=== PATIENT | female | born 1990 | race Caucasian/White ===

== ENCOUNTER → 2018-07-24 13:17 | Outpatient (CLI) | payer MEDICAID, SELFPAY ==
--- NOTE | 2018-07-24 12:30 | US_ITS ---
STUDY: SECOND AND THIRD TRIMESTER OBSTETRICAL ULTRASOUND REASON FOR EXAM: Female, 27 years old. 2nd trimester complete OB ultrasound with anatomy survey and biometrics. LMP: 02/27/2018 TECHNIQUE: Transabdominal PRIOR ULTRASOUND: None. FINDINGS: There is a single live intrauterine gestation in cephalic presentation with cardiac rate 138 bpm. The cervix is 4.1 cm in length, closed. Normal amniotic fluid quantity, deepest vertical pockets 4.5 and 3.1 cm. The placenta is anterior to posterior, not low-lying, bilobed appearance most consistent with a succenturiate placenta. The smaller appearing accessory lobe of the placenta lies fundal posterior and the more prominent portion of the placenta lies anterior. The maternal adnexa are examined with no acute abnormality seen. BIOMETRY: Measurements and centimeter. BPD: 5.4: 22 weeks, 4 days HC: 19.76: 22 weeks, 0 days AC: 17.54: 22 weeks, 4 days FL: 3.66: 21 weeks, 5 days CI: 80% FL/BPD: 68% FL/AC: 21% HC/AC: 1.13 age by current US: 22 weeks, 2 days. NOA by current US: 11/25/2018. Estimated weight: 475 grams, +/- 69 grams, 93 %. Age by LMP: 21 weeks, 0 days. NOA by LMP: 12/04/2018. ANATOMY: Gender: Male Cranium: Normal lateral ventricles. Normal choroid plexus. Normal cerebellum. Normal cisterna magna. Coronal views of the nose, lips, and orbits are satisfactory and appear normal. The sagittal midline view of the face could not be obtained due to positioning. Chest: Normal 4-chamber heart. Abdomen/Pelvis: Normal diaphragm. Normal stomach. Normal abdominal wall. Normal cord insertion. Normal 3 vessel cord. Normal kidneys. Normal bladder. Spine: Normal cervical spine. Normal thoracic spine. Normal lumbar spine. Normal sacrum. Extremities: Normal bilateral upper extremities. Normal bilateral lower extremities. US/OB Anatomy Scan IMPRESSION: Single live intrauterine gestation. No acute or maternal abnormality is evident. Bilobed morphology of the placenta in a pattern consistent with succenturiate placenta. Anatomy survey is satisfactory and normal with the exception of the sagittal midline view of the face. This view could not be obtained due to positioning. A limited follow-up ultrasound is recommended after a brief period of growth for completion of the survey. Electronically Signed: Gerardo Mcmahon, at 17:55 EDT Tel , Service support ,
== END ==
PROVIDERS: Visit Provider Obstetrics & Gynecology
DX: O43.192 Other malformation of placenta, second trimester (principal); Z3A.22 22 weeks gestation of pregnancy
CPT/HCPCS: 76805

== ENCOUNTER → 2018-09-05 15:54 | Outpatient (CLI) | payer MEDICAID, SELFPAY ==
[2018-09-05 15:02] VITALS: BMI 23.0
--- NOTE | 2018-09-05 15:57 | US_ITS ---
STUDY: SECOND AND THIRD TRIMESTER OBSTETRICAL ULTRASOUND - LIMITED REASON FOR EXAM: Female, 27 years old. Follow-up anatomy. LMP: 02/27/2018 PRIOR ULTRASOUND: 07/24/2018 TECHNIQUE: Transabdominal TECHNICAL QUALITY: Adequate. FINDINGS: There is a single intrauterine fetus. The fetus is in a breech presentation. There is demonstrated cardiac activity with a heart rate of 135 bpm. There is a normal amniotic fluid volume. The largest amniotic fluid pocket measures 3.5 cm. The amniotic fluid index (SHANNEN) is 11.2 cm. The placenta is bilobed anterior and posterior, not low-lying There are Grade 1 placental changes. The cervix measures 4.5cm in length. BIOMETRY: BPD: 7.1 cm: 28 weeks, 5 days HC: 25.8 cm: 28 weeks, 1 days AC: 23.3 cm: 27 weeks, 5 days FL: 5.1 cm: 24 weeks, 4 days Age by LMP: 27 weeks, 1 days. NOA by LMP: 12/04/18. age by prior US: 28 weeks, 3 days. NOA by prior US: 11/25/18. age by current US: 28 weeks, 1 days. NOA by current US: 11/25/18. Estimated weight: 1108 grams, +/- 162 grams, 59 percentile. Gender: Indeterminant Previous study did not clearly demonstrate the profile, face nose and lips. Though structures are visualized on today's examination and are sonographically normal. US/OB Limited With Biometrics IMPRESSION: Single live intrauterine at 28 weeks, 1 day by current ultrasound with NOA of 11/25/2018. Previously described anatomy showed be normal on today's study. There are no suspicious sonographic findings. Presentation on current study is breech. Electronically Signed: Sulaiman Potts MD at 8:41 EST , Service support ,
[2018-09-05 17:19] LABS: Absolute Lymphocyte Count 1.39 X10^3/ul (0.83-4.51); Absolute Neutrophil Count 8.3 X10^3/uL (2.0-7.7); Basophil# 0.01 X10^3/uL; Basophil% 0.1 % (0-1); Eosinophil# 0.07 X10^3/uL; Eosinophils% 0.7 % (0-5); Hematocrit 35.2 % (37-47); Hemoglobin 11.8 g/dl (12.0-15.0); Lymphocyte # 1.39 X10^3/ul (4.0); Lymphocyte % 13.5 % (19-41); Mean Corp Hgb Conc 33.5 g/gl (32-36); Mean Corpuscular Volume 92.4 fL (81-99); Mean Platelet Vol. 11.5 fl (6.2-12.0); Monocyte# 0.49 X10^3/uL; Monocyte% 4.8 % (0-10); Neutrophil # 8.28 X10^3/uL (2.7-7.7); Neutrophil % 80.3 % (47-70); Platelet Count 137 K/mm3 (150-450); RBC Distribution Width CV 13.6 % (11.6-14.6); RBC Distribution Width SD 45.2 fl (35.1-43.9); Red Blood Count 3.81 M/mm3 (4.2-5.4); White Blood Count 10.3 K/mm3 (4.4-11.0)
[2018-09-05 17:23] LABS: POSITIVE COUNT NO; POSITIVE DIFFERENTIAL NO; POSITIVE MORPHOLOGY NO
[2018-09-05 17:34] LABS: Glucose Challenge Gest 1H 50g 93 mg/dL (70-140)
--- OUTSIDE RECORDS SUMMARY | 2018-10-31 15:37 | XMS RPT_ITS ---
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 [facility], Cord Blood Registry, [phone]) [facility], An Internet search may provide you with additional listings. Kathleen Carreon RN 04/03/2018 11:22 AM Signed #: 1, Date: [birth year], Sex: Male, Weight: 5 lb 11 oz (2.58 kg), GA: 37w6d, Delivery: Vaginal, Spontaneous Delivery, Apgar1: 8, Apgar5: 9, Living: Living, Comments: [place], pitocin induction, IUGR, EBL 200cc, depression #: 2, Date: 07/2013, Sex: None, Weight: None, GA: 6w0d, Delivery: SPONTANEOUS , Apgar1: None, Apgar5: None, Living: None, Comments: Sarah MORGAN #: 3, Date: 10/27/14, Sex: Female, Weight: 5 lb 3.7 oz (2.373 kg), GA: 34w3d, Delivery: Vaginal, Spontaneous Delivery, Apgar1: 8, Apgar5: 9, Living: Living, Comments: Spontaneous labor, PTL, EBL 200cc #: 4, Date: None, Sex: None, Weight: None, GA: None, Delivery: None, Apgar1: None, Apgar5: None, Living: None, Comments: None Referring Provider: SELF [200] Allergies As of Date: 04/03/2018 Noted Allergy Reaction ADHESIVE TAPE (ROSINS) 04/03/2018 2 - Rash Comments: Clear Bandage used for IV PENICILLINS 08/22/2005 2 - Rash Date Reviewed: 04/03/2018 Reviewed by: Kathleen Carreon RN - Fully Assessed Reason for Visit: Care [86] Cmt: Pre-New OB Primary Visit Diagnosis:High risk , antepartum [O09.90] Other Visit Diagnoses:PERSONAL HISTORY OF PRE-TERM LABOR [V13.21] [Z87.51] IUGR (intrauterine growth restriction) in prior , [O09.299] History of delivery, currently [O09.219] History of depression [Z86.59] Family history of congenital heart defect [Z82.79] Nausea and vomiting in [O21.9] Order(s):MIGUEL ÁNGEL PT ED MICROBIOLOGY PROFESSOR [] Order #: [id number]: 1 FUTURE MIGUEL ÁNGEL PT ED MICROBIOLOGY PROFESSOR [] Order #: [id number]: 1 FUTURE MIGUEL ÁNGEL PT ED MICROBIOLOGY PROFESSOR [] Order #: [id number]: 1 FUTURE MIGUEL ÁNGEL PT ED MICROBIOLOGY PROFESSOR [] Order #: [id number]. #:[id number]: 1 MIGUEL ÁNGEL PT ED MICROBIOLOGY PROFESSOR [] Order #: [id number]. #:[id number]: 1 MIGUEL ÁNGEL PT ED MICROBIOLOGY PROFESSOR [] Order #: [id number]. #:[id number]: 1 Prescriptions as of 04/03/2018 Sig: VITAMIN,CALCIUM,MINE* Take 1 tablet by mouth. Problem List As Of Date 04/03/2018 Noted Resolved Spotting in first trimester [O26.851] INVALID FOR*04/14/2013 More... H/O defect [Z87.798] INVALID FOR*06/17/2013 More... Immunization due [Z23] INVALID FOR*06/17/2013 More... Late care [O09.30] INVALID FOR*06/17/2013 More... Supervision of normal first [Z34.00] INVALID FOR*06/17/2013 More... TMJ (temporomandibular joint disorder) [M26.609]INVALID FOR*06/17/2013 SGA (small for gestational age) [P05.10] INVALID FOR*06/17/2013 More... Situational mixed anxiety and depressive disord*INVALID FOR* More... Contraceptive management [Z30.9] INVALID FOR*08/03/2014 Short interval between pregnancies complicating*INVALID FOR*12/13/2014 More... History of prior with IUGR [Z*INVALID FOR*12/13/2014 More... First trimester bleeding [O20.9] INVALID FOR*12/13/2014 More... History of congenital heart defect [Z87.74] INVALID FOR*12/13/2014 More... Anemia in [O99.019] INVALID FOR*12/13/2014 Threatened labor, antepartum [O47.00] INVALID FOR*12/13/2014 More... IUGR (intrauterine growth restriction) in prior*INVALID FOR* More... History of delivery, currently *INVALID FOR* More... History of depression [Z86.59] INVALID FOR* More... Family history of congenital heart defect [Z82.*INVALID FOR* More... Nausea and vomiting in [O21.9] INVALID FOR* More... Other instructions from your clinician: SEQUENTIAL SCREENINGS [facility] offers sequential screenings for women who are interested in screenings for chromosomal abnormalities and certain defects during a . The sequential screen combines ultrasound and blood tests to determine the risk of chromosomal abnormalities, including Down's Syndrome (Trisomy 21) and Trisomy 18, as well as open neural tube defects including spina bifida. Ultrasound examination is performed between 11 weeks and 13 weeks gestational age. Blood tests are drawn after the ultrasound and again later in the between 15 and 21 weeks gestational age. Please let your physician know if you are interested in this testing. It will require an appointment with our refractory technician. This is not an ultrasound performed by a physician in our office during a routine visit. SIGNS AND SYMPTOMS OF LABOR 1. Contractions every 10 minutes or more often 2. Clear, pink, or brownish fluid (water) leaking from vagina 3. Feeling that baby is pushing down, pressure 4. Low, dull backache 5. Cramps that feel like a period 6. Cramps with or without diarrhea If you notice any of the above symptoms, contact our office at [phone] and ask to speak with a nurse. After hours, you can call doctors registry at [phone] OR call [facility] at [phone] and ask to have the doctor telephone clerk paged. If you consider this an emergency, dial 9-1-1 or go to your nearest emergency department. Cord-Blood Banking Up until recently, the umbilical cord--along with the blood that remained in it after a baby was born and the cord cut--was simply discarded by the hospital. Then, in the late , researchers discovered that cord blood possessed unusual properties that made it useful in the treatment of patients with some cancers and other illnesses. While the actual process of collecting cord blood is straightforward, many parents are not even aware that this option now exists, much less familiar with all the issues involved. The case for saving your baby's cord blood The blood running back and forth between your baby and the placenta is full of immature cells called stem cells. Unlike embryonic stem cells, which have the ability to develop into any type of body cell, cord-blood stem cells already are locked into a certain, vital function: making all the different components of the blood, such as platelets, white blood cells, and red blood cells-serving, in effect, like bone marrow. When transfused into a patient whose own blood cells have faulty genetic coding or have been destroyed by chemotherapy or other cancer treatments, the cord-blood cells can implant themselves in the bone marrow and generate legions of new, healthy cells. These days, cord-blood transplants most commonly are used in cancer patients when a donor can't be found for a bone-marrow transplant. The treatment is particularly effective in young patients- the [facility] Cord Blood [facility] reports a 70 percent success rate in children, but only 20 to 40 percent in adults. Researchers envision improving those odds and see many future applications as well, such as curing sickle cell disease and other blood-related genetic illnesses. So there is a possibility that your child, or someone else, may need these super-healthy and versatile cells one day. The drawbacks Aside from not knowing about this medical option, the main reason most people do not save their baby's stem cells is cost. In a private blood bank, the initial costs run from $275 to $1,500. Most also charge a yearly storage fee of $50 to $95. The advantage of using a private bank is that your sample is saved for only you to use. An alternative to private banking Public cord-blood gentile are an alternative. These cost no money to use, but your sample is not specifically saved for you. Another person with a more immediate need may use it. If the time should come that you need stem cells, yours may still be available, or you may use donations from other people without charge. You also can direct your sample to go to a relative with an immediate need if the blood type matches. Anyone else needing to use stem cells from a public bank who has not been a donor must pay for it, sometimes tens of thousands of dollars. Will my family benefit from saving stem cells? Right now, situations in which stem cells would be helpful are quite rare. As mentioned earlier, stem-cell transplants are most commonly used for rare genetic conditions and for some types of cancer, including leukemia and lymphoma. And even with these present uses, many questions remain. In cancer treatment, for example, some researchers are concerned about the wisdom of transplanting back into the child the same cells that already showed a propensity to become malignant. Doctors also aren't sure if the number of cells taken at the time of would be enough to treat a full-grown 16-year-old. It is also not completely clear how active the cells would be after years of being stored. The treatment is so new and rare, we just don't have the data yet to resolve these important issues. What do the experts say? The [place] [employer] encourages philanthropic blood banking in public gentile, but only for families with a current or potential need. Blood-bank proponents encourage any kind of banking, pointing out that research is getting closer and closer to many diverse, live-saving applications. How do I decide? Each family must weigh the pros and cons for themselves. Some families say that any cost is worth their peace of mind. Others say that in the face of uncertainty about the effectiveness of the treatment, they will use their resources elsewhere. Some choose the middle ground of donating publicly, knowing that their sample might benefit another family, if not themselves. For more information, ask your doctor or nurse, and be sure to check out our article on the technical aspects of cord-blood banking. Technical Aspects of Cord-Blood Banking If you are interested in storing your baby's umbilical- cord blood because of its possible use in emerging medical treatments, you must make arrangements with a blood bank before your child is born. The collection procedure is quite simple: After delivery of the baby, the umbilical cord is clamped and cut in the usual way. The blood that remains in the umbilical-cord vessels is then collected in sterile containers. The blood may be removed from the cord with a large needle or allowed to flow freely, depending on the company's collection system. The containers may look like large test tubes or like the plastic bags used in a blood bank. It does not cause the mother or the baby any pain to collect the blood, and no blood is taken that the baby needs at the moment. The nurse, fire fighter crash fire and rescue, or physician will then label the samples, check them over with you, and package them for a special pickup arranged with a commercial carrier. When the blood arrives at the blood- bank facility, it is processed and the parents are notified. It is then kept in an advanced storage system for years. How do I know that my sample is safe? Power outages and bankruptcies potentially could threaten any organization, but so far none have been reported. It is to be hoped that the scientists in these gentile would arrange for safe transfer to another facility if the need arose. YOU MUST MAKE ARRANGEMENTS AHEAD OF TIME! Public cord-blood gentile--DONATION: [employer] [phone] [facility]'s Placental Blood Program, [facility]ilical Cord Blood [facility], Private cord-blood gentile--SAVING FOR YOUR OWN USE: [employer], (I think this is the least expensive) [employer] [phone] [facility], ([phone]) [employer] [place] [facility], [phone] Cells, [phone] [place] [facility], Cord Blood Registry, ([phone]) CORDBLOOD [employer], An Internet search may provide you with additional listings. Disposition: Return in about 7 days (around 04/10/2018) for New OB appointment. Follow-up and Disposition History Recorded Encounter Status:Closed by KATHLEEN CARREON RN on 04/03/18 PROGRESS Observed: 03/28/2018 Status: COMPLETED Source: LIN 10:43 AM [facility] [place] REPOSITORY HNO ID: [id number] Author: Jaimee Tucker) [place] Service: (none) Author Type: Nurse Practitioner Type: Progress Notes Filed: 03/28/2018 11:10 AM Note Text: Halie Garcia is a 27 year old female who presents for problem visit Irregular menses. HPI: pt states that since the Nexplanon was removed that menses have been irregular. She will bleed for 2 weeks and stop for 2 weeks. She believes that her LMP was the end of January but unsure- did take a home test on Saturday and was unsure of the reading. PAST MEDICAL HISTORY Diagnosis Date - Abnormal Pap smear of cervix 2008 [facility] - Anemia in 09/13/2014 - FRACTURE ANKLE, GYM ACCIDENT - Situational mixed anxiety and depressive disorder 07/10/2013 PAST SURGICAL HISTORY Procedure Laterality Date - PAST SURGICAL HISTORY OF ORAL SUREGERY FAMILY HISTORY Problem Relation Age of Onset - Arthritis Maternal Grandmother - Asthma Maternal Grandmother - Cancer Paternal Grandmother - Diabetes Maternal Grandmother - Hypertension Maternal Grandmother - Seizures Mother - Thyroid Maternal Grandmother Social History Marital status: Spouse name: EDGAR Years of education: 13 Number of children: 1 Occupational History 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 Take only active pills. Kbeujvdj-Rk-Wix-Fe-FA ( VITAMIN) tab Take 1 tablet by mouth. No current facility-administered medications for this visit. Allergies As of Date: 03/28/2018 Allergen Noted Reaction PENICILLINS 08/22/2005 Rash Fully Assessed 12/06/2017 REVIEW OF SYSTEMS Abdomen: some nausea and decrease in appetite recently Bladder: No dysuria, gross hematuria, urinary frequency, urinary urgency, or incontinence. Expanded ROS: N/A Allergies and current medication updated:Yes EXAM: There were no vitals taken for this visit. GENERAL: pleasant, female in no apparent distress HEENT: Normocephalic, atraumatic and no lesions CHEST: Normal inspiratory effort NEURO: alert and oriented x3,exam grossly non-focal EXTREMITIES: normal ASSESSMENT AND PLAN: Encounter Diagnosis ICD-10-CM 1. Irregular menses N92.6 HCG QUAL UR B/O + urine in the office- pt happy with + test. Early ultrasound ordered. PNOB visit to be schedule. Jaimee Gentile APRN.CNP CNOV Observed: 03/28/2018 Status: COMPLETED Source: [place] 10:30 AM [facility] REPOSITORY Office Visit (WOOB) HALIE GARCIA ([id number]) 1990 F Date Time Provider Department 03/28/18 10:30 AM JAIMEE GENTILE (MELISA) WOJONATHAN During your visit today, we recorded the following information about you: Blood pressure Weight Height Last Period 100/70 48.4 kg 1.562 m 01/26/18 Jaimee Gentile APRN.CNP 03/28/2018 11:10 AM Signed Halie Garcia is a 27 year old female who presents for problem visit Irregular menses. HPI: pt states that since the Nexplanon was removed that menses have been irregular. She will bleed for 2 weeks and stop for 2 weeks. She believes that her LMP was the end of January but unsure- did take a home test on Saturday and was unsure of the reading. PAST MEDICAL HISTORY Diagnosis Date - Abnormal Pap smear of cervix 2008 [facility] - Anemia in 09/13/2014 - FRACTURE ANKLE, GYM ACCIDENT - Situational mixed anxiety and depressive disorder 07/10/2013 PAST SURGICAL HISTORY Procedure Laterality Date - PAST SURGICAL HISTORY OF ORAL SUREGERY FAMILY HISTORY Problem Relation Age of Onset - Arthritis Maternal Grandmother - Asthma Maternal Grandmother - Cancer Paternal Grandmother - Diabetes Maternal Grandmother - Hypertension Maternal Grandmother - Seizures Mother - Thyroid Maternal Grandmother Social History Marital status: Spouse name: EDGAR Years of education: 13 Number of children: 1 Occupational History 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 Take only active pills. Mfrfekxm-Db-Fmx-Fe-FA ( VITAMIN) tab Take 1 tablet by mouth. No current facility-administered medications for this visit. Allergies As of Date: 03/28/2018 Allergen Noted Reaction PENICILLINS 08/22/2005 Rash Fully Assessed 12/06/2017 REVIEW OF SYSTEMS Abdomen: some nausea and decrease in appetite recently Bladder: No dysuria, gross hematuria, urinary frequency, urinary urgency, or incontinence. Expanded ROS: N/A Allergies and current medication updated:Yes EXAM: There were no vitals taken for this visit. GENERAL: pleasant, female in no apparent distress HEENT: Normocephalic, atraumatic and no lesions CHEST: Normal inspiratory effort NEURO: alert and oriented x3,exam grossly non-focal EXTREMITIES: normal ASSESSMENT AND PLAN: Encounter Diagnosis ICD-10-CM 1. Irregular menses N92.6 HCG QUAL UR B/O + urine in the office- pt happy with + test. Early ultrasound ordered. PNOB visit to be schedule. Jaimee Gentile, ANANDA.LABORER ADJUSTABLE STEEL JOIST Referring Provider: SELF [200] Allergies As of Date: 03/28/2018 Noted Allergy Reaction PENICILLINS 08/22/2005 2 - Rash Date Reviewed: 03/28/2018 Reviewed by: Jaimee (Melisa) Seferino - Fully Assessed Reason for Visit: Menstrual Problem [67] Primary Visit Diagnosis:Irregular menses [N92.6] Other Visit Diagnosis:Encounter for test, result positive [Z32.01] Order(s):HCG QUAL UR B/O [[id number]] Order #: [id number] OBSTETRIC ULTRASOUND WHI [[id number]] Order #: [id number]: 1 Prescriptions as of 03/28/2018 Sig: VITAMIN,CALCIUM,MINE* Take 1 tablet by mouth. Problem List As Of Date 03/28/2018 Noted Resolved Spotting in first trimester [O26.851] INVALID FOR*04/14/2013 More... H/O defect [Z87.798] INVALID FOR*06/17/2013 More... Immunization due [Z23] INVALID FOR*06/17/2013 More... Late care [O09.30] INVALID FOR*06/17/2013 More... Supervision of normal first [Z34.00] INVALID FOR*06/17/2013 More... TMJ (temporomandibular joint disorder) [M26.609]INVALID FOR*06/17/2013 SGA (small for gestational age) [P05.10] INVALID FOR*06/17/2013 More... Situational mixed anxiety and depressive disord*INVALID FOR* More... Contraceptive management [Z30.9] INVALID FOR*08/03/2014 Short interval between pregnancies complicating*INVALID FOR*12/13/2014 More... History of prior with IUGR [Z*INVALID FOR*12/13/2014 More... First trimester bleeding [O20.9] INVALID FOR*12/13/2014 More... History of congenital heart defect [Z87.74] INVALID FOR*12/13/2014 More... Anemia in [O99.019] INVALID FOR*12/13/2014 Threatened labor, antepartum [O47.00] INVALID FOR*12/13/2014 More... Medications Discontinued During This Encounter norgestimate 0.25 mg-ethinyl estradi* 3 Pa* 5 12/11/2017 03/28/2018 Route: ORAL Sig: Take 1 tablet by mouth once daily. Take only active pills. Patient not taking: Reported on 03/28/2018 Disc: Reason for discontinue is not on file. Encounter Status:Closed by JAIMEE GENTILE on 03/28/18 PROGRESS Observed: 12/06/2017 Status: COMPLETED Source: [place] 11:34 AM [facility] REPOSITORY HNO ID: [id number] Author: Jaimee Gentile Service: (none) Author Type: Nurse Practitioner Type: Progress Notes Filed: 12/06/2017 12:12 PM Note Text: Halie Garcia is a 27 year old female who presents for Nexplanon removal for abnormal bleeding. UNIVERSAL PROTOCOL / SAFETY CHECKLIST Procedure to be performed: nexplanon removal Sign in Communication: Completed Time Out: Team Confirms the Correct Patient, Correct Procedure, Correct Site and Site Marking, Correct Position (if applicable), Prep and Dry Time (if applicable). Time: 1150 Affirmation of Time Out: YES Sign Out Discussion: Completed TECHNIQUE: Patient placed in supine position with right arm bent at the elbow and placed over the head. Skin cleansed with betadine. 2mL of 1% lidocaine with epi injected subQ along insertion site. Scalpel used to made a 5mm stab incision superficially at distal end of Nexplanon. Device removed under sterile technique with a small hemostat. Sterile pressure dressing applied. AANDP: 27 year old female here for implanon removal Nexplanon removed intact without difficulty. The patient was instructed to remove the dressing after 24 hours. Contraceptive plans OCP JAIMEE GENTILE CNP CNOV Observed: 12/06/2017 Status: COMPLETED Source: [place] 11:30 AM [facility] REPOSITORY Office Visit (WOOB) HALIE GARCIA ([id number]) 1990 F Date Time Provider Department 12/06/17 11:30 AM JAIMEE GENTILE) WOOB During your visit today, we recorded the following information about you: Blood pressure Weight 104/60 49.9 kg JAIMEE GENTILE CNP 12/06/2017 12:12 PM Signed Halie Garcia is a 27 year old female who presents for Nexplanon removal for abnormal bleeding. UNIVERSAL PROTOCOL / SAFETY CHECKLIST Procedure to be performed: nexplanon removal Sign in Communication: Completed Time Out: Team Confirms the Correct Patient, Correct Procedure, Correct Site and Site Marking, Correct Position (if applicable), Prep and Dry Time (if applicable). Time: 1150 Affirmation of Time Out: YES Sign Out Discussion: Completed TECHNIQUE: Patient placed in supine position with right arm bent at the elbow and placed over the head. Skin cleansed with betadine. 2mL of 1% lidocaine with epi injected subQ along insertion site. Scalpel used to made a 5mm stab incision superficially at distal end of Nexplanon. Device removed under sterile technique with a small hemostat. Sterile pressure dressing applied. AANDamp;P: 27 year old female here for implanon removal Nexplanon removed intact without difficulty. The patient was instructed to remove the dressing after 24 hours. Contraceptive plans OCP JAIMEE GENTILE CNP Referring Provider: SELF [200] Allergies As of Date: 12/06/2017 Noted Allergy Reaction PENICILLINS 08/22/2005 2 - Rash Date Reviewed: 12/06/2017 Reviewed by: Jaimee Tucker) Seferino - Fully Assessed Reason for Visit: nexplanon removal [Other] Primary Visit Diagnosis:Encounter for IUD removal [Z30.432] Other Visit Diagnosis:Oral contraception initial prescription [Z30.011] Order(s):L-NorgestANDE Estradiol-E Estrad (LOSEASONIQUE) 0.10 mg-20 mcg (84)/10 mcg (7) 3MPkTake 1 tablet by mouth once daily.Disp: 1 PackageRfl: 3 Prescriptions as of 12/06/2017 Sig: L NORGEST/E ESTRADIOL-E ESTRA* Take 1 tablet by mouth once d* VITAMIN,CALCIUM,MINE* Take 1 tablet by mouth. Problem List As Of Date 12/06/2017 Noted Resolved Spotting in first trimester [O26.851] INVALID FOR*04/14/2013 More... H/O defect [Z87.798] INVALID FOR*06/17/2013 More... Immunization due [Z23] INVALID FOR*06/17/2013 More... Late care [O09.30] INVALID FOR*06/17/2013 More... Supervision of normal first [Z34.00] INVALID FOR*06/17/2013 More... TMJ (temporomandibular joint disorder) [M26.609]INVALID FOR*06/17/2013 SGA (small for gestational age) [P05.10] INVALID FOR*06/17/2013 More... Situational mixed anxiety and depressive disord*INVALID FOR* More... Contraceptive management [Z30.9] INVALID FOR*08/03/2014 Short interval between pregnancies complicating*INVALID FOR*12/13/2014 More... History of prior with IUGR [Z*INVALID FOR*12/13/2014 More... First trimester bleeding [O20.9] INVALID FOR*12/13/2014 More... History of congenital heart defect [Z87.74] INVALID FOR*12/13/2014 More... Anemia in [O99.019] INVALID FOR*12/13/2014 Threatened labor, antepartum [O47.00] INVALID FOR*12/13/2014 More... Prescriptions ordered this encounter Disp Refills Start End L NORGEST/E ESTRADIOL-E ESTRAD 0.10 * 1 Pa* 3 12/06/2017 Route: ORAL Sig: Take 1 tablet by mouth once daily. Medications Discontinued During This Encounter levonorgestrel (MIRENA) 20 mcg/24 hr* 1 Ea* 0 12/29/2014 12/06/2017 Class: In Office Cmt: LOT # [id number] EXP: 09/05/2017 Route: INTRAUTERINE Si Each by INTRAUTERINE route continuous. Disc: Reason for discontinue is not on file. escitalopram oxalate (LEXAPRO) 10 mg* 30 t* 2 11/24/2015 12/06/2017 Route: ORAL Sig: Take 1 tablet by mouth once daily. Disc: Reason for discontinue is not on file. Encounter Status:Closed by JAIMEE GENTILE on 12/06/17 ALLERGIES ALLERGIES DATE TYPE / CODE NAME / CODE REACTION SEVERITY SOURCE 09/23/2018 Drug Penicillins/F001 Hives Unknown [place] Allergy/344272757( 268383(RXNORM) [facility] SNOMED CT) Hospital Repository 09/23/2018 Miscellaneous IV patch/latex Rash/welt [place] Allergy/044749224( [facility] SNOMED CT) Hospital Repository 04/03/2018 Chemical/240365763 ADHESIVE TAPE RASH [place] (SNOMED CT) (ROSINS) [facility] [place] Repository 08/22/2005 Drug PENICILLINS RASH Lin Class/[id number]([facility] Main [facility] [place] Rep[place] Drug PCN Moderate Sammy Pome[place] Allergy/344316915( (penicillin)/000 ([facility]) 78042(RXNORM) Modifier) Hospital (Qualifier Repository Value) ENCOUNTERS ENCOUNTERS ADMIT/DISCHARGE ACCOUNT ADMITTING ENCOUNTER LOCATION SOURCE NUMBER CLASS 09/23/2018/09/23/20 [id number] Ambulatory BMSBuilding:B [place] 18 [facility] Repository 09/17/2018/09/17/20 [id number] GENE BRYSON Ambulatory [facility] [address] Repository 09/05/2018 [id number] Ambulatory [facility] ing:US Repository 09/05/2018/09/05/20 [id number] Ambulatory BMSBuilding:B [place] 18 [facility] Repository 08/08/2018/08/08/20 [id number] Ambulatory BMSBuilding:B [place] 18 [facility] Repository 07/24/2018 [id number] Ambulatory [facility] ing:OPUS Repository 06/27/2018/06/30/20 [id number] Ambulatory [address] Repository 06/27/2018/06/27/20 [id number] Ambulatory BMSBuilding:B [place] 18 [facility] Repository 05/28/2018/05/28/20 [id number] Ambulatory BMSBuilding:Corbin Hinkle 18 [facility] Repository 05/09/2018 [id number] Ambulatory BMSBuilding:Corbin Hinkle MS[facility] Repository 05/09/2018/05/12/20 [id number] Ambulatory [address] Repository 05/09/2018/05/09/20 [id number] Ambulatory [address] Main [place] Repository 04/17/2018/04/23/20 [id number] Ambulatory [address] Main [place] Repository 04/16/2018/04/25/20 [id number] Ambulatory [address] [place] Repository 04/16/2018/04/25/20 [id number] Ambulatory [address] Repository 04/16/2018 [id number] Ambulatory BMSBuilding:Corbin Hinkle MS[facility] Repository 04/03/2018/04/04/20 [id number] Ambulatory [address] [place] Repository 04/03/2018/04/04/20 [id number] Ambulatory [address] [place] Repository 03/28/2018/03/31/20 [id number] Ambulatory [address] Main [place] Repository 12/06/2017/12/11/19 [id number] Ambulatory [address] Repository PAYERS PAYERS ENCOUNTER GUARANTOR PAYER SUBSCRIBER SOURCE 09/23/2018 HALIE Llanos Primary HALIE Hinkle [id number] [facility] [place]: [id number] [id number] Repository 13282Ymv: [phone]) Date:2018-08-08 [phone] (AQ) 8994ATTN: [place] [address]PJ: 09/23/2018 Secondary NOT GIVENSANA Hinkle Insurance:SELF PAY [facility] Number: Effective Repository Date:2018-09-23 09/17/2018 HALIE Viet Primary Halie Llanos Sammy Unique BOWDOB: Insurance:[facility]: [facility] [id number] [place] [address] Number: [place] Rep[place] [id number] [place] [id number]: Date:Plan Name:[phone] (HP) 09/05/2018 HALIE Llanos Primary HALIE [id number] Insurance:CARESOURCEPo BOWERDOB: [facility] RDAPT licy Number: [id number] [id number] Repository [address]Xzn: [phone] Date:2018-08-25[phone] (HP) 8730ATTN: [place] [address]KV: 09/05/2018 Secondary NOT GIVENUNK [place] Insurance:SELF PAY [facility] Number: Effective Repository Date:2018-08-25 09/05/2018 HALIE Llanos Primary HALIE Hinkle [id number] Insurance:CARESOURCEPo [facility]OWERDOB[facility] Number: [id number], [place] [id number] Repository [phone]: [phone] Date:2018-08-08P [phone] (HP) [phone]: [place] [address]LD: 09/05/2018 Secondary NOT GIVENUNK [place] Insurance:SELF PAY [facility] Number: Effective Repository Date:2018-09-05 08/08/2018 Edgar Careyer9751 Primary HALIE [facility] Insurance:CARESOURCEPo BOWERDOB: [address] licy Number: [id number] Hospital [address]Edu: [phone] [id number] Repository [phone] (HP) Date:2018-07-14[address]ATTN: [place] [address]KG: 08/08/2018 Secondary NOT GIVENUNK [place] Insurance:SELF PAY [facility] Number: Effective Repository Date:2018-07-14 07/24/2018 Edgar [id number] Primary HALIE DUFFY [facility] Insurance:CARESOURCEPo BOWERDOB: Community [address] [place] [address] licy Number: [id number] Hospital [address]Sqb: [phone] [id number] Repository [phone] (HP) Date:2018-06-13P [address]ATTN: [place] [address]GF: 07/24/2018 Secondary NOT GIVENUNK [place] Insurance:SELF PAY [facility] Number: Effective Repository Date:2018-06-13 06/27/2018 Edgar Careyer9751 Primary [facility] Insurance:CARESOURCEPo NAVEEDDOB: [address] licy Number: [id number] Hospital [address]Ubp: [phone] [id number] Repository [phone] (HP) Date:2018-05-28P [address]ATTN: [place] [address]XZ: 06/27/2018 Secondary NOT GIVENUNK [place] Insurance:SELF PAY [facility] Hospital Number: Effective Repository Date:2018-06-27 05/28/2018 Edgar Careyer9751 Primary [facility] Insurance:CARESOURCEPo NAVEEDDOB: [address] licy Number: [id number] Hospital [address]Jue: [phone] [id number] Repository [phone] (HP) Date:2018-05-15 [address]ATTN: [place] [address]DJ: 05/28/2018 Secondary NOT GIVENUNK [place] Insurance:SELF PAY [facility] Hospital Number: Effective Repository Date:2018-05-28 05/09/2018 Edgar Careyer9751 Primary [facility] Insurance:MEDICAIDPoli BOWVALENTINDOB: Community [address] [place] [address] [place] Number: [id number] Hospital [address]Sll: [phone] [id number] Repository [phone] (HP) Date:2018-05-09 05/09/2018 Secondary NOT GIVENUNK [place] Insurance:SELF PAY [facility] Number: Effective Repository Date:2018-05-09 04/16/2018 Edgar [id number] Primary [facility] Insurance:MEDICAIDSamuel PRESLEYB: [address] Number: [id number] Hospital [address]Smi: [phone]) [id number] Repository [phone] () Date:2018-04-16 04/16/2018 [facility]SELF [facility] Number: Effective Repository Date:2018-04-16
== END ==
PROVIDERS: Referring Provider Obstetrics & Gynecology; Visit Provider Obstetrics & Gynecology
DX: N89.8 Other specified noninflammatory disorders of vagina (principal)
CPT/HCPCS: 36415; 76816; 82950; 85025; 87070; 87205

== ENCOUNTER 2018-10-31 14:35 | Outpatient (CLI) | payer MEDICAID, SELFPAY ==
[2018-10-24 12:19] VITALS: BMI 23.0
[2018-10-31 15:01] VITALS: BMI 27.0
[2018-10-31 16:01] LABS: ROM Internal Control Test YES-OK TO RESULT pt. (Internal QC); ROM Patient Test Negative (Negative)
--- NOTE | 2018-11-05 00:30 | OB.TRI.NOTE ---
- Problem List (1) Threatened labor Status: Acute History of Present Illness Date of Service: 10/31/18 Was patient seen by the physician?: No Reason For Visit: R/O SROM History of Present Illness: threatened labor Allergies Penicillins Allergy (Verified 10/31/18 14:59) Hives IV patch/latex Adverse Reaction (Mild, Uncoded 10/31/18 14:59) Rash/welt Laboratory Studies: Laboratory Tests 10/31/18 Range/Units 15:10 Vag Amniotic Fld Detect Negative (Negative) NST - FHR Rate Baby A Baseline: 130 Variability:: Moderate Accelerations:: 15 x 15 Decelerations:: None NST Reactive:: Yes FHR Category:: Category I Uterine Activity:: irregular Impression/Plan threatened labor no cervical change dc home
== END 2018-10-31 16:25 | disposition home or self-care (01) ==
LOC: WPOUT 14:36 → WP 14:37
PROVIDERS: Referring Provider Obstetrics & Gynecology; Visit Provider Obstetrics & Gynecology
DX: O60.00 Preterm labor without delivery, unspecified trimester (principal); Z3A.00 Weeks of gestation of pregnancy not specified
CPT/HCPCS: 59025; 59050; 84112; 99218; G0378

== ENCOUNTER → 2018-11-06 10:05 | Outpatient (CLI) | payer MEDICAID, SELFPAY ==
[2018-11-06 10:00] VITALS: BMI 27.0
[2018-11-06 10:25] LABS: Absolute Lymphocyte Count 1.07 X10^3/ul (0.83-4.51); Absolute Neutrophil Count 8.1 X10^3/uL (2.0-7.7); Basophil# 0.02 X10^3/uL; Basophil% 0.2 % (0-1); Eosinophil# 0.05 X10^3/uL; Eosinophils% 0.5 % (0-5); Hematocrit 36.5 % (37-47); Hemoglobin 12.1 g/dl (12.0-15.0); Lymphocyte # 1.07 X10^3/ul (4.0); Lymphocyte % 10.8 % (19-41); Mean Corp Hgb Conc 33.2 g/gl (32-36); Mean Corpuscular Hgb 30.5 pg (27.0-32.0); Mean Corpuscular Volume 91.9 fL (81-99); Mean Platelet Vol. 11.8 fl (6.2-12.0); Monocyte# 0.55 X10^3/uL; Monocyte% 5.6 % (0-10); Neutrophil # 8.14 X10^3/uL (2.7-7.7); Neutrophil % 82.3 % (47-70); Platelet Count 133 K/mm3 (150-450); RBC Distribution Width CV 13.9 % (11.6-14.6); RBC Distribution Width SD 46.5 fl (35.1-43.9); Red Blood Count 3.97 M/mm3 (4.2-5.4); White Blood Count 9.9 K/mm3 (4.4-11.0)
[2018-11-06 10:27] LABS: POSITIVE COUNT NO; POSITIVE DIFFERENTIAL NO; POSITIVE MORPHOLOGY NO
== END ==
PROVIDERS: Referring Provider Nurse Practitioner Women's Health; Visit Provider Nurse Practitioner Women's Health
DX: O09.219 Supervision of pregnancy with history of pre-term labor, unspecified trimester (principal); Z3A.00 Weeks of gestation of pregnancy not specified
CPT/HCPCS: 36415; 85025; 87081

== ENCOUNTER 2018-11-18 12:15 | Outpatient (CLI) | payer MEDICAID, SELFPAY ==
[2018-11-14 14:39] VITALS: BMI 27.0
[2018-11-18 14:20] VITALS: BMI 27.8
--- NOTE | 2018-11-26 21:13 | OB.TRI.NOTE ---
- Problem List (1) False labor Status: Acute History of Present Illness Date of Service: 11/18/18 Was patient seen by the physician?: No Reason For Visit: false labor History of Present Illness: patient presents for contractions Allergies Penicillins Allergy (Verified 11/24/18 23:30) Hives IV patch/latex Adverse Reaction (Mild, Uncoded 11/24/18 23:30) Rash/welt NST - FHR Rate Baby A Baseline: 130-140 Variability:: Moderate Accelerations:: 15 x 15 Decelerations:: None NST Reactive:: Yes FHR Category:: Category I Uterine Activity:: irregular Impression/Plan false labor no cervicla change dc home
== END 2018-11-18 14:30 | disposition home or self-care (01) ==
LOC: WPOUT 12:44 → WP 12:45
PROVIDERS: Referring Provider Obstetrics & Gynecology; Visit Provider Obstetrics & Gynecology
DX: O47.9 False labor, unspecified (principal); Z3A.00 Weeks of gestation of pregnancy not specified
CPT/HCPCS: 59025; 59050; 99218; G0378

== ENCOUNTER 2018-11-25 01:00 | Inpatient (IN) | payer MEDICAID, SELFPAY ==
[2018-11-21 09:53] VITALS: BMI 27.8
[2018-11-24 23:28] VITALS: BMI 28.0
[2018-11-25] VITALS (19 sets, daily range): BP systolic 93–117; BP diastolic 47–72; PULSE 72–92; RESP 14–18; TEMP 36.4–36.8; O2SAT 94–98
[2018-11-25 00:48] LABS: Color, Urine Yellow (Yellow); Glucose, Dipstick Normal (Normal); Ketone-Dipstick Negative (Negative); Leukocyte Esterase-Dipstick 500 /ul (Negative); Nitrite-Dipstick Negative (Negative); Occult Blood-Urine 150 /ul (Negative); Protein-Dipstick 30 mg/dl (Negative); Specific Gravity, Urine 1.025 (1.002-1.030); Urine Bilirubin Dipstick Negative (Negative); Urine Clarity Sl. Cloudy (Clear); Urine Urobilinogen Normal (Normal)
[2018-11-25 01:10] LABS: Bacteria 2+ /hpf (None Seen); Mucous, Urine 1+ /hpf (<or=2+); Red Blood Cells-Urine 10-25 SEEN /hpf (0-5); Squamous Epithelial Cells - UA 5-10 SEEN /hpf (5-10); White Blood Cells 25-50 SEEN /hpf (0-5)
[2018-11-25] MEDS: Lactated Ringers 1,000 ML 50 ML IV ×3 (01:15→07:31)
[2018-11-25 01:27] LABS: Hematocrit 35.5 % (37-47); Hemoglobin 11.8 g/dl (12.0-15.0); Mean Corp Hgb Conc 33.2 g/gl (32-36); Mean Corpuscular Hgb 30.4 pg (27.0-32.0); Mean Corpuscular Volume 91.5 fL (81-99); Mean Platelet Vol. 12.8 fl (6.2-12.0); Platelet Count 146 K/mm3 (150-450); RBC Distribution Width CV 14.3 % (11.6-14.6); RBC Distribution Width SD 46.7 fl (35.1-43.9); Red Blood Count 3.88 M/mm3 (4.2-5.4); Scan Indicated on CBC? Y/N NO; White Blood Count 9.6 K/mm3 (4.4-11.0)
[2018-11-25] MEDS: Acetaminophen 325 MG Tablet PO (02:22)
[2018-11-25 07:06] LABS: Amphetamine Urine VISTA NEGATIVE (<1000 ng/mL); Barbiturate Urine VISTA NEGATIVE (< 200 ng/mL); Benzodiazepine Urine VISTA NEGATIVE (< 200 ng/mL); Cocaine Urine VISTA NEGATIVE (< 300 ng/mL); Ecstacy Urine VISTA NEGATIVE (< 500 ng/mL); Methadone Urine VISTA NEGATIVE (< 300 ng/mL); PCP Urine VISTA NEGATIVE (< 25 ng/mL); THC Urine VISTA NEGATIVE (< 50 ng/mL); Vista UDS pH Range 7
[2018-11-25] MEDS: fentaNYL-bupivacaine (epidural) 100 ML BAG EPIDURAL (07:37)
--- NOTE | 2018-11-25 08:21 | NURSING ---
catheter placed by collin melton.
[2018-11-25] MEDS: Lactated Ringers 1,000 ML 100 ML IV ×2 (11:00→21:46)
--- NOTE | 2018-11-25 13:12 | HP.PCM_ITS ---
- Problem List (1) Breech delivery Status: Acute (2) Gestational thrombocytopenia Status: Acute Qualifiers: Comment: CBC at 36 weeks-stable (3) Placenta succenturiata in first trimester Status: Acute Comment: No further management needed. noted for delivery (4) Status: Acute Qualifiers: Comment: genetic and NTD and carried screening declined. (5) High risk due to history of labor Status: Acute Qualifiers: Comment: PRR NOA 12/04/18 Boy PC May Reji Herrera. History Date of Admission: 11/25/18 Final NOA: 12/04/18 Gestational age: 38 Weeks and 6 Days History of this : This is a 28 year-old, at 38 weeks gestational age presents IAL. After patient had been laboring for several hours it was discorved she was breech. Allergies Penicillins Allergy (Verified 11/24/18 23:30) Hives IV patch/latex Adverse Reaction (Mild, Uncoded 11/24/18 23:30) Rash/welt Home Medications: Home Medications Vits [Prenatabs FA ] 1 tab PO DAILY 10/18/14 Pnv No.103/Folic/Om3s/Fish Oil [ Gummies] 1 ea PO BID 10/31/18 Smoking Status: Never smoker Alcohol: None Substance Use Type: Marijuana Number of Fetus(es): 1 Heart Tracin moderate variability reactive no decelerations category I tracing [place]: regular History Past Pregnancies: Past Pregnancies Pregancy History 4 Elective abortions Hx Para 2 Spontaneous abortions 1 Hx # Term Pregnancies Ectopic pregnancies Hx # Pregnancies Multiple births # of living children Past Pregnancies Del. Date Name GA/Weeks Outcome Route Bth Weight Gen Labor Lgth Anesthesia Del Locatn Provider FOB 04/15/13 Reji 37 live - full term 5 lbs 11 oz Male 25 hours epidural [facility] 10/27/14 May 32 live - 5 lbs 3.7 oz. Female 6 hours epidural [facility] Labs: Mom's Problem List Problem Status Onset Code Breech delivery Acute O32.1XX0 Mom's Labs & Results 11/25/18 11/25/18 11/25/18 00:30 01:15 01:15 WBC 9.6 RBC 3.88 L Hgb 11.8 L Hct 35.5 L MCV 91.5 MCH 30.4 MCHC 33.2 RDW 14.3 RDW Differential 46.7 H Plt Count 146 L MPV 12.8 H Urine Color Yellow Urine Clarity Sl. Cloudy Urine pH 6.0 Ur Specific [place] 1.025 Urine Protein 30 H Urine Glucose (UA) Normal Urine Ketones Negative Urine Occult Blood 150 H Urine Nitrite Negative Urine Bilirubin Negative Urine Urobilinogen Normal Ur Leukocyte Esterase 500 H Urine RBC 10-25 SEEN Urine WBC 25-50 SEEN Ur Squamous Epith Cells 5-10 SEEN Urine Bacteria 2+ Urine Mucus 1+ Urine Opiates Screen Urine Methadone Screen Ur Barbiturates Screen Ur Phencyclidine Scrn Ur Amphetamines Screen U Methamphetamin-MDMA U Benzodiazepines Scrn Urine Cocaine Screen U Cannabinoids Screen Ur Drug Screen Comment Blood Type O POSITIVE Antibody Screen POSITIVE H Antibody Identification ANTI-C Antigen Identification C ANTIGEN - NEGATIVE Crossmatch See Detail 11/25/18 11/26/18 06:45 04:50 WBC 8.4 RBC 3.35 L Hgb 10.1 L Hct 31.4 L MCV 93.7 MCH 30.1 MCHC 32.2 RDW 14.2 RDW Differential 46.8 H Plt Count 89 L MPV 12.3 H Urine Color Urine Clarity Urine pH Ur Specific [place] Urine Protein Urine Glucose (UA) Urine Ketones Urine Occult Blood Urine Nitrite Urine Bilirubin Urine Urobilinogen Ur Leukocyte Esterase Urine RBC Urine WBC Ur Squamous Epith Cells Urine Bacteria Urine Mucus Urine Opiates Screen NEGATIVE Urine Methadone Screen NEGATIVE Ur Barbiturates Screen NEGATIVE Ur Phencyclidine Scrn NEGATIVE Ur Amphetamines Screen NEGATIVE U Methamphetamin-MDMA NEGATIVE U Benzodiazepines Scrn NEGATIVE Urine Cocaine Screen NEGATIVE U Cannabinoids Screen NEGATIVE Ur Drug Screen Comment Blood Type Antibody Screen Antibody Identification Antigen Identification Crossmatch Course Did the patient receive Yes care? Labs Blood Type: O RH: POSITIVE RPR/VDRL/Syphilis Nonreactive Rubella status Immune HbSAg Negative Date Done: 05/09/18 Chlamydia Negative Gonorrhea Negative HIV/AIDS Non-Reactive Group B Strep: Negative Current Obstetrical History Gestational Diabetes No Incompetent Cervix No Infertility No IUGR No Macrosomia No Hypertension/Pre-eclampsia No Placenta Previa/Abruption No PTL/PROM No Uterine anomaly No Oligohydramnios No Polyhydramnios No Multiple gestation No Past Medical History Asthma Yes: pt states had a child but outgrew Diabetes No Hypertension No Heart disease No Mitral valve prolapse No Neurologic/Seizure disorder/ No Migraines Kidney disease No Liver disease No Varicosities No Clotting disorders/Hx of DVT No Thyroid Dysfunction No Other medical diseases No Psychiatric disorders Yes: history of anxiety and depression Major trauma No Abnormal PAP smear No Sleep apnea No Mammogram in the last 2 years No Social History Marital Status: Alleged father Edgar Hx Smoking No Smoking Status Never smoker Substance Use Type Marijuana How long have you used PT STATES A COUPLE YEARS AND USES FOR ANXIETY substances (years)? What date/time did you last PT STATES NOT BEING ABLE TO REMEMEBER; FIRST use any of the above? TEST AT THE BEGINNING OF MARCH AND STATES HASNT USED SINCE Have you had any previous NO inpatient or outpatient treatment Expected Delivery Method: Primary Section Review of Systems Constitutional: Denies: Fever, Malaise Eyes: Denies: Blurred vision, Vision Change HEENT: Denies: Head Aches, Visual Changes Cardiovascular: Denies: Chest Pain, Palpitations Respiratory: Denies: Cough, Shortness of Breath, Wheezing Gastrointestinal: Denies: Abdominal Pain, Diarrhea, Nausea, Vomiting Genitourinary: Denies: Dysuria, Hematuria Musculoskeletal: Denies: Joint Pain, Muscle pain Skin: Denies: Lesions, Rash Neurological: Denies: Blurred vision, Focal weakness, Headaches Psychiatric: Denies: Anxiety, Depression Endocrine: Denies: Heat/ Cold Intolerance Hematologic/ Lymphatic: Denies: Easy Bruising, Easy Bleeding Physical Exam Vitals: Vital Signs Temp Pulse Resp BP Pulse Ox 98.3 F 74 16 96/60 95 11/25/18 12:15 11/25/18 12:15 11/25/18 12:15 11/25/18 12:15 11/25/18 12:15 General: Alert, Cooperative, No apparent distress HEENT: Atraumatic, Normocephalic. Negative for: Thyromegaly, Lymphadenopathy Cardiovascular: Regular rate Lungs: Normal air movement Abdomen: Soft, Non Tender, Gravid Neurological: Deep Tendon Reflexes 2+/4 and Symmetrical, Neuro grossly intact. Negative for: Clonus PROJECT DESIGN ENGINEER: Normal external genitalia. Negative for: Vulvar lesions Estimated gestational size: Appropriate for gestational size Presentation: Breech Cervix Dilation (cm): 4.5 Assessment/Plan All Active Problems (Last Reviewed 11/21/18 @ 09:28 by Marycruz Conteh) Breech delivery (Acute) Gestational thrombocytopenia (Acute) Placenta succenturiata in first trimester (Acute) (Acute) High risk due to history of labor (Acute) Contraception management (Resolved) Threatened labor (Resolved) This is a 28 year-old, , at 38 weeks gestational age presents IAL IAL- patient examined and found to be breech- will proceed with primary cesa rean.
--- NOTE | 2018-11-25 13:45 | OP.PCM_ITS ---
Problem List (1) Breech delivery Status: Acute (2) Gestational thrombocytopenia Status: Acute Qualifiers: Comment: CBC at 36 weeks-stable (3) Placenta succenturiata in first trimester Status: Acute Comment: No further management needed. noted for delivery (4) Status: Acute Qualifiers: Comment: genetic and NTD and carried screening declined. (5) High risk due to history of labor Status: Acute Qualifiers: Comment: PRR NOA 12/04/18 Boy Reji Ayala Herrera. 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 Patient was prepped and draped in the normal sterile fashion. Pfannenstiel skin incision was made with the scalpel and carried through to the underlying layer of fascia with the scalpel. Fascia was nicked in the midline and the incision extended laterally. The rectus bellies were dissected off superiorly and inferiorly with out complication both sharply and bluntly. The peritoneum was entered digitally. The incision was stretched and a low transverse uterine incision was made with the scalpel. The 's buttox was delivered atraumatically followed by the body and anterior and posterior shoulders without complication the rest of the infant delivered. The cord was clamped and cut and the was handed off to awaiting nurse. The placenta was delivered spontaneously immediately following and was noted to be intact and have a three-vessel cord. The uterus was exteriorized cleared of all clots and debris, and the incision was closed in a double layer closure using #1 Monocryl. an additional layer using the 3-0 monocryl and brannon was used to obtain hemostasis. The uterus was returned to the maternal abdomen and gutters were cleared of all clots and debris. The ovaries and fallopian tubes were noted to be within normal limits. The peritoneum was closed with 3-0 Monocryl in a running fashion. Fascia was closed with 0 PDS in a running fashion. Subcutaneous tissue was copiously irrigated and the skin was closed with 3-0 Monocryl in a subcuticular fashion. Mepilex dressing were applied without complication. Patient was taken to recovery in stable condition. Grafts/Implants Used: none - Complications none - Admit VTE Documentation VTE Present on Admission: No VTE Mechan Device Prophylaxis: SCD's Delivery Classification: TAVIA Final NOA: 12/04/18 Gestational age: 38 Weeks and 6 Days Indications for : Breech Vaginal Delivery Final NOA: 12/04/18 Gestational age: 38 Weeks and 6 Days
[2018-11-25] MEDS: Ketorolac 30 MG/ML Syringe IV ×2 (15:56→21:46)
[2018-11-26] VITALS (9 sets, daily range): BP systolic 94–119; BP diastolic 55–75; PULSE 69–92; RESP 16–18; TEMP 35.6–36.6; O2SAT 97–98
[2018-11-26] MEDS: Ketorolac 30 MG/ML Syringe IV ×2 (04:41→10:53)
[2018-11-26 05:21] LABS: Hematocrit 31.4 % (37-47); Hemoglobin 10.1 g/dl (12.0-15.0); Mean Corp Hgb Conc 32.2 g/gl (32-36); Mean Corpuscular Hgb 30.1 pg (27.0-32.0); Mean Corpuscular Volume 93.7 fL (81-99); Mean Platelet Vol. 12.3 fl (6.2-12.0); Platelet Count 89 K/mm3 (150-450); RBC Distribution Width CV 14.2 % (11.6-14.6); RBC Distribution Width SD 46.8 fl (35.1-43.9); Red Blood Count 3.35 M/mm3 (4.2-5.4); White Blood Count 8.4 K/mm3 (4.4-11.0)
[2018-11-26 05:23] LABS: Scan Indicated on CBC? Y/N NO
[2018-11-26] MEDS: Acetaminophen 500 MG Tablet 1000 MG PO ×2 (08:44→18:45)
[2018-11-26] MEDS: oxyCODONE 5 MG Tablet PO ×4 (08:46→22:51)
[2018-11-26] MEDS: 0.9% Saline Lock 10 ML Syringe IV ×2 (10:58→10:59)
--- NOTE | 2018-11-26 14:04 | NURSING ---
late entry 11/25/18 1400 Epidural cath removed with blue tip intact. Pt tolerated well.
[2018-11-26] MEDS: Ibuprofen 600 MG Tablet PO (16:50)
--- NOTE | 2018-11-26 17:29 | PCM.PN.OB ---
Patient Problems: Active and Suspected Problems (Last Reviewed 11/21/18 @ 09:28 by Marycruz Conteh) Breech delivery (Acute) Subjective: doing well no complaints pain controlled no CP SOB N V ambulating well tolerating po lochia moderate, going well - Physical Exam Vital Signs Temp Pulse Resp BP Pulse Ox 97.7 F L 86 18 119/75 98 11/26/18 16:39 11/26/18 16:39 11/26/18 16:39 11/26/18 16:39 11/26/18 16:39 Oxygen Delivery Method Room Air Weight: 148 lb 2.41 oz Body Mass Index (BMI) 28.0 Intake and Output for Last 24 Hours 11/24/18 11/25/18 11/26/18 23:59 23:59 23:59 Intake Total 3358 / 3358 700 / 700 Output Total 2900 / 2900 2049 / 2049 Balance 458 / 458 -1350 / -1350 Laboratory Tests Past 24 Hrs 11/26/18 04:50 WBC 8.4 RBC 3.35 L Hgb 10.1 L Hct 31.4 L MCV 93.7 MCH 30.1 MCHC 32.2 RDW 14.2 RDW Differential 46.8 H Plt Count 89 L MPV 12.3 H Medical Necessity - Tobacco Use Smoking Status: Never smoker Assessment/Plan All Active Problems (Last Reviewed 11/21/18 @ 09:28 by Marycruz Conteh) Breech delivery (Acute) Gestational thrombocytopenia (Acute) Placenta succenturiata in first trimester (Acute) (Acute) High risk due to history of labor (Acute) Contraception management (Resolved) Threatened labor (Resolved) s/p LTCS PPD # 1 1. routine post care 2. breast feeding- support given 3. rh positive 4. rubella immune
[2018-11-27] MEDS: Naproxen 250 MG Tablet PO (00:53)
[2018-11-27 02:15] VITALS: BP 100/63; PULSE 100; RESP 18; TEMP 36.3
[2018-11-27] MEDS: oxyCODONE 5 MG Tablet PO ×3 (02:53→11:58)
[2018-11-27 07:50] VITALS: BP 99/60; PULSE 89; RESP 16; TEMP 36.6
[2018-11-27] MEDS: Ibuprofen 600 MG Tablet PO (11:24)
[2018-11-27] MEDS: Senna/Docusate Sodium 1 Tablet PO (11:24)
--- NOTE | 2018-11-27 13:08 | DCINST_ITS ---
Discharge Diet: No Restrictions Discharge Activity: May Not Drive - for 2 weeks, May not drive while taking narcotic pain medications., May Shower, May Take a Tub Bath - in 7 days May resume sexual activity in: 4-6 weeks Lifting Restrictions: 20 pounds Additional Activity Instructions:: Nothing in the vagina for 4-6 weeks. You may return to work/school in 6 weeks. Call your doctor if your incision/area has: Continuous Slow Oozing, Sudden Increased Bleeding, Increased Pain/ Swelling, Increased Redness, Foul Smelling Discharge Call your doctor if you observe: Fever of 101 or Higher, Using more than one pad per hour - for 2 hours Suture Line Care: Avoid Pulling/Pushing, Avoid Pinching/Bending Cleanse incision/area with: Keep Dressing Clean & Dry Additional Instructions: If you experience any of the following, contact your healthcare provider. * Bleeding that soaks a pad every hour for 2 hours * Fever 100.4 or higher * Unrelieved incision or abdominal pain * Swelling, redness, discharge or bleeding from your incision or episiotomy site * Your incision begins to separate * Problems urinating (including inability to urinate or burning while urinating). * Visual changes * Severe headache * Flu-like symptoms * Pain or redness in one of both of your breasts * Pain, warmth, tenderness or swelling in your legs, especially the calf area * Frequent nausea and vomiting * Symptoms of depression or anxiety If you experience any of the following, call 911 or go to the nearest Emergency Room. * Chest pain * Problems breathing * Seizure activity * Partial or complete paralysis of a body part, slurred speech, weakness or drooping of the face, or a sudden inability to walk or hold your balance Allergies/Adverse Reactions: Allergies Penicillins Allergy (Verified 11/24/18 23:30) Hives IV patch/latex Adverse Reaction (Mild, Uncoded 11/24/18 23:30) Rash/welt Medications to take at Discharge Vits [Prenatabs FA ] 1 tab PO DAILY 10/18/14 Pnv No.103/Folic/Om3s/Fish Oil [ Gummies] 1 ea PO BID 10/31/18 Ibuprofen [Motrin] 600 mg PO Q6H PRN PRN #30 tablet 11/27/18 Oxycodone HCl/Acetaminophen [Percocet 5-325] 1 - 2 tablet PO Q4H PRN PRN 7 Days #28 tablet 11/27/18 The following prescriptions were given: Oxycodone HCl/Acetaminophen [Percocet 5-325] 1 - 2 tablet PO Q4H PRN PRN 7 Days #28 tablet PRN Reason: Moderate-Severe pain Ibuprofen [Motrin] 600 mg PO Q6H PRN PRN #30 tablet PRN Reason: Pain Follow-Up: Call to make an appointment with your doctor for an incision check in 1-2 weeks. You will also need a 6 week post- follow up appointment. Test results from this visit will be discussed in further detail at your follow- up appointment, if applicable. Please Follow Up With: Tash Da Silva MD - Call to make an appointment for an incision check in 1-2 [phone] When: You will need a post- check in 6 weeks. Primary Care Physician: Care Physician,No Primary [Primary Care Provider] -
--- NOTE | 2018-11-27 13:08 | PCM.PN.OB ---
Patient Problems: Active and Suspected Problems (Last Reviewed 11/21/18 @ 09:28 by Marycruz Conteh) Breech delivery (Acute) Subjective: doing well no complaints pain controlled no CP SOB N V ambulating well tolerating po lochia moderate, going well - Physical Exam General: Alert, Oriented x3 Vital Signs Temp Pulse Resp BP Pulse Ox 97.8 F 89 16 99/60 97 11/27/18 07:50 11/27/18 07:50 11/27/18 07:50 11/27/18 07:50 11/26/18 20:35 Oxygen Delivery Method Room Air Weight: 148 lb 2.41 oz Body Mass Index (BMI) 28.0 Intake and Output for Last 24 Hours 11/25/18 11/26/18 11/27/18 23:59 23:59 23:59 Intake Total 3358 / 3358 700 / 700 Output Total 2900 / 2900 2700 / 2700 Balance 458 / 458 -1999 / Medical Necessity - Tobacco Use Smoking Status: Never smoker Assessment/Plan All Active Problems (Last Reviewed 11/21/18 @ 09:28 by Marycruz Conteh) Breech delivery (Acute) False labor (Acute) Gestational thrombocytopenia (Acute) Placenta succenturiata in first trimester (Acute) (Acute) High risk due to history of labor (Acute) Contraception management (Resolved) Threatened labor (Resolved) s/p LTCS PPD # 2 1. routine post care 2. breast feeding- support given 3. rh positive 4. rubella immune
[2018-11-27] MEDS: MedroxyPROGESTERone 150 MG/ML Syringe IM (13:17)
--- NOTE | 2018-11-27 14:34 | CASEMGMT ---
Addendum entered and electronically signed by Dahlia Marte 12/01/18 12:04: Reviewed and approve LABORER [employer]OOK [employer] student documentation below. -ZELDA Milton, MORALE OFFICER Original Note: Social Work Labor and Delivery Referral date:11/26/2018 Referral time: 830am Referred by: Verbal message from nursing staff Date of Intervention: 11/27/2018 Time of Intervention: 10:20am Reason for Referral: history of depression and positive marijuana tox screen at PNC visit. History obtained from: medical record, mother of baby (MOB) Halie Garcia Household composition: MOB is living with TERE Garcia and two other children, Reji and May. Edgar has 9 year old son Ziggy from previous relationship. Ziggy is in this household every other weekend and a few days a week. MOB reported no domestic violence or safety concerns with Edgar. Patient's parent/guardian status: FOB and MOB have been for over 7 years. Edgar has shared custody of 9 year old son Ziggy. Medical History: MOB is G4:P3 to 3 after of baby. MOB has previous diagnosis of anxiety and depression/PPD. Baby Damien was born 11/25/18 at 6lbs and 15oz with scores of 9 and 9. Educational Status: MOB confirmed to have graduated high school and completed 3 years of college. MOB is able to read, write, and comprehend. 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 FOB will not be taking any time off work and MOB will have 6-8 weeks off. Supplies: MOB reports to have car seat, crib, pack and play, clothing, formula, diapers, wipes. Childcare/Caregiver(s): MOB plans to be primary caregiver. FOB will also be caregiver. GRAHAM's grandmother and MIL will also be supplemental care givers. Transportation: MOB expressed no issues with transportation. Programs/Agencies Involved: MOB and FOB are [facility]. Children Services/Legal Issues: There is no history of children's services with the previous relationship of Edgar. There is also no history between Halie and Edgar. Behavioral Health Issues: Mental Health History: GRAHAM is diagnosed with anxiety, depression/PPD. MOB has not attended counseling but has used medications such as xanax to treat her symptoms. Substance Abuse History: MOB used marijuana to treat her anxiety and sleep issues. MOB was prescribed xanax and sleep aid and lessened usage of marijuana. MOB did not use xanax or marijuana during .MOB also did not use any other substance prior or during . MOB uses alcohol socially but did not during . Family History: GRAHAM's mother is opioid user with ETOH history. Drug Screens: Positive drug screen for marijuana on 04/17/18. Negative at delivery on 11/25/18. Depression/Shaken Baby/Safe Sleeping: MOB and social work general internist reviewed safe sleeping, shaken baby, and PPD. PPD packet information reviewed and provided with both MOB and FOB. ASSESSMENT: MOB was in room with daughter May and son Damien. MOB was attentive for entire conversation with May sitting in bed and Damien in crib at bedside. MOB expressed struggling to move in and out of bed with incision and is looking forward to going home. MOB spoke about previous PPD and related the cause to having a miscarriage shortly after of Reji. MOB said also taking more time off was difficult as she enjoys being busy and it helps to cope. MOB addressed the fact that GRAHAM's mother is no longer in her life due substance abuse and dangerous boyfriend. MOB explained brother and grandmother and are all supportive of decision to remove mother from own life and life of kids. MOB disclosed that marijuana is only drug ever used and was for the purpose of falling asleep at night and treating anxiety. MOB was previously taking xanax for anxiety and stopped taking prescription when learned of . MOB also disclosed that marijuana was quit at time of learning of and does not have plans to resume using and did not use during . Student social director informed MOB of [place] law and necessity to report positive tox screen to CPS. MOB was receptive and understanding. When asked about switch of care locations MOB explained that [facility] was requiring a male, high risk doctor when MOB is not comfortable with a male doctor. MOB also reported to have experienced other issues with [facility] but was glad to have switched to Dr. Da Silva. MOB plans to resume medication and does not have plans to attend counseling as there has never been an establishment before and MOB feel medication is enough. MOB also expressed coping mechanisms to be focusing on work, kids, and their activities. MOB was gentle with Brittyn and glanced at Braxx at bedside multiple times. FOB entered room with food for Brittyn at end of conversation. This is when FOB and MOB reviewed PPD packet with Student general internist. PLAN: MOB to go home with baby. [facility] information packet provided. [facility] referral declined. Social work Student will be calling CPS for [facility] to provide information for report. -Trang Olmos, LABOR[employer] Student Game Programer.
--- NOTE | 2018-11-27 15:25 | CASEMGMT ---
Addendum entered and electronically signed by Dahlia Marte 12/01/18 12:04: Reviewed and approve CORPORATE OFFICER student documentation below. Referral to [facility] Services made regarding to substance exposed inutero/positive drug screen during care though negative at time of delivery. No drug testing performed for baby after delivery. -ZELDA Milton, TOW TRUCK DRIVER Original Note: Social Work Labor and Delivery [facility] CPS securely called at [phone] and intake information provided to Lola. No other services requested or indicated at this time. -Trang Olmos, CORPORATE OFFICER Student Wringer And Setter.
== END 2018-11-27 13:45 | disposition home or self-care (01) | DRG 540 ==
LOC: WPOUT 01:04 → WP 01:04
PROVIDERS: Admitting Provider Obstetrics & Gynecology; Referring Provider Obstetrics & Gynecology; Visit Provider Obstetrics & Gynecology
DX: O32.1XX0 Maternal care for breech presentation, not applicable or unspecified (principal); O99.324 Drug use complicating childbirth; F12.90 Cannabis use, unspecified, uncomplicated; O99.12 Other diseases of the blood and blood-forming organs and certain disorders involving the immune mechanism complicating childbirth; D69.6 Thrombocytopenia, unspecified; Z3A.38 38 weeks gestation of pregnancy; Z37.0 Single live birth
CPT/HCPCS: 59025; 59050; 76815; 80307; 81001; 85027; 86850; 86870; 86900; 86902; 86905; 86920; 86921; 86922; 99218; J7120; A4216; G0378

== ENCOUNTER 2022-06-22 17:16 | Emergency (ER) | payer MEDICAID, SELFPAY ==
[2022-06-22 17:17] VITALS: BP 116/68; PULSE 72; RESP 16; TEMP 36.8; O2SAT 99; BMI 21.9
--- NOTE | 2022-06-22 17:33 | ED.VIS.FEGU ---
HPI HPI - Female History of Present Illness Chief Complaint: Female C/O Narrative Narrative: 31-year-old female presents with possible miscarriage. She states that she was taking control, and had irregular menses. Her last menstrual period was approximately 6 weeks ago. When she had missed the timing when her menses was supposed to happen, she took a home test which was negative. However, she repeated it and it was positive. She began having vaginal bleeding 4 to 5 days ago which was like a regular menses, but then it stopped today. She states her abdomen feels bloated and she feels pressure in her pelvis. She denies any chest pain or shortness of breath, no fever. Once again, she took another home test after the bleeding stopped, and it was negative. Hence, she is unsure if she was ever or she had a false positive test. Currently, she is a G4, P3 not including this time where she thinks she may have been . She presents to the emergency department unsure if she had a miscarriage and wondering if she is currently . 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 HEENT: No sore throat. No neck pain. No loss of vision. No rhinorrhea. Cardiovascular: No chest pain. No palpitations. No pedal edema. Respiratory: No cough, no shortness of breath. Abdominal: No abdominal pain. No nausea. No vomiting. Feeling of abdominal bloating. Genitourinary: No dysuria. No hematuria. Positive pelvic pressure. Vaginal bleeding x4 to 5 days-resolved. Musculoskeletal: No myalgias. No arthralgias. Neurologic: No headaches. No dizziness. No lightheadedness. Skin: No rash. No change in color. Psychiatric: No depression. No anxiety. EXAM Physical Exam Narrative Exam Narrative: Afebrile. Vital signs noted. HEENT: Normocephalic. Atraumatic. PERRL, EOMI. Neck soft and supple. No point tenderness or step off. Cardiovascular: Regular rate and rhythm. No murmurs, rubs, or gallops appreciated. Respiratory: No tachypnea. Lungs clear to auscultation bilaterally. Gastrointestinal: Abdomen soft, nontender, with normoactive bowel sounds. No rebound or guarding. Neurological: Awake. Alert. Nonfocal, nonlateralizing. Skin: No rash. Normal color. No pallor. Musculoskeletal: No pedal edema. Full range of motion extremities. Genitourinary: Pelvic examination deferred as the patient no longer has vaginal bleeding. Const Vital Signs: 06/22/22 17:17 06/22/22 17:17 Temperature 98.2 F 98.2 F Temperature Source Temporal Temporal Pulse Rate 72 72 Respiratory Rate 16 16 Blood Pressure 116/68 116/68 Blood Pressure Mean 84 84 Pulse Ox 99 99 Oxygen Delivery Method Room Air Room Air MDM MDM MDM Narrative Medical decision making narrative: I had a lengthy discussion with the patient. She was told that I am unable to tell whether or not she had a miscarriage if she had a positive home test, and now it is negative. I will check a CBC on her to look for profound anemia given that she stated that she felt lightheaded at times. I will also obtain a qualitative serum hCG as it may be more sensitive than a urine test. She is unsure of her blood type and thinks it is in a positive so I will check an ABO Rh. Additionally, I will check her hormone level. I did review her EMR and she is O+ and her blood type. CBC is normal with a normal hemoglobin of 13.1. Serum is negative. Additionally, her quantitative measurement is normal at 1. Given that her vaginal bleeding just ceased today, I am unsure as to if she ever had a significant rise in her hormone levels to say that she had a versus miscarriage. We did discuss the possibility of false positive home test. Regardless, I do not feel that emergent ultrasound is indicated. She was referred to the AUTO RADIO MECHANIC on-call. Additionally, she states she will follow-up with her family doctor. I feel she can be discharged safely home with follow-up. Return instructions were reviewed. Disposition is discharged home in stable condition. Lab Data Labs: Laboratory Results - last 24 hr 06/22/22 06/22/22 17:40 17:40 WBC 6.1 RBC 4.22 Hgb 13.1 Hct 39.1 MCV 92.7 MCH 31.0 MCHC 33.5 RDW Std Deviation 44.1 H RDW Coeff of Prince 12.9 Plt Count 174 MPV 10.8 Immature Gran % (Auto) 0.500 Neut % (Auto) 69.5 Lymph % (Auto) 23.9 [place] % (Auto) 4.6 Eos % (Auto) 1.3 Baso % (Auto) 0.2 Absolute Neuts (auto) 4.3 Absolute Lymphs (auto) 1.47 Nucleated RBC % 0 HCG, Quant 1 Serum , Qual NEGATIVE Discharge Plan Triage Chief Complaint: Female C/O ED Provider: Rik Falcon Dx/Rx/DC Orders Clinical Impression: test negative, Vaginal bleeding Instructions: ED Dysfunctional Uterine Bleeding Primary Care Provider: Analy Faye MANAGER OF ENTERPRISE Referrals: Anjelica Jenkins MD [Med Staff - Director Medical Science] - Joe Carrasco MD [Med Staff - Active Staff] - As soon as possible Disposition Disposition: Home, Self Care
[2022-06-22 17:58] LABS: Absolute Lymphocyte Count 1.47 X10^3/uL (0.83-4.51); Absolute Neutrophil Count 4.3 X10^3/uL (2.0-7.7); Basophil# 0.01 X10^3/uL; Basophil% 0.2 % (0-1); Eosinophil# 0.08 X10^3/uL; Eosinophils% 1.3 % (0-5); Hematocrit 39.1 % (37-47); Hemoglobin 13.1 g/dL (12.0-15.0); Lymphocyte # 1.47 X10^3/ul (0.83-4.51); Lymphocyte % 23.9 % (19-41); Mean Corp Hgb Conc 33.5 g/dL (32-36); Mean Corpuscular Volume 92.7 fL (81-99); Mean Platelet Vol. 10.8 fl (6.2-12.0); Monocyte# 0.28 X10^3/uL; Monocyte% 4.6 % (0-10); NRBC Flagged by Analyzer 0 % (0-5); Neutrophil # 4.27 X10^3/uL (2.7-7.7); Neutrophil % 69.5 % (47-70); Platelet Count 174 K/mm3 (150-450); RBC Distribution Width CV 12.9 % (11.6-14.6); RBC Distribution Width SD 44.1 fl (35.1-43.9); Red Blood Count 4.22 M/mm3 (4.2-5.4); White Blood Count 6.1 K/mm3 (4.4-11.0)
[2022-06-22 18:00] LABS: Internal QC Validated? YES +Cl - CLEAR BKGD
[2022-06-22 18:19] LABS: Pregnancy, Serum, hCG Quali. NEGATIVE Negative (0-9 Nonpreg); hCG Titer Quant., Serum 1 mIU/mL (1-3)
== END 2022-06-22 19:06 | disposition home or self-care (01) ==
PROVIDERS: Emergency Provider Emergency Medicine; PCP Nurse Practitioner Family; Visit Provider Emergency Medicine
DX: N93.9 Abnormal uterine and vaginal bleeding, unspecified (principal); F12.90 Cannabis use, unspecified, uncomplicated
CPT/HCPCS: 84702; 84703; 85025; 86900; 86901; 99283; A4216

== ENCOUNTER → 2022-12-03 | Outpatient (CLI) | payer MEDICAID, SELFPAY ==
[2022-12-03 17:04] LABS: hCG Titer Quant., Serum 125 mIU/mL (1-3)
== END | disposition home or self-care (01) ==
LOC: WOBLAB 15:45
PROVIDERS: PCP Nurse Practitioner Family; Visit Provider Student in an Organized Health Care Education/Training Program
DX: N93.9 Abnormal uterine and vaginal bleeding, unspecified (principal)
CPT/HCPCS: 36415; 84702

== ENCOUNTER → 2022-12-19 | Outpatient (CLI) | payer MEDICAID, SELFPAY ==
[2022-12-19 17:10] LABS: Absolute Lymphocyte Count 1.18 X10^3/uL (0.83-4.51); Absolute Neutrophil Count 3.9 X10^3/uL (2.0-7.7); Basophil# 0.02 X10^3/uL; Basophil% 0.4 % (0-1); Eosinophil# 0.04 X10^3/uL; Eosinophils% 0.7 % (0-5); Hematocrit 41.4 % (37-47); Hemoglobin 13.6 g/dL (12.0-15.0); Lymphocyte # 1.18 X10^3/ul (0.83-4.51); Lymphocyte % 21.7 % (19-41); Mean Corp Hgb Conc 32.9 g/dL (32-36); Mean Corpuscular Hgb 29.9 pg (27.0-32.0); Mean Platelet Vol. 10.5 fl (6.2-12.0); Monocyte# 0.26 X10^3/uL; Monocyte% 4.8 % (0-10); NRBC Flagged by Analyzer 0 % (0-5); Neutrophil # 3.94 X10^3/uL (2.7-7.7); Neutrophil % 72.2 % (47-70); Platelet Count 211 K/mm3 (150-450); RBC Distribution Width CV 12.6 % (11.6-14.6); RBC Distribution Width SD 41.4 fl (35.1-43.9); Red Blood Count 4.55 M/mm3 (4.2-5.4); White Blood Count 5.5 K/mm3 (4.4-11.0)
[2022-12-19 18:59] LABS: ALB/GLOB Ratio 1.3 RATIO (0.9-2.4); AST(SGOT) 11 U/L (15-37); Alanine Aminotransfer ALT/SGPT 18 U/L (13-56); Albumin, Serum 4.1 g/dL (3.2-5.0); Alkaline Phosphatase 48 U/L (45-117); Anion Gap 7 (5-15); BUN 11 mg/dL (7-18); BUN/Creat Ratio 15.7 RATIO (10-20); Calcium,Total 9.1 mg/dL (8.5-10.1); Chloride 109 mmol/L (98-107); EST Glomerular Filtration Rate 104 mL/min (>60); Est Glom Filt Rate - Afr Amer 126 mL/min (>60); Globulin 3.1 g/dL (2.2-4.2); Glucose 101 mg/dL (74-106); Potassium 3.2 mmol/L (3.5-5.1); Protein, Total 7.2 g/dL (6.4-8.2); Sodium Level 143 mmol/L (136-145); T4 Free Direct 0.88 ng/dL (0.76-1.46); Thyroid Stim Hormone (TSH) 1.01 uIU/mL (0.358-3.74); hCG Titer Quant., Serum 71 mIU/mL (1-3)
== END | disposition home or self-care (01) ==
LOC: WOBLAB 16:09
PROVIDERS: PCP Nurse Practitioner Family; Visit Provider Obstetrics & Gynecology
DX: O02.1 Missed abortion (principal)
CPT/HCPCS: 36415; 80053; 84439; 84443; 84702; 85025; 86850; 86870; 86900; 86901

== ENCOUNTER 2023-01-07 09:30 | Day surgery (SDC) | payer MEDICAID, SELFPAY ==
[2023-01-07] VITALS (16 sets, daily range): BP systolic 78–119; BP diastolic 44–78; PULSE 41–68; RESP 14–18; TEMP 36.1–36.9; O2SAT 97–100; BMI 20.8
--- NOTE | 2023-01-07 | POC_PTH ---
PATIENT: RAGINI LUCIO LOC: [facility] [place] U#:[id number] AGE/SX: 32/F ROOM: RE01/07/[address]: Dr. Katharine Carrasco, : 1990 BED: DIS: 01/07/2023 SPEC #: [id number] RECD: 01/07/23 13:11 STATUS: VANDANA MIROSLAVA #: [id number] BRANDON: 01/07/23 00:[address]: Katharine Carrasco DEPT: SURGICAL PATHOLOGY RECD BY: Ludwin Senior ENTERED: 01/07/23 13:11 SP TYPE: PROD CONC OTHR DR: Analy Faye, MERCHANT SEAMAN-C Tissues: Product of conception, NOS Procedures: Surgery Specimen Level IV HEADER OPERATION: Suction dilation and curettage PRE-OP DIAGNOSIS: Missed TISSUE SUBMITTED: Products of conception MICROSCOPIC DIAGNOSIS Endometrium, curettage: Chorionic villi, decidualized stroma and trophoblastic cells consistent with products of conception. AM:ilya 01/08/2023 MICROSCOPIC DESCRIPTION Slides are reviewed. GROSS DESCRIPTION Received in fixative is one container labeled with the patient's name and designated products of conception. The specimen consists of multiple irregular fragments of pink soft tissue that in aggregate measure 5.0 x 4.5 x 0.5 cm. tissue is not identified. Sanding Machine Tender tissue is submitted in two cassettes. / SJ:ilya 01/07/2023 TC:5 CPT: 00776
[2023-01-07] MEDS: Lactated Ringers 1,000 ML 15 ML IV ×3 (10:44→14:34)
--- NOTE | 2023-01-07 10:48 | HP.PCM.OB_ITS ---
History and Physical Date of Admission: 01/07/23 HPI: 32-year-old female with missed for suction dilation curettage. Denies headache or vision changes, chest pain or shortness of breath, nausea or vomiting, fevers or chills, diarrhea constipation. OPERATIONAL RISK MANAGER history: G5, P2 Medical history: Depression Surgical history: 1. section Medications: 1. Trazodone Family history: Noncontributory Allergies: 1. Penicillin Social history: Reports smoking, denies alcohol or drug use Review of system: Negative otherwise above Physical exam: Vitals pending General: No acute distress HEENT: Normal cephalic/atraumatic, PERRLA Cardiorespiratory: No increased effort Abdomen: Soft, nontender Extremities: No edema Neurologic: Cranial nerves II through XII grossly intact, no focal deficits Musculoskeletal: Strength out of 5 throughout extremities Assessment/plan: 32-year-old female with missed for suction dilation curettage. Patient had 3 repeat ultrasounds on December 03, December 19, January 01 noting large fluid collection versus gestational sac and possible crown-rump length. No heart rate had been seen on any ultrasound. Patient also had a prior ultrasound at [facility] prior to her first here. She had planned elective termination, but was turned away due to ultrasound findings. Attempted Cytotec x2, no success. US 12/03: GS 3.5 cm, CRL 2.1 cm US 12/19: GS/fluid collection 5x2.5x4.3 cm, CRL 4.2 cm US 01/01: GS/fluid collection 4.8 x 3.1 x 4.5 cm CRL 3.4 cm All risk, benefits, alternatives discussed with the patient. Risk include but not limited to: Risk of bleeding the point of transfusion, infection, injury to surrounding tissue including bowel/bladder/uterine perforation, VTE, ICU admission. Patient aware and consented. Declines genetic testing.
[2023-01-07 10:50] LABS: Hematocrit 40.1 % (37-47); Hemoglobin 13.7 g/dL (12.0-15.0); Mean Corp Hgb Conc 34.2 g/dL (32-36); Mean Corpuscular Hgb 31.1 pg (27.0-32.0); Mean Corpuscular Volume 91.1 fL (81-99); Mean Platelet Vol. 10.6 fl (6.2-12.0); Platelet Count 162 K/mm3 (150-450); RBC Distribution Width CV 12.9 % (11.6-14.6); RBC Distribution Width SD 42.9 fl (35.1-43.9); White Blood Count 2.6 K/mm3 (4.4-11.0)
--- NOTE | 2023-01-07 11:17 | PCM.OPRPT ---
Report of Operation Date of Procedure: 01/07/23 Pre-Operative Diagnosis: Missed Post-Operative Diagnosis: Missed Surgery/Procedure Performed:: Suction dilation and curettage Description of Surgical Findings:: Normal-appearing external genitalia. No uterine descensus. Cervix not dilated. Type of Anesthesia: MAC Specimen's removed: products of conception Estimated Blood Loss (mL): 10 cc Fluids Replaced: 700cc Description of Procedure: Indications/Risks/Benefits: 32-year-old female with missed plan for suction dilation and curettage. All risk, benefits, alternatives discussed with the patient.? Risk include but not limited to: Risk of bleeding the point of transfusion, infection, injury to surrounding tissue including bowel/bladder/uterine perforation, VTE, ICU admission.? Patient aware and consented.? Declines genetic testing. Procedure: Patient taken the operating room and placed under MAC anesthesia. Patient placed in the dorsal lithotomy position prepped and draped in the usual sterile fashion. Weighted speculum placed in posterior vagina and Lawson retractor used to visualize the cervix. Anterior lip of the cervix grasped with Allis clamp. Cervix gradually dilated. 9 mm suction curette placed through the cervical canal and removal of all products of conception was completed in a 360 degree manner. Portion of products of conception removed at cervical os using pickups. Uterus and cervix hemostatic. Allis clamp removed, weighted speculum removed. At the end of procedure all needle, lap, sponge counts were correct. Urine output: None measured Complications None
--- NOTE | 2023-01-07 11:21 | DCINST_ITS ---
Discharge Instructions Diet Discharge Diet: No restrictions Activity Discharge Activity: Return to Normal Activity and May Shower May resume sexual activity in: 2 weeks Weight Bearing Status: Weight bearing as tolerated Lifting Restrictions: None Dressing / Incision Call your doctor if you observe: Fever of 101 or Higher, Change in Color, Inability to urinate, Using more than 1 pad per hour, Shortness of breath, Dizziness, Swelling in the ankles, Chest pain and Calf discomfort Follow Up Care Please Follow Up With: Katharine Carrasco DO When: 1-2 week postoperative visit Test Results: Test results from this visit will be discussed in further detail at your follow- up appointment, if applicable. Discharge Plan Admission Primary Reason for Your Visit: Miscarriage, Dilation and curettage. Attending Provider: Katharine Carrasco Primary Care Provider: Analy Faye NP Discharge Orders/Prescriptions Prescriptions: Discontinued misoprostol 200 mcg Tablet 200 mcg VAGINAL Q12H oxycodone 5 mg Capsule 5 mg PO Q6H PRN (Reason: Pain) Referrals / Follow Up: Analy Faye NP, DIRECTOR OF PATIENT CARE-C [Primary Care Provider] - Disposition Disposition (needs filled in before D/C Order can be placed): Home, Self Care
--- NOTE | 2023-01-07 12:36 | SUR.PHASEI ---
PATIENT UNABLE TO AROUSE, HR IN 40'S TO 50'S SINUS SHANNAN, BP 80'S-90'S/50'S, O2 SAT 98% ON ROOM AIR. DR. ARNOLD CATALAN UPDATED. CAME TO ASSESS PATIENT AND PATIENT BEGAN TO AWAKEN WHEN NAME CALLED. LUNGS CLEAR, NO DRAINAGE NOTED ON MARY PAD.
--- NOTE | 2023-01-07 12:43 | SUR.PHASEI ---
PATIENT HR IN 40'S SINUS SHANNAN. DR. ARNOLD CATALAN IN TO SEE PATIENT; NO NEW ORDERS RECEIVED. BP 80'S/60'S, 100% ON ROOM AIR. PATIENT SLEEPING BUT DOES AWAKEN WHEN NAME CALLED AND C/O OF CRAMPING. TURNS ONTO SIDE AND BACK TO SLEEP.
--- NOTE | 2023-01-07 13:55 | SUR.PHASEII ---
PATIENT UP TO THE RR AND FILLED A MARY PAD IN LESS THAN 3 MINUTES. A STEADY STREAM OF BLOOD NOTICED COMING FROM VAGINA. DR. NEWBERRY TO BE CALLED.
[2023-01-07] MEDS: Ondansetron 4 MG/2 ML Vial IV (14:01)
[2023-01-07] MEDS: HYDROcodone Bitartrate/Apap 5/325 Tablet PO (14:02)
--- NOTE | 2023-01-07 14:15 | SUR.PHASEII ---
PATIENT SATURATED ANOTHER PAD WITH BLOOD. DR. NEWBERRY ORDERED METHERGINE IM.
[2023-01-07] MEDS: Methylergonovine 0.2 MG/ML Ampul IM (14:27)
--- NOTE | 2023-01-07 14:30 | SUR.PHASEII ---
ANOTHER PAD SATURATED. IM METHERGINE JUST GIVEN IN HER LEFT BUTTUCK.
[2023-01-07] MEDS: HYDROmorphone Inj 0.2 MG/ML SYRINGE IV (15:09)
[2023-01-07] MEDS: DiphenhydrAMINE 50 MG/ML Syringe 25 MG IV (15:26)
[2023-01-07] MEDS: Metoclopramide 10 MG/2 ML Vial IV (15:26)
--- NOTE | 2023-01-07 15:30 | SUR.PHASEII ---
THIS NURSE WENT IN AND CHECKED HER CURRENT MARY PAD. IT HAS A LOT LESS BLEEDING, AND DIDN'T NEED CHANGED YET.
== END 2023-01-07 16:49 | disposition home or self-care (01) ==
LOC: SDC 09:31 → AC 10:01
PROVIDERS: PCP Nurse Practitioner Family; Referring Provider Student in an Organized Health Care Education/Training Program; Visit Provider Student in an Organized Health Care Education/Training Program
PROC: (CPT 59820; principal; 2023-01-07 10:40)
DX: O02.1 Missed abortion (principal); F17.200 Nicotine dependence, unspecified, uncomplicated
CPT/HCPCS: 59820; 01965; 85027; 86850; 86870; 86900; 86901; 88305; J7120; J2405

== ENCOUNTER 2023-01-14 23:10 | Day surgery (SDC) | payer MEDICAID, SELFPAY ==
[2023-01-14 23:11] VITALS: BP 83/62; PULSE 98; RESP 16; TEMP 36.7; O2SAT 95; BMI 20.7
[2023-01-15] VITALS (13 sets, daily range): BP systolic 80–109; BP diastolic 46–78; PULSE 52–64; RESP 14–18; TEMP 36.1–36.7; O2SAT 95–100
--- NOTE | 2023-01-15 00:40 | CT_ITS ---
INDICATION: Vaginal bleeding, lower abdominal pain post DTC EXAMINATION: CT Abdomen And Pelvis W/ Contrast Injection TECHNIQUE: Helically acquired images were obtained of the abdomen and pelvis following IV contrast. 2-D reconstructions reviewed. A radiation dose optimization technique was used for this scan. IV Contrast dosage and agent: 100 cc [id number] Oral contrast: None. COMPARISON: None. FINDINGS: LOWER CHEST: No acute findings within the imaged lung bases. Heart size within normal limits. LIVER: Slightly heterogeneous enhancement pattern likely physiologic. Liver is slightly enlarged, 19 cm craniocaudal length. No discrete mass. GALLBLADDER AND BILIARY TREE: No calcified gallstones identified. No gallbladder wall edema demonstrated. No significant biliary ductal dilation. PANCREAS: No discrete mass or peripancreatic edema. SPLEEN: Normal size without focal cystic or solid mass. ADRENAL GLANDS: Unremarkable. KIDNEYS AND URETERS: Normal renal size and position. No perinephric edema or hydronephrosis. No concerning lesion. PERITONEUM: No peritoneal free air detected. Trace free pelvic fluid. RETROPERITONEUM: No retroperitoneal mass or pathologic fluid collection. BOWEL: Normal appendix posterior to cecum adjacent to right external iliac vessels. No bowel obstruction or significant bowel thickening. No focal inflammatory change. LYMPH NODES: No enlarged mesenteric or retroperitoneal lymph nodes. VESSELS: No acute findings. No abdominal aortic aneurysm. URINARY BLADDER: Unremarkable as visualized. REPRODUCTIVE ORGANS: Retroverted and slightly enlarged uterus with thickened and/or dilated endometrium measuring almost 5 cm diameter. ABDOMINAL WALL: No acute findings or significant hernia defect. BONES: Intact with no suspicious osseous lesion. CT/Abdomen/Pelvis W IV Cont ONLY IMPRESSION: Thickened and/or dilated endometrium suggesting intrauterine blood products versus retained products of conception. Electronically Signed: Nawaf Dobbs MD at 2:24 EDT ,
--- NOTE | 2023-01-15 00:42 | ED.VIS.FEGU ---
HPI HPI - Female History of Present Illness Chief Complaint: Vag Bleeding Detail of Chief Complaint: Vaginal bleeding abdominal pain post D&C Informant: patient Pain Pain: Positive for Pelvic Pain Onset: Days Context: Gradual Onset Narrative Narrative: Patient presents secondary to abdominal pain and vaginal bleeding after having a D&C. She had a D&C for missed on January 07. Patient states she did pass a couple large clots right after the surgery. She has been having increased pain at home and states that she is still bleeding heavily. She is estimating that she is changing her pad every 2-3 hours. There have been times that she has bled through onto her close. She has not yet called her doctor. She has not had fever or chills. [facility] Medical History Alcohol use Anxiety Asthma delivery delivered Depression Easy bruising Gastric reflux Hepatitis History of edema History of pain when walking Injury of head and neck Leg cramps Loose, teeth Marijuana use Non-smoker Substance abuse Syncope Allergy/AdvReac Type Severity Reaction Status Date / Time Penicillins Allergy Hives Verified 01/14/23 23:15 IV patch/latex AdvReac Mild Rash/welt Uncoded 01/14/23 23:15 Family History Grandmother Asthma COPD (chronic obstructive pulmonary disease) Diabetes Social History number of children: 2 current occupational status: employed 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 Smoking Status: Never smoker alcohol intake: former year quit: 2017 substance use type: marijuana and other details: Quit when found out about caffeine: Yes Type: carbonated beverages Number of servings: 1 seatbelt use: always do you feel safe at home: Yes additional social history: Edgar Trinh 11 years old ROS ROS ED Constitutional Constitutional ED: Denies chills or fever(s) ENT ENT ED: Denies rhinorrhea or sore throat Cardiovascular Cardiovascular: Reports chest pain; Denies palpitations Respiratory/Chest Respiratory/Chest: Denies cough or dyspnea Gastrointestinal Gastrointestinal: Reports abdominal pain and nausea; Denies diarrhea or vomiting Genitourinary Genitourinary ED: Reports other Details: Heavy vaginal bleeding ; Denies dysuria Musculoskeletal Musculoskeletal: Denies back pain or extremity pain Integumentary Denies Abrasions or rash Neurologic Neurologic: Denies headache(s) or weakness Psychiatric Psychiatric: Denies anxiety or depression Allergic/Immunologic Allergic/Immunologic ED: Denies lip swelling or urticaria EXAM Physical Exam Const Vital Signs: 01/14/23 23:11 01/15/23 02:27 01/15/23 06:09 Temperature 98.1 F Temperature Source Temporal Pulse Rate 98 Respiratory Rate 16 Blood Pressure 83/62 L 103/66 Blood Pressure Mean 69 78 Pulse Ox 95 97 97 Oxygen Delivery Method Room Air Room Air Room Air Positive well nourished and well developed General Appearance ED: well developed HEENT Reports normocephalic and head/scalp atraumatic Eyes PERRL and EOMs intact bilaterally Neck supple Chest Wall inspection of chest normal and palpation of chest normal Resp normal respiratory effort and clear to auscultation bilaterally Cardio regular rate and regular rhythm GI GI Narrative: Lower abdominal tenderness palpation. No guarding or rebound. Palpation: soft Narrative: Mild blood noted in the vaginal vault. Cervix is closed. Extremity normal to inspection Neuro oriented x3 and no sensory deficits noted Sensorium / Orientation: alert Motor Exam: strength 5/5 throughout Psych mental status grossly normal Skin no rashes or lesions noted MDM MDM MDM Narrative Medical decision making narrative: Patient given IV fluids on arrival. Labwork obtained to evaluate for leukocytosis, anemia, and electrolyte derangement. Given the patient's recent procedure with pain throughout the abdomen up to the diaphragm a CT scan was obtained. I do not have ultrasound available at this hour in house. Lab Data Attestation: I reviewed the patient's lab results. Labs: Laboratory Results - last 24 hr 01/15/23 01/15/23 01/15/23 01:01 01:01 01:01 WBC 5.3 RBC 3.87 L Hgb 11.6 L Hct 36.6 L MCV 94.6 MCH 30.0 MCHC 31.7 L RDW Std Deviation 44.9 H RDW Coeff of Prince 13.0 Plt Count 204 MPV 11.4 Immature Gran % (Auto) 0.200 Neut % (Auto) 58.6 Lymph % (Auto) 32.9 [place] % (Auto) 5.6 Eos % (Auto) 2.1 Baso % (Auto) 0.6 Absolute Neuts (auto) 3.1 Absolute Lymphs (auto) 1.75 Nucleated RBC % 0 Sodium 137 Potassium 3.8 Chloride 108 H Carbon Dioxide 26.0 Anion Gap 3 L BUN 16 Creatinine 0.69 Estim Creat Clear Calc 89.96 Est GFR (MDRD) Af Amer 128 Est GFR (MDRD) Non-Af 106 BUN/Creatinine Ratio 23.2 H Glucose 101 Calcium 8.8 HCG, Quant < 1 Urine Color Urine Clarity Urine pH Ur Specific [place] Urine Protein Urine Glucose (UA) Urine Ketones Urine Occult Blood Urine Nitrite Urine Bilirubin Urine Urobilinogen Ur Leukocyte Esterase Urine RBC Urine WBC Ur Squamous Epith Cells Amorphous Sediment Urine Bacteria Urine Mucus 01/15/23 01:01 WBC RBC Hgb Hct MCV MCH MCHC RDW Std Deviation RDW Coeff of [place] Plt Count MPV Immature Gran % (Auto) Neut % (Auto) Lymph % (Auto) [place] % (Auto) Eos % (Auto) Baso % (Auto) Absolute Neuts (auto) Absolute Lymphs (auto) Nucleated RBC % Sodium Potassium Chloride Carbon Dioxide Anion Gap BUN Creatinine Estim Creat Clear Calc Est GFR (MDRD) Af Amer Est GFR (MDRD) Non-Af BUN/Creatinine Ratio Glucose Calcium HCG, Quant Urine Color Straw Urine Clarity Clear Urine pH 7.0 Ur Specific [place] 1.015 Urine Protein 15 H Urine Glucose (UA) Normal Urine Ketones Negative Urine Occult Blood 250 H Urine Nitrite Negative Urine Bilirubin Negative Urine Urobilinogen Normal Ur Leukocyte Esterase 25 H Urine RBC 0-5 SEEN Urine WBC 0-5 SEEN Ur Squamous Epith Cells 0-5 SEEN Amorphous Sediment 1+ Urine Bacteria 1+ Urine Mucus 0 SEEN Radiography Diagnostic Testing: Clinical Impression(s) from Imaging Studies Abdomen/Pelvis CT 01/15/23 00:40 IMPRESSION: Thickened and/or dilated endometrium suggesting intrauterine blood products versus retained products of conception. Electronically Signed: Nawaf Dobbs MD at 2:24 EDT , Treatment and Re-Evaluation Narrative: CBC was a white count of 5.3 with a hemoglobin of 11.6. This is down 2 g from her prior labs on the third. Chemistry studies are unremarkable. Quant is less than 1. Urinalysis reveals no sign of infection. CT scan with IV contrast was obtained. The endometrium is thickened and dilated suggesting possible retained products. The endometrium measures almost 5 cm in diameter. I spoke with Dr. Carrasco, patient's SUPERVISOR SHEET MANUFACTURING. She would like a formal ultrasound and that is performed when ultrasound comes in in the morning. Patient be observed in the emergency room until that time. Patient will be signed over to oncoming physician to check final ultrasound and contact Dr. Carrasco with an update. Discharge Plan Triage Chief Complaint: Vag Bleeding ED Provider: Claudia Anthony Dx/Rx/DC Orders Clinical Impression: Vaginal bleeding Primary Care Provider: Analy Faye NP Referrals: Analy Faye NP, TOOL CRIB LEAD-C [Primary Care Provider] -
[2023-01-15] MEDS: 0.9% Normal Saline 1,000 ML 1000 ML IV (01:04)
[2023-01-15 01:10] LABS: Mucous, Urine 0 SEEN /hpf (<or=2+)
[2023-01-15 01:15] LABS: Absolute Lymphocyte Count 1.75 X10^3/uL (0.83-4.51); Absolute Neutrophil Count 3.1 X10^3/uL (2.0-7.7); Basophil# 0.03 X10^3/uL; Basophil% 0.6 % (0-1); Eosinophil# 0.11 X10^3/uL; Eosinophils% 2.1 % (0-5); Hematocrit 36.6 % (37-47); Hemoglobin 11.6 g/dL (12.0-15.0); Lymphocyte # 1.75 X10^3/ul (0.83-4.51); Lymphocyte % 32.9 % (19-41); Mean Corp Hgb Conc 31.7 g/dL (32-36); Mean Corpuscular Volume 94.6 fL (81-99); Mean Platelet Vol. 11.4 fl (6.2-12.0); Monocyte% 5.6 % (0-10); NRBC Flagged by Analyzer 0 % (0-5); Neutrophil # 3.12 X10^3/uL (2.7-7.7); Neutrophil % 58.6 % (47-70); Platelet Count 204 K/mm3 (150-450); RBC Distribution Width SD 44.9 fl (35.1-43.9); Red Blood Count 3.87 M/mm3 (4.2-5.4); White Blood Count 5.3 K/mm3 (4.4-11.0)
[2023-01-15 01:19] LABS: Color, Urine Straw (Yellow); Glucose, Dipstick Normal (Normal); Ketone-Dipstick Negative (Negative); Leukocyte Esterase-Dipstick 25 /ul (Negative); Nitrite-Dipstick Negative (Negative); Occult Blood-Urine 250 /ul (Negative); Protein-Dipstick 15 mg/dl (Negative); Specific Gravity, Urine 1.015 (1.002-1.030); Urine Bilirubin Dipstick Negative (Negative); Urine Clarity Clear (Clear); Urine Urobilinogen Normal (Normal)
[2023-01-15 01:30] LABS: Anion Gap 3 (5-15); BUN 16 mg/dL (7-18); BUN/Creat Ratio 23.2 RATIO (10-20); Calcium,Total 8.8 mg/dL (8.5-10.1); Chloride 108 mmol/L (98-107); Creatinine, Serum 0.69 mg/dL (0.55-1.02); EST Glomerular Filtration Rate 106 mL/min (>60); Est Glom Filt Rate - Afr Amer 128 mL/min (>60); Estimated Creatinine Clearance 89.96 ml/min; Glucose 101 mg/dL (74-106); Potassium 3.8 mmol/L (3.5-5.1); Sodium Level 137 mmol/L (136-145)
[2023-01-15 01:38] LABS: hCG Titer Quant., Serum < 1 mIU/mL (1-3)
[2023-01-15 01:43] LABS: White Blood Cells 0-5 SEEN /hpf (0-5)
[2023-01-15 01:44] LABS: Amorphous Sediment 1+; Bacteria 1+ /hpf (None Seen); Red Blood Cells-Urine 0-5 SEEN /hpf (0-5); Squamous Epithelial Cells - UA 0-5 SEEN /hpf (5-10)
[2023-01-15] MEDS: 0.9% Normal Saline 1,000 ML 150 ML IV ×2 (03:08→07:46)
--- NOTE | 2023-01-15 03:13 | US_ITS ---
STUDY: ULTRASOUND TRANSVAGINAL CLINICAL: Female, 32 years old. Abnormal bleeding, recent DTC TECHNIQUE: Transvaginal COMPARISON: None. FINDINGS: Normal uterine size measuring 9.3 cm in maximal craniocaudal dimension. There are no myometrial masses. Uterus is retroverted Endometrial thickness is 35 mm and heterogeneous consistent with recent DTC. However, retained POC is suspected and short-term follow-up ultrasound is recommended to assure passage of the echogenic debris within the endometrium. Normal uterine cervix. Normal right ovary, measuring 3.1 x 2.4 x 3.7 cm. There are multiple follicles without a dominant cyst. Normal left ovary, measuring 4.3 x 2.7 x 2.5 cm. There are multiple follicles without a dominant cyst. There is no free fluid in the pelvis. Polycystic ovary disease: No. US/Transvaginal Non- IMPRESSION: Abnormally thickened heterogeneous endometrium at 35 mm. Findings suggest incomplete evacuation of the endometrium after recent DTC. Retained POC suspected. Short-term follow-up ultrasounds recommended to assure passage and resolution of the heterogeneously thickened endometrium No suspicious adnexal mass or free fluid Electronically Signed: Sulaiman Potts MD at 7:54 EDT ,
--- NOTE | 2023-01-15 08:24 | PCM.HP.BLA ---
History and Physical Date of Admission: 01/15/23 HPI: 32-year-old female with vaginal bleeding. Patient had a suction D&C for missed on 01/07. She had minimal bleeding at the time of surgery, had some bleeding postop and recovery, however this resolved. Patient states she had minimal bleeding for a few days after surgery, however about 4 to 5 days after surgery, bleeding became heavier. She reports cramping and bleeding. Denies headache or vision changes, chest pain or shortness of breath, nausea or vomiting, fevers or chills, diarrhea constipation. 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 section 2. Suction dilation and curettage Medications: 1.? Trazodone Family history: Noncontributory Allergies: 1.? Penicillin Social history: Reports smoking, denies alcohol or drug use Review of system: Negative otherwise above Physical exam: Vitals BP 109/78, pulse 64, respiratory rate 16, oxygen saturation 98% on room air General: No acute distress HEENT: Normal cephalic/atraumatic, PERRLA Cardiorespiratory: No increased effort Abdomen: Soft, nontender Extremities: No edema Neurologic: Cranial nerves II through XII grossly intact, no focal deficits Musculoskeletal: Strength out of 5 throughout extremities Assessment/plan: 32-year-old female with vaginal bleeding status post miscarriage. ?Admit for suction dilation curettage. Doxycycline IV preoperatively. ?Ultrasound read with possible retained products of conception, however her hCG level is less than 1. Upon review of ultrasound, appears to be large amount of blood clot inside the uterus. We will proceed with dilation and curettage due to patient's symptoms and presence of blood clot in uterus. ?No evidence of infection. Patient is afebrile (and has reported no fever at home), she has no leukocytosis, uterus nontender to palpation. Will likely discharge home on prophylactic antibiotics. ?Discussed the findings of the ultrasound and hCG level with the patient. Additionally discussed that there is no evidence of infection at this time. She expresses understanding of situation. Desires to proceed with surgical management. All risk, benefits, alternatives discussed with the patient.? Risk include but not limited to: Risk of bleeding the point of transfusion, infection, injury to surrounding tissue including bowel/bladder/uterine perforation, VTE, ICU admission.? Patient aware and consented.?
[2023-01-15] MEDS: Lactated Ringers 1,000 ML 15 ML IV (10:00)
--- NOTE | 2023-01-15 10:30 | POC_PTH ---
PATIENT: RAGINI LUCIO LOC: [facility] [place] U#:[id number] AGE/SX: 32/F ROOM: RE01/15/[address]: Dr. Katharine Carrasco, : 1990 BED: DIS: 01/15/2023 SPEC #: [id number] RECD: 01/15/23 13:36 STATUS: VANDANA MIROSLAVA #: [id number] BRANDON: 01/15/23 10:[address]: Katharine Carrasco DEPT: SURGICAL PATHOLOGY RECD BY: Mahesh Burton ENTERED: 01/16/23 10:58 SP TYPE: PROD CONC OTHR DR: Analy Faye, SUPPLY CHAIN SYSTEMS MANAGER-C Tissues: Product of conception, NOS Procedures: Surgery Specimen Level IV HEADER OPERATION: Suction dilation and curettage PRE-OP DIAGNOSIS: Missed TISSUE SUBMITTED: Contents of conception MICROSCOPIC DIAGNOSIS Endometrium, curettage: Blood clots. Scant fragments of endometrial and superficial myometrial tissue. See comment. AM:ilya 01/18/2023 COMMENT Specimen predominantly consists of blood clots. Chorionic villi are not identified. Clinical correlation is suggested. Please make reference to previous specimen ([id number]), endometrium, curettage with diagnosis of chorionic villi, decidualized stroma and trophoblastic villi consistent with products of conception.? Case has been reviewed in consultation with Dr. Sidhu who concurs with the above diagnosis. IDC:SJ MICROSCOPIC DESCRIPTION Slides are reviewed. GROSS DESCRIPTION Received in fixative is one container labeled with the patient's name and designated contents of conception. The specimen consists of multiple irregular fragments of red-german soft tissue that in aggregate measure 8.0 x 7.0 x 2.0 cm. parts are not grossly recognized. Press Operator Carbon Blocks portions are submitted in three cassettes. / AM:rg 01/16/2023 The rest of the specimen is submitted in cassettes 4 to 12. / AM 01/17/2023 TC:5 CPT: 94075
--- NOTE | 2023-01-15 10:38 | PCM.OPRPT ---
Report of Operation Date of Procedure: 01/15/23 Pre-Operative Diagnosis: Vaginal bleeding Post-Operative Diagnosis: Vaginal bleeding Surgery/Procedure Performed:: Suction dilation and curettage Description of Surgical Findings:: Normal-appearing external genitalia, small amount of blood at cervical os. Blood clot removed from uterus, no tissue noted. Type of Anesthesia: MAC Specimen's removed: Blood clot, possible products of conception Estimated Blood Loss (mL): 50cc Fluids Replaced: 600cc Description of Procedure: Indications/Risks/Benefits: Procedure: Patient taken the operating room and MAC anesthesia induced. Patient placed in the dorsal lithotomy position and prepped and draped in usual sterile fashion. Weighted speculum placed in posterior vagina and Lawson retractor used to visualize the cervix. Anterior lip of the cervix grasped with single-tooth tenaculum. Cervix sequentially dilated. Suction curettage completed removing blood clot. Gentle sharp curettage completed in a 360 degree manner. Bedside ultrasound completed noting thin endometrial stripe and no color flow. Cervix hemostatic. Single-tooth tenaculum and weighted speculum removed. 1000 mcg Cytotec placed per rectum prophylactically. UOP: none measured We will discharge home on doxycycline and Methergine. Complications None
--- NOTE | 2023-01-15 10:39 | PCM.DC ---
Discharge Instructions Diet Discharge Diet: No restrictions Activity Discharge Activity: Return to Normal Activity and May Shower May resume sexual activity in: 2 weeks Weight Bearing Status: Weight bearing as tolerated Lifting Restrictions: None Dressing / Incision Call your doctor if you observe: Fever of 101 or Higher, Change in Color, Inability to urinate, Using more than 1 pad per hour, Shortness of breath, Dizziness, Swelling in the ankles, Chest pain and Calf discomfort Follow Up Care Please Follow Up With: Katharine Carrasco DO When: 1-2 week postoperative visit Test Results: Test results from this visit will be discussed in further detail at your follow-up appointment, if applicable. Discharge Plan Admission Primary Reason for Your Visit: Dilation and curettage Attending Provider: Katharine Carrasco Primary Care Provider: Analy Faye NP Discharge Orders/Prescriptions Prescriptions: New methylergonovine [Methergine] 0.2 mg tablet 0.2 mg PO TID 3 Days Qty: 9 0RF doxycycline monohydrate 100 mg tablet 100 mg PO BID Qty: 14 0RF promethazine 12.5 mg tablet 12.5 mg PO Q6H PRN (Reason: nausea and vomiting) Qty: 30 0RF Referrals / Follow Up: Analy Faye NP, UPHOLSTERER APPRENTICE-C [Primary Care Provider] - Disposition Disposition (needs filled in before D/C Order can be placed): Home, Self Care
[2023-01-15] MEDS: miSOPROStol 200 MCG Tablet 1000 MCG VAGINAL (11:15)
[2023-01-15] MEDS: Acetaminophen 500 MG Tablet 1000 MG PO (12:46)
[2023-01-15] MEDS: oxyCODONE 5 MG Tablet PO (12:46)
== END 2023-01-15 13:29 | disposition home or self-care (01) ==
LOC: ED 01-15 00:42 → SDC 01-15 08:51 → ACINP 01-15 08:52
PROVIDERS: Emergency Provider Emergency Medicine; PCP Nurse Practitioner Family; Visit Provider Student in an Organized Health Care Education/Training Program
PROC: (CPT 59812; principal; 2023-01-15 10:15)
DX: N93.9 Abnormal uterine and vaginal bleeding, unspecified (principal); F17.200 Nicotine dependence, unspecified, uncomplicated; F12.90 Cannabis use, unspecified, uncomplicated
CPT/HCPCS: 59812; 01965; 74177; 76830; 80048; 81001; 84702; 85025; 88305; 99285; J7030; J7120; Q9967; A4216; J2405

== ENCOUNTER 2023-01-19 11:41 | Emergency (ER) | payer MEDICAID, SELFPAY ==
[2023-01-19 11:43] VITALS: BP 123/77; PULSE 75; RESP 16; TEMP 36.6; O2SAT 99; BMI 20.8
[2023-01-19 12:16] VITALS: BP 109/89; BP 117/84; BP 119/83; PULSE 65; PULSE 66; PULSE 78
[2023-01-19 12:22] LABS: Absolute Lymphocyte Count 0.91 X10^3/uL (0.83-4.51); Basophil# 0.01 X10^3/uL; Basophil% 0.2 % (0-1); Eosinophil# 0.04 X10^3/uL; Eosinophils% 0.8 % (0-5); Hematocrit 39.7 % (37-47); Hemoglobin 13.5 g/dL (12.0-15.0); Lymphocyte # 0.91 X10^3/ul (0.83-4.51); Lymphocyte % 17.4 % (19-41); Mean Corpuscular Hgb 30.8 pg (27.0-32.0); Mean Corpuscular Volume 90.6 fL (81-99); Mean Platelet Vol. 10.6 fl (6.2-12.0); Monocyte# 0.29 X10^3/uL; Monocyte% 5.5 % (0-10); NRBC Flagged by Analyzer 0 % (0-5); Neutrophil # 3.97 X10^3/uL (2.7-7.7); Neutrophil % 75.9 % (47-70); Platelet Count 199 K/mm3 (150-450); RBC Distribution Width CV 13.2 % (11.6-14.6); RBC Distribution Width SD 44.2 fl (35.1-43.9); Red Blood Count 4.38 M/mm3 (4.2-5.4); White Blood Count 5.2 K/mm3 (4.4-11.0)
[2023-01-19 12:31] LABS: Anion Gap 5 (5-15); BUN 10 mg/dL (7-18); BUN/Creat Ratio 15.8 RATIO (10-20); Calcium,Total 9.4 mg/dL (8.5-10.1); Chloride 107 mmol/L (98-107); Creatinine, Serum 0.63 mg/dL (0.55-1.02); EST Glomerular Filtration Rate 117 mL/min (>60); Est Glom Filt Rate - Afr Amer 142 mL/min (>60); Estimated Creatinine Clearance 98.53 ml/min; Glucose 92 mg/dL (74-106); Sodium Level 138 mmol/L (136-145)
[2023-01-19 12:34] LABS: Internal QC Validated? YES +Cl - CLEAR BKGD; Pregnancy, Serum, hCG Quali. NEGATIVE Negative
[2023-01-19 12:50] LABS: International Normalized Ratio 1.1; Prothrombin Time (Protime)PT. 13.4 SECONDS (11.7-14.9)
[2023-01-19 12:50] LABS: Bacteria 0 SEEN /hpf (None Seen); Mucous, Urine 0 SEEN /hpf (<or=2+); Squamous Epithelial Cells - UA 0 SEEN /hpf (5-10); White Blood Cells 0 SEEN /hpf (0-5)
[2023-01-19 12:51] LABS: Partial Thromboplast Time 33.1 Seconds (24.1-36.2)
[2023-01-19 12:51] LABS: Color, Urine Yellow (Yellow); Glucose, Dipstick Normal (Normal); Ketone-Dipstick Negative (Negative); Leukocyte Esterase-Dipstick 25 /ul (Negative); Nitrite-Dipstick Negative (Negative); Occult Blood-Urine 250 /ul (Negative); Protein-Dipstick 15 mg/dl (Negative); Specific Gravity, Urine 1.015 (1.002-1.030); Urine Bilirubin Dipstick Negative (Negative); Urine Clarity Clear (Clear); Urine Urobilinogen Normal (Normal)
[2023-01-19 12:57] LABS: Red Blood Cells-Urine 10-25 SEEN /hpf (0-5)
--- NOTE | 2023-01-19 13:54 | EDS_ITS ---
HPI History of Present Illness Chief Complaint: Dizziness Informant: patient Onset/Context/Timing Onset: Today Context: Sudden Onset Timing: Continuous Quality: Lightheaded Location: Generalized Worsened by: Nothing Relieved by: Nothing Narrative Narrative: Patient presents with dizziness, facial pressure, sore throat, and shortness of breath that became worse today. Patient states she recently had a D&C by Dr. Katharine Carrasco. Patient states she was started on doxycycline and Methergine after the surgery. Patient states that when she took the Methergine she noted some soreness in her throat and pressure in her face. Patient states it feels swollen. Patient does not have any difficulty swallowing or difficulty breathing. Patient denies any hives or urticaria. Patient does admit to some nausea but denies any vomiting. Patient admits to feeling lightheaded. Patient states she felt like she might pass out but did not ever actually pass out. Patient states she has been taking the doxycycline as prescribed without any difficulties. [facility] Medical History (Updated 01/19/23 @ 14:[address] Marcos Ray DO) Alcohol use Anxiety Asthma delivery delivered Depression Easy bruising Gastric reflux Hepatitis History of edema History of pain when walking Injury of head and neck Leg cramps Loose, teeth Marijuana use Non-smoker Substance abuse Syncope Home Medications doxycycline monohydrate 100 mg tablet 100 mg PO BID #14 tabs 01/15/23 [Rx Last Taken Unknown] methylergonovine 0.2 mg tablet (Methergine) 0.2 mg PO TID 3 days #9 tabs 01/15/23 [Rx Last Taken Unknown] promethazine 12.5 mg tablet 12.5 mg PO Q6H PRN nausea and vomiting #30 tabs 01/15/23 [Rx Last Taken Unknown] Allergy/AdvReac Type Severity Reaction Status Date / Time Penicillins Allergy Hives Verified 01/19/23 11:42 IV patch/latex AdvReac Mild Rash/welt Uncoded 01/19/23 11:42 Family History Grandmother Asthma COPD (chronic obstructive pulmonary disease) Diabetes Surgical History (Updated 01/19/23 @ 13:[address] 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 Smoking Status: Never smoker alcohol intake: former year quit: 2018 substance use type: marijuana and other details: Quit when found out about caffeine: Yes Type: carbonated beverages Number of servings: 1 seatbelt use: always do you feel safe at home: Yes additional social history: Edgar Trinh 11 years old ROS ROS ED Constitutional Constitutional ED: Denies chills or fever(s) Eyes Eyes: Denies blurry vision or change in vision ENT ENT ED: Reports sore throat; Denies rhinorrhea Cardiovascular Cardiovascular: Reports chest pain; Denies palpitations Respiratory/Chest Respiratory/Chest: Reports dyspnea; Denies cough Gastrointestinal Gastrointestinal: Reports nausea; Denies vomiting Genitourinary Genitourinary ED: Denies dysuria or hematuria Musculoskeletal Musculoskeletal: Reports back pain; Denies neck pain Integumentary Denies abscess or rash Neurologic Neurologic: Reports headache(s); Denies weakness Allergic/Immunologic Allergic/Immunologic ED: Denies mouth swelling or urticaria EXAM Physical Exam Const Vital Signs: 01/19/23 11:43 01/19/23 12:16 01/19/23 12:16 Temperature 97.8 F Temperature Source Temporal Pulse Rate 75 Pulse Rate [Lying] 65 Pulse Rate [Sitting (for 1 minute prior to obtaining)] 66 Pulse Rate [Standing (for 1 minute prior to obtaining)] 78 Respiratory Rate 16 Respiratory Effort Short of Breath Blood Pressure 123/77 H Blood Pressure [Lying] 109/89 H Blood Pressure [Sitting (for 1 minute prior to obtaining)] 119/83 H Blood Pressure [Standing (for 1 minute prior to obtaining)] 117/84 H Blood Pressure Mean 92 Blood Pressure Mean [Lying] 95 Blood Pressure Mean [Sitting (for 1 minute prior to obtaining)] 95 Blood Pressure Mean [Standing (for 1 minute prior to obtaining)] 95 Pulse Ox 99 Oxygen Delivery Method Room Air Positive well nourished and well developed General Appearance ED: well developed and NAD HEENT Reports moist mucous membranes HEENT Narrative: Oral mucosa is pink and moist. Oropharynx is clear. Airway is patent. There is no laryngeal edema noted. Neck supple and no JVD Resp normal respiratory effort and clear to auscultation bilaterally Cardio regular rate, regular rhythm and no murmurs GI normal to inspection, nondistended, normoactive bowel sounds Palpation: soft and tender LLQ, RLQ and suprapubic; Negative for guarding or rebound tenderness present Extremity normal to inspection General Extremety ED: Negative for edema or tenderness General Extremity: Negative for edema Neuro oriented x3, CN's II-XII intact bilaterally and no sensory deficits noted Sensorium / Orientation: alert Motor Exam: strength 5/5 throughout Psych mental status grossly normal Skin no rashes or lesions noted MDM MDM MDM Narrative Medical decision making narrative: Differential diagnosis includes postoperative bleeding, anemia, electrolyte abnormality, coagulopathy, and medication side effect. CBC will be obtained to assess for anemia and leukocytosis. Basic metabolic profile will be obtained to assess for electrolyte abnormality and renal function. Urinalysis will be obtained to assess for urinary tract infection and hematuria. Serum hCG will be obtained to assess for status. PT with INR and PTT will be obtained to assess for coagulopathy. Lab Data Attestation: I reviewed the patient's lab results. Lab results narrative: CBC was reviewed and was within normal limits. Basic metabolic profile was reviewed and was within normal limits. PT with INR and PTT were reviewed and were within normal limits. Serum hCG was reviewed and was negative. Urinalysis was reviewed. There is no evidence of urinary tract infection. Labs: Laboratory Results - last 24 hr 01/19/23 01/19/23 01/19/23 12:11 12:11 12:11 WBC 5.2 RBC 4.38 Hgb 13.5 Hct 39.7 MCV 90.6 MCH 30.8 MCHC 34.0 D RDW Std Deviation 44.2 H RDW Coeff of [place] 13.2 Plt Count 199 MPV 10.6 Immature Gran % (Auto) 0.200 Neut % (Auto) 75.9 H Lymph % (Auto) 17.4 L [place] % (Auto) 5.5 Eos % (Auto) 0.8 Baso % (Auto) 0.2 Absolute Neuts (auto) 4.0 Absolute Lymphs (auto) 0.91 Nucleated RBC % 0 PT Cancelled INR Cancelled APTT Cancelled Sodium 138 Potassium 4.0 Chloride 107 Carbon Dioxide 26.0 Anion Gap 5 BUN 10 Creatinine 0.63 Estim Creat Clear Calc 98.53 Est GFR (MDRD) Af Amer 142 Est GFR (MDRD) Non-Af 117 BUN/Creatinine Ratio 15.8 Glucose 92 Calcium 9.4 Serum , Qual Urine Color Urine Clarity Urine pH Ur Specific [place] Urine Protein Urine Glucose (UA) Urine Ketones Urine Occult Blood Urine Nitrite Urine Bilirubin Urine Urobilinogen Ur Leukocyte Esterase Urine RBC Urine WBC Ur Squamous Epith Cells Urine Bacteria Urine Mucus 01/19/23 01/19/23 01/19/23 12:11 12:30 12:45 WBC RBC Hgb Hct MCV MCH MCHC RDW Std Deviation RDW Coeff of [place] Plt Count MPV Immature Gran % (Auto) Neut % (Auto) Lymph % (Auto) [place] % (Auto) Eos % (Auto) Baso % (Auto) Absolute Neuts (auto) Absolute Lymphs (auto) Nucleated RBC % PT 13.4 INR 1.1 APTT 33.1 Sodium Potassium Chloride Carbon Dioxide Anion Gap BUN Creatinine Estim Creat Clear Calc Est GFR (MDRD) Af Amer Est GFR (MDRD) Non-Af BUN/Creatinine Ratio Glucose Calcium Serum , Qual NEGATIVE Urine Color Yellow Urine Clarity Clear Urine pH 8.0 Ur Specific [place] 1.015 Urine Protein 15 H Urine Glucose (UA) Normal Urine Ketones Negative Urine Occult Blood 250 H Urine Nitrite Negative Urine Bilirubin Negative Urine Urobilinogen Normal Ur Leukocyte Esterase 25 H Urine RBC 10-25 SEEN Urine WBC 0 SEEN Ur Squamous Epith Cells 0 SEEN Urine Bacteria 0 SEEN Urine Mucus 0 SEEN Treatment and Re-Evaluation :: Patient was advised of her findings. Patient feels better on reevaluation. Patient wants to go home. Orthostatic vital signs were obtained and were negative. Patient was instructed to follow-up with her BIOMEDICAL SPECIALIST in 3 to 5 days. Patient was requesting a new BIOMEDICAL SPECIALIST to follow-up with. Patient was given a referral for a different BIOMEDICAL SPECIALIST group. Patient understands and is agreeable with the plan. All questions were answered. Discharge Plan Triage Chief Complaint: Dizziness ED Provider: Marcos Ray Dx/Rx/DC Orders Clinical Impression: Vaginal bleeding Instructions: ED Dysfunctional Uterine Bleeding Prescriptions: No Action methylergonovine [Methergine] 0.2 mg tablet 0.2 mg PO TID 3 Days Qty: 9 0RF doxycycline monohydrate 100 mg tablet 100 mg PO BID Qty: 14 0RF promethazine 12.5 mg tablet 12.5 mg PO Q6H PRN (Reason: nausea and vomiting) Qty: 30 0RF Primary Care Provider: Analy Faye NP Referrals: Claudia Casey DO [Med Staff - Active Staff] - Analy Faye NP, NIGHT NURSE-C [Primary Care Provider] - Disposition Disposition: Home, Self Care
--- NOTE | 2023-01-19 14:33 | ED.RN ---
THIS RN WENT INTO ROOM TO DISCHARGE PT, BUT PT NOT IN THE ROOM. IV FOUND IN TRASH BUT NOT LYING ON TOP, SO UNSURE IF IT IS PT's. FOLLOWED UP WITH CHUCK NEWBERRY WHO LOOKED AT [employer]. VERIFIED THAT PT REMOVED ON IV CATHETER.
== END 2023-01-19 14:34 | disposition home or self-care (01) ==
PROVIDERS: Emergency Provider Emergency Medicine; PCP Nurse Practitioner Family; Visit Provider Emergency Medicine
DX: N93.9 Abnormal uterine and vaginal bleeding, unspecified (principal); R11.0 Nausea; R42 Dizziness and giddiness; F12.90 Cannabis use, unspecified, uncomplicated; J02.9 Acute pharyngitis, unspecified; R06.02 Shortness of breath
CPT/HCPCS: 80048; 81001; 84703; 85025; 85610; 85730; 99284; A4216

== ENCOUNTER → 2023-02-15 | Outpatient (CLI) | payer MEDICAID, SELFPAY ==
--- NOTE | 2023-02-15 13:05 | US_ITS ---
STUDY: ULTRASOUND OF THE FEMALE PELVIS - COMPLETE REASON FOR EXAM: Female, 32 years old. F/U FOR D and amp; C LMP: No recent LMP. TECHNIQUE: Transvaginal TECHNICAL QUALITY: Adequate. COMPARISON: Comparison is made with prior study January 15, 2023. FINDINGS: The uterus is anteverted and is in a midline position. The uterus measures 10.2 cm x 6.2 cm x 4.6 cm. Normal uterine cervix. The endometrium measures 3.4 mm in thickness, and is hyperechoic. There is no demonstrated endometrial mass. Trace amount of fluid is seen in the endocervical canal. There is no demonstrated myometrial mass. I.U.D. - The patient does not have an I.U.D. The right ovary is visualized. The right ovary measures 4 cm x 2.7 cm x 2.6 cm. There is no right ovarian cyst or ovarian mass. There is a 2.2 cm x 2 cm x 2.2 cm cyst. There is normal arterial and normal venous vascularity. The left ovary is visualized. The left ovary measures 2.4 cm x 2.1 cm x 1.2 cm. There is no left ovarian cyst or ovarian mass. There is no visualized left adnexal mass or complex lesion. There is normal arterial and normal venous vascularity. There is no fluid in the cul-de-sac. US/Transvaginal Non- IMPRESSION: Trace amount of fluid in the endocervical canal. 2.2 cm x 2 cm x 2.2 cm right ovarian cyst. Electronically Signed: Brandt Stovall MD at 14:40 EDT ,
== END | disposition home or self-care (01) ==
LOC: US 13:00
PROVIDERS: PCP Nurse Practitioner Family
DX: R10.2 Pelvic and perineal pain (principal)
CPT/HCPCS: 76830

== ENCOUNTER 2023-11-01 19:18 | Emergency (ER) | payer MEDICAID, SELFPAY ==
[2023-11-01 19:25] VITALS: BP 120/90; PULSE 84; RESP 15; TEMP 36.4; O2SAT 100; BMI 19.9
--- NOTE | 2023-11-01 20:20 | EDS_ITS ---
HPI History of Present Illness Chief Complaint: Abd Pain [facility] Medical History (Updated 11/01/23 @ 23:[address] Freddy Chan, DO) Alcohol use Anxiety Asthma delivery delivered Depression Easy bruising Gastric reflux Hepatitis History of edema History of pain when walking Injury of head and neck Leg cramps Loose, teeth Marijuana use Non-smoker Substance abuse Syncope Home Medications ondansetron 4 mg disintegrating tablet 4 mg PO Q8H PRN PRN Nausea #10 tabs 11/01/23 [Rx Last Taken Unknown] Allergy/AdvReac Type Severity Reaction Status Date / Time adhesive tape [tape] Allergy Mild Rash Verified 11/01/23 19:30 latex Allergy Mild Rash Verified 11/01/23 19:30 Penicillins Allergy Hives Verified 11/01/23 19:30 Family History Grandmother Asthma COPD (chronic obstructive pulmonary disease) Diabetes Surgical History Hx of section Hx of dilation and curettage Social History number of children: 2 current occupational status: employed 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 Smoking Status: Never smoker alcohol intake: former year quit: 2017 substance use type: marijuana and other details: Quit when found out about caffeine: Yes Type: carbonated beverages Number of servings: 1 seatbelt use: always do you feel safe at home: Yes additional social history: Edgar Trinh 11 years old EXAM Physical Exam Const Vital Signs: 11/01/23 19:25 11/01/23 22:52 Temperature 97.5 F L Temperature Source Temporal Pulse Rate 84 67 Respiratory Rate 15 16 Blood Pressure 120/90 H 106/75 Blood Pressure Mean 100 85 Pulse Ox 100 98 Oxygen Delivery Method Room Air Room Air MDM MDM MDM Narrative Medical decision making narrative: HISTORY OF PRESENT ILLNESS: 33-year-old female presents with abdominal pain nausea vomiting started yesterday. States he is approximate 7 weeks is concerned that she may be having a miscarriage. She also vaginal bleeding intermittently for the last week. She further states she is having intermittent spotting and lower abdominal pain for the last several days. Notes nausea and vomiting. Denies any chest pain or shortness of breath. Notes he is a G4, P3. Notes history of miscarriage late last year. She denies any ovarian manipulation or in vitro fertilization. REVIEW OF SYSTEMS: Pertinent positives: Abdominal pain, nausea vomiting, vaginal bleeding Pertinent negatives: Fever, chest pain, shortness of breath, urinary complaints, constipation or diarrhea PHYSICAL EXAM: Nursing triage notes reviewed, Vital signs reviewed Constitutional: please see mdm HENT: MMM Eyes: Pupils equal round and reactive to light, Extraocular muscles intact Neck: No stridor, no JVD, full neck ROM Lungs: Clear to auscultation, No wheezing or rales. No increased work of breathing, no conversational dyspnea, no accessory muscle use, no nasal flaring. No respiratory distress noted Heart: Regular rate and rhythm, No murmurs, No rubs and No gallops, 2+ distal pulses (radial, femoral, posterior tibial) in all extremities Abdomen: Soft, there is no tenderness, rigidity, rebound or guarding, no obvious peritoneal signs, no palpable pulsatile abdominal masses, no auscultated abdominal bruit : No CVAT Extremities: No edema Neuro: No focal neurological deficits, cranial nerves II through XII intact, 5/5 strength in all extremities. Intact sensation to light touch in all extremities, 2+ reflexes bilateral patella tendons. Normal gait. No ataxia. Skin: No rash or lesions noted MEDICAL DECISION MAKING: Chief Complaint: Abdominal pain, nausea vomiting, vaginal bleeding External records reviewed: Transvaginal ultrasound from 2022 shows right ovarian cyst Factors affecting care: Ovarian cyst, history of miscarriage MDM Narrative: Patient was initially hemodynamically stable, afebrile, nontoxic-appearing. Exam with lower abdominal TTP. I considered the following differential diagnosis: Ectopic , miscarriage, UTI ALL IMAGES (IF OBTAINED) HAVE BEEN PERSONALLY REVIEWED AND INTERPRETED BY MYSELF. Beta-hCG consistent with early CBC leukocytosis likely reactive secondary to nausea vomiting with , no anemia or thrombocytopenia BMP without evidence of significant electrolyte abnormalities, no anion gap, no acute kidney injury. LFTs show no evidence of hepatobiliary pathology. Lipase is wnl indicating no pancreatic inflammation. Transvaginal ultrasound by my read shows evidence of intrauterine , heart rate 121, proximately 6 to 7 weeks gestation. Synthesis of the patient's history, physical exam, labs images suggest no acute life-limiting etiology. Specifically no evidence of ectopic or completed miscarriage. Patient does show signs of acute neuro suggest some dehydration however she had no ABEL, anion gap, signs of metabolic acidosis. Patient is given Zofran and fluids with slight improvement she is also given Tylenol and Pepcid. She is given Zofran for home-going. There is no indication for admission at this time patient's poor for outpatient evaluation and further treatment. The patient and/or family, caregivers express understanding. The patient and/or family, caregivers agrees with the plan. Shared decision making: I will have a discussion with the patient and or visitors regarding risk/benefits of further testing or admission. They will be made aware of of the risk/benefits inherent in this decision they will be given the opportunity to voice understanding. Total critical care time today provided was at least 0 minutes. This excludes separately billable procedures. Critical care time (if documented) is secondary to the patient having high probability of clinically significant/life threatening deterioration in the patient's condition which required my urgent intervention. Impression: 1. Threatened miscarriage 2. Nausea vomiting 3. Ketonuria Dispo: Discharge home with close OB follow This note was generated with [employer] dictation software. It may contain incorrect words, spelling, and punctuation that were not noted in review of the chart prior to signing. Lab Data Labs: Laboratory Results - last 24 hr 11/01/23 11/01/23 11/01/23 20:00 22:00 22:10 WBC 12.0 H RBC 4.60 Hgb 13.9 Hct 42.0 MCV 91.3 MCH 30.2 MCHC 33.1 RDW Std Deviation 44.2 H RDW Coeff of [place] 13.2 Plt Count 170 MPV 11.0 Immature Gran % (Auto) 0.500 Neut % (Auto) 94.3 H Lymph % (Auto) 3.0 L [place] % (Auto) 2.0 Eos % (Auto) 0.0 Baso % (Auto) 0.2 Absolute Neuts (auto) 11.3 H Absolute Lymphs (auto) 0.36 L Nucleated RBC % 0 Differential Comment SCANNED Sodium 138 Potassium 3.5 Chloride 105 Carbon Dioxide 28.0 Anion Gap 5 BUN 16 Creatinine 0.51 L Estim Creat Clear Calc 120.61 Est GFR (MDRD) Af Amer 182 Est GFR (MDRD) Non-Af 150 BUN/Creatinine Ratio 31.5 H Glucose 158 H Calcium 9.0 Total Bilirubin 0.90 Direct Bilirubin 0.23 AST 12 L ALT 21 Alkaline Phosphatase 42 L Total Protein 7.2 Albumin 4.0 Globulin 3.2 Lipase 26 HCG, Quant 36029 H Urine Color Yellow Urine Clarity Clear Urine pH 6.5 Ur Specific [place] 1.015 Urine Protein 30 H Urine Glucose (UA) 50 H Urine Ketones 150 A* Urine Occult Blood Negative Urine Nitrite Negative Urine Bilirubin Negative Urine Urobilinogen Normal Ur Leukocyte Esterase Negative Urine RBC 0 SEEN Urine WBC 0-5 SEEN Ur Squamous Epith Cells 0-5 SEEN Urine Bacteria 0 SEEN Urine Mucus 0 SEEN Blood Type O POSITIVE Radiography Diagnostic Testing: Clinical Impression(s) from Imaging Studies Obstetrics Ultrasound 11/01/23 20:32 IMPRESSION: Single live intrauterine at 7 weeks 2 days by current ultrasound with NOA of 06/17/2024. Heart rate at 123 bpm. The gestational sac however is in the lower uterine segment and close follow-up is recommended to assure normal growth Simple right ovarian cyst, likely corpus luteal cyst. No demonstrated free fluid Sonographically normal left ovary Electronically Signed: Sulaiman Potts MD at 23:37 EST , Discharge Plan Triage Chief Complaint: Abd Pain ED Provider: Freddy Chan Dx/Rx/DC Orders Clinical Impression: Threatened miscarriage Instructions: ED Abdominal Pain, Early , Miscarriage Threatened Prescriptions: New ondansetron 4 mg tablet,disintegrating 4 mg PO Q8H PRN PRN (Reason: Nausea) Qty: 10 0RF Primary Care Provider: Analy Faye NP Referrals: Claudia Casey DO [Med Staff - Active Staff] - Activity Restrictions/Additional Instructions: Thank you for trusting us with your care today! Please take Tylenol (2 pills, 650 mg) every 6 hours as needed for pain and fever control. Please return to the emergency department if your symptoms change or worsen. Specific if develop worsening vomiting, abdominal pain or uncontrolled, if you lose consciousness. Vaginal bleeding Please follow with your primary care physician for further outpatient evaluation and management. Disposition Disposition: Home, Self Care
--- NOTE | 2023-11-01 20:32 | US_ITS ---
STUDY: FIRST TRIMESTER OBSTETRICAL ULTRASOUND REASON FOR EXAM: Female, 33 years old Lower abdominal pain, vaginal bleeding early preg LMP: 09/11/2023 TECHNIQUE: Transvaginal TECHNICAL QUALITY: Adequate. PRIOR ULTRASOUND: 02/15/2023 FINDINGS: There is a gestational sac in the lower uterine segment. The mean sac diameter (MSD) measures 2.48 cm, indicating an estimated gestational age (EGA) of 7 weeks, 4 days. The gestational sac shape is within normal limits. There is no demonstrated yolk sac. The placenta is non-visualized. There is visualization of a live embryo. The crown-rump length (CRL) measures 0.91 cm, indicating an estimated gestational age (EGA) of 7 weeks, 0 days. There is demonstrated cardiac activity with a heart rate of 123 bpm. The estimated gestation age (EGA) by LMP is 7 weeks, 2 days. The estimated date of delivery (NOA) by LMP is 06/17/2024. The estimated gestation age (EGA) by US is 7 weeks, 2 days. The estimated date of delivery (NOA) by US is 06/17/2024. The uterus measures 9.1 x 5.8 x 4.8 cm. There is no demonstrated uterine fibroid. The cervix is closed. The right ovary measures 4.0 x 3.0 x 3.3 cm. There is a simple 2.5 cm likely corpus luteal cyst. The left ovary measures 2.5 x 1.6 x 1.9 cm. There is no left ovarian cyst. There is no visualized left adnexal mass or complex lesion. There is no fluid in the cul de sac. US/Transvaginal w/Preg US IMPRESSION: Single live intrauterine at 7 weeks 2 days by current ultrasound with NOA of 06/17/2024. Heart rate at 123 bpm. The gestational sac however is in the lower uterine segment and close follow-up is recommended to assure normal growth Simple right ovarian cyst, likely corpus luteal cyst. No demonstrated free fluid Sonographically normal left ovary Electronically Signed: Sulaiman Potts MD at 23:37 EST ,
[2023-11-01] MEDS: 0.9% Normal Saline (1000mL) 1,000 ML 1000 ML IV (20:39)
[2023-11-01] MEDS: Acetaminophen 325 MG Tablet 650 MG PO (20:39)
[2023-11-01] MEDS: Ondansetron 4 MG/2 ML Vial IV ×2 (20:39→23:56)
--- OUTSIDE RECORDS SUMMARY | 2023-11-01 20:51 | XMS RPT_ITS | CCD ---
Author Name Unknown Address [address] [place] [address] Organization [facility] Care Team Providers Care Sampler Ovens Name Role Phone Unavailable Primary Care Provider Unavailabl e ROSEANN SHINE CNP Admitting Unavailable ROSEANN SHINE CNP Attending Unavailable ROSEANN SHINE CNP Primary Care Unavailable ROSEANN SHINE CNP Consulting Unavailable PROVIDER, UNKNOWN Consulting Unavailable PROVIDER, UNKNOWN Consulting Unavailable ROSEANN SHINE COAL TRIMMER MACHINE OPERATOR Admitting Unavailable ROSEANN SHINE CNP Attending Unavailable ROSEANN SHINE CNP Primary Care Unavailable ROSEANN SHINE CNP Consulting Unavailable PROVIDER, UNKNOWN Consulting Unavailable PROVIDER, UNKNOWN Consulting Unavailable ROSEANN SHINE COAL TRIMMER MACHINE OPERATOR Admitting Unavailable ROSEANN SHINE COAL TRIMMER MACHINE OPERATOR Attending Unavailable ROSEANN SHINE COAL TRIMMER MACHINE OPERATOR Primary Care Unavailable ROSEANN SHINE CNP Consulting Unavailable PROVIDER, UNKNOWN Consulting Unavailable PROVIDER, UNKNOWN Consulting Unavailable [place] KAUFMAN [employer]ANG[employer] CONSERVATION LABORER Admitting Unavailable [place] KAUFMAN [employer] CONSERVATION LABORER Attending Unavailable [place] KAUFMAN [employer] CON[employer]ATION LABORER Primary Care Unavailable ROSEANN SHINE CNP Consulting Unavailable PROVIDER, UNKNOWN Consulting Unavailable PROVIDER, UNKNOWN Consulting Unavailable [facility], [facility] Primary Care Provider [facility] Primary Care Provider Unav ailable ANA MARIA NIÑO Attending Unavailable [facility], [facility] Primary Care Unavailable ANA MARIA NIÑO Attending Unavailable [facility], [facility] Primary Care Unavailable Allergies Allergy Classification Reported Allergen(s) Allergy Type Date of Onset Reaction(s) Facility (2 sources) Adhesive Tape; Translations: [ADHESIVE TAPE (ROSINS)] Allergy to substance [facility] Work Phone: (2 sources) Penicillins; Translations: [PENICILLINS] Propensity to adverse reactions [facility] Work Phone: (1 source) Penicillin Drug Allergy [facility] (5 sources) Latex Allergy to substance 1 [facility] (5 sources) Penicillins Drug Intolerance 5 Rash, Unknown [facility] (5 sources) Wound Dressing Adhesive Drug Allergy 8 Rash [facility] Medications Current Medications Medication Drug Class(es) Dates Sig (Normalized) Sig (Original) fluconazole 150 mg oral tablet (1 source) Azole Antifungal Start: 07-17-2023 End: 07-21-2023 fluconazole (Diflucan) 150 MG tablet Take 1 tablet (150 mg) by mouth Every 3 days for 2 doses. 2 tablet 0 07/17/2023 07/21/2023 Active Completed/Discontinued Medications Medication Drug Class(es) Dates Sig (Normalized) Sig (Original) ascorbic acid 1000 mg oral tablet (1 source) Vitamin C Start: 07-31-2019 take 1 tablet by mouth once daily Ascorbic Acid (VITAMIN C) 1,000 mg tablet Take 1 tablet by mouth once daily. 0 07/31/2019 Active Problems Active Problems Problem Classification Problem Date Documented Da te Episodic/Chronic Abdominal pain (4 sources) Pain in pelvis; Translations: [Pelvic and perineal pain] Onset: 07-12-2023 Episodic Adjustment disorders (1 source) Mixed anxiety and depressive disorder; Translations: [Adjustment disorder with mixed anxiety and depressed mood] Onset: 07-10-2013 10-02-2021 Chronic Menstrual disorders (3 sources) Irregular periods; Translations: [Irregular menstruation, unspecified] Onset: 07-12-2023 07-12-2023 Chronic Other female genital disorders (3 sources) Other specified abnormal uterine and vaginal bleeding; Translations: [Other specified abnormal uterine and vaginal bleeding] Onset: 11-12-2022 Chronic Other female genital disorders (1 source) Abnormal uterine bleeding; Translations: [Abnormal uterine and vaginal bleeding, unspecified] Chronic Other female genital disorders (2 sources) Abnormal uterine and vaginal bleeding, unspecified; Translations: [Abnormal uterine and vaginal bleeding, unspecified] Onset: 02-01-2023 Chronic Other female genital disorders (1 source) Vaginal discharge; Translations: [Other specified noninflammatory disorders of vagina] 07-12-2023 Episodic Other female genital disorders (2 sources) Other specified noninflammatory disorders of vagina; Translations: [Other specified noninflammatory disorders of vagina] Onset: 07-12-2023 Episodic Other gastrointestinal disorders (1 source) Abdominal bloating; Translations: [Abdominal distension (gaseous)] 07-12-2023 Episodic Other gastrointestinal disorders (2 sources) Abdominal distension (gaseous); Translations: [Abdominal distension (gaseous)] Onset: 07-12-2023 Episodic Residual codes; unclassified (1 source) Procedure not done; Translations: [Procedure and treatment not carried out, unspecified reason] Episodic Past or Other Problems Problem Classification Problem Date Documented Date Episodic/Chronic Other complications of (1 source) Supervision of with other poor reproductive or obstetric history, unspecified trimester; Translations: [ with other poor obstetric history] Onset: 04-03-2018 04-03-2018 Episodic Other complications of (1 source) H/O: premature delivery; Translations: [Supervision of other high risk pregnancies, unspecified trimester] Onset: 04-03-2018 04-03-2018 Episodic Other complications of (1 source) Nausea and vomiting; Translations: [Vomiting of , unspecified] Onset: 04-03-2018 04-03-2018 Episodic Other screening for suspected conditions (not mental disorders or infectious disease) (4 sources) Abnormal findings on diagnostic imaging of other abdominal regions, including retroperitoneum; Translations: [Cancer cervix screening status] Onset: 11-26-2022 Episodic Residual codes; unclassified (1 source) FH: Congenital heart disease; Translations: [Family history of other congenital malformations, deformations and chromosomal abnormalities] Onset: 04-03-2018 04-03-2018 Episodic Residual codes; unclassified (1 source) H/O: miscarriage; Translations: [Personal history of other complications of , childbirth and the puerperium] Onset: 04-16-2018 04-16-2018 Episodic Screening and history of mental health and substance abuse codes (2 sources) H/O: depression; Translations: [Personal history of other mental and behavioral disorders] Onset: 04-03-2018 04-03-2018 Episodic Substance-related disorders (1 source) Maternal drug use; Translations: [Drug use complicating , first trimester] Onset: 04-21-2018 04-21-2018 Episodic Results Test Name Value Interpretation Reference Range Facil ity Vital Signs Date Time Vital Sign Value Performing Clinician Faci litmartinez 07-12-2023 11:49-0400 Body mass index (BMI) [Ratio] 20.97 kg/m2 Ana Maria Niño MD Work Phone: [facility] 07-12-2023 11:49-0400 Body weight 50.35 kg Ana Maria Niño MD Work Phone: [facility] 07-12-2023 11:49-0400 Diastolic blood pressure 71 mm[Hg] Ana Maria Niño MD Work Phone: [facility] 07-12-2023 11:49-0400 Heart rate 97 /min Ana Maria Niño MD Work Phone: [facility] 07-12-2023 11:49-0400 Systolic blood pressure 108 mm[Hg] Ana Maria Niño MD Work Phone: [facility] 02-01-2023 14:42-0400 Body height 154.9 cm Ana Maria Niño MD Work Phone: [facility] 02-01-2023 14:42-0400 Body mass index (BMI) [Ratio] 20.97 kg/m2 Ana Maria Niño MD Work Phone: [facility] 02-01-2023 14:42-0400 Body weight 50.35 kg Ana Maria Niño MD Work Phone: [facility] 02-01-2023 14:42-0400 Diastolic blood pressure 65 mm[Hg] Ana Maria Niño MD Work Phone: [facility] 02-01-2023 14:42-0400 Heart rate 76 /min Ana Maria Niño MD Work Phone: [facility] 02-01-2023 14:42-0400 Systolic blood pressure 108 mm[Hg] Ana Maria Niño MD Work Phone: [facility] Encounters Encounter Date Encounter Type Care Provider Facility Start: 07-17-2023 Orders Only Ana Maria Niño MD Work Phone: [facility] Start: 07-12-2023 End: 07-12-2023 ambulatory ANA MARIA NIÑO [facility] Start: 07-12-2023 End: 07-12-2023 Office outpatient visit 25 minutes Ana Maria Niño MD Work Phone: [facility] Procedures Date Procedure Procedure Detail Performing Clinician Start: 02-01-2023 Microscopic observat ion [Identifier] in Cervix by Cyto stain Ana Maria Niño MD Work Phone: Plan of Treatment Date Care Activity Detail Author Start: 2042 Zoster Vaccines (1 of 2) Zoste r Vaccines (1 of 2) [facility] Start: 09-05-2028 DTaP/Tdap/Td Vaccine s (10 - Td or Tdap) DTaP/Tdap/Td Vaccines (10 - Td or Tdap) [facility] Start: 02-02-2028 Screening for malign ant neoplasm of cervix [facility] Start: 02-01-2026 Screening for malign ant neoplasm of cervix Pap Smear [facility] Start: 09-08-2024 Urine microalbumin profile DTAP,TDAP,TD (3 - Td or Tdap) [facility] Start: 08-23-2023 End: 08-23-2023 Patient encounter procedure 08/23/2023 1:45 PM EST Office Visit [facility] [address] [place] [address] Ana Maria Niño MD [address] [place] [address] [facility] Start: 08-23-2023 End: 08-23-2023 Professional / ancillary services management 08/23/2023 1:15 PM EST Ancillary Procedure [facility] [address] [place] [address] [facility] Start: 08-23-2023 End: 08-23-2023 Patient encounter procedure 08/23/2023 10:15 AM EST Office Visit [facility] [address] [place] [address] Ana Maria Niño MD [address] [place] [address] [facility] Start: 07-12-2023 End: 07-12-2024 Estradiol Estradiol Lab Routine Irregular menses Expected: 07/12/2023 (Approximate), Expires: 07/12/2024 [facility] Immunizations Immunization Date Immunization Notes Care Provider Jorge montes 09-08-2014 tetanus toxoid, reduced diphtheria toxoid, and acellular pertussis vaccine, adsorbed Laci Philippe AIRCRAFT TOOL MAKER.COAL TRIMMER MACHINE OPERATOR Work Phone: [facility] Work Phone: 01-20-2013 tetanus toxoid, reduced diphtheria toxoid, and acellular pertussis vaccine, adsorbed Laci Pendnahunbury AIRCRAFT TOOL MAKER.COAL TRIMMER MACHINE OPERATOR Work Phone: [facility] Payers Date Payer Category Payer Unknown [id number] 2020 Medicaid [id number] 2020 Medicaid [id number] 1992 Unknown [id number] 1992 Unknown [id number] 1992 Unknown [id number] 1992 Unknown [id number] Social History Date Type Detail Facility Start: 01-13-2013 End: 02-01-2023 Tobacco smoking status NEIS Never smoked tobacco [facility] Work Phone: Start: 01-13-2013 Tobacco use and exposure Smokeless tobacco non-user [facility] Work Phone: Start: 06-22-2022 Alcohol intake Current non-dr rehabilitation services counselor of alcohol (finding) [facility] Start: 1990 Sex Assigned At Not on file [facility] Start: 02-01-2023 Tobacco use and exposure User of smokeless tobacco [facility] Start: 02-01-2023 End: 07-12-2023 Alcohol intake Current drinker of alcohol (finding) [facility] Start: 02-01-2023 End: 07-12-2023 History of Social function [facility] Start: 02-01-2023 End: 07-12-2023 Tobacco use panel [facility] Clinical Notes 10-22-2014 to 07-12-2023 Ana Maria Niño MD - 07/12/2023 11:45 AM EDTTelephone Encounter - Mackenzie Rosado, AIRLINE HOSTESS - 04/11/2023 8:00 AM EDTTelephone Encounter - Mackenzie Rosado, AIRLINE HOSTESS - 04/11/2023 8:00 AM EDT Note Date & Type Note Facility 07-12-2023 History of Presen t illness Narrative Chief Complaint Patient presents with Pelvic Pain Menstrual Problem HPI: Patient is presenting today with complaint of pelvic pain and bloating Patient reports that she continues to feel off ever since her two D&C in January for missed AB (done in [place]). She saw me in January after this, had an US to follow up, done in [place] in February that showed normal uterus with thin endometrial lining and a 2 cm right ovarian cyst. Patient reports she is having right sided pain, bad at times, not related to her cycle and constant bloating regardless of diet. She has a normal BM daily and no urinary complaints. She reports that sex can be painful as well, feels like the billy of her vaginal are scrapped. Periods are every 3 weeks or a little shorter and sees brown sometimes, sometimes chunks of tissue. She has not been on any control since D&C, does not desire at this time but does not like how she feels on hormonal control. She was on pills prior to the miscarriage. History: OB History Para Term AB Living 5 3 2 1 2 3 SAB IAB Ectopic Multiple Live Births 2 3 # Outcome Date GA Lbr Lencho/2nd Weight Sex Delivery Anes PTL Lv 5 SAB 01/07/23 U Incomplete S Complications: hemorrhage 4 Term 11/25/18 38w0d M CS-LTranv CHER 3 10/27/14 34w3d 5 lb 3.7 oz (2.373 kg) F Vag-Spont EPI Y CHER Comments: Spontaneous labor, PTL, EBL 200cc 2 SAB 07/2013 6w0d Complete 1 Term 04/15/13 37w6d 12:00 5 lb 11 oz (2.58 kg) M Vag-Spont EPI N CHER Comments: Little, pitocin induction, IUGR, EBL 200cc, depression No past medical history on file. Past Surgical History: Procedure Laterality Date SECTION, LOW TRANSVERSE 11/25/2018 for breech DILATION AND CURETTAGE OF UTERUS 01/2023 x2 for incomplete first trimester miscarriage No family history on file. Social History Socioeconomic History Marital status: Single Tobacco Use Smoking status: Never Smokeless tobacco: Current Substance and Sexual Activity Alcohol use: Yes Drug use: Yes Types: Marijuana Sexual activity: Yes Partners: Male Allergies Allergen Reactions Penicillins Rash and Unknown Other reaction(s): Hives Latex Other reaction(s): Reaction:Reaction 1:Rash Wound Dressing Adhesive Rash Clear Bandage used for IV No current outpatient medications on file. EXAM: Vitals: 07/12/23 1149 BP: 108/71 Pulse: 97 Weight: 111 lb (50.3 kg) Body mass index is 20.97 kg/m . CONSTITUTIONAL: Well developed, well nourished. No acute distress RESPIRATORY: Normal effort SKIN: Intact, dry PSYCHIATRIC: Normal mood and affect, A&O x3. exam: EXTERNAL GENITALIA: normal female structures VAGINA: normal ruggae, no lesions, thick white clumpy discharge c/w yeast CERVIX: no lesions, moderate cervical motion tenderness UTERUS: normal mobility, tender, normal size, shape and consistency. ADNEXA: normal, non tender no masses. URETHRA: normal. nontender BLADDER: nontender. PELVIC SUPPORT DEFECTS: Normal support of vagina, uterus, and bladder ANUS/PERINEUM: no hemorrhoids, masses or warts noted. Assessment and Plan: Halie was seen today for pelvic pain and menstrual problem. Diagnoses and all orders for this visit: Pelvic pain (Primary) - Sureswab(R) Advanced Vaginitis Plus, TMA ([facility]) - US pelvis transvaginal; Future - hCG, quantitative Bloating - US pelvis transvaginal; Future - hCG, quantitative Irregular menses - TSH - Estradiol; Future - hCG, quantitative - Estradiol Vaginal discharge - Sureswab(R) Advanced Vaginitis Plus, TMA ([facility]) Discussed CMT if often due to infection or scarring in posterior cul-de-sac caused by endometriosis. Will send swab for infection, will treat for yeast now given exam findings (discussed yeast could be causing vaginal wall irritation). If endo, treatment is hormonal or laparoscopy to remove (but then still recommend hormonal methods to prevent recurrence) Will check pelvic US for other causes of symptoms Patient wanting hormones checked due to periods and acne- will check TSH and estradiol along with hCG today Follow up for pelvic US, follow up with me. Ana Maria Niño M.D. 07/12/2023 at 12:35 PM (Electronically Signed) documented in this encounter [facility] 04-11-2023 Telephone encount er Note Spoke with [facility] regarding US report. Will fax to the office. [facility] 04-11-2023 Miscellaneous Notes Formattin g of this note might be different from the original. Spoke with [facility] regarding US report. Will fax to the office. Spoke with medical records with [facility]. Will fax a copy of US for review. Spoke with pt. Advised not sure we received the results as I do not see them in her chart. This was completed at [facility]. Will follow up with them. Name of caller: Halie Lucio Contact phone number: [phone] Relationship to Patient: Pt Provider: Dr. Niño Practice: [facility] Chief Complaint/Reason for Call: Pt calling to get results from 02.01 visit. Pt stated she had ultrasound done at [facility] and had those faxed over to office. Please Advise. Best time of day caller can be reached: Any Patient advised that office/PCP has 24-48 business hours to return their call: Yes documented in this encounter [facility] 04-10-2023 Telephone encount er Note Spoke with medical records with [facility]. Will fax a copy of US for review. [facility] 04-10-2023 Miscellaneous Notes Formattin g of this note might be different from the original. Spoke with medical records with [facility]. Will fax a copy of US for review. Spoke with pt. Advised not sure we received the results as I do not see them in her chart. This was completed at [facility]. Will follow up with them. Name of caller: Halie Lucio Contact phone number: [phone] Relationship to Patient: Pt Provider: Dr. Niño Practice: [facility] Chief Complaint/Reason for Call: Pt calling to get results from 02.01 visit. Pt stated she had ultrasound done at [facility] and had those faxed over to office. Please Advise. Best time of day caller can be reached: Any Patient advised that office/PCP has 24-48 business hours to return their call: Yes documented in this encounter [facility] 04-03-2023 Telephone encount er Note Spoke with pt. Advised not sure we received the results as I do not see them in her chart. This was completed at [facility]. Will follow up with them. [facility] 04-02-2023 Telephone encount er Note Name of caller: Halie Lucio Contact phone number: [phone] Relationship to Patient: Pt Provider: Dr. Niño Practice: [facility] Chief Complaint/Reason for Call: Pt calling to get results from 02.01 visit. Pt stated she had ultrasound done at [facility] and had those faxed over to office. Please Advise. Best time of day caller can be reached: Any Patient advised that office/PCP has 24-48 business hours to return their call: Yes [facility] 02-01-2023 History of Presen t illness Narrative Halie Lucio 02/01/2021 32 y.o. Primary Care Physician: Lucrecia Juarez Chief Complaint Patient presents with New Patient Annual exam HPI : Halie Lucio is a 32 y.o. female here for annual exam and follow up from [facility] last month. Gynecologic History: No LMP recorded. Menses are not regular lately Had been having irregular bleeding since Oct, passing clots. Went to [facility] and was told was . She did not want so went to clinic, was told it was a 9 weeks sac and nothing else so she had a MAB. She was given cytotec twice to try to pass the tissue without anything happening. She then had a D&C on 01/05/23 and had lots of bleeding afterwards A week later was still feeling bad so went to the [place] ED and had US that showed uterus still full of clot/possible RPOC. She had another D&C on 01/15/23 form the ED. Since then she has felt somewhat better, but is still having irregular bleeding and feels like something is inside her. She does not want to follow up with the clinic in [place]. No records available today at the time of visit. Preventative Health Testing: Date of Last Pap Smear: a few years ago, maybe [id number] per pt Abnormal Pap Smear History: remote abnl pap, then will have normal repeat, no procedures of dysplasia OB History Para Term AB Living 5 3 2 1 2 3 SAB IAB Ectopic Multiple Live Births 2 0 0 0 3 # Outcome Date GA Lbr Lencho/2nd Weight Sex Delivery Anes PTL Lv 5 SAB 01/07/23 U Incomplete S Complications: hemorrhage 4 Term 11/25/18 38w0d M CS-LTranv CHER 3 10/27/14 34w3d 5 lb 3.7 oz (2.373 kg) F Vag-Spont EPI Y CHER Comments: Spontaneous labor, PTL, EBL 200cc Name: May Apgar1: 8 Apgar5: 9 2 SAB 07/2013 6w0d Complete 1 Term 04/15/13 37w6d 12:00 5 lb 11 oz (2.58 kg) M Vag-Spont EPI N CHER Comments: Little, pitocin induction, IUGR, EBL 200cc, depression Name: Reji Apgar1: 8 Apgar5: 9 History reviewed. No pertinent past medical history. Past Surgical History: Procedure Laterality Date SECTION, LOW TRANSVERSE 11/25/2018 for breech DILATION AND CURETTAGE OF UTERUS 01/2023 x2 for incomplete first trimester miscarriage No family history on file. Social History Socioeconomic History Marital status: Single Spouse name: Not on file Number of children: Not on file Years of education: Not on file Highest education level: Not on file Occupational History Not on file Tobacco Use Smoking status: Never Smokeless tobacco: Current Substance and Sexual Activity Alcohol use: Yes Drug use: Yes Types: Marijuana Sexual activity: Yes Partners: Male Other Topics Concern Not on file Social History Narrative Not on file Social Determinants of Health Financial Resource Strain: Not on file Food Insecurity: Not on file Transportation Needs: Not on file Physical Activity: Not on file Stress: Not on file Social Connections: Not on file Intimate Partner Violence: Not on file Housing Stability: Not on file MEDICATIONS: No current outpatient medications on file. No current facility-administered medications for this visit. ALLERGIES: Allergies as of 02/01/2023 - Reviewed 02/01/2023 Allergen Reaction Noted Penicillins Rash and Unknown 08/22/2005 Latex 12/02/2020 Wound dressing adhesive Rash 04/03/2018 REVIEW OF SYSTEMS: CONSTIUTIONAL: No weight change or fatigue. No fever or chills. No changes in appetite. CV: No chest pain, palpitations, or syncope. RESPIRATORY: No SOB, cough, or wheezing. BREAST: No breast abnormalities or lumps. GI: No nausea, vomiting, diarrhea, constipation, bloating or bowel changes. No blood or mucous with bowel movements or melena. : No dysuria, frequency, hesitancy, urgency. No urinary incontinence. No vaginal discharge, odor, or itch. No dyspareunia. NEURO: No weakness or sensory changes MUSCULOSKELETAL: No back pain or arthralgias. HEME and LYMPH : No lymphoma or abnormal bleeding history PHYSICAL EXAM: Vitals: 02/01/23 1442 BP: 108/65 Pulse: 76 Weight: 111 lb (50.3 kg) Height: 5' 1 (1.549 m) Body mass index is 20.97 kg/m . GENERAL EXAM CONSTITUTIONAL: well developed, well nourished, well groomed, no acute distress NECK: no thyromegaly, supple CARDIOVASCULAR: normal rate, no edema LUNGS: normal effort ABDOMEN: soft, non-tender, non-distended NEUROLOGICAL: no gross motor or sensory deficits noted MUSCULOSKETAL: normal gait, no cyanosis PSYCHIATRIC: normal mood and affect, A&O x3 ABDOMEN: soft, non distended, no rebound or guarding, but mild diffuse tenderness. SLITTER AND REWINDER EXAM: BREASTS: normal, no masses, tenderness or skin changes EXTERNAL GENITALIA: normal female structures VAGINA: normal ruggae, no lesions, scant blood, no active bleeding or clots CERVIX: no lesions, no cervical motion tenderness, normal appearance UTERUS: normal mobility, mild tenderness, normal size, shape and consistency ADNEXA: normal, mild tenderness, no masses URETHRA: normal. nontender BLADDER: non tender PELVIC SUPPORT DEFECTS: normal support of vagina, uterus, and bladder ANUS/PERINEUM: no hemorrhoids, masses or warts noted ASSESSMENT/PLAN: Halie was seen today for new patient. Diagnoses and all orders for this visit: Encntr for travel registered nurse pacu exam (general) (routine) w abnormal findings (Primary) Screening for cervical cancer - Pap Smear Abnormal uterine bleeding (AUB) - hCG, quantitative - ABO/Rh - Antibody screen Pelvic pain - US pelvis transvaginal - Chlamydia/N.Gonorrhoeae and T. Vaginalis RNA, QL TMA ([facility]) Follow up for pelvic US and follow up with a provider afterwards. Will get hCG and pelvic US to evaluate. STD swab collected due to pain on exam. I Discussed pap guidelines and routine gynecologic preventative care/screening. Self breast exam discussed. Weight management through healthy diet and regular exercise reviewed. Advised use of MVI and vit D supplementation, calcium through diet if able. Routine health maintenance per patient's PCP as well. Ana Maria Niño M.D. 02/01/2023 at 3:26 PM (Electronically Signed) documented in this encounter [facility] 06-22-2022 Note HNO ID: [id number] Author: Laci Paez APRN.CNP Service: ? Author Type: Nurse Practitioner Type: Progress Notes Filed: 06/22/2022 5:39 PM Note Text: Nontoxic-appearing female presents urgent care chief complaint abdominal pain vaginal bleeding. Patient states abdominal pain and vaginal bleeding started today. She did take a home test that was positive. Presents today for evaluation. States abdominal pain is stayed consistent. Has not worsened. Denies any nausea or vomiting. Has had spontaneous in the past. Concerned about spontaneous today. With patient's presenting symptoms I recommended patient be seen the ED for further evaluation care. Patient verbalized understand agrees with plan of care will be seen at [facility]. Laci Paez APRN.CNP [facility] 06-22-2022 History of Presen t illness Narrative Nontoxic-appearing female presents urgent care chief complaint abdominal pain vaginal bleeding. Patient states abdominal pain and vaginal bleeding started today. She did take a home test that was positive. Presents today for evaluation. States abdominal pain is stayed consistent. Has not worsened. Denies any nausea or vomiting. Has had spontaneous in the past. Concerned about spontaneous today. With patient's presenting symptoms I recommended patient be seen the ED for further evaluation care. Patient verbalized understand agrees with plan of care will be seen at [facility]. Laci Paez APRN.CNP documented in this encounter [facility] documented as of this encounter (statuses as of 06/22/2022) [facility] Procedure not carried out- Primary Procedure not carried out for other reasons [facility] Encntr for travel registered nurse pacu exam (general) (routine) w abnormal findings- Primary Screening for cervical cancer Screening for malignant neoplasm of the cervix Abnormal uterine bleeding (AUB) Pelvic pain [facility] Pelvic pain- Primary Bloating Flatulence, eructation, and gas pain Irregular menses Irregular menstrual cycle Vaginal discharge Leukorrhea, not specified as infective documented in this encounter [facility] Summary Purpose Family History No Family History Records FoundNo Family History Records FoundNo Family History Records Found Advance Directives No Advanced Directives Records FoundNo Advanced Directives Records FoundNo Advanced Directives Records Found Additional Source Comments Source Comments (unrecognize d section and content) In the event this informatio n is protected by the Federal Confidentiality of Alcohol and Drug Abuse Patient Records regulations: The Federal rules restrict any use of the information to criminally investigate or prosecute any alcohol or drug abuse patient.[facility] INFORMATION SOURCE (unrecogn ized section and content) DATE CREATED AUTHOR AUTHOR'S ORGANIZ ATION 01/07/2023 [facility] DATE CREATED AUTHOR AUTHOR'S ORGANIZ ATION 07/20/2023 [facility] Reason for Visit (unrecogniz ed section and content) Reason Onset Date Comments Results 04/02/2023 Reason Comments Pelvic Pain Menstrual Problem Care Teams (unrecognized sec tion and content) [employer] Relationship Specialty Start Date End Date [facility] [address] [place] [address] PCP - General 02/01/23 [employer] Relationship Specialty Start Date End Date [facility] [address] [place] [address] PCP - General 02/01/23 [employer] Relationship Specialty Start Date End Date [facility] [address] [place] [address] PCP - General 02/01/23 [employer] Relationship Specialty Start Date End Date [facility] [address] [place] [id number] PCP - General 02/01/23 FOR RECORDS PERTAINING TO PATIENTS WHO ARE OR HAVE BEEN ENROLLED IN A CHEMICAL DEPENDENCY/SUBSTANCEABUSE PROGRAM, SOME INFORMATION MAY BE OMITTED. This clinical summary was aggregated from multiple sources. Caution should be exercised in using it in the provision of clinical care. This summary normalizes information from multiple sources, and as a consequence, information in this document may materially change the coding, format and clinical context of patient data. In addition, data may be omitted in some cases. CLINICAL DECISIONS SHOULD BE BASED ON THE PRIMARY CLINICAL RECORDS. [facility] [employer] [facility] provides no warranty or guarantee of the accuracy or completeness of information in this document.
[2023-11-01 21:04] LABS: Absolute Lymphocyte Count 0.36 X10^3/uL (0.83-4.51); Absolute Neutrophil Count 11.3 X10^3/uL (2.0-7.7); Basophil# 0.03 X10^3/uL; Basophil% 0.2 % (0-1); Hemoglobin 13.9 g/dL (12.0-15.0); Lymphocyte # 0.36 X10^3/ul (0.83-4.51); Mean Corp Hgb Conc 33.1 g/dL (32-36); Mean Corpuscular Hgb 30.2 pg (27.0-32.0); Mean Corpuscular Volume 91.3 fL (81-99); Monocyte# 0.24 X10^3/uL; NRBC Flagged by Analyzer 0 % (0-5); Neutrophil # 11.33 X10^3/uL (2.7-7.7); Neutrophil % 94.3 % (47-70); POSITIVE DIFFERENTIAL YES; Platelet Count 170 K/mm3 (150-450); RBC Distribution Width CV 13.2 % (11.6-14.6); RBC Distribution Width SD 44.2 fl (35.1-43.9)
[2023-11-01 21:07] LABS: Differential Indicated SCAN CRITERIA MET
[2023-11-01 21:24] LABS: AST(SGOT) 12 U/L (15-37); Alanine Aminotransfer ALT/SGPT 21 U/L (13-56); Alkaline Phosphatase 42 U/L (45-117); Anion Gap 5 (5-15); BUN 16 mg/dL (7-18); BUN/Creat Ratio 31.5 RATIO (10-20); Bilirubin, Direct 0.23 mg/dL (0.00-0.30); Chloride 105 mmol/L (98-107); Creatinine, Serum 0.51 mg/dL (0.55-1.02); Differential Comment SCANNED; EST Glomerular Filtration Rate 150 mL/min (>60); Est Glom Filt Rate - Afr Amer 182 mL/min (>60); Estimated Creatinine Clearance 120.61 ml/min; Globulin 3.2 g/dL (2.2-4.2); Glucose 158 mg/dL (74-106); Lipase 26 U/L (13-75); Potassium 3.5 mmol/L (3.5-5.1); Protein, Total 7.2 g/dL (6.4-8.2); Sodium Level 138 mmol/L (136-145)
[2023-11-01 21:59] LABS: hCG Titer Quant., Serum 41476 mIU/mL (1-3)
[2023-11-01 22:15] LABS: Bacteria 0 SEEN /hpf (None Seen); Mucous, Urine 0 SEEN /hpf (<or=2+); Red Blood Cells-Urine 0 SEEN /hpf (0-5)
[2023-11-01 22:20] LABS: Color, Urine Yellow (Yellow); Glucose, Dipstick 50 mg/dl (Normal); Leukocyte Esterase-Dipstick Negative /ul (Negative); Nitrite-Dipstick Negative (Negative); Occult Blood-Urine Negative /ul (Negative); Protein-Dipstick 30 mg/dl (Negative); Specific Gravity, Urine 1.015 (1.002-1.030); Urine Bilirubin Dipstick Negative (Negative); Urine Clarity Clear (Clear); Urine Urobilinogen Normal (Normal); Urine pH 6.5 (5.0 - 8.0)
[2023-11-01 22:31] LABS: Ketone-Dipstick 150 mg/dl (Negative)
[2023-11-01 22:34] LABS: Squamous Epithelial Cells - UA 0-5 SEEN /hpf (5-10); White Blood Cells 0-5 SEEN /hpf (0-5)
[2023-11-01 22:52] VITALS: BP 106/75; PULSE 67; RESP 16; O2SAT 98
[2023-11-01] MEDS: Famotidine 200 MG/20 ML MDV 20 MG in 0.9% Normal Saline (Pres. free 8 ML 300 MG IV (23:37)
[2023-11-01 23:56] VITALS: BP 122/79; PULSE 60; RESP 15; O2SAT 98
== END 2023-11-02 | disposition home or self-care (01) ==
PROVIDERS: Emergency Provider Emergency Medicine; PCP Nurse Practitioner Family; Visit Provider Emergency Medicine
DX: O20.0 Threatened abortion (principal); Z3A.01 Less than 8 weeks gestation of pregnancy; Z87.891 Personal history of nicotine dependence; O21.9 Vomiting of pregnancy, unspecified; O99.891 Other specified diseases and conditions complicating pregnancy; R82.4 Acetonuria
CPT/HCPCS: 76817; 80048; 80076; 81001; 83690; 84702; 85025; 86900; 86901; 96361; 96374; 96375; 99284; A4216; J2405; J3490

== ENCOUNTER 2025-08-29 18:40 | Emergency (ER) | payer MEDICAID, SELFPAY ==
[2025-08-29 18:43] VITALS: BP 108/81; PULSE 63; RESP 18; TEMP 36.8; O2SAT 99; BMI 20.8
[2025-08-29 18:47] VITALS: BP 108/81; PULSE 63; RESP 18; TEMP 36.8; O2SAT 99
--- NOTE | 2025-08-29 19:32 | EDS_ITS ---
HPI HPI - URI History of Present Illness Chief Complaint: Cold Sx Detail of Chief Complaint: Upper respiratory tract infection symptoms started 6 days ago August 23 Informant: patient Onset/Context/Timing Onset: Days Context: Sudden Onset Timing: Continuous and Waxes and wanes Quality: Mild upper respiratory symptoms and now myalgias arthralgias Location: Upper respiratory Current Severity: Mild Maximum Severity: Moderate Worsened by: Not Worsened By Swallowing, Eating Solids or Drinking Liquids Relieved by: Not Relieved By Tylenol or NSAIDs Associated Symptoms Associated Symptoms: Positive for Nasal Congestion, Chest Pain and Nonproductive cough; Negative for Headache, Sinus Pressure, Myalgias, Nausea, Vomiting, Diarrhea, Shortness of Breath, Hemoptysis or Productive Cough Narrative Narrative: Patient is a healthy 34-year-old female who presents with nonproductive cough, congestion and initially rhinorrhea, ear popping, myalgias, arthralgias nausea and headache. The mild sore throat started after she ran a 5K. She is a non- smoker. She denies double vision, blurred vision loss of vision. She denies ringing in her ears. She denies history of PE or DVT. She has no risk factors for PE or DVT. She is not on any hormonal therapy. She has no complaint of leg swelling or discoloration. Prior similar symptoms: Yes Recent Illness/Hospitalization: No ROS ROS ED Constitutional Constitutional ED: Denies chills, fever(s), subjective or sweats Eyes Eyes: Denies blurry vision, change in vision or diplopia ENT ENT ED: Reports rhinorrhea; Denies ear pain or sore throat Cardiovascular Cardiovascular: Reports chest pain and other Details: Chest pain is bilateral and has a pleuritic component. ; Denies orthopnea, palpitations, paroxysmal nocturnal dyspnea or racing heartbeat Respiratory/Chest Respiratory/Chest: Reports cough; Denies dyspnea, dyspnea on exertion, orthopnea, paroxysmal nocturnal dyspnea or sputum Gastrointestinal Gastrointestinal: Denies abdominal pain, nausea or vomiting Genitourinary Genitourinary ED: Denies dysuria, hematuria or urinary frequency Musculoskeletal Musculoskeletal: Reports arthralgias and myalgias Integumentary Denies rash Neurologic Neurologic: Reports headache(s); Denies paresthesias Hematologic/Lymphatic Hematologic/Lymphatic: Denies easy bleeding or easy bruising [facility] Medical History Loose, teeth Alcohol use Depression Anxiety Marijuana use Substance abuse Hepatitis Easy bruising Injury of head and neck Syncope Gastric reflux Asthma Non-smoker Leg cramps History of pain when walking History of edema delivery delivered Home Medications Medication Instructions Recorded Last Taken Type ondansetron 4 mg disintegrating 4 mg PO Q8H PRN PRN Na usea #10 tabs 11/01/23 Unknown Rx tablet ondansetron 4 mg disintegrating 4 mg PO Q6H PRN nausea and 11/02/23 Unknown Rx tablet vomiting #10 tabs Allergy/AdvReac Type Severity Reaction Status Date / Time adhesive tape (tape) Allergy Mild Rash Verified 08/29/25 18:43 latex Allergy Mild Rash Verified 08/29/25 18:43 Penicillins Allergy Hives Verified 08/29/25 18:43 Family History Grandmother Asthma COPD (chronic obstructive pulmonary disease) Diabetes Surgical History Hx of dilation and curettage Hx of section Social History number of children: 2 current occupational status: employed 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 Smoking Status: Never smoker alcohol intake: former year quit: 2017 substance use type: marijuana and other details: Quit when found out about caffeine: Yes Type: carbonated beverages Number of servings: 1 seatbelt use: always do you feel safe at home: Yes additional social history: Edgar Trinh 11 years old EXAM Physical Exam Const Vital Signs: 08/29/25 18:43 08/29/25 18:47 Temperature 98.3 F 98.3 F Temperature Source Oral Oral Pulse Rate 63 63 Respiratory Rate 18 18 Blood Pressure 108/81 H 108/81 H Blood Pressure Mean 90 90 Pulse Ox 99 99 Oxygen Delivery Method Room Air Room Air Positive well nourished and well developed General Appearance ED: well developed and NAD; Negative for pallor HEENT Reports moist mucous membranes HEENT Narrative: TMs are normal. normocephalic and atraumatic Face and Sinus: Negative for sinus tenderness Throat: posterior oropharynx normal Eyes PERRL and EOMs intact bilaterally Neck no lymphadenopathy, supple, no meningeal signs and no JVD Resp normal respiratory effort and clear to auscultation bilaterally Cardio S1 normal heart sound, S2 normal heart sound and no murmurs Rate: regular rate Rhythm: regular rhythm Extremity normal to inspection Neuro oriented x3 and CN's II-XII intact bilaterally Sensorium / Orientation: alert Psych mental status grossly normal Skin General Skin Exam: Negative for jaundice or pallor Lesions: no lesions Rashes: no rashes MDM MDM MDM Narrative Medical decision making narrative: Patient presents with viral symptoms. With no fever, tachycardia, tachypnea and clear lungs to auscultation there is no indication for imaging and there is no indication for blood work. Patient was informed she would be ill for another 7 to 10 days. Prior records were reviewed. He does have a history of hepatitis C antibodies and is status post tubal ligation/sterilization. She is a non- smoker. History & Record Review Additional record(s) reviewed:: Other Discharge Plan Triage Chief Complaint: Cold Sx ED Provider: Douglas Vargas Dx/Rx/DC Orders Clinical Impression: Upper respiratory infection with cough and congestion Instructions: ED URI, Viral, No Abx (Adult) Prescriptions: No Action ondansetron 4 mg tablet,disintegrating 4 mg PO Q8H PRN PRN (Reason: Nausea) Qty: 10 0RF ondansetron 4 mg tablet,disintegrating 4 mg PO Q6H PRN (Reason: nausea and vomiting) Qty: 10 0RF Primary Care Provider: Analy Faye NP Referrals: Analy Faye NP, SPA SUPERVISOR-C [Primary Care Provider, [facility]] - 10-14 Days if not better Print Language: Brazilian Disposition Disposition: Home, Self Care
--- OUTSIDE RECORDS SUMMARY | 2025-08-29 19:44 | XMS RPT_ITS | CCD ---
Author Organization [facility] Care Team Providers Care Laster Hand Name Role Phone Unavailable Primary Care Provider Unavailabl [facility], [facility] Primary Care Provider Unav ailable [facility], [facility] Primary Care Provider Unav ailable ANA MARIA NIÑO Attending Unavailable [facility], [facility] Primary Care Unavailable ANA MARIA NIÑO Attending Unavailable [facility], [facility] Primary Care Unavailable Freddy Chan Attending Unavailable Neyda DROP WIRE ALIGNER, Roseann Primary Care Unavailable Neyda DROP WIRE ALIGNER, Roseann Primary Care Unavailable Katharine Carrasco Attending Unavailable Katharine Carrasco Attending Unavailable Katharine Carrasco Referring Unavailable Neyda DROP WIRE ALIGNER, Roseann Primary Care Unavailable Katharine Carrasco Attending Unavailable Neyda DROP WIRE ALIGNER, Roseann Primary Care Unavailable Joe Carrasco Attending Unavailable Neyda DROP WIRE ALIGNER, Roseann Primary Care Unavailable VACCPHOEBE RODRÍGUEZ Attending Unavailable VACCJEAN CARLOSLLI, PHOEBE Referring Unavailable Neyda DROP WIRE ALIGNER, Roseann Primary Care Unavailable Marcos Ray Attending Unavailable Neyda DROP WIRE ALIGNER, Roseann Primary Care Unavailable TITA, PINEDA E Attending Unavailable ROSEANN FAYE CNP Consulting Unavailable ROSEANN FAYE CNP Referring Unavailable TITA, PINEDA E Admitting Unavailable TITA, PINEDA E Primary Care Unavailable PROVIDER, UNKNOWN Consulting Unavailable PROVIDER, UNKNOWN Consulting Unavailable ROSEANN FAYE CNP Consulting Unavailable ROSEANN FAYE CNP Referring Unavailable ZAMBRANO, DARYL C Admitting Unavailable ZAMBRANO, DARYL C Primary Care Unavailable ZAMBRANO, DARYL C Attending Unavailable PROVIDER, UNKNOWN Consulting Unavailable PROVIDER, UNKNOWN Consulting Unavailable ROSEANN FAYE CNP Consulting Unavailable ROSEANN FAYE CNP Referring Unavailable KIM HICKEY DO Admitting Unavailable OMKIM COLON DO Primary Care Unavailable KIM HICKEY DO Attending Unavailable PROVIDER, UNKNOWN Consulting Unavailable PROVIDER, UNKNOWN Consulting Unavailable Allergies Allergy Classification Reported Allergen(s) Allergy Type Date of Onset Reaction(s) Facility (2 sources) Adhesive Tape; Translations: [ADHESIVE TAPE (MERRY)] Allergy to substance [address] [facility] Work Phone: (2 sources) Penicillins; Translations: [PENICILLINS] Propensity to adverse reactions [address] [facility] Work Phone: (6 sources) Penicillins Allergy to substance [address] [facility] (6 sources) IV patch/latex; Translations: [IV patch/latex] Propensity to adverse reactions 0 Rash/welt [facility] (5 sources) Latex Allergy to substance 1 [facility] (5 sources) Penicillins Drug Intolerance 5 Rash, Unknown [facility] (5 sources) Wound Dressing Adhesive Drug Allergy 8 [facility] (2 sources) Adhesive Tape; Translations: [adhesive tape] Allergy to substance [address] [facility] (1 source) Latex Allergy to substance [address] [facility] (1 source) Latex Drug allergy (disorder) 4 [facility] (1 source) Penicillins Drug allergy (disorder) 4 [facility] (1 source) Penicillin Drug Allergy [facility] Repository Medications Current Medications Medication Drug Class(es) Dates Sig (Normalized) Sig (Original) fluconazole 150 mg oral tablet (1 source) Azole Antifungal Start: 07-17-2023 End: 07-21-2023 fluconazole (Diflucan) 150 MG tablet Take 1 tablet (150 mg) by mouth Every 3 days for 2 doses. 2 tablet 0 07/17/2023 07/21/2023 Active ondansetron 4 mg disintegrating oral tablet (1 source) Serotonin-3 Receptor Antagonist Start: 11-01-2023 take 4 mg by mouth every eight hours as needed Ondansetron Active 4 MG PO EVERY 8 HOURS NEEDED November 01, 2023 12:00am Completed/Discontinued Medications Medication Drug Class(es) Dates Sig (Normalized) Sig (Original) acetaminophen 325 mg / oxyCODONE hydrochloride 5 mg oral tablet (6 sources) Opioid Agonist Start: 11-27-19 End: 12-04-19 take 1 tablet by mouth every four hours as needed Oxycodone-Acetaminophe n Discontinued 1 - 2 TABLET PO EVERY 4 HOURS NEEDED 03 05November 27, 2018 12:00am December 04, 2018 12:08am ascorbic acid 1000 mg oral tablet (1 source) Vitamin C Start: 07-31-20 take 1 tablet by mouth once daily Ascorbic Acid (VITAMIN C) 1,000 mg tablet Take 1 tablet by mouth once daily. 0 07/31/2019 Active Comment on above: Take 1 tablet by kelvin once daily. citalopram 10 mg oral tablet (1 source) Serotonin Reuptake Inhibitor Start: 07-31-20 take 1 tablet by mouth once daily citalopram hydrobromide (CELEXA) 10 mg tablet Indications: DANIEL (generalized anxiety disorder) Take 1 tablet by mouth once daily. 30 tablet 5 07/31/2019 Active Comment on above: Take 1 tablet by kelvin once daily. doxycycline monohydrate 100 mg oral tablet (3 sources) Tetracycline-cla ss Drug Start: 01-16-20 End: 11-01-19 24 take 100 mg by mouth twice daily Doxycycline Monohydrate Discontinued 100 MG PO TWICE A DAY January 14, 2023 11:00pm November 01, 2023 11:40pm Ethinyl Estradiol / norgestimate (1 source) Progestin, Estrogen Start: 01-27-20 take 1 tablet by mouth once daily norgestimate 0.25 mg-ethinyl estradiol 35 mcg (SPRINTEC) 0.25-35 mg-mcg per tablet Indications: Encounter for BCP ( control pills) initial prescription Take 1 tablet by mouth once daily. 1 Package 11 01/26/2021 Active Comment on above: Take 1 tablet by kelvin once daily. ibuprofen 600 mg oral tablet (6 sources) Nonsteroidal Anti-inflammator y Drug Start: 11-27-19 End: 02-25-20 take 600 mg by mouth every six hours as needed Ibuprofen Discontinued 600 MG PO EVERY 6 HOURS NEEDED November 27, 2018 12:00am February 25, 2020 2:12pm 1 ml medroxyPROGESTERone acetate 150 mg/ml prefilled syringe (12 sources) Progestin Start: 01-13-20 End: 02-25-20 inject 150 mg by intramuscular injection every three months Medroxyprogesterone (Depo-Provera) 150 mg/mL syringe Discontinued 150 MG IM every 3 months February 17, 2020 12:19pm February 25, 2020 2:25pm methylergonovine maleate 0.2 mg oral tablet (3 sources) Ergot Derivative Start: 01-16-20 End: 11-01-19 take 1 tablet by mouth three times daily Methylergonovine (Methergine) 0.2 mg tablet Discontinued 0.2 MG PO THREE TIMES A DAY 9 3 January 14, 2023 11:00pm November 01, 2023 11:40pm miSOPROStol 0.2 mg oral tablet (4 sources) Prostaglandin E1 Analog Start: 01-05-20 End: 01-08-20 Misoprostol Discontinued 200 MCG VAGINAL Q12H January 03, 2023 11:00pm January 07, 2023 10:56am oxyCODONE hydrochloride 5 mg oral capsule (4 sources) Opioid Agonist Start: 01-05-20 End: 01-08-20 take 5 mg by mouth every six hours Oxycodone Discontinued 5 MG PO EVERY 6 HOURS January 03, 2023 11:00pm January 07, 2023 10:56am Pnv 798-Chvfh-Ektqe-3-Fish Oil (6 sources) Start: 10-31-19 End: 01-13-20 Pnv 636-Wfcsp-Vlufi-3-Fish Oil Discontinued 1 EACH PO TWICE A DAY October 31, 2018 1:00am January 12, 2019 11:47am Start: 10-31-2018 End: 01-12-2019 Pnv 988-Vdwqw-Pgpyp-3-Fish O il Discontinued 1 EACH PO TWICE A DAY October 31, 2018 12:00am January 12, 2019 10:47am Ftltygjb-Cg-Asd-Fe-FA ( VITAMIN) tab (1 source) take 1 tablet by mouth once Mywmfbpm-Nc-Hdn-Fe-FA ( VITAMIN) tab Take 1 tablet by mouth. 0 Active Comment on above: Take 1 tablet by kelvin th. promethazine hydrochloride 12.5 mg oral tablet (3 sources) Phenothiazine Start : 01-15 End: 11-01 take 12.5 mg by mouth every six hours Promethazine Discontinued 12.5 MG PO EVERY 6 HOURS January 14, 2023 11:00pm November 01, 2023 11:40pm terconazole 4 mg/ml vaginal cream (6 sources) Azole Antifungal Start : 06-10 End: 06-17 Terconazole Discontinued 1 APPFUL VAGINAL AT BEDTIME 45 7 June 09, 2018 11:00pm June 16, 2018 11:08pm traZODone hydrochloride 50 mg oral tablet (1 source) Serotonin Reuptake Inhibitor Start : 05-20 take 1 tablet by mouth once daily at bedtime traZODone (DESYREL) 50 mg tablet Indications: Sleep disturbance Take 1 tablet by mouth daily at bedtime. 30 tablet 1 05/20/2019 Active Comment on above: Take 1 tablet by kelvin th daily at bedtime. Problems Active Problems Problem Classification Problem Date Documented Da te Episodic/Chronic Adjustment disorders (1 source) Mixed anxiety and depressive disorder; Translations: [Adjustment disorder with mixed anxiety and depressed mood] Onset: 07-10-2013 10-02-2021 Chronic Contraceptive and procreative management (12 sources) Patient encounter status; Translations: [Encounter for contraceptive management, unspecified] 11-26-2018 Episodic Early or threatened labor (12 sources) False labor; Translations: [False labor, unspecified] 01-12-2019 Episodic Hemorrhage during ; abruptio placenta; placenta previa (2 sources) Threatened miscarriage; Translations: [Threatened ] Onset: 11-07-2023 11-01-2023 Episodic Malposition; malpresentation (6 sources) Deliveries by spontaneous breech delivery; Translations: [Maternal care for breech presentation, not applicable or unspecified] 01-12-2019 Episodic Menstrual disorders (3 sources) Irregular periods; Translations: [Irregular menstruation, unspecified] Onset: 07-12-2023 07-12-2023 Chronic Other complications of (6 sources) Benign gestational thrombocytopenia; Translations: [Other diseases of the blood and blood-forming organs and certain disorders involving the immune mechanism complicating , unspecified trimester] 01-12-2019 Episodic Other complications of (6 sources) High risk due to history of labor; Translations: [Supervision of with history of pre-term labor, unspecified trimester] 01-12-2019 Episodic Other complications of (6 sources) Placenta succenturiata; Translations: [Other malformation of placenta, first trimester] 01-12-2019 Episodic Other female genital disorders (10 sources) Vaginal bleeding; Translations: [Abnormal uterine and vaginal bleeding, unspecified] 06-30-2022 Chronic Other female genital disorders (6 sources) Abnormal uterine and vaginal bleeding, unspecified; Translations: [Other specified noninflammatory disorders of vagina] Onset: 01-28-2023 01-15-2023 Chronic Other female genital disorders (1 source) Abnormal uterine bleeding; Translations: [Abnormal uterine and vaginal bleeding, unspecified] Chronic Other female genital disorders (1 source) [...] Translations: [Abdominal distension (gaseous)] Onset: 07-12-2023 Episodic Other and delivery including normal (6 sources) ; Translations: [Encounter for supervision of normal , unspecified, unspecified trimester] 01-12-2019 Episodic Other screening for suspected conditions (not mental disorders or infectious disease) (9 sources) test negative; Translations: [Encounter for test, result negative] Onset: 02-01-2023 06-30-2022 Episodic Residual codes; unclassified (1 source) Procedure not done; Translations: [Procedure and treatment not carried out, unspecified reason] Episodic Past or Other Problems Problem Classification Problem Date Documented Date Episodic/Chronic Abdominal pain (5 sources) Pain in pelvis; Translations: [Pelvic and perineal pain] Onset: 02-21-2023 Episodic Other complications of (1 source) Supervision of [...] , unspecified] Onset: 04-03-2018 04-03-2018 Episodic Other complications of (1 source) Missed ; Translations: [Missed ] Onset: 01-16-2023 Episodic Residual codes; unclassified (1 source) FH: [...] Results Test Name Value Interpretation Reference Range Facility ED MED ADMINISTRATION DETAIL on 04-01-2025 ED MED ADMINISTRATION DETAIL Director Patient Medication Administration Record [address] [address] [id number] 03/31/2025 Patient: HALIE GARCIA Sex: Female : 1990 Age: 34y MEASUREMENTS: Wt: 49.9 kg, Ht/Lencho: 61.0 in, BMI: 20.78 ALLERGIES: Penicillins Medication Ordered Medication Administration Date/Time IV NS 0.9 % 1000 09:03/31 IV NS 0.9 % 1000 mL started in bag#1 1000 mL at Started mL at 999 mL/hr 999 mL/hr via Site# 1. Allergies verified and confirmed 5 rights. IV 09:31 03/31/2025 (NOW x1) patency established. IV site checked: no pain, redness, or swelling. Hernandez Carrasco R.N. IV flushed thoroughly pre-medication administration. Information Stopped reviewed with patient including reason for taking this medication. - 09:54 03/31/2025 09:32 Jameson Haque R.N. Scanned 09:54 03/31 Medication Discontinued: bag #1 infused. Total amount infused: 1000 mL. IV patency established. IV site checked: no pain, redness, or swelling. IV flushed thoroughly post-medication administration. - 10:04 Saira Gonzalez R.N. Pantoprazole 09:31 03/31 Pantoprazole (Protonix) IVP 40 mg given via Site# 1. Given (Protonix) IVP 40 Allergies verified and confirmed 5 rights. IV patency established. IV 09:31 03/31/2025 mg (NOW x1) site checked: no pain, redness, or swelling. IV flushed thoroughly Hernandez Carrasco R.N. pre-medication administration. Information reviewed with patient Scanned including reason for taking this medication. - 09:32 Hernandez Carrasco R.N. 1 of 3 Director Patient Medication Ordered Medication Administration Date/Time Zofran IVP 4 mg 09:41 03/31 Zofran IVP 4 mg given via Site# 1. Allergies verified Given (NOW x1) and confirmed 5 rights. IV patency established. IV site checked: no 09:41 03/31/2025 pain, redness, or swelling. IV flushed thoroughly pre-medication Hernandez Carrasco R.N. administration. Information reviewed with patient including reason Scanned for taking this medication. - 09:43 Hernandez Carrasco R.N. IV NS 0.9 % 1000 10:10 03/31 IV NS 0.9 % 1000 mL started in bag#2 1000 mL at Started mL at 999 mL/hr 999 mL/hr via Site# 1. IV patency established. IV site checked: no 10:10 03/31/2025 (NOW x1) pain, redness, or swelling. IV flushed thoroughly pre-medication Saira Gonzalez R.N. administration. Information reviewed. Verbalizes understanding. - Stopped 10:10 Saira Gonzalez R.N. 10:59 03/31/2025 Saira Gonzalez R.N. 10:59 03/31 Medication Discontinued: bag #1 infused. Total Scanned amount infused: 1000 mL. IV patency established. IV site checked: no pain, redness, or swelling. IV flushed thoroughly post-medication administration. - 10:59 Saira Gonzalez R.N. KetorOLAC 11:03/31 KetorOLAC (Toradol) IVP 15 mg given via Site# 1. Given (Toradol) IVP 15 mg Allergies verified and confirmed 5 rights. IV patency established. IV 11:03/31/2025 (NOW x1) site checked: no pain, redness, or swelling. IV flushed thoroughly Saira Gonzalez R.N. pre-medication administration. Medication Wastage: 15 mg Scanned wasted. - 11: Saira Gonzalez R.N. IV NS 0.9 % 1000 11:03/31 IV NS 0.9 % 1000 mL started in bag#3 1000 mL at Started mL at 500 mL/hr 500 mL/hr via Site# 1. Information reviewed. Verbalizes 11:03/31/2025 (NOW x1) understanding. - 11: Jameson Jansen R.N. Stopped 13:03/31 Medication Discontinued: bag #3 infused. Total 13:03/31/2025 amount infused: 1000 mL. IV patency established. IV site checked: Tanna Ruiz R.N. no pain, redness, or swelling. IV flushed thoroughly post-medication Scanned administration. - 13: Tanna Ruiz R.N. Zofran IVP 4 mg 13:03/31 Zofran IVP 4 mg given via Site# 1. Allergies verified Given (NOW x1) and confirmed 5 rights. IV patency established. IV site checked: no 13:03/31/2025 pain, redness, or swelling. IV flushed thoroughly pre-medication Tanna Ruiz R.N. administration. Information reviewed with patient including reason Scanned for taking this medication, signs of allergic reaction and precautions. Verbalizes understanding. - 13: Tanna Ruiz R.N. 2 of 3 Director Patient 3 of 3 Normal [facility] ED NURSES CLINICAL NOTEon ED NURSES CLINICAL NOTE Nurse Narrative Nurse Clinical Narrative [address] [place] [address] [id number] 03/31/2025 09:15:00 Patient: HALIE GARCIA Sex: Female : 1990 Age: 34y Disposition: Discharge to Home Disposition Decision Time: 13:40 03/31/2025 Departure Time: 13:50 03/31/2025 TRIAGE Arrived by private vehicle. Historian: (patient). Primary physician (Neyda). Triage time: 09:03/31/2025. Acuity: LEVEL 3. Chief Complaint: VOMITING (pt states she is dehydrated"). This started last night. SEPSIS SCREEN: NEGATIVE. SIRS criteria negative. No possible sources of infection. -- 09:34 03/31/25 JOSELINE Gonzalez R.N. 09:03/31/25. BP: 108/72 MAP: 84. HR: 62. RR: 16. O2 saturation: 99% Temperature: 98.2 F. -- 09:34 03/31/25 JOSELINE Gonzalez R.N. 09:03/31/25. Pain level now 5/10. -- 09:36 03/31/25 JOSELINE Gonzalez R.N. Measurements: 09:03/31/25 Wt: 49.9 kg, Ht/Lencho: 61.0 in, BMI: 20.78 -- 09:03/31/25 JOSELINE Gonzalez R.N. Medications: no known home medications -- 09:03/31/25 JOSELINE Gonzalez R.N. 1 of 4 Nurse Narrative 09:03/31/25. Preferred Pharmacy: ([facility] -- 09:03/31/25 JOSELINE Gonzalez R.N. Allergies: Penicillins -- 09:03/31/25 JOSELINE Gonzalez R.N. Problems: Gastroesophageal Reflux Disease -- 09:03/31/25 JOSELINE Gonzalez R.N. Surgeries: -- 09:03/31/25 JOSELINE Gonzalez R.N. History 09:03/31/25. PAST MEDICAL HX: Immunizations: up-to-date. SOCIAL HX: Never smoker. Occasional alcohol use. No drug use. The patient has not traveled outside the [place] Infectious disease exposure: No infectious disease exposure. ABUSE ASSESSMENT: The patient answered "yes" to the question(s) "Do you feel safe in your home?" and "no" to the question(s) "Are you afraid to go home?". Abuse denied. No suspicion of abuse. SELF HARM ASSESSMENT: Self harm assessment was performed. The patient answered "no" to the question(s) "Have you recently felt down, depressed, or hopeless?" and "Do you have thoughts of harming or killing yourself?". FALL RISK ASSESSMENT: Fall risk assessment completed. No risk factors identified. -- 09:34 03/31/25 EDT Saira Gonzalez R.N. Interventions 09:03/31/25. Advanced care plan discussed with patient (Full code). -- 09:34 03/31/25 EDT Saira Gonzalez R.N. 2 of 4 Nurse Narrative PHYSICAL ASSESSMENT 09:16 03/31/25. GENERAL / NEURO / PSYCH: Alert. Oriented X 4. Appears in distress. ( PT arrives ambulatory to ER# hallway c/o "feels like I am dehydrated", vomiting, chills. Pt reports she was outside all day yesterday and went to a baseball game and then tried to workout and started vomiting.). HEENT: No facial asymmetry noted. Mucous membranes are pink. RESPIRATORY: Respirations not labored. CVS: Capillary refill less than 2 seconds. Pulses within normal limits. GI / : ( pt reports pain d/t vomiting). Abdomen soft and nontender and normal bowel sounds. SKIN: Skin intact. Skin is warm and dry. Normal skin turgor. -- 10:07 03/31/25 YASMINT Saira Gonzalez R.N. NURSING PROGRESS NOTES 09:03/31/25. Pantoprazole (Protonix) IVP 40 mg given via Site# 1. Allergies verified and confirmed 5 rights. IV patency established. IV site checked: no pain, redness, or swelling. IV flushed thoroughly pre-medication administration. Information reviewed with patient including reason for taking this medication. -- 09:03/31/25 YASMINT Hernandez Carrasco R.N. 09:03/31/25. IV NS 0.9 % 1000 mL started in bag#1 1000 mL at 999 mL/hr via Site# 1. Allergies verified and confirmed 5 rights. IV patency established. IV site checked: no pain, redness, or swelling. IV flushed thoroughly pre-medication administration. Information reviewed with patient including reason for taking this medication. -- 09:32 03/31/25 JOSELINE Carrasco R.N. 09:41 03/31/25. Zofran IVP 4 mg given via Site# 1. Allergies verified and confirmed 5 rights. IV patency established. IV site checked: no pain, redness, or swelling. IV flushed thoroughly pre-medication administration. Information reviewed with patient including reason for taking this medication. -- 09:43 03/31/25 YASMINT Hernandez Carrasco R.N. 09:54 03/31/25. IV NS 0.9 %: Medication Discontinued. bag #1 infused. Total amount infused: 1000 mL. IV patency established. IV site checked: no pain, redness, or swelling. IV flushed thoroughly post-medication administration. -- 10:04 03/31/25 EDT Saira Gonzalez R.N. 10:10 03/31/25. IV NS 0.9 % 1000 mL started in bag#2 1000 mL at 999 mL/hr via Site# 1. IV patency established. IV site checked: no pain, redness, or swelling. IV flushed thoroughly pre-medication administration. Information reviewed. Verbalizes understanding. -- 10:10 03/31/25 EDT Saira Gonzalez R.N. 10:13 03/31/25. The patient is resting quietly. -- 10:13 03/08 (more content not included)... Normal [facility] ED ORDER SHEET (CPOE ONLY)on 04-01-2025 ED ORDER SHEET (CPOE ONLY) Order Sheet Order Sheet [address] [place] [address] [id number] 03/31/2025 Patient: HALIE GARCIA Sex: Female : 1990 Age: 34y MEASUREMENTS: Wt: 49.9 kg, Ht/Lencho: 61.0 in, BMI: 20.78 ALLERGIES: Penicillins MEDICATION/IV/DRIP/ FLUID ORDERS Order Description Priority Entered Acknowledged Completed IV NS 0.9 %1000 mL at 999 09:26 03/31/2025 09:29 09:32 mL/hr (NOW x1) Pineda Hayes, 03/31/2025 03/31/2025 Hernandez Dave R.N. RShivaniN. Pantoprazole (Protonix) IVP40 09:03/31/2025 09:29 09:32 mg (NOW x1) Pineda Hayes, 03/31/2025 03/31/2025 Hernandez Dave R.N. R.NShivani Zofran IVP4 mg (NOW x1) 09:34 03/31/2025 09:41 09:43 Pineda Hayes, 03/31/2025 03/31/2025 Hernandez James R.NShivani R.N. IV NS 0.9 %1000 mL at 999 10:00 03/31/2025 10:05 10:10 mL/hr (NOW x1) Pineda Hayes, 03/31/2025 03/31/2025 Saira Dave R.N. R.Jasmine 1 of 3 Order Sheet Reason for ordering with alerts: Benefits outweigh risks --10:00 03/31/2025 Pineda Hayes D.O. KetorOLAC (Toradol) IVP15 mg 11:10 03/31/2025 11:23 11:29 (NOW x1) Pineda Hayes, 03/31/2025 03/31/2025 Saira Dave R.NShivani R.N. IV NS 0.9 %1000 mL at 500 11:10 03/31/2025 11:23 11:28 mL/hr (NOW x1) Pineda Hayes, 03/31/2025 03/31/2025 Saira Dave R.N. R.NShivani Reason for ordering with alerts: Benefits outweigh risks --11:10 03/31/2025 Pineda Hayes D.O. Zofran IVP4 mg (NOW x1) 12:51 03/31/2025 12:58 13:09 Pineda Hayes, 03/31/2025 03/31/2025 Tanna Gomes, Janie.N. R.NShivani Reason for ordering with alerts: Benefits outweigh risks --12:51 03/31/2025 Pineda Hayes D.O. LAB ORDERS Order Description Priority Entered Acknowledged Collected Completed CBC w Diff Stat Stat 09:26 03/31/2025 09:29 03/31/2025 09:29 03/31/2025 Saira Esqueda Shauna Ewing, D.O. R.N. RThomas CMP Stat Stat 09:26 03/31/2025 09:29 03/31/2025 09:29 03/31/2025 Saira Esqueda Shauna Ewing, D.O. R.N. RThomas Lipase Stat Stat 09:26 03/31/2025 09:29 03/31/2025 09:29 03/31/2025 Saira Esqueda Shauna Ewing, D.O. R.N. RThomas 2 of 3 Order Sheet Urinalysis Stat Stat 09:26 03/31/2025 09:29 03/31/2025 09:29 03/31/2025 Saira Esqueda Shauna Ewing, D.O. R.N. RThomas Urine - HCG Stat 09:26 03/31/2025 09:29 03/31/2025 09:29 03/31/2025 Stat Saira Esqueda Shauna Ewing, D.O. R.N. RThomas DIAGNOSTIC STUDY ORDERS Order Description Priority Entered Acknowledged Completed STAFF ORDERS Order Description Priority Entered Acknowledged Collected Completed IV Saline Lock 09:26 03/31/2025 09:29 03/31/2025 09:29 03/31/2025 Saira Esqueda Shauna Ewing, D.O. R.NShivani RThomas [Electronically signed by Pineda Hayes D.O. (04/01/2025 21:52 EDT)] 3 of 3 Normal [facility] ED PHYSICIAN CLINICAL REPORT on 04-01-2025 ED PHYSICIAN CLINICAL REPORT Narrative Physician Clinical [address] [address] [id number] 03/31/2025 09:15:00 Patient: HALIE GARCIA Sex: Female : 1990 Age: 34y Disposition: Discharge to Home Disposition Decision Time: 13:40 03/31/2025 Departure Time: 13:50 03/31/2025 Measurements Wt: 49.9 kg, Ht/Lencho: 61.0 in, BMI: 20.78 Initial Vital Sign Measured Time BP MAP HR RR O2Sat ETCO2 Temp Pain GCS RTS 09:34 03/31/2025 108/72 84 62 16 99% 98.2 F Time Seen: 09:14 03/31/2025. Arrived- By private vehicle. Historian- patient. HISTORY OF PRESENT ILLNESS Chief Complaint: VOMITING and DIARRHEA. The patient has had nausea, vomiting and diarrhea. This started last night patient has not felt well for 2 days she has been out working in the very hot weather that we have been having recently she has been gardening for 2 days and then last evening she started developing nausea vomiting diarrhea she has history of acid reflux. She had has been flaring up. Said 03/16 and she just does not feel well and presents to the emergency department she describes pain as sharp stabbing in her abdomen. and she could not take her medicine for her acid reflux. and is still present. REVIEW OF SYSTEMS SKIN: No skin rash. NEUROLOGICAL: No headache. : No dark urine or excessive urination. CONSTITUTIONAL: No fever. RESPIRATORY: No cough. 1 of 11 Narrative PAST HISTORY See nurses notes. Gastroesophageal Reflux Disease Surgeries: Medications: no known home medications Allergies: Penicillins SOCIAL HISTORY Never smoker. Occasional alcohol use. ADDITIONAL NOTES The nursing notes have been reviewed. PHYSICAL EXAM Appearance: Alert. Oriented X3. No acute distress. Eyes: Pupils equal, round and reactive to light. Eyes normal inspection. ENT: Ears normal. Nose normal. Dry mucous membranes present. Neck: Normal inspection. CVS: Normal heart rate and rhythm. Heart sounds normal. Respiratory: No respiratory distress. Painless inspiration. Abdomen: Soft and nontender. Back: Normal inspection. Skin: Skin warm. Normal skin color. Normal skin turgor. Extremities: Extremities exhibit normal ROM. No lower extremity edema. Neuro: Oriented X 3. No motor deficit. 2 of 11 Narrative LABS, X-RAYS, AND EKG Laboratory Tests: CBC + DIFF Final BRANDON: 03/31/2025 09:12:00 EDT MsgRcvd: 03/31/2025 09:41 EDT Lab Test Result Reference Status Received Comments 03/31/2025 09:41 CBC-COMPLETE CBC + DIFF Final EDT BLOOD COUNT 12.4 x 10/UL 03/31/2025 09:41 WBC 4.5 - 10.8 Final Above high normal EDT 03/31/2025 09:41 RBC 4.47 x 10/UL 4.10 - 5.30 Final EDT 03/31/2025 09:41 HEMOGLOBIN 14.9 g/dl 12.0 - 16.0 Final EDT 03/31/2025 09:41 HEMATOCRIT 40.6 % 34.0 - 46.0 Final EDT 03/31/2025 09:41 MCV 91 fl 80 - 99 Final EDT 03/31/2025 09:41 MCH 33 pg 27 - 33 Final EDT 37 X10 3 03/31/2025 09:41 MCHC 32 - 36 Final Above high normal EDT 03/31/2025 09:41 RDW/CV 13.3 % 12.0 - 15.6 Final EDT 03/31/2025 09:41 PLATELET 204 x10/UL 150 - 450 Final EDT 3 of 11 Narrative Lab Test Result Reference Status Received Comments 03/31/2025 09:41 AUTOMATED MPV 9.1 fl 6.6 - 10.5 Final EDT DIFFERENTIAL 93.4 % 03/31/2025 09:41 NEUT % 46.0 - 76.0 Final Above high normal EDT 3.7 % 03/31/2025 09:41 LYMPH % 20.0 - 45.0 Final Below low normal EDT 03/31/2025 09:41 MONOS % 2.6 % 0.0 - 10.0 Final EDT 03/31/2025 09:41 EO % 0.2 % 0.0 - 7.0 Final EDT 03/31/2025 09:41 BASO % 0.1 % 0.0 - 2.0 Final EDT 0.46 x10/UL 03/31/2025 09:41 Lymph # 0.80 - 2.80 Final Below low normal EDT 11.58 x10/UL 03/31/2025 09:41 Neut # 1.50 - 7.10 Final Above high normal EDT 03/31/2025 09:41 [place]ana # 0.33 x10/UL 0.20 - 1.00 Final EDT 03/31/2025 09:41 EO # 0.02 x10/UL 0.00 - 0.50 Final EDT 03/31/2025 09:41 Baso # 0.01 x10/UL 0.00 - 0.10 Final EDT 03/31/2025 09:41 MANUAL DIFF N/A New Order EDT 03/31/2025 09:41 MORPHOLOGY N/A New Order EDT 4 of 11 Narrative CMP with eGFR Final BRANDON: 03/31/2025 09:12:00 EDT MsgRcvd: 03/31/2025 09:57 EDT Lab Test Result Reference Status Received Comments COMPREHENSIVE 03/31/2025 CMP with eGFR Final METABOLIC 09:57 EDT PANEL 03/31/2025 SODIUM 136 mmol/l 136 - 145 Final 09:57 EDT 03/31/2025 POTASSIUM 3.5 mmol/L 3.5 - 5.1 Final 09:57 EDT 03/31/2025 CHLORIDE 99 mmol/L 98 - 107 Final 09:57 EDT 03/31/2025 CO2 28.5 mmol/L 21.0 - 32.0 Final 09:57 EDT 148 mg/dl 03/31/2025 GLUCOSE Above high 74 - 106 Final 09:57 EDT normal 03/31/2025 BUN 12 mg/dl 7 - 18 Final 09:57 EDT 03/31/2025 CREATININE 0.81 mg/dl 0.55 - 1.02 Final 09:57 EDT 03/31/2025 AST/SGOT 20 U/L 13 - 39 Fi (more content not included)... Normal [facility] ED SUPER BILLon 04-01-[address] [place] [address] [id number] 03/31/2025 Patient: HALIE GARCIA Sex: Female : 1990 Age: 34y Item Facility Professional Category Description Code Code Quantity Fee Total Drugs Normal Saline 649701 1 $0.00 $0.00 1000cc (867828) Nurse/E/M EMERGENCY 126371 1 $0.00 $0.00 DEPARTMENT VISIT HIGH/URGENT SEVERITY (47277-71) Nurse/IV/IM/Infusio ns Hydration 925158 3 $0.00 $0.00 additional hour (52348) Nurse/IV/IM/Infusio ns IVP additional 583274 2 $0.00 $0.00 push (98127) Nurse/IV/IM/Infusio ns IVP initial 403509 1 $0.00 $0.00 (14013) Nurse/IV/IM/Infusio ns IVP same med 402345 1 $0.00 $0.00 (31 min apart) (44748) Grand Total $0.00 1 of 2 Superbill Providers Pineda Hayes D.O. Chief Complaint VOMITING and DIARRHEA. Principal Diagnosis Vomiting. Diarrhea. Abdominal pain of undetermined cause. Moderate dehydration ICD-10 Codes R11.10: Vomiting, unspecified R19.7: Diarrhea, unspecified R10.9: Unspecified abdominal pain E86.0: Dehydration 2 of 2 [facility] ED VISIT SUMMARYon ED VISIT SUMMARY Visit Overview Visit Overview [address] [address] [id number] 03/31/2025 Patient: HALIE GARCIA Sex: Female : 1990 Age: 34y 04/01/2025 09:52 PM EDT ED Arrival:09:15 03/31/2025 EDT Status: Recent Travel:no Language:eng Adv Directive: Isolation Status: Ethnicity:N Fall Risk:no risk Infectious Disease Exposure:no Measurements:5'1" / 154.9 Self-Harm Status:risk Sepsis Screen:negative cm 110.0 lb / 49.9 kg Chief Complaint:VOMITING, (Neyda), and (pt states "she is dehydrated" ) ALLERGIES Penicillins HOME MEDICATIONS None PAST MEDICAL HISTORY / PROBLEMS Gastroesophageal Reflux Disease Immunizations: up-to-date 1 of 3 Visit Overview See nurses notes PAST SURGICAL HISTORY SOCIAL HISTORY Smoking status: No Alcohol use: Yes Drug use: No ED COURSE MEDICATIONS GIVEN IN EMERGENCY DEPARTMENT 09:31 03/31/25 Pantoprazole (Protonix) IVP 40 mg 09:31 03/31/25 IV NS 0.9 % 1000 mL 999 mL/hr 09:41 03/31/25 Zofran IVP 4 mg 10:10 03/31/25 IV NS 0.9 % 1000 mL 999 mL/hr 11:28 03/31/25 IV NS 0.9 % 1000 mL 500 mL/hr 11:29 03/31/25 KetorOLAC (Toradol) IVP 15 mg 13:09 03/31/25 Zofran IVP 4 mg IV SITE INFORMATION INTAKE OUTPUT REASSESMENT (most recent) 10:13 03/31/25. The patient is resting quietly. VITAL SIGNS First Vitals Last Vitals Temp 09:34 03/31/25 98.2 F Temp 13:48 03/31/25 BP 09:34 03/31/25 108/72 BP 13:48 03/31/25 159/90 HR 09:34 03/31/25 62 HR 13:48 03/31/25 57 RR 09:34 03/31/25 16 RR 13:48 03/31/25 16 2 of 3 Visit Overview First Vitals Last Vitals O2 Sat 09:34 03/31/25 99% O2 Sat 13:48 03/31/25 99% RA Pain 09:34 03/31/25 Pain 13:48 03/31/25 1 ETCO2 09:34 03/31/25 ETCO2 13:48 03/31/25 GCS 09:34 03/31/25 GCS 13:48 03/31/25 RTS 09:34 03/31/25 RTS 13:48 03/31/25 PROCEDURES NURSING INTERVENTIONS LABS / STUDIES LABS / STUDIES ORDERED CBC w Diff CMP Lipase Urinalysis Urine - HCG CLINICAL IMPRESSION ABDOMINAL PAIN OF UNDETERMINED CAUSE DIARRHEA MODERATE DEHYDRATION VOMITING 3 of 3 Normal [facility] ED VITALS FLOW SHEETon 04-01 ED VITALS FLOW SHEET Vitals Vital Sign Flow Sheet [address] [address] [id number] 03/31/2025 Patient: HALIE GARCIA Sex: Female : 1990 Age: 34y Measurements Wt: 49.9 kg, Ht/Lencho: 61.0 in, BMI: 20.78 Measured Time BP MAP HR RR O2Sat ETCO2 Temp Pain GCS RTS 13:48 03/31/2025 159/90 113 57 16 99% RA 1 13:14 03/31/2025 114/76 89 50 (Orthostatic lying) 13:16 03/31/2025 159/98 118 68 (Orthostatic sitting) 13:18 03/31/2025 146/92 110 69 (Orthostatic standing) 11:06 03/31/2025 106/58 71 61 10:51 03/31/2025 112/62 71 62 10:36 03/31/2025 107/61 80 73 10:21 03/31/2025 113/57 70 67 09:34 03/31/2025 5 09:34 03/31/2025 108/72 84 62 16 99% 98.2 F 1 of 1 Normal [facility] CBC + DIFFon 03-31-2025 Baso # 0.01 x10EE3/UL Normal 0.00 - 0.10 [facility] Comment on above: Performed By: #### 2 61252 #### [facility],[address] [place] [address] 92319 Basophils/100 WBC (Bld) 0.1 % Normal 0.0 - 2.0 [facility] Comment on above: Performed By: #### 2 94044 #### [facility],[address] [place] [address] 96622 CBC + DIFF Normal [facility] Comment on above: Result Comment: CBC- COMPLETE BLOOD COUNT Performed By: #### 2 92249 #### [facility],[address] [place] [address] 21289 EO # 0.02 x10EE3/UL Normal 0.00 - 0.50 [facility] Comment on above: Performed By: #### 2 53334 #### [facility],[address] [place] [address] 34609 Eosinophils/100 WBC (Bld) 0.2 % Normal 0.0 - 7.0 [facility] Comment on above: Performed By: #### 2 16806 #### [facility],[address] [place] [address] 85310 Erythrocyte distribution width (RBC) [Ratio] 13.3 % Normal 12.0 - 15.6 [facility] Comment on above: Performed By: #### 2 87056 #### [facility],[address] [place] [address] Hematocrit (Bld) [Volume fraction] 40.6 % Normal 34.0 - 46.0 [facility] Comment on above: Performed By: #### 2 78029 #### [facility],[address] [place] [address] Hemoglobin (Bld) [Mass/Vol] 14.9 g/dL Normal 12.0 - 16.0 [facility] Comment on above: Performed By: #### 2 08968 #### [facility],[address] [place] [address] Lymph # 0.46 x10EE3/UL Low 0.80 - 2.80 [facility] Comment on above: Performed By: #### 2 62421 #### [facility],[address] [place] [address] Lymphocytes/100 WBC (Bld) 3.7 % Low 20.0 - 45. 0 [facility] Comment on above: Performed By: #### 2 47273 #### [facility],[address] [place] [address] MANUAL DIFF N/A Normal [facility] Comment on above: Performed By: #### 2 06383 #### [facility],[address] [place], [place] [id number] MCH (RBC) [Entitic mass] 33 pg Normal 27 - 33 [facility] Comment on above: Performed By: #### 2 02084 #### [place] [id number] MCHC 37 X10 3 High 32 - 36 [facility] Comment on above: Performed By: #### 2 12038 #### [place] [id number] MCV (RBC) [Entitic vol] 91 fL Normal 80 - 99 [facility] Comment on above: Performed By: #### 2 09001 #### [facility],[address] [place] [address] [place] # 0.33 x10EE3/UL Normal 0.20 - 1.00 [facility] Comment on above: Performed By: #### 2 92462 #### [facility],[address] [place] [address] 54881 MONOS % 2.6 % Normal 0.0 - 10.0 [facility] Comment on above: Performed By: #### 2 82033 #### [facility],[address] [place] [address] 43823 Morphology Angel (Bld) [Interp] N/A Normal [facility] Comment on above: Performed By: #### 2 48255 #### [facility],[address] [place] [address] Neut # 11.58 x10EE3/UL High 1.50 - 7.10 [facility] Comment on above: Performed By: #### 2 62861 #### [place] [phone] Neutrophils/100 WBC (Bld) 93.4 % High 46.0 - 76. 0 [facility] Comment on above: Performed By: #### 2 30313 #### [facility],[address] [place] [address] 59550 PLATELET 204 x10EE3/UL Normal 150 - 450 [facility] Comment on above: Performed By: #### 2 61669 #### [address] [address] Platelet mean volume (Bld) [Entitic vol] 9.1 fL Normal 6.6 - 10.5 [facility] Comment on above: Result Comment: AUTO MATED DIFFERENTIAL Performed By: #### 2 11827 #### [facility],[address] [place] [address] 88059 RBC 4.47 x 10EE6/UL Normal 4.10 - 5.30 [facility] Comment on above: Performed By: #### 2 32366 #### [facility],[address] [place] [address] 84838 WBC 12.4 x 10EE3/UL High 4.5 - 10.8 [facility] Comment on above: Performed By: #### 2 00282 #### [facility],[address] [place] [address] 68135 CMP with eGFRon 03-31-2025 AGE 34 years Normal [facility] Comment on above: Performed By: #### 2 32939 #### [facility],[address] [place] [address] 32791 Albumin [Mass/Vol] 4.5 g/dL Normal 3.4 - 5.0 [facility] Comment on above: Performed By: #### 2 76643 #### [facility],[address] [place] [address] 57507 Albumin/Globulin [Mass ratio] 1.3 {ratio} Normal 0.9 - 1.6 [facility] Comment on above: Performed By: #### 2 09115 #### [facility],[address] [place] [address] 04208 ALK PHOS 53 U/L Normal 46 - 116 [facility] Comment on above: Performed By: #### 2 74141 #### [facility],[address] [place] [address] 16559 ALT [Catalytic activity/Vol] 29 U/L Normal 16 - 63 [facility] Comment on above: Performed By: #### 2 47344 #### [facility],[address] [place] [address] 94173 Anion gap [Moles/Vol] 12 mmol/L Normal 10 - 20 [facility] Comment on above: Performed By: #### 2 02008 #### [facility],[address] [place] [address] 99164 AST [Catalytic activity/Vol] 20 U/L Normal 13 - 39 [facility] Comment on above: Performed By: #### 2 03664 #### [facility],[address] [place] [address] 84665 B/C RATIO 15 ratio Normal 0 - 30 [facility] Comment on above: Performed By: #### 2 55357 #### [facility],[address] [place] [address] 66847 Bilirubin [Mass/Vol] 1.0 mg/dL Normal 0.2 - 1.0 [facility] Comment on above: Performed By: #### 2 22995 #### [facility],[address] [place] [address] 63265 Calcium [Mass/Vol] 8.9 mg/dL Normal 8.5 - 10.1 [facility] Comment on above: Performed By: #### 2 38324 #### [facility],[address] [place] [address] 37052 Chloride [Moles/Vol] 99 mmol/L Normal 98 - 107 [facility] Comment on above: Performed By: #### 2 51166 #### [facility],[address] [place] [address] 71106 CMP with eGFR Normal [facility] Comment on above: Result Comment: COMP REHENSIVE METABOLIC PANEL Performed By: #### 2 86182 #### [facility],[address] [place] [address] 86695 CO2 [Moles/Vol] 28.5 mmol/L Normal 21.0 - 32.0 [facility] Comment on above: Performed By: #### 2 64297 #### [facility],[address] [place] [address] 76463 Creatinine [Mass/Vol] 0.81 mg/dL Normal 0.55 - 1.02 [facility] Comment on above: Performed By: #### 2 78335 #### [facility],[address] [place] [address] 94274 GFR/1.73 sq M.predicted among non-blacks MDRD (S/P/Bld) [Vol rate/Area] mL/min/{1.73_m2} Normal 60 - 999 [facility] Comment on above: Performed By: #### 2 71755 #### [facility],[address] [place] [address] 38765 Result Comment: ACCO RDING TO THE NATIONAL KIDNEY DISEASE EDUCATION PROGRAM(NKDE), A NORMAL eGFR IS A VALUE GREATER THAN OR EQUAL TO 60 ML/MIN/1.73 SQ METERS. CHRONIC KIDNEY DISEASE: <60mL/MIN/1.73 SQ METERS KIDNEY FAILURE: <15mL/MIN/1.73 SQ METERS THIS TEST SHOULD ONLY BE USED FOR PATIENTS 18 YEARS OF AGE AND OLDER. Globulin (S) [Mass/Vol] 3.5 g/dL Normal 1.5 - 3.8 [facility] Comment on above: Performed By: #### 2 80484 #### [facility],[address] [place] [address] 43975 Glucose [Mass/Vol] 148 mg/dL High 74 - 106 [facility] Comment on above: Performed By: #### 2 74157 #### [address] [address] Potassium [Moles/Vol] 3.5 mmol/L Normal 3.5 - 5.1 [facility] Comment on above: Performed By: #### 2 64051 #### [facility],[address] [place] [address] 19724 Protein [Mass/Vol] 8.0 g/dL Normal 6.4 - 8.2 [facility] Comment on above: Performed By: #### 2 24677 #### [facility],[address] [place] [address] 33761 Sodium [Moles/Vol] 136 mmol/L Normal 136 - 145 [facility] Comment on above: Performed By: #### 2 46937 #### [place] [address] Urea nitrogen [Mass/Vol] 12 mg/dL Normal 7 - 18 [facility] Comment on above: Performed By: #### 2 61047 #### [facility],[address] [place] [address] LIPASEon 03-31-2025 Lipase [Catalytic activity/Vol] 13.0 U/L Low 15.0 - 78.0 [facility] Comment on above: Result Comment: *PLE ASE NOTE THAT RANGES FOR LIPASE HAVE CHANGED OF 10/04/23 DUE TO AN ASSAY UPDATE BY THE FAMILY MEDICINE RESIDENT.THE NEW ASSAY RANGE IS 6-250 U/L, WITH A REFERENCE RANGE OF 16-77 U/L. Performed By: #### 2 47117 #### [place] [address] URINEon 03-31-2025 Beta HCG ( test) Ql (U) Negative Normal NEGATIVE [facility] Comment on above: Performed By: #### 2 67223 #### [place] [address] EXTERNAL QC DONE? YES Normal [facility] Comment on above: Result Comment: Very dilute urine specimens, as indicated by a low specific gravity, may not contain credit and collections representative levels of hCG. If is still suspected, a first morning urine specimen should be collected 48 hours later and tested. Performed By: #### 2 84039 #### [place] [address] INTERNAL QC PASS Normal [facility] Comment on above: Performed By: #### 2 36673 #### [place] [address] URINALYSISon 03-31-2025 Bilirubin Ql (U) Negative Normal NORMAL: NEGATIVE [facility] Comment on above: Performed By: #### 2 65317 #### [place] [address] Clarity (U) clear Normal NORMAL: CLEAR [facility] Comment on above: Performed By: #### 2 48594 #### [facility],[address] [place] [address] 35901 Color (U) p.yel Normal NORMAL: YELLOW [facility] Comment on above: Performed By: #### 2 57532 #### [facility],[address] [place] [address] 27281 Glucose Ql (U) NORM Normal NORMAL: NORMAL [facility] Comment on above: Performed By: #### 2 72195 #### [facility],[address] [place] [address] 58128 Hemoglobin Ql (U) Negative Normal NORMAL: NEGATIVE [facility] Comment on above: Performed By: #### 2 57386 #### [facility],[address] [place] [address] 67625 Ketone 50 Abnormal NORMAL: NEGATIVE [facility] Comment on above: Performed By: #### 2 63479 #### [facility],[address] [place] [address] 53418 Leukocytes Negative Normal NORMAL: NEGATIVE [facility] Comment on above: Performed By: #### 2 06586 #### [facility],[address] [place] [address] 82298 Nitrite Ql (U) Negative Normal NORMAL: NEGATIVE [facility] Comment on above: Performed By: #### 2 55551 #### [facility],[address] [place] [address] 26457 pH (U) 8 [pH] Normal NORMAL: 5.0-8.0 [facility] Comment on above: Performed By: #### 2 97203 #### [facility],[address] [place] [address] 42038 Protein Ql (U) Negative Normal NORMAL: NEGATIVE [facility] Comment on above: Performed By: #### 2 55115 #### [facility],[address] [place] [address] 01886 Sp [place] 1.010 Normal NORMAL: 1.010-1.030 [facility] Comment on above: Performed By: #### 2 82212 #### [facility],[address] [place] [address] Specimen Type R Normal [facility] Comment on above: Performed By: #### 2 51110 #### [facility],[address] [place] [address] Urinalysis dipstick W Reflex Microscopic panel (U) NOT INDICATED Normal [facility] Comment on above: Performed By: #### 2 50977 #### [facility],[address] [place] [address] Urobilinog NORM Normal NORMAL: NORMAL [facility] Comment on above: Performed By: #### 2 08092 #### [place] [address] ED MED ADMINISTRATION DETAIL on 01-22-2025 ED MED ADMINISTRATION DETAIL Director Patient Medication Administration Record [address] [place] [address] [id number] 01/21/2025 Patient: HALIE GARCIA Sex: Female : 1990 Age: 34y MEASUREMENTS: Wt: 49.9 kg, Ht/Lencho: 61.0 in, BMI: 20.78 ALLERGIES: Penicillins Medication Ordered Medication Administration Date/Time IV NS 0.9 % 1000 19:21 01/21 IV NS 0.9 % 1000 mL started in bag#1 1000 mL at Started mL at 500 mL/hr 500 mL/hr via Site# 1. Allergies verified and confirmed 5 rights. Via 19:21 01/21/2025 (NOW x1) dial-a-flow. IV patency established. IV site checked: no pain, Gilberto Gutierrez R.N. redness, or swelling. IV flushed thoroughly pre-medication Stopped administration. Information reviewed with patient including reason 20:39 01/21/2025 for taking this medication. Verbalizes understanding. - 19:39 Jameson Bullock R.N. Scanned 20:39 01/21 Medication Discontinued: bag #1 infused. Total amount infused: 1000 mL. IV patency established. IV site checked: no pain, redness, or swelling. IV flushed thoroughly post-medication administration. - 20:44 Gilberto Gutierrez R.N. GI Cocktail PO 19:43 01/21 GI Cocktail PO given. Allergies verified and confirmed Given (Maalox Oral 30 mL, 5 rights. Information reviewed with patient including reason for 19:43 01/21/2025 lidocaine Lidocaine taking this medication. Verbalizes understanding. - 19:43 Gilberto Gutierrez R.N. Viscous 2 % Jameson Gutierrez Not Scanned mucosal solution 5 mL, hyoscyamine ODT (0.125 mg disintegrating tablet) 0.125 mg) (NOW x1) 1 of 2 Director Patient Medication Ordered Medication Administration Date/Time Zofran IVP 4 mg 19:37 01/21 Zofran IVP 4 mg given via Site# 1. Allergies verified Given (NOW x1) and confirmed 5 rights. IV patency established. IV site checked: no 19:37 01/21/2025 pain, redness, or swelling. IV flushed thoroughly pre-medication Gilberto Gutierrez R.N. administration. IVP given by nurse. Information reviewed with Scanned patient including reason for taking this medication. Verbalizes understanding. - 19:38 Gilberto Gutierrez R.N. Pantoprazole 19:39 01/21 Pantoprazole (Protonix) IVP 40 mg given via Site# 1. Given (Protonix) IVP 40 Allergies verified and confirmed 5 rights. IV patency established. IV 19:39 01/21/2025 mg (NOW x1) site checked: no pain, redness, or swelling. IV flushed thoroughly Gilberto Gutierrez R.N. pre-medication administration. IVP given by nurse. Information Scanned reviewed with patient including reason for taking this medication. Verbalizes understanding. - 19:41 Gilberto Gutierrez R.N. LORazepam 19:35 01/21 LORazepam (Ativan) IVP 0.5 mg given via Site# 1. Given (Ativan) IVP 0.5 mg Allergies verified and confirmed 5 rights. IV patency established. IV 19:35 01/21/2025 (NOW x1) site checked: no pain, redness, or swelling. IV flushed thoroughly Gilberto Gutierrez R.N. pre-medication administration. IVP given by nurse. Information Scanned reviewed with patient including reason for taking this medication. Verbalizes understanding. Medication Wastage: 1.5 mg wasted. - 19:36 Gilberto Gutierrez R.N. HYDROmorphone 20:41 01/21 HYDROmorphone (Dilaudid) IVP 0.25 mg given via Given (Dilaudid) IVP 0.25 Site# 1. Allergies verified and confirmed 5 rights. IV patency 20:41 01/21/2025 mg (NOW x1, HIGH established. IV site checked: no pain, redness, or swelling. IV Gilberto Gutierrez R.N. ALERT flushed thoroughly pre-medication administration. IVP given by Scanned MEDICATION) nurse. Information reviewed with patient including reason for taking this medication. Verbalizes understanding. (02/13). Medication Wastage: 0.25 mg wasted. - 20:43 Gilberto Gutierrez R.N. 21:46 01/21 Medication Response: No adverse reaction. Pain is improving. - 22:46 Michael Kim R.N. 2 of 2 Normal [facility] ED NURSES CLINICAL NOTEon ED NURSES CLINICAL NOTE Nurse Narrative Nurse Clinical Narrative [address] [address] [id number] 01/21/2025 19:00:00 Patient: HALIE GARCIA Sex: Female : 1990 Age: 34y Disposition: Discharge to Home Disposition Decision Time: 21:30 01/21/2025 Departure Time: 22:40 01/21/2025 TRIAGE Arrived by private vehicle. Historian: (patient). Triage time: 19:02 01/21/2025. Acuity: LEVEL 3. Chief Complaint: NAUSEA and VOMITING and (epigastric pain). Alert. No acute distress. This started today. ( x1 week). The patient has had nausea and vomiting. -- 19:08 01/21/25 EDT Rebeca Lopez R.N. 19:08 01/21/25. BP: 147/101 MAP: 116. HR: 65. RR: 16. O2 saturation: 98% Temperature: 98 F. Pain level now 7/10. -- 19:01/21/25 JOSELINE Lopez R.N. 19:01/21/25. SEPSIS SCREEN: NEGATIVE. SIRS criteria negative. No possible sources of infection. -- 19:01/21/25 JOSELINE Lopez R.N. Measurements: 19:01/21/25 Wt: 49.9 kg, Ht/Lencho: 61.0 in, BMI: 20.78 -- 19:01/21/25 JOSELINE Lopez R.N. Medications: no known home medications -- 19:01/21/25 JOSELINE Lopez R.N. 1 of 4 Nurse Narrative Allergies: Penicillins -- :01/21/25 JOSELINE Lopez R.N. Problems: Gastroesophageal Reflux Disease -- 19:01/21/25 JOSELINE Lopez R.N. ADDITIONAL SURGERIES: -- 01/21/25 JOSELINE Lopez R.N. History 19:01/21/25. SOCIAL HX: Never smoker. Occasional alcohol use. Drug use: marijuana. Recently used drugs today. ABUSE ASSESSMENT: The patient answered "yes" to the question(s) "Do you feel safe in your home?" and "no" to the question(s) "Are you afraid to go home?". SELF HARM ASSESSMENT: Self harm assessment was performed. The patient answered "no" to the question(s) "Have you recently felt down, depressed, or hopeless?" and "Do you have thoughts of harming or killing yourself?". -- 19:01/21/25 JOSELINE Lopez R.N. 19:01/21/25. PAST MEDICAL HX: LNMP: Last normal menstrual period now. Denies current . SOCIAL HX: The patient has not traveled outside the [place] Infectious disease exposure: No infectious disease exposure. -- 19:01/21/25 JOSELINE Lopez R.N. 19:01/21/25. FALL RISK ASSESSMENT: Fall risk assessment completed. No risk factors identified. -- 19:01/21/25 JOSELINE Lopez R.N. Interventions 19:02 01/21/25. Advanced care plan discussed with patient. Patient does not have advanced directive. -- 19:01/21/25 JOSELINE Lopez R.N. 2 of 4 Nurse Narrative PHYSICAL ASSESSMENT 19:21 01/21/25. Ambulatory to room. Patient gowned. GENERAL / NEURO / PSYCH: Alert. Oriented X 4. Appears anxious and in distress. ( abd pain w/ nvd x 1 week, upper abd across middle hx of GERD, this worse also states feels like when she had stomach flu, endorses uses THC regularly at night as needed for sleep, denies this is the cause citing prior hx GERD.). RESPIRATORY: Respirations not labored. Breath sounds within normal limits. GI / : The patient has had nausea. Emesis noted. Has vomited several times (states she has vomited 5-6 times today.). Abdomen soft and nontender. SKIN: Skin is warm and dry. -- 19:01/21/25 YASMINT Gilberto Gutierrez R.N. NURSING PROGRESS NOTES 19:01/21/25. BP: 147/101 MAP: 116. HR: 65. RR: 16. O2 saturation: 98% Temperature: 98 F. Pain level now 7/10. -- 19:48 01/21/25 JOSELINE Gutierrez R.N. 19:19 01/21/25. Site #1 started via IV in the right antecubital space with an 18g angiocath with aseptic technique and good blood return; 1 attempt. Blood drawn: rainbow set and le tube(s). Saline lock flushed with 3 mL saline. -- 19:34 01/21/25 JOSELINE Gutierrez R.N. 19:21 01/21/25. NIBP monitor and pulse oximeter placed on patient. Patient gowned. Head of bed elevated 45 degrees. Patient identifiers checked. Call light placed in reach. Side rails up x 1. Bed placed in lowest position. Brakes of bed on. -- 19:26 01/21/25 JOSELINE Gutierrez R.N. 19:21 01/21/25. IV NS 0.9 % 1000 mL started in bag#1 1000 mL at 500 mL/hr via Site# 1. Allergies verified and confirmed 5 rights. Via dial-a-flow. IV patency established. IV site checked: no pain, redness, or swelling. IV flushed thoroughly pre-medication administration. Information reviewed with patient including reason for taking this medication. Verbalizes understanding. -- 19:39 01/21/25 EDT Gilberto Gutierrez R.N. 19:24 01/21/25. HR: 62 bpm. O2 saturation: 94%. -- 19:48 01/21/25 EDT Gilberto Gutierrez R.N. 19:35 01/21/25. LORazepam (Ativan) IVP 0.5 mg given via Site# 1. Allergies verified and confirmed 5 rights. IV patency established. IV site checked: no pain, redness, or swelling. IV flushed thoroughly pre-medication administration. IVP given by nurse. Informat (more content not included)... Normal [facility] ED ORDER SHEET (CPOE ONLY)on 01-22-2025 ED ORDER SHEET (CPOE ONLY) Order Sheet Order Sheet [address] [place] [address] [id number] 01/21/2025 Patient: HALIE GARCIA Sex: Female : 1990 Age: 34y MEASUREMENTS: Wt: 49.9 kg, Ht/Lencho: 61.0 in, BMI: 20.78 ALLERGIES: Penicillins MEDICATION/IV/DRIP/ FLUID ORDERS Order Description Priority Entered Acknowledged Completed IV NS 0.9 %1000 mL at 500 19:24 01/21/2025 19:39 mL/hr (NOW x1) Kim Hickey D.O. 01/21/2025 Gilberto Gutierrez R.N. GI Cocktail PO(Maalox Oral 30 19:24 01/21/2025 19:43 19:43 mL, lidocaine Lidocaine Viscous 2 Kim Hickey D.O. 01/21/2025 01/21/2025 % mucosal solution 5 mL, Gilberto Bullock, hyoscyamine ODT (0.125 mg R.N. R.N. disintegrating tablet) 0.125 mg) (NOW x1) Zofran IVP4 mg (NOW x1) 19:24 01/21/2025 19:38 Kim Hickey D.O. 01/21/2025 Gilberto Gutierrez R.N. Pantoprazole (Protonix) IVP40 19:24 01/21/2025 19:41 mg (NOW x1) Kim Hickey D.O. 01/21/2025 Gilberto Gutierrez R.N. 1 of 3 Order Sheet LORazepam (Ativan) IVP0.5 mg 19:24 01/21/2025 19:36 (NOW x1) Kim Hickey D.O. 01/21/2025 Gilberto Gutierrez R.N. HYDROmorphone (Dilaudid) 19:56 01/21/2025 20:40 20:43 IVP0.25 mg (NOW x1, HIGH Kim Hickey D.O. 01/21/2025 01/21/2025 ALERT MEDICATION) Gilberto Bullock R.N. R.N. Reason for ordering with alerts: Benefits outweigh risks --19:56 01/21/2025 Kim Hickey D.O. LAB ORDERS Order Description Priority Entered Acknowledged Collected Completed CBC w Diff Stat Stat 19:24 01/21/2025 19:27 01/21/2025 20:45 01/21/2025 Gilberto Szymanski Charles Wilbur, D.O. R.N. R.N. CMP Stat Stat 19:24 01/21/2025 19:27 01/21/2025 20:45 01/21/2025 Gilberto Szymanski Charles Wilbur, D.O. R.N. R.N. Lipase Stat Stat 19:24 01/21/2025 19:27 01/21/2025 20:45 01/21/2025 Gilberto Szymanski Charles Wilbur, D.O. R.N. R.N. Urinalysis Stat Stat 19:24 01/21/2025 19:27 01/21/2025 20:44 01/21/2025 Gilberto Szymanski Charles Wilbur, D.O. R.N. R.N. Urine - HCG Stat 19:24 01/21/2025 19:27 01/21/2025 20:44 01/21/2025 Stat Kim Hickey, Gilberto Gutierrez, Gilberto Gutierrez D.O. R.NShivani RShivaniN. 2 of 3 Order Sheet DIAGNOSTIC STUDY ORDERS Order Description Priority Entered Acknowledged Completed STAFF ORDERS Order Description Priority Entered Acknowledged Collected Completed [Electronically signed by Kim Hickey D.O. (01/22/2025 00:31 EDT)] 3 of 3 Normal [facility] ED PHYSICIAN CLINICAL REPORT on 01-22-2025 ED PHYSICIAN CLINICAL REPORT Narrative Physician Clinical Narrative [facility] [address] [facility] [place] [address] [id number] 01/21/2025 19:00:00 Patient: HALIE GARCIA Sex: Female : 1990 Age: 34y Disposition: Discharge to Home Disposition Decision Time: 21:30 01/21/2025 Departure Time: 22:40 01/21/2025 Measurements Wt: 49.9 kg, Ht/Lencho: 61.0 in, BMI: 20.78 Initial Vital Sign Measured Time BP MAP HR RR O2Sat ETCO2 Temp Pain GCS RTS 19:08 01/21/2025 147/101 116 65 16 98% 98.0 F 7 Time Seen: 19:25 01/21/2025. Arrived- By private vehicle. Historian- patient. HISTORY OF PRESENT ILLNESS (This patient presents by private vehicle and is seen in room 6, for abdominal discomfort that radiates up in the middle of her chest, she states that she has reflux disease, states it has been bothering her for about a week and a half, she went to a fire station got an IV of a L fluids, but did not go to her doctor to follow up about this, she smokes marijuana daily, she does not have a history of ulcers, no history of abdominal surgeries, she has vomiting with this, she says she has a lot discomfort, she had not been taking any medication for it, she does not recall what her family doctor had her on previously for this problem, but that she is not call her family doctor for this problem. 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 1 of 9 Narrative She denies headaches, fevers, sore throat, exposure to COVID or influenza, nobody around her has been sick, no cough congestion shortness of breath, no history of Crohn's disease and chronic abdominal conditions, no urinary symptoms, she states she vomits several times a day, and she had a little bit of diarrhea. She is seen in room 6., and she as opposed to the idea that cannabis could be causing this problem. Her HEENT exam was normal, mouth is moist, neck is supple, there is no anterior posterior supraclavicular nodes, lungs are clear, there is no expiratory wheeze rales or paradoxical chest motion, heart rate and rhythm was regular BMI left chest, she has got good radial and dorsalis pedis pulses she has no peripheral edema, she has no rash, her abdomen is soft, generally nontender, bowel sounds are normal, she is not overweight, she has somewhat of a Depressed affect. She will be medicated, I told her she will be instructed to follow up with [facility], where she has been seen before, it will provide her some medicines here in the emergency room with a follow up but we necessary. Then she needs to stop the marijuana.). PAST HISTORY Gastroesophageal Reflux Disease Surgeries: Medications: no known home medications Allergies: Penicillins ADDITIONAL NOTES The nursing notes have been reviewed. PHYSICAL EXAM Vital Signs: Have been reviewed. LABS, X-RAYS, AND EKG 2 of 9 Narrative Laboratory Tests: CBC + DIFF Final BRANDON: 01/21/2025 19:15:00 EDT MsgRcvd: 01/21/2025 19:49 EDT Lab Test Result Reference Status Received Comments 01/21/2025 19:49 CBC-COMPLETE CBC + DIFF Final EDT BLOOD COUNT 01/21/2025 19:49 WBC 8.5 x 10/UL 4.5 - 10.8 Final EDT 01/21/2025 19:49 RBC 4.90 x 10/UL 4.10 - 5.30 Final EDT 01/21/2025 19:49 HEMOGLOBIN 15.4 g/dl 12.0 - 16.0 Final EDT 01/21/2025 19:49 HEMATOCRIT 42.8 % 34.0 - 46.0 Final EDT 01/21/2025 19:49 MCV 87 fl 80 - 99 Final EDT 01/21/2025 19:49 MCH 32 pg 27 - 33 Final EDT 01/21/2025 19:49 MCHC 36 X10 3 32 - 36 Final EDT 01/21/2025 19:49 RDW/CV 12.8 % 12.0 - 15.6 Final EDT 01/21/2025 19:49 PLATELET 209 x10/UL 150 - 450 Final EDT 01/21/2025 19:49 AUTOMATED MPV 8.3 fl 6.6 - 10.5 Final EDT DIFFERENTIAL 3 of 9 Narrative Lab Test Result Reference Status Received Comments 86.1 % 01/21/2025 19:49 NEUT % 46.0 - 76.0 Final Above high normal EDT 9.6 % 01/21/2025 19:49 LYMPH % 20.0 - 45.0 Final Below low normal EDT 01/21/2025 19:49 MONOS % 3.2 % 0.0 - 10.0 Final EDT 01/21/2025 19:49 EO % 0.7 % 0.0 - 7.0 Final EDT 01/21/2025 19:49 BASO % 0.4 % 0.0 - 2.0 Final EDT 01/21/2025 19:49 Lymph # 0.82 x10/UL 0.80 - 2.80 Final EDT 7.35 x10/UL 01/21/2025 19:49 Neut # 1.50 - 7.10 Final Above high normal EDT 01/21/2025 19:49 Oceana # 0.27 x10/UL 0.20 - 1.00 Final EDT 01/21/2025 19:49 EO # 0.06 x10/UL 0.00 - 0.50 Final EDT 01/21/2025 19:49 Baso # 0.03 x10/UL 0.00 - 0.10 Final EDT 01/21/2025 19:49 MANUAL DIFF N/A New Order EDT 01/21/2025 19:49 MORPHOLOGY N/A New Order EDT CMP with eGFR Final BRANDON: 04/ (more content not included)... Normal [facility] ED SUPER BILLon 01-22-2025 ED SUPER BILL [id number] [place] [address] [id number] 01/21/2025 Patient: HALIE GARCIA Sex: Female : 1990 Age: 34y Item Facility Professional Category Description Code Code Quantity Fee Total Drugs Normal Saline 794663 1 $0.00 $0.00 1000cc (792990) Nurse/E/M EMERGENCY 484791 1 $0.00 $0.00 DEPARTMENT VISIT HIGH/URGENT SEVERITY (21176-78) Nurse/IV/IM/Infusio ns Hydration 444073 1 $0.00 $0.00 additional hour (58673) Nurse/IV/IM/Infusio ns IVP additional 717248 3 $0.00 $0.00 push (96014) Nurse/IV/IM/Infusio ns IVP initial 307405 1 $0.00 $0.00 (67729) Grand Total $0.00 Providers Kim Hickey D.O. 1 of 2 [facility] Principal Diagnosis Acute pain in the epigastric area of the abdomen. Abdominal pain. Vomiting. Gastroesophageal reflux disease with esophagitis. ICD-10 Codes R10.13: Epigastric pain K21.00: Gastro-esophageal reflux disease with esophagitis, without bleeding R10.9: Unspecified abdominal pain R11.10: Vomiting, unspecified 2 of 2 Normal [facility] ED VISIT SUMMARYon ED VISIT SUMMARY Visit Overview Visit Overview [address] [address] [id number] 01/21/2025 Patient: HALIE GARCIA Sex: Female : 1990 Age: 34y 01/22/2025 12:31 AM EDT ED Arrival:19:00 01/21/2025 EDT Status:not Recent Travel:no Language:eng Adv Directive:No Isolation Status: Ethnicity:N Fall Risk:no risk Infectious Disease Exposure:no Measurements:5'1" / 154.9 Self-Harm Status:risk Sepsis Screen:negative cm 110.0 lb / 49.9 kg Chief Complaint:NAUSEA, VOMITING, (epigastric pain), and (x1 week) ALLERGIES Penicillins HOME MEDICATIONS None PAST MEDICAL HISTORY / PROBLEMS Gastroesophageal Reflux Disease LNMP: Last normal menstrual period now 1 of 3 Visit Overview PAST SURGICAL HISTORY SOCIAL HISTORY Smoking status: No Alcohol use: Yes Drug use: Yes ED COURSE MEDICATIONS GIVEN IN EMERGENCY DEPARTMENT 19:21 01/21/25 IV NS 0.9 % 1000 mL 500 mL/hr 19:35 01/21/25 LORazepam (Ativan) IVP 0.5 mg 19:37 01/21/25 Zofran IVP 4 mg 19:39 01/21/25 Pantoprazole (Protonix) IVP 40 mg 19:43 01/21/25 GI Cocktail PO 20:41 01/21/25 HYDROmorphone (Dilaudid) IVP 0.25 mg IV SITE INFORMATION INTAKE OUTPUT REASSESMENT (most recent) 20:27 01/21/25. The patient reports no complaints and the patient is calm and resting quietly. Patient waiting for results and disposition. VITAL SIGNS First Vitals Last Vitals Temp 19:08 01/21/25 98.0 F Temp 22:15 01/21/25 BP 19:08 01/21/25 147/101 BP 22:15 01/21/25 145/101 HR 19:08 01/21/25 65 HR 22:15 01/21/25 65 RR 19:08 01/21/25 16 RR 22:15 01/21/25 O2 Sat 19:08 01/21/25 98% O2 Sat 22:15 01/21/25 Pain 19:08 01/21/25 7 Pain 22:15 01/21/25 ETCO2 19:08 01/21/25 ETCO2 22:15 01/21/25 2 of 3 Visit Overview First Vitals Last Vitals GCS 19:08 01/21/25 GCS 22:15 01/21/25 RTS 19:08 01/21/25 RTS 22:15 01/21/25 PROCEDURES NURSING INTERVENTIONS LABS / STUDIES LABS / STUDIES ORDERED CBC w Diff CMP Lipase Urinalysis Urine - HCG LABS / STUDIES PENDING IMPORT URINE URINALYSIS CLINICAL IMPRESSION ABDOMINAL PAIN ACUTE PAIN IN THE EPIGASTRIC AREA OF THE ABDOMEN GASTROESOPHAGEAL REFLUX DISEASE WITH ESOPHAGITIS VOMITING 3 of 3 Normal [facility] ED VITALS FLOW SHEETon 01-22 ED VITALS FLOW SHEET Vitals Vital Sign Flow Sheet [facility] [address] [place] [address] [id number] 01/21/2025 Patient: HALIE GARCIA Sex: Female : 1990 Age: 34y Measurements Wt: 49.9 kg, Ht/Lencho: 61.0 in, BMI: 20.78 Measured Time BP MAP HR RR O2Sat ETCO2 Temp Pain GCS RTS 22:15 01/21/2025 145/101 115 65 22:14 01/21/2025 67 96% 22:09 01/21/2025 70 96% 22:04 01/21/2025 72 94% 21:59 01/21/2025 67 95% 21:54 01/21/2025 64 94% 21:49 01/21/2025 63 94% 21:45 01/21/2025 156/94 114 62 21:44 01/21/2025 63 94% 21:39 01/21/2025 68 96% 21:34 01/21/2025 68 97% 21:29 01/21/2025 65 95% 21:24 01/21/2025 63 96% 21:19 01/21/2025 65 94% 21:15 01/21/2025 154/100 118 62 1 of 3 Vitals Measured Time BP MAP HR RR O2Sat ETCO2 Temp Pain GCS RTS 21:14 01/21/2025 65 95% 21:09 01/21/2025 61 94% 21:04 01/21/2025 62 95% 20:59 01/21/2025 61 95% 20:54 01/21/2025 65 95% 20:49 01/21/2025 58 94% 20:45 01/21/2025 133/91 104 64 20:44 01/21/2025 65 95% 20:34 01/21/2025 76 98% 20:29 01/21/2025 66 96% 20:24 01/21/2025 65 95% 20:19 01/21/2025 83 97% 20:15 01/21/2025 136/85 102 63 20:14 01/21/2025 70 96% 20:09 01/21/2025 63 96% 20:04 01/21/2025 63 97% 19:59 01/21/2025 61 97% 19:54 01/21/2025 60 97% 19:49 01/21/2025 63 93% 19:44 01/21/2025 61 96% 19:39 01/21/2025 64 96% 19:34 01/21/2025 74 99% 19:29 01/21/2025 61 96% 19:24 01/21/2025 62 94% 19:08 01/21/2025 147/101 116 65 16 98% 98.0 F 7 2 of 3 Vitals 3 of 3 Normal [facility] CBC + DIFFon 01-21-2025 Baso # 0.03 x10EE3/UL Normal 0.00 - 0.10 [facility] Comment on above: Performed By: #### 2 [id number] #### [facility],[address] [place] [address] 34608 Basophils/100 WBC (Bld) 0.4 % Normal 0.0 - 2.0 [facility] Comment on above: Performed By: #### 2 [id number] #### [facility],[address] [place] [address] 35947 CBC + DIFF Normal [facility] Comment on above: Result Comment: CBC- COMPLETE BLOOD COUNT Performed By: #### 2 [id number] #### [facility],[address] [place] [address] 51862 EO # 0.06 x10EE3/UL Normal 0.00 - 0.50 [facility] Comment on above: Performed By: #### 2 31079 #### [facility],[address] [place] [address] 66198 Eosinophils/100 WBC (Bld) 0.7 % Normal 0.0 - 7.0 [facility] Comment on above: Performed By: #### 2 56452 #### [facility],[address] [place] [address] 88943 Erythrocyte distribution width (RBC) [Ratio] 12.8 % Normal 12.0 - 15.6 [facility] Comment on above: Performed By: #### 2 36221 #### [facility],[address] [place] [address] Hematocrit (Bld) [Volume fraction] 42.8 % Normal 34.0 - 46.0 [facility] Comment on above: Performed By: #### 2 66416 #### [facility],[address] [place] [address] Hemoglobin (Bld) [Mass/Vol] 15.4 g/dL Normal 12.0 - 16.0 [facility] Comment on above: Performed By: #### 2 01501 #### [facility],[address] [place] [address] Lymph # 0.82 x10EE3/UL Normal 0.80 - 2.80 [facility] Comment on above: Performed By: #### 2 98523 #### [facility],[address] [place] [address] Lymphocytes/100 WBC (Bld) 9.6 % Low 20.0 - 45. 0 [facility] Comment on above: Performed By: #### 2 82846 #### [facility],[address] [place], [place] [id number] MANUAL DIFF N/A Normal [facility] Comment on above: Performed By: #### 2 50389 #### [facility],[address] [place], [place] [id number] MCH (RBC) [Entitic mass] 32 pg Normal 27 - 33 [facility] Comment on above: Performed By: #### 2 82329 #### [facility],[address] [place], [place] [id number] MCHC 36 X10 3 Normal 32 - 36 [facility] Comment on above: Performed By: #### 2 15961 #### [facility],[address] [place], [place] [id number] MCV (RBC) [Entitic vol] 87 fL Normal 80 - 99 [facility] Comment on above: Performed By: #### 2 22247 #### [facility],[address] [place] [address] 06701 Oceana # 0.27 x10EE3/UL Normal 0.20 - 1.00 [facility] Comment on above: Performed By: #### 2 98159 #### [facility],[address] [place] [address] 07697 MONOS % 3.2 % Normal 0.0 - 10.0 [facility] Comment on above: Performed By: #### 2 06628 #### [facility],[address] [place] [address] Morphology Angel (Bld) [Interp] N/A Normal [facility] Comment on above: Performed By: #### 2 14764 #### [facility],[address] [place] [address] Neut # 7.35 x10EE3/UL High 1.50 - 7.10 [facility] Comment on above: Performed By: #### 2 15491 #### [facility],[address] [place] [address] Neutrophils/100 WBC (Bld) 86.1 % High 46.0 - 76. 0 [facility] Comment on above: Performed By: #### 2 87290 #### [facility],[address] [place] [address] PLATELET 209 x10EE3/UL Normal 150 - 450 [facility] Comment on above: Performed By: #### 2 09135 #### [facility],[address] [place] [address] Platelet mean volume (Bld) [Entitic vol] 8.3 fL Normal 6.6 - 10.5 [facility] Comment on above: Result Comment: AUTO MATED DIFFERENTIAL Performed By: #### 2 30259 #### [facility],[address],[place] [address] RBC 4.90 x 10EE6/UL Normal 4.10 - 5.30 [facility] Comment on above: Performed By: #### 2 61212 #### [facility],[address] [place] [address]35 WBC 8.5 x 10EE3/UL Normal 4.5 - 10.8 [facility] Comment on above: Performed By: #### 2 17264 #### [facility],[address] [place] [address] 97969 CMP with eGFRon 01-21-2025 AGE 34 years Normal [facility] Comment on above: Performed By: #### 2 88011 #### [facility],[address] [place] [address] 34471 Albumin [Mass/Vol] 4.7 g/dL Normal 3.4 - 5.0 [facility] Comment on above: Performed By: #### 2 54975 #### [facility],[address] [place] [address] 09803 Albumin/Globulin [Mass ratio] 1.6 {ratio} Normal 0.9 - 1.6 [facility] Comment on above: Performed By: #### 2 34295 #### [facility],[address] [place] [address] 85042 ALK PHOS 50 U/L Normal 46 - 116 [facility] Comment on above: Performed By: #### 2 27199 #### [facility],[address] [place] [address] 60683 ALT [Catalytic activity/Vol] 24 U/L Normal 16 - 63 [facility] Comment on above: Performed By: #### 2 23817 #### [facility],[address] [place] [address] 69628 Anion gap [Moles/Vol] 9 mmol/L Low 10 - 20 [facility] Comment on above: Performed By: #### 2 53175 #### [facility],[address] [place] [address] 13764 AST [Catalytic activity/Vol] 15 U/L Normal 13 - 39 [facility] Comment on above: Performed By: #### 2 07808 #### [facility],[address] [place] [address] 90042 B/C RATIO 24 ratio Normal 0 - 30 [facility] Comment on above: Performed By: #### 2 56228 #### [facility],[address] [place] [address] 40060 Bilirubin [Mass/Vol] 0.9 mg/dL Normal 0.2 - 1.0 [facility] Comment on above: Performed By: #### 2 96762 #### [facility],[address] [place] [address] 87306 Calcium [Mass/Vol] 9.0 mg/dL Normal 8.5 - 10.1 [facility] Comment on above: Performed By: #### 2 77870 #### [facility],[address] [place] [address] 47548 Chloride [Moles/Vol] 101 mmol/L Normal 98 - 107 [facility] Comment on above: Performed By: #### 2 35523 #### [facility],[address] [place] [address] 31978 CMP with eGFR Normal [facility] Comment on above: Result Comment: COMP REHENSIVE METABOLIC PANEL Performed By: #### 2 86400 #### [facility],[address] [place] [address] 12759 CO2 [Moles/Vol] 32.1 mmol/L High 21.0 - 32.0 [facility] Comment on above: Performed By: #### 2 95132 #### [facility],[address] [place] [address] 98080 Creatinine [Mass/Vol] 0.70 mg/dL Normal 0.55 - 1.02 [facility] Comment on above: Performed By: #### 2 70931 #### [facility],[address] [place] [address] 54160 GFR/1.73 sq M.predicted among non-blacks MDRD (S/P/Bld) [Vol rate/Area] mL/min/{1.73_m2} Normal 60 - 999 [facility] Comment on above: Performed By: #### 2 61082 #### [facility],[address] [place] [address] 20004 Result Comment: ACCO RDING TO THE NATIONAL KIDNEY DISEASE EDUCATION PROGRAM(NKDE), A NORMAL eGFR IS A VALUE GREATER THAN OR EQUAL TO 60 ML/MIN/1.73 SQ METERS. CHRONIC KIDNEY DISEASE: <60mL/MIN/1.73 SQ METERS KIDNEY FAILURE: <15mL/MIN/1.73 SQ METERS THIS TEST SHOULD ONLY BE USED FOR PATIENTS 18 YEARS OF AGE AND OLDER. Globulin (S) [Mass/Vol] 3.0 g/dL Normal 1.5 - 3.8 [facility] Comment on above: Performed By: #### 2 35265 #### [facility],[address] [place] [address] 45365 Glucose [Mass/Vol] 99 mg/dL Normal 74 - 106 [facility] Comment on above: Performed By: #### 2 78361 #### [facility],[address] [place] [address] 02232 Potassium [Moles/Vol] 3.1 mmol/L Low 3.5 - 5.1 [facility] Comment on above: Performed By: #### 2 45587 #### [facility],[address] [place] [address] 48382 Protein [Mass/Vol] 7.7 g/dL Normal 6.4 - 8.2 [facility] Comment on above: Performed By: #### 2 50468 #### [facility],[address] [place] [address] 59209 Sodium [Moles/Vol] 139 mmol/L Normal 136 - 145 [facility] Comment on above: Performed By: #### 2 68796 #### [facility],[address] [place] [address] Urea nitrogen [Mass/Vol] 17 mg/dL Normal 7 - 18 [facility] Comment on above: Performed By: #### 2 00132 #### [facility],[address] [place] [address] LIPASEon 01-21-2025 Lipase [Catalytic activity/Vol] 34.0 U/L Normal 15.0 - 78.0 [facility] Comment on above: Result Comment: *PLE ASE NOTE THAT RANGES FOR LIPASE HAVE CHANGED OF 10/04/23 DUE TO AN ASSAY UPDATE BY THE FAMILY MEDICINE RESIDENT.THE NEW ASSAY RANGE IS 6-250 U/L, WITH A REFERENCE RANGE OF 16-77 U/L. Performed By: #### 2 53361 #### [place] [address] URINEon 01-21-2025 Beta HCG ( test) Ql (U) Negative Normal NEGATIVE [facility] Comment on above: Performed By: #### 2 49614 #### [place] [address] EXTERNAL QC DONE? YES Normal [facility] Comment on above: Result Comment: Very dilute urine specimens, as indicated by a low specific gravity, may not contain credit and collections representative levels of hCG. If is still suspected, a first morning urine specimen should be collected 48 hours later and tested. Performed By: #### 2 15230 #### [place] [address] INTERNAL QC PASS Normal [facility] Comment on above: Performed By: #### 2 16351 #### [place] [address] URINALYSISon 01-21-2025 Bilirubin Ql (U) Negative Normal NORMAL: NEGATIVE [facility] Comment on above: Performed By: #### 2 87115 #### [place] [address] Clarity (U) clear Normal NORMAL: CLEAR [facility] Comment on above: Performed By: #### 2 29061 #### [facility],[address] [place] [address] 71090 Color (U) p.yel Normal NORMAL: YELLOW [facility] Comment on above: Performed By: #### 2 28558 #### [facility],[address] [place] [address] 57453 Glucose Ql (U) NORM Normal NORMAL: NORMAL [facility] Comment on above: Performed By: #### 2 80114 #### [facility],[address] [place] [address] 59446 Hemoglobin Ql (U) Negative Normal NORMAL: NEGATIVE [facility] Comment on above: Performed By: #### 2 43198 #### [facility],[address] [place] [address] 19814 Ketone 50 Abnormal NORMAL: NEGATIVE [facility] Comment on above: Performed By: #### 2 07160 #### [facility],[address] [place] [address] 27397 Leukocytes Negative Normal NORMAL: NEGATIVE [facility] Comment on above: Performed By: #### 2 90264 #### [facility],[address] [place] [address] 09865 Nitrite Ql (U) Negative Normal NORMAL: NEGATIVE [facility] Comment on above: Performed By: #### 2 09423 #### [facility],[address] [place] [address] 83294 pH (U) 7 [pH] Normal NORMAL: 5.0-8.0 [facility] Comment on above: Performed By: #### 2 24857 #### [facility],[address] [place] [address] 92378 Protein Ql (U) Negative Normal NORMAL: NEGATIVE [facility] Comment on above: Performed By: #### 2 25678 #### [facility],[address] [place], [place] [id number] [place] 1.010 Normal NORMAL: 1.010-1.030 [facility] Comment on above: Performed By: #### 2 97411 #### [facility],[address] [place] [address] Specimen Type R Normal [facility] Comment on above: Performed By: #### 2 04162 #### [facility],[address] [place] [address] Urinalysis dipstick W Reflex Microscopic panel (U) NOT INDICATED Normal [facility] Comment on above: Performed By: #### 2 32532 #### [facility],[address] [place] [address] Urobilinog NORM Normal NORMAL: NORMAL [facility] Comment on above: Performed By: #### 2 83208 #### [facility],[address] [place] [address] EMERGENCY REPORTon 4 EMERGENCY REPORT [facility] EMERGENCY ROOM REPORT NAME ACCOUNT SEX AGE ADMIT DISCHARGE PT MED. RECORD# NUMBER DATE DATE TYPE HALIE GARCIA [id number] F 33 04/20/24 04/20/24 3 M [id number] ROOM: ER DATE OF : 1990 DICTATING PHYSICIAN: Daryl Zambrano CHIEF COMPLAINT: Abdominal pain with nausea and vomiting. HISTORY OF PRESENT ILLNESS: The patient states since yesterday she has had nausea and vomiting and has developed diarrhea. She is complaining of diffuse abdominal pain a little bit more so to the mid and upper abdomen. No radiation of the pain. She has not had a fever or chills. She states it is a burning discomfort constantly. It is a little worse when she tries to eat or drink. She has been able to keep some water down though minimal. No blood in the emesis or stools. No urinary symptoms. She does feel a little lightheaded occasionally. PAST MEDICAL HISTORY: Negative for any known medical problems. PAST SURGICAL HISTORY: She has had previous surgery. MEDICATIONS: She takes no medications. ALLERGIES: No allergies. SOCIAL HISTORY: She lives at home. 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 She does not smoke or drink alcohol. No other drug use. REVIEW OF SYSTEMS: Negative other than as mentioned above. PHYSICAL EXAMINATION: GENERAL: This is a 33-year-old, thin female who is alert and appropriate. She appears uncomfortable but not toxic. SKIN: Her skin is pink, warm and dry. HEENT: Examination is all within normal limits. NECK: Her neck is supple without adenopathy. LUNGS: Lungs are clear without crackles or wheezes. CARDIAC: Cardiac examination is a regular rhythm without any ectopy, murmurs, gallops or rubs. ABDOMEN: Abdomen is soft. She has some mild tenderness diffusely but no guarding or rebound. No masses. Bowel sounds are present but diminished. No back or flank tenderness. EXTREMITIES: She moves her extremities appropriately without any focal weaknesses. Good peripheral pulses. Capillary refill is about 1 second. No redness, tenderness or asymmetry. VITAL SIGNS: Temperature is 98.1, pulse 58, respirations 18, blood pressure 121/67, and oxygen saturation 98%. DIAGNOSTIC DATA: Laboratory studies returned showing a CBC with a white count of Page 1 of 2 HALIE GARCIA Emergency Room Report NAVEEDHALIE : 1990 7500, 90% segs, one band, hemoglobin 14.5, and hematocrit 43.2. CMP with normal electrolytes. BUN and creatinine are normal at 11 and 0.67. Glucose is 146. Liver enzymes are all within normal limits. Lipase was normal. CRP was negligible at less than 0.05. EMERGENCY DEPARTMENT COURSE AND TREATMENT: An IV was placed. She was given a liter and a half of fluids while here. She was given doses of ibuprofen, Protonix, and later some oral Maalox and famotidine. She did feel improved with that. DIAGNOSIS: Nausea, vomiting and diarrhea - probable viral etiology. PLAN/DISPOSITION: The patient will be discharged with prescriptions for ondansetron and Protonix. Clear liquids recommended for the next 12-24 hours. She is to return if symptoms worsen. Otherwise, follow up with primary provider in 1-2 days. Dictated By: Daryl Zambrano MD 04/20/24 14:33 JOB #: [id number] Transcribed By: brad 04/20/24 15:16 Electronically signed by: TOM Zambrano M.D. 04/25/24 07:02 Page 2 of 2 HALIE GARCIA Emergency Room Report Normal [facility] C-REACTIVE PROTEINon 024 CRP [Mass/Vol] mg/L Normal 0.00 - 0.90 [facility] Comment on above: Performed By: #### 2 51989 #### [facility],[address] [place] [address] 12971 CBC + DIFFon 04-20-2024 ATY LYMP 0 % Normal [facility] Comment on above: Performed By: #### 2 84220 #### [facility],[address] [place] [address] 58512 BANDS 1 % Normal 0 - 5 [facility] Comment on above: Performed By: #### 2 56989 #### [facility],[address] [place] [address] Baso # 0.02 x10EE3/UL Normal 0.00 - 0.10 [facility] Comment on above: Performed By: #### 2 36688 #### [facility],[address] [place] [address] 13536 Basophils/100 WBC (Bld) 0.3 % Normal 0.0 - 2.0 [facility] Comment on above: Performed By: #### 2 45183 #### [facility],[address] [place] [address] 88754 Basophils/100 WBC (Bld) 0.0 % Normal 0.0 - 2.0 [facility] Comment on above: Performed By: #### 2 51592 #### [facility],[address] [place] [address] 67794 CBC + DIFF Normal [facility] Comment on above: Result Comment: CBC- COMPLETE BLOOD COUNT Performed By: #### 2 76853 #### [facility],[address] [place] [address] 28034 CELL COUNT 100 Normal [facility] Comment on above: Performed By: #### 2 69413 #### [facility],[address] [place] [address] 99368 EO 0.0 % Normal 0.0 - 7.0 [facility] Comment on above: Performed By: #### 2 98025 #### [facility],[address] [place] [address] 08012 EO # 0.04 x10EE3/UL Normal 0.00 - 0.50 [facility] Comment on above: Performed By: #### 2 78999 #### [facility],[address] [place] [address] Eosinophils/100 WBC (Bld) 0.6 % Normal 0.0 - 7.0 [facility] Comment on above: Performed By: #### 2 60159 #### [facility],[address] [place] [address] Erythrocyte distribution width (RBC) [Ratio] 13.8 % Normal 12.0 - 15.6 [facility] Comment on above: Performed By: #### 2 27062 #### [facility],[address] [place] [address] Hematocrit (Bld) [Volume fraction] 43.2 % Normal 34.0 - 46.0 [facility] Comment on above: Performed By: #### 2 44850 #### [facility],[address] [place] [address] Hemoglobin (Bld) [Mass/Vol] 14.5 g/dL Normal 12.0 - 16.0 [facility] Comment on above: Performed By: #### 2 22133 #### [facility],[address] [place], [place] [id number] Lymph # 0.50 x10EE3/UL Low 0.80 - 2.80 [facility] Comment on above: Performed By: #### 2 15263 #### [facility],[address] [place], [place] [id number] Lymphocytes/100 WBC (Bld) 6.7 % Low 20.0 - 45. 0 [facility] Comment on above: Performed By: #### 2 80152 #### [facility],[address] [place], [place] [id number] Lymphocytes/100 WBC (Bld) 6 % Low 20 - 45 [facility] Comment on above: Performed By: #### 2 68621 #### [facility],[address] [place] [address] MANUAL DIFF SEE BELOW Normal [facility] Comment on above: Performed By: #### 2 39282 #### [facility],[address] [place] [address] MCH (RBC) [Entitic mass] 30 pg Normal 27 - 33 [facility] Comment on above: Performed By: #### 2 47152 #### [facility],[address] [place] [address] MCHC 34 X10 3 Normal 32 - 36 [facility] Comment on above: Performed By: #### 2 29435 #### [facility],[address] [place] [address] MCV (RBC) [Entitic vol] 91 fL Normal 80 - 99 [facility] Comment on above: Performed By: #### 2 77426 #### [facility],[address] [place] [address] META 0 % Normal 0 - 1 [facility] Comment on above: Performed By: #### 2 33617 #### [facility],[address] [place] [address] Metamyelocytes/100 WBC (Bld) 0 % Normal [facility] Comment on above: Performed By: #### 2 64003 #### [facility],[address] [place] [address] [place] # 0.21 x10EE3/UL Normal 0.20 - 1.00 [facility] Comment on above: Performed By: #### 2 42663 #### [facility],[address] [place] [address] MONOS 3 % Normal 0 - 10 [facility] Comment on above: Performed By: #### 2 94734 #### [facility],[address] [place] [address] 86691 MONOS % 2.8 % Normal 0.0 - 10.0 [facility] Comment on above: Performed By: #### 2 18064 #### [facility],[address] [place] [address] 95004 Morphology Angel (Bld) [Interp] REVIEWED Normal [facility] Comment on above: Performed By: #### 2 57856 #### [facility],[address] [place] [address] 17170 Neut # 6.74 x10EE3/UL Normal 1.50 - 7.10 [facility] Comment on above: Performed By: #### 2 66241 #### [facility],[address] [place] [address] 71040 Neutrophils/100 WBC (Bld) 89.7 % High 46.0 - 76. 0 [facility] Comment on above: Performed By: #### 2 10814 #### [facility],[address] [place] [address] 46692 NRBC 0 /100 Normal [facility] Comment on above: Performed By: #### 2 47213 #### [facility],[address] [place] [address] 85502 PLATELET 160 x10EE3/UL Normal 150 - 450 [facility] Comment on above: Performed By: #### 2 87496 #### [facility],[address] [place] [address] 87479 Platelet mean volume (Bld) [Entitic vol] 9.2 fL Normal 6.6 - 10.5 [facility] Comment on above: Result Comment: AUTO MATED DIFFERENTIAL Performed By: #### 2 62378 #### [facility],[address] [place] [address] 93922 RBC 4.77 x 10EE6/UL Normal 4.10 - 5.30 [facility] Comment on above: Performed By: #### 2 04920 #### [facility],[address] [place] [address] 60978 SEGS 90 % High 46 - 76 [facility] Comment on above: Performed By: #### 2 58842 #### [facility],[address] [place] [address] 32679 WBC 7.5 x 10EE3/UL Normal 4.5 - 10.8 [facility] Comment on above: Performed By: #### 2 70050 #### [facility],[address] [place] [address] 35504 OTHER 0 Normal [facility] Comment on above: Performed By: #### 2 51579 #### [facility],[address] [place] [address] 39115 CMP with eGFRon 04-20-2024 AGE 33 years Normal [facility] Comment on above: Performed By: #### 2 59166 #### [facility],[address] [place] [address] 94945 Albumin [Mass/Vol] 4.4 g/dL Normal 3.4 - 5.0 [facility] Comment on above: Performed By: #### 2 82764 #### [facility],[address] [place] [address] 65071 Albumin/Globulin [Mass ratio] 1.3 {ratio} Normal 0.9 - 1.6 [facility] Comment on above: Performed By: #### 2 72058 #### [facility],[address] [place] [address] 55112 ALK PHOS 55 U/L Normal 46 - 116 [facility] Comment on above: Performed By: #### 2 89030 #### [facility],[address] [place] [address] 72525 ALT [Catalytic activity/Vol] 30 U/L Normal 16 - 63 [facility] Comment on above: Performed By: #### 2 68416 #### [facility],[address] [place] [address] 31904 Anion gap [Moles/Vol] 15 mmol/L Normal 10 - 20 [facility] Comment on above: Performed By: #### 2 81724 #### [facility],[address] [place] [address] 52147 AST [Catalytic activity/Vol] 30 U/L Normal 13 - 39 [facility] Comment on above: Performed By: #### 2 45546 #### [facility],[address] [place] [address] 70810 B/C RATIO 16 ratio Normal 0 - 30 [facility] Comment on above: Performed By: #### 2 44156 #### [facility],[address] [place] [address] 04249 Bilirubin [Mass/Vol] 0.6 mg/dL Normal 0.2 - 1.0 [facility] Comment on above: Performed By: #### 2 61833 #### [facility],[address] [place] [address] 46667 Calcium [Mass/Vol] 8.8 mg/dL Normal 8.5 - 10.1 [facility] Comment on above: Performed By: #### 2 62980 #### [facility],[address] [place] [address] 35261 Chloride [Moles/Vol] 102 mmol/L Normal 98 - 107 [facility] Comment on above: Performed By: #### 2 20956 #### [facility],[address] [place] [address] 39789 CMP with eGFR Normal [facility] Comment on above: Result Comment: COMP REHENSIVE METABOLIC PANEL Performed By: #### 2 46387 #### [facility],[address] [place] [address] 16112 CO2 [Moles/Vol] 25.5 mmol/L Normal 21.0 - 32.0 [facility] Comment on above: Performed By: #### 2 43202 #### [facility],[address] [place] [address] 93603 Creatinine [Mass/Vol] 0.67 mg/dL Normal 0.55 - 1.02 [facility] Comment on above: Performed By: #### 2 57897 #### [facility],[address] [place] [address] 22393 GFR/1.73 sq M.predicted among non-blacks MDRD (S/P/Bld) [Vol rate/Area] mL/min/{1.73_m2} Normal 60 - 999 [facility] Comment on above: Performed By: #### 2 14896 #### [facility],[address] [place] [address] 52074 Result Comment: ACCO RDING TO THE NATIONAL KIDNEY DISEASE EDUCATION PROGRAM(NKDE), A NORMAL eGFR IS A VALUE GREATER THAN OR EQUAL TO 60 ML/MIN/1.73 SQ METERS. CHRONIC KIDNEY DISEASE: <60mL/MIN/1.73 SQ METERS KIDNEY FAILURE: <15mL/MIN/1.73 SQ METERS THIS TEST SHOULD ONLY BE USED FOR PATIENTS 18 YEARS OF AGE AND OLDER. Globulin (S) [Mass/Vol] 3.3 g/dL Normal 1.5 - 3.8 [facility] Comment on above: Performed By: #### 2 14114 #### [facility],[address] [place] [address] 90227 Glucose [Mass/Vol] 146 mg/dL High 74 - 106 [facility] Comment on above: Performed By: #### 2 70357 #### [facility],[address] [place] [address] 24864 Potassium [Moles/Vol] 3.7 mmol/L Normal 3.5 - 5.1 [facility] Comment on above: Performed By: #### 2 00705 #### [facility],[address] [place] [address] 99648 Protein [Mass/Vol] 7.7 g/dL Normal 6.4 - 8.2 [facility] Comment on above: Performed By: #### 2 97337 #### [facility],[address] [place] [address] 03384 Sodium [Moles/Vol] 139 mmol/L Normal 136 - 145 [facility] Comment on above: Performed By: #### 2 54941 #### [facility],[address] [place] [address] 09738 Urea nitrogen [Mass/Vol] 11 mg/dL Normal 7 - 18 [facility] Comment on above: Performed By: #### 2 80881 #### [facility],[address] [place] [address] 64935 LIPASEon 04-20-2024 Lipase [Catalytic activity/Vol] 15.0 U/L Normal 15.0 - 78.0 [facility] Comment on above: Result Comment: *PLE ASE NOTE THAT RANGES FOR LIPASE HAVE CHANGED OF 10/04/23 DUE TO AN ASSAY UPDATE BY THE FAMILY MEDICINE RESIDENT.THE NEW ASSAY RANGE IS 6-250 U/L, WITH A REFERENCE RANGE OF 16-77 U/L. Performed By: #### 2 26875 #### [facility],[address] [place] [address] 43599 URINALYSISon 04-20-2024 Amorphous 1+ Normal [facility] Comment on above: Performed By: #### 2 05558 #### [facility],[address] [place] [address] 88467 Bacteria TRACE Normal [facility] Comment on above: Performed By: #### 2 49716 #### [facility],[address] [place] [address] 30014 Bilirubin Ql (U) Negative Normal NORMAL: NEGATIVE [facility] Comment on above: Performed By: #### 2 91891 #### [facility],[address] [place] [address] 82359 Casts NONE Normal [facility] Comment on above: Performed By: #### 2 84382 #### [facility],[address] [place] [address] 07892 Clarity (U) very cloudy Normal NORMAL: CLEAR [facility] Comment on above: Performed By: #### 2 72074 #### [facility],[address] [place] [address] 89866 Color (U) p.yel Normal NORMAL: YELLOW [facility] Comment on above: Performed By: #### 2 94455 #### [facility],[address] [place] [address] 33065 Crystals LM Nom (Urine sed) NONE Normal [facility] Comment on above: Performed By: #### 2 76036 #### [facility],[address] [place] [address] 12969 Epi Cells FEW Normal [facility] Comment on above: Performed By: #### 2 72209 #### [facility],[address] [place] [address] 20924 Glucose Ql (U) NORM Normal NORMAL: NORMAL [facility] Comment on above: Performed By: #### 2 02329 #### [facility],[address] [place] [address] 61215 Hemoglobin Ql (U) 50 Abnormal NORMAL: NEGATIVE [facility] Comment on above: Performed By: #### 2 00716 #### [facility],[address] [place] [address] 82527 Ketone 50 Abnormal NORMAL: NEGATIVE [facility] Comment on above: Performed By: #### 2 83643 #### [facility],[address] [place] [address] 70450 Leukocytes Negative Normal NORMAL: NEGATIVE [facility] Comment on above: Performed By: #### 2 41227 #### [facility],[address] [place] [address] 60965 Mucous NONE Normal [facility] Comment on above: Performed By: #### 2 85070 #### [facility],[address] [place] [address] 57747 Nitrite Ql (U) Negative Normal NORMAL: NEGATIVE [facility] Comment on above: Performed By: #### 2 39351 #### [facility],[address] [place] [address] pH (U) 8 [pH] Normal NORMAL: 5.0-8.0 [facility] Comment on above: Performed By: #### 2 11366 #### [facility],[address] [place] [address] Protein Ql (U) Negative Normal NORMAL: NEGATIVE [facility] Comment on above: Performed By: #### 2 06727 #### [facility],[address] [place] [address] Rbc 5-10 Normal 0-3/hpf [facility] Comment on above: Performed By: #### 2 04023 #### [facility],[address] [place] [address] Sp [place] 1.015 Normal NORMAL: 1.010-1.030 [facility] Comment on above: Performed By: #### 2 [id number] #### [facility],[address] [place] [address] Specimen Type Void Normal [facility] Comment on above: Performed By: #### 2 [id number] #### [facility],[address] [place] [address] Urinalysis dipstick W Reflex Microscopic panel (U) SEE BELOW Normal [facility] Comment on above: Result Comment: MICR OSCOPIC Performed By: #### 2 [id number] #### [facility],[address] [place], [place] [id number] Urobilinog NORM Normal NORMAL: NORMAL [facility] Comment on above: Performed By: #### 2 [id number] #### [facility],[address] [place] [address] Wbc 1-5 Normal 0-5/hpf [facility] Comment on above: Performed By: #### 2 [id number] #### [facility],[address] [place] [address] Yeast NONE Normal [facility] Comment on above: Performed By: #### 2 [id number] #### [facility],[address] [place] [address] ABORh Blood Type, Patienton 11-02-2023 ABO and Rh group Nom (Bld) Blood group O Rh(D) positive Normal [facility] Comment on above: Performed By: #### B tABS, BPAN, L100.0100, L700.8000, L500.4050, L501.9520, L506.0400, BTS #### [facility] [address] [place], [address] [id number] 11-02-2023 ABO and Rh group Nom (Bld) TNP Normal [facility] Comment on above: Performed By: #### B tABS, BPAN, L100.0100, L700.8000, L500.4050, L501.9520, L506.0400, BTS #### [facility] [address] [place], [address] Urinalysis, Completeon 11-02 EPI,SQUAMOUS 0-5 SEEN Normal 5-10 [facility] Comment on above: Order Comment: CLEAN CATCH Performed By: #### B tABS, BPAN, L100.0100, L700.8000, L500.4050, L501.9520, L506.0400, BTS #### [facility] [address] [place], [address] WBC 0-5 SEEN Normal 0-5 [facility] Comment on above: Order Comment: CLEAN CATCH Performed By: #### B tABS, BPAN, L100.0100, L700.8000, L500.4050, L501.9520, L506.0400, BTS #### [facility] [address] [place], [address] BACTERIA 0 SEEN Normal None Seen [facility] Comment on above: Order Comment: CLEAN CATCH Performed By: #### B tABS, BPAN, L100.0100, L700.8000, L500.4050, L501.9520, L506.0400, BTS #### [facility] [address] [place], [address] Mucus Ql (Urine sed) 0 SEEN Normal [facility] Comment on above: Order Comment: CLEAN CATCH Performed By: #### B tABS, BPAN, L100.0100, L700.8000, L500.4050, L501.9520, L506.0400, BTS #### [facility] [address] [place], [address] RBC 0 SEEN Normal 0-5 [facility] Comment on above: Order Comment: CLEAN CATCH Performed By: #### B tABS, BPAN, L100.0100, L700.8000, L500.4050, L501.9520, L506.0400, BTS #### [facility] [address] [place], [address] Absolute lymphocyte countOrd ered By: Freddy Chan on 11-01-2023 Lymphocytes Auto (Unsp spec) [#/Vol] 0.36 10*3/uL 0.83-4.51 [facility] Automated lymphocyte count a s percentage of total leukocytesOrdered By: Freddy Chan on 11-01-2023 Lymphocytes/100 WBC Auto (Unsp spec) 3.0 % 19-41 [facility] Basic Metabolic Profile (BMP )on 11-01-2023 BUN/CRE 31.5 RATIO High 10-20 [facility] Comment on above: Performed By: #### B tABS, BPAN, L100.0100, L700.8000, L500.4050, L501.9520, L506.0400, BTS #### [facility] [address] [place], [address] CA,Total 9.0 mg/dL Normal 8.5-10.1 [facility] Comment on above: Performed By: #### B tABS, BPAN, L100.0100, L700.8000, L500.4050, L501.9520, L506.0400, BTS #### [facility] [address] [place], [address] ECRCL 120.61 ml/min Normal [facility] Comment on above: Performed By: #### B tABS, BPAN, L100.0100, L700.8000, L500.4050, L501.9520, L506.0400, BTS #### [facility] [address] [place], [address] EST GFR - AA 182 mL/min Normal >60 [facility] Comment on above: Result Comment: Afri can Grenadian GFR Calc Performed By: #### B tABS, BPAN, L100.0100, L700.8000, L500.4050, L501.9520, L506.0400, BTS #### [facility] [address] [place], [address] GAP 5 Normal 5-15 [facility] Comment on above: Performed By: #### B tABS, BPAN, L100.0100, L700.8000, L500.4050, L501.9520, L506.0400, BTS #### [facility] [address] [place], [address] GFR/1.73 sq M.predicted among non-blacks MDRD (S/P/Bld) [Vol rate/Area] 150 mL/min/{1.73_m2} Normal >60 [facility] Comment on above: Result Comment: Non- GFR Calc Performed By: #### B tABS, BPAN, L100.0100, L700.8000, L500.4050, L501.9520, L506.0400, BTS #### [facility] [address] [place], [address] Basic Metabolic Profile (BMP )Ordered By: Freddy Chan on 11-01-2023 CO2 [Moles/Vol] 28.0 mmol/L Normal 21.0-32.0 [facility] Comment on above: Performed By: #### B tABS, BPAN, L100.0100, L700.8000, L500.4050, L501.9520, L506.0400, BTS #### [facility] [address] [place], [address] Basophil percentageOrdered B y: Freddy Rocio on 11-01-2023 Bilirubin [Mass/Vol] 0.90 mg/dL Normal 0.20-1.00 [facility] Comment on above: For patients on eltr ombopag therapy, use of Dimension [place] TBIL is not recommended. Result Comment: For patients on eltrombopag therapy, use of Dimension [place] TBIL is not recommended. Performed By: #### B tABS, BPAN, L100.0100, L700.8000, L500.4050, L501.9520, L506.0400, BTS #### [facility] [address] [place], [address] Chloride [Moles/Vol] 105 mmol/L Normal 98-107 [facility] Comment on above: Performed By: #### B tABS, BPAN, L100.0100, L700.8000, L500.4050, L501.9520, L506.0400, BTS #### [facility] [address] [place], [address] Glucose [Mass/Vol] 158 mg/dL High 74-106 [facility] Comment on above: Fasting Glucose resu lt greater than or equal to 126 mg/dL suggests DIABETES MELLITUS per A.D.A. criteria. Result Comment: Fast ing Glucose result greater than or equal to 126 mg/dL suggests DIABETES MELLITUS per A.D.A. criteria. Performed By: #### B tABS, BPAN, L100.0100, L700.8000, L500.4050, L501.9520, L506.0400, BTS #### [facility] [address] [place], [address] Potassium [Moles/Vol] 3.5 mmol/L Normal 3.5-5.1 [facility] Comment on above: Performed By: #### B tABS, BPAN, L100.0100, L700.8000, L500.4050, L501.9520, L506.0400, BTS #### [facility] [address] [place], [address] Sodium [Moles/Vol] 138 mmol/L Normal 136-145 [facility] Comment on above: Performed By: #### B tABS, BPAN, L100.0100, L700.8000, L500.4050, L501.9520, L506.0400, BTS #### [facility] [address] [place], [address] Basophil percentage 0-5 SEEN /hpf 0-5 [facility] Basophils/100 WBC (Bld) 0.2 % 0-1 [facility] Eosinophils/100 WBC (Bld) 0.0 % 0-5 [facility] Hemoglobin (Bld) [Mass/Vol] 13.9 g/dL 12.0-15.0 [facility] Monocytes/100 WBC (Bld) 2.0 % 0-10 [facility] Neutrophils (Bld) [#/Vol] 11.3 10*3/uL 2.0-7.7 [facility] Neutrophils/100 WBC (Bld) 94.3 % 47-70 [facility] Protein [Mass/Vol] 7.2 g/dL 6.4-8.2 [facility] WBC (Bld) [#/Vol] 12.0 10*3/uL 4.4-11.0 [facility] Bilirubin Test strip Ql (U)O rdered By: Freddy Chan on 11-01-2023 Bilirubin Ql (U) Negative Negative [facility] Blood manual differential co mment interpretation (narrative result)Ordered By: Freddy Chan on 11-01-2023 Manual differential comment Angel (Bld) [Interp] SCANNED [facility] Comment on above: LYMPHOPENIA NOTED CBC W/Diff, Automatedon 10-08 SMEAR COMMENT SCANNED Normal [facility] Comment on above: Result Comment: LYMP HOPENIA NOTED Performed By: #### B tABS, BPAN, L100.0100, L700.8000, L500.4050, L501.9520, L506.0400, BTS #### [facility] [address] [place], [place], [address] Determination of erythrocyte mean corpuscular volume (MCV)Ordered By: Freddy Chan on 11-01-2023 MCV (RBC) [Entitic vol] 91.3 fL 81-99 [facility] Direct bilirubinOrdered By: Freddy Chan on 11-01-2023 Bilirubin.direct [Mass/Vol] 0.23 mg/dL Normal 0.00-0.30 [facility] Comment on above: Performed By: #### B tABS, BPAN, L100.0100, L700.8000, L500.4050, L501.9520, L506.0400, BTS #### [facility] [address] [place], [place], [address] Emergency Department Summary on 11-01-2023 Emergency Department Summary [facility] Medical Records Department [address] [place] [address] Emergency Department Summary 11/01/23 MR#: [id number] Acct: [id number] Name: HALIE GARCIA Rep #: [id number] : 1990 33 From: Freddy Chan DO PCP: MARA Lacey Status:DEP ER Location: ED HPI History of Present Illness Chief Complaint: Abd Pain [facility] Medical History (Updated 11/01/23 @ 23:[address] Freddy Rocio, DO) Alcohol use Anxiety Asthma delivery delivered Depression Easy bruising Gastric reflux Hepatitis History of edema History of pain when walking Injury of head and neck Leg cramps Loose, teeth Marijuana use Non-smoker Substance abuse Syncope Home Medications ondansetron 4 mg disintegrating tablet 4 mg PO Q8H PRN PRN Nausea #10 tabs 11/01/23 [Rx Last Taken Unknown] Allergy/AdvReac Type Severity Reaction Status Date / Time adhesive tape [tape] Allergy Mild Rash Verified 11/01/23 19:30 latex Allergy Mild Rash Verified 11/01/23 19:30 Penicillins Allergy Hives Verified 11/01/23 19:30 Family History Grandmother Asthma COPD (chronic obstructive pulmonary disease) Diabetes Surgical History Hx of section Hx of dilation and curettage Social History number of children: 2 current occupational status: employed 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 Smoking Status: Never smoker alcohol intake: former year quit: 2017 substance use type: marijuana and other details: Quit when found out about caffeine: Yes Type: carbonated beverages Number of servings: 1 seatbelt use: always do you feel safe at home: Yes additional social history: Edgar Trinh 11 years old EXAM Physical Exam Const Vital Signs: 11/01/23 19:25 11/01/23 22:52 Temperature 97.5 F L Temperature Source Temporal Pulse Rate 84 67 Respiratory Rate 15 16 Blood Pressure 120/90 H 106/75 Blood Pressure Mean 100 85 Pulse Ox 100 98 Oxygen Delivery Method Room Air Room Air MDM MDM MDM Narrative Medical decision making narrative: HISTORY OF PRESENT ILLNESS: 33-year-old female presents with abdominal pain nausea vomiting started yesterday. States he is approximate 7 weeks is concerned that she may be having a miscarriage. She also vaginal bleeding intermittently for the last week. She further states she is having intermittent spotting and lower abdominal pain for the last several days. Notes nausea and vomiting. Denies any chest pain or shortness of breath. Notes he is a G4, P3. Notes history of miscarriage late last year. She denies any ovarian manipulation or in vitro fertilization. REVIEW OF SYSTEMS: Pertinent positives: Abdominal pain, nausea vomiting, vaginal bleeding Pertinent negatives: Fever, chest pain, shortness of breath, urinary complaints, constipation or diarrhea PHYSICAL EXAM: Nursing triage notes reviewed, Vital signs reviewed Constitutional: please see mdm HENT: MMM Eyes: Pupils equal round and reactive to light, Extraocular muscles intact Neck: No stridor, no JVD, full neck ROM Lungs: Clear to auscultation, No wheezing or rales. No increased work of breathing, no conversational dyspnea, no accessory muscle use, no nasal flaring. No respiratory distress noted Heart: Regular rate and rhythm, No murmurs, No rubs and No gallops, 2+ distal pulses (radial, femoral, posterior tibial) in all extremities Abdomen: Soft, there is no tenderness, rigidity, rebound or guarding, no obvious peritoneal signs, no palpable pulsatile abdominal masses, no auscultated abdominal bruit : No CVAT Extremities: No edema Neuro: No focal neurological deficits, cranial nerves II through XII intact, 5/5 strength in all extremities. Intact sensation to light touch in all extremities, 2+ reflexes bilateral patella tendons. Normal gait. No ataxia. Skin: No rash or lesions noted MEDICAL DECISION MAKING: Chief Complaint: Abdominal pain, nausea vomiting, vaginal bleeding External records reviewed: Transvaginal ultrasound from 2022 shows right ovarian cyst Factors affecting care: Ovarian cyst, history of miscarriage MDM Narrative: Patient was initially hemodynamically stable, afebrile, nontoxic-appearing. Exam with lower abdominal TTP. I considered the following differential diagnosis: Ectopic , miscarriage, UTI ALL IMAGES (IF OBTAINED) HAVE BEEN PERSONALLY REVIEWED AND INTERPRETED BY MYSELF. Beta-hCG consistent with early CBC leukocytosis likely reactive secondary to nausea vomiting with , no anemia or thrombocytopenia BMP without evidence of signif (more content not included)... Normal [facility] Erythrocyte distribution wid th ratioOrdered By: Freddy Chan on 11-01-2023 Erythrocyte distribution width (RBC) [Ratio] 13.2 % 11.6-14.6 [facility] Erythrocyte distribution wid th standard deviationOrdered By: Freddy Chan on 11-01-2023 Erythrocyte distribution width (RBC) [Entitic vol] 44.2 fL 35.1-43.9 [facility] Hematocrit Auto (Bld) [Volum e fraction]Ordered By: Freddy Chan on 11-01-2023 Hematocrit (Bld) [Volume fraction] 42.0 % 37-47 [facility] Immature granulocytes/100 WB C Auto (Bld)Ordered By: Freddy Chan on 11-01-2023 Immature granulocytes/100 WBC (Bld) 0.500 % 0.0-0.9 [facility] Comment on above: IG% - Immature Granu locytes (promyelocytes, myelocytes and metamyelocytes) > 1% indicates that a LEFT SHIFT is Present. Ketones Test strip Ql (U)Ord ered By: Freddy Chan on 11-01-2023 Ketones Ql (U) 150 mg/dl Negative [facility] Comment on above: CRITICAL VALUE *HCRI TICAL VALUE VERIFIED. CALLED TO [id number]/26/241 Donna Hurtado.RESULTS READ BACK BY SAME . Laboratory - Chemistry and C hemistry - challengeOrdered By: Freddy Chan on 11-01-2023 ALP [Catalytic activity/Vol] 42 U/L 45-117 [facility] Urea nitrogen/Creatinine [Mass ratio] 31.5 mg/mg 10-20 [facility] - Hematology and Cell countsOrdered By: Freddy Chan on 11-01-2023 MCH (RBC) [Entitic mass] 30.2 pg 27.0-32.0 [facility] MCHC (RBC) [Mass/Vol] 33.1 g/dL 32-36 [facility] Nucleated RBC/100 WBC (Bld) [Ratio] 0 % 0-5 [facility] Platelets (Bld) [#/Vol] 170 10*3/uL 150-450 [facility] LipaseOrdered By: Joanna on 11-01-2023 Lipase [Catalytic activity/Vol] 26 U/L Normal 13-75 [facility] Comment on above: Please note:LIPASE r evised reference range effective 23. New Lipase methodology. Expected to produce lower values than the previous assay method. NEW Reference Range: 13 - 75 U/L Result Comment: Ricardo trevino note: LIPASE revised reference range effective 23. New Lipase methodology. Expected to produce lower values than the previous assay method. NEW Reference Range: 13 - 75 U/L Performed By: #### B tABS, BPAN, L100.0100, L700.8000, L500.4050, L501.9520, L506.0400, BTS #### [facility] [address] [place], [address] Liver Profileon 11-01-2023 Albumin [Mass/Vol] 4.0 g/dL Normal 3.2-5.0 [facility] Comment on above: Performed By: #### B tABS, BPAN, L100.0100, L700.8000, L500.4050, L501.9520, L506.0400, BTS #### [facility] [address] [place], [address] ALK P 42 U/L Low 45-117 [facility] Comment on above: Performed By: #### B tABS, BPAN, L100.0100, L700.8000, L500.4050, L501.9520, L506.0400, BTS #### [facility] [address] [place] [place], [address] AST [Catalytic activity/Vol] 12 U/L Low 15-37 [facility] Comment on above: Performed By: #### B tABS, BPAN, L100.0100, L700.8000, L500.4050, L501.9520, L506.0400, BTS #### [facility] [address] [place] [place], [address] T PROT 7.2 g/dL Normal 6.4-8.2 [facility] Comment on above: Performed By: #### B tABS, BPAN, L100.0100, L700.8000, L500.4050, L501.9520, L506.0400, BTS #### [facility] [address] [place], [address] Liver ProfileOrdered By: The terrie Benoits on 11-01-2023 ALT [Catalytic activity/Vol] 21 U/L Normal 13-56 [facility] Comment on above: Performed By: #### B tABS, BPAN, L100.0100, L700.8000, L500.4050, L501.9520, L506.0400, BTS #### [facility] [address] [place], [place], [address] Globulin (S) [Mass/Vol] 3.2 g/dL Normal 2.2-4.2 [facility] Comment on above: Performed By: #### B tABS, BPAN, L100.0100, L700.8000, L500.4050, L501.9520, L506.0400, BTS #### [facility] [address] [place], [place], [id number] Mucus LM Ql (Urine sed)Order ed By: Freddy Chan on 11-01-2023 Mucus Ql (Urine sed) 0 SEEN /hpf [facility] Nitrite Test strip Ql (U)Ord ered By: Freddy Chan on 11-01-2023 Nitrite Ql (U) Negative Negative [facility] No Panel InformationOrdered By: Freddy Chan on 11-01-2023 Urine RBC 0 SEEN /hpf 0-5 [facility] Estimated Creatinine Clearance Calc 120.61 ml/min [facility] Estimated GFR (MDRD) Amer 182 mL/min >60 [facility] Comment on above: GFR Calc Estimated GFR (MDRD) Non-Af Amer 150 mL/min >60 [facility] Comment on above: Non- GFR Calc Platelet mean volume Blaze-Ec ker (Bld) [Entitic vol]Ordered By: Freddy Chan on 11-01-2023 Platelet mean volume (Bld) [Entitic vol] 11.0 fL 6.2-12.0 [facility] Protein Test strip Ql (U)Ord ered By: Freddy Chan on 11-01-2023 Protein Ql (U) 30 mg/dl Negative [facility] RBC Auto (Bld) [#/Vol]Ordere d By: Freddy Chan on 11-01-2023 RBC (Bld) [#/Vol] 4.60 10*6/uL 4.2-5.4 [facility] Serum or plasma calcium jeremi urement (mass/volume)Ordered By: Freddy Chan on 11-01-2023 Calcium [Mass/Vol] 9.0 mg/dL 8.5-10.1 [facility] Serum or plasma choriogonado tropin detectionOrdered By: rFeddy Chan on 11-01-2023 HCG ( test) [place]l [address] mIU/mL <4 [facility] Comment on above: hCG levels with Gest ational AgeGestational Age hCG mIU/mL (IU/L)0.2 - 1 week 5 - 501-2 weeks 50 - 5002-3 weeks 100 - 53522-0 weeks 500 - 424221-4 weeks 1000 - 028311-8 weeks 61213 - 100,0006-8 weeks 07950 - 200,0002-3 months 62506 - 100,000 Serum or plasma creatinine m easurement (mass/volume)Ordered By: Freddy Chan on 11-01-2023 Creatinine [Mass/Vol] 0.51 mg/dL Low 0.55-1.02 [facility] Comment on above: The validity of the calculated GFR & GFRAA in patients over 70 years has not been determined. Clinical correlation is essential. Result Comment: The validity of the calculated GFR GFRAA in patients over 70 years has not been determined. Clinical correlation is essential. Performed By: #### B tABS, BPAN, L100.0100, L700.8000, L500.4050, L501.9520, L506.0400, BTS #### [facility] [address] [place], [address] Serum or plasma urea nitroge n measurement (mass/volume)Ordered By: Freddy Chan on 11-01-2023 Urea nitrogen [Mass/Vol] 16 mg/dL Normal 7-18 [facility] Comment on above: Performed By: #### B tABS, BPAN, L100.0100, L700.8000, L500.4050, L501.9520, L506.0400, BTS #### [facility] [address] [place], [address] Squamous epithelial cells de tection in urine sediment by light microscopyOrdered By: Freddy Chan on 11-01-2023 Epithelial cells.squamous LM Ql (Urine sed) 0-5 SEEN /hpf 5-10 [facility] Thin prep Papanicolaou smear with manual screeningOrdered By: Freddy Chan on 11-01-2023 Thin prep Papanicolaou smear with manual screening 4.0 g/dL 3.2-5.0 [facility] Thin prep Papanicolaou smear with manual screening 12 U/L 15-37 [facility] Thin prep Papanicolaou smear with manual screening 5 5-15 [facility] Transvaginal w/Preg USon Transvaginal w/Preg US [facility] [address] [place] [address] Transvaginal w/Preg US MR#: [id number] Acct: [id number] Name: HALIE GARCIA Rep #: [id number] : 1990 F 33 From: Javi Potts MD PCP: MARA Lacey Status: REG ER Study: Transvaginal w/Preg US Date of Exam: 11/01/23 Exam# [id number] Ordering Dr: Freddy Chan DO [id number] STUDY: FIRST TRIMESTER OBSTETRICAL ULTRASOUND REASON FOR EXAM: Female, 33 years old Lower abdominal pain, vaginal bleeding early preg LMP: 09/11/2023 TECHNIQUE: Transvaginal TECHNICAL QUALITY: Adequate. PRIOR ULTRASOUND: 02/15/2023 FINDINGS: There is a gestational sac in the lower uterine segment. The mean sac diameter (MSD) measures 2.48 cm, indicating an estimated gestational age (EGA) of 7 weeks, 4 days. The gestational sac shape is within normal limits. There is no demonstrated yolk sac. The placenta is non-visualized. There is visualization of a live embryo. The crown-rump length (CRL) measures 0.91 cm, indicating an estimated gestational age (EGA) of 7 weeks, 0 days. There is demonstrated cardiac activity with a heart rate of 123 bpm. The estimated gestation age (EGA) by LMP is 7 weeks, 2 days. The estimated date of delivery (NOA) by LMP is 06/17/2024. The estimated gestation age (EGA) by US is 7 weeks, 2 days. The estimated date of delivery (NOA) by US is 06/17/2024. The uterus measures 9.1 x 5.8 x 4.8 cm. There is no demonstrated uterine fibroid. The cervix is closed. The right ovary measures 4.0 x 3.0 x 3.3 cm. There is a simple 2.5 cm likely corpus luteal cyst. The left ovary measures 2.5 x 1.6 x 1.9 cm. There is no left ovarian cyst. There is no visualized left adnexal mass or complex lesion. There is no fluid in the cul de sac. US/Transvaginal w/Preg US IMPRESSION: Single live intrauterine at 7 weeks 2 days by current ultrasound with NOA of 06/17/2024. Heart rate at 123 bpm. The gestational sac however is in the lower uterine segment and close follow-up is recommended to assure normal growth Simple right ovarian cyst, likely corpus luteal cyst. No demonstrated free fluid Sonographically normal left ovary Electronically Signed: Sulaiman Potts MD at 23:37 EST , CC: MARA Faye; Dr. Freddy Chan DO [employer]: Signed Normal [facility] Urine blood detectionOrdered By: Freddy Chan on 11-01-2023 RBC Ql (U) Negative Negative [facility] Urine clarityOrdered By: Yady Chan on 11-01-2023 Clarity (U) Clear Clear [facility] Urine color determinationOrd ered By: Freddy Chan on 11-01-2023 Color (U) Yellow Yellow [facility] Urine glucose detectionOrder ed By: Freddy Chan on 11-01-2023 Glucose Ql (U) 50 mg/dl Normal [facility] Urine leukocyte esterase det ection by dipstickOrdered By: Freddy Chan on 11-01-2023 Leukocyte esterase Test strip Ql (U) Negative Negative [facility] Urine pHOrdered By: Freddy alvarez on 11-01-2023 pH (U) 6.5 [pH] 5.0 - 8.0 [facility] Urine sediment bacteria coun t by microscopy (number/high power field)Ordered By: Freddy Chan on 11-01-2023 Bacteria LM.HPF (Urine sed) [#/Area] 0 /[HPF] None Seen [facility] Urine specific gravity measu rementOrdered By: Freddy Chan on 11-01-2023 Specific gravity (U) [Rel density] 1.015 1.002-1.030 [facility] Urine urobilinogen measureme ntOrdered By: Freddy Chan on 11-01-2023 Urobilinogen Ql (U) Normal mg/dl [facility] [facility] hCG Titer Quant., Serumon HCG QUANT. 42538 mIU/mL High 1-3 [facility] Comment on above: Result Comment: hCG levels with Gestational Age Gestational Age hCG mIU/mL (IU/L) 0.2 - 1 week 5 - 50 1-2 weeks 50 - 500 2-3 weeks 100 - 5000 3-4 weeks 500 - 35466 4-5 weeks 1000 - 23682 5-6 weeks 61633 - 100,000 6-8 weeks 21382 - 200,000 2-3 months 16820 - 100,000 Performed By: #### B tABS, BPAN, L100.0100, L700.8000, L500.4050, L501.9520, L506.0400, BTS #### [facility] [place], [address] 36on 07-18-2023 36 LM medication has been sent. [facility] 36on 07-17-2023 36 Message released to patient as written. Patient's further questions if applicable: yes Gave pt message and she wants to know if med will be called in for her yeast infection. [facility] in [place] Were all questions from office addressed or relayed to the patient from encounter: yes [facility] 36on 07-16-2023 36 LM for return call. [facility] 36 ----- Message from Ana Maria Niño MD sent at 07/15/2023 7:15 PM EDT ----- Let pt know her hormone level were normal and the swab was positive only for yeast. If she wants to discuss hormonal control or other medications for possible endometriosis or wants to discuss diagnostic laparoscopy to check for endometriosis, have her schedule a visit to discuss further [facility] Office Visiton 07-12-2023 Follow-up visit [id number] Halie Garcia 1990 F Date Provider Department Center 07/12/2023 [id number] MARIA NIÑO [facility] OB MG OB Offi Family History Family Status - Relation Status Age at Father Alive Mother Alive Level of Service:06696 CO OFFICE/OUTPATIENT ESTABLISHED MOD MDM 30-39 MIN Reason for Visit and Comments: Pelvic Pain [174] Menstrual Problem [67] [facility] Progress Noteon 07-12-2023 Progress Note Chief Complaint Patient presents with Pelvic Pain Menstrual Problem HPI: Patient is presenting today with complaint of pelvic pain and bloating Patient reports that she continues to feel off ever since her two D&C in January for missed AB (done in [place]). She saw me in January after this, had an US to follow up, done in [place] in February that showed normal uterus with [...] (50.3 kg) Body mass index is 20.97 kg/m?. CONSTITUTIONAL: Well developed, well nourished. No acute [...] M.D. 07/12/2023 at 12:35 PM (Electronically Signed) [facility] 04-11-2023 36 Spoke with [facility] regarding US report. Will fax to the office. [facility] 04-10-2023 36 Spoke with medical records with [facility]. Will fax a copy of US for review. [facility] 04-03-2023 36 Spoke with pt. Advised not sure we received the results as I do not see them in her chart. This was completed at [facility]. Will follow up with them. [facility] 04-02-2023 36 Name of caller: Halie Garcia Contact phone number: [phone] Relationship to Patient: Pt Provider: Dr. Niño Practice: [facility] Chief Complaint/Reason for Call: Pt calling to get results from 02.01 visit. Pt stated she had ultrasound done at [facility] and had those faxed over to office. Please Advise. Best time of day caller can be reached: Any Patient advised that office/PCP has 24-48 business hours to return their call: Yes [facility] Transvaginal Non-on 02-15-2023 Transvaginal Non- [facility] Imaging Services [address] [place] [address] Transvaginal Non- MR#: [id number] Acct: [id number] Name: HALIE GARCIA Rep #: [id number] : 1990 F 32 From: Brandt smith MD PCP: MARA Lacey Status: REG CLI Study: Transvaginal Non- Date of Exam: Exam# [id number] Ordering Dr: ANA MARIA NIÑO STUDY: ULTRASOUND OF THE FEMALE PELVIS - COMPLETE REASON FOR EXAM: Female, 32 years old. F/U FOR D and amp; C LMP: No recent LMP. TECHNIQUE: Transvaginal TECHNICAL QUALITY: Adequate. COMPARISON: Comparison is made with prior study January 15, 2023. FINDINGS: The uterus is anteverted and is in a midline position. The uterus measures 10.2 cm x 6.2 cm x 4.6 cm. Normal uterine cervix. The endometrium measures 3.4 mm in thickness, and is hyperechoic. There is no demonstrated endometrial mass. Trace amount of fluid is seen in the endocervical canal. There is no demonstrated myometrial mass. I.U.D. - The patient does not have an I.U.D. The right ovary is visualized. The right ovary measures 4 cm x 2.7 cm x 2.6 cm. There is no right ovarian cyst or ovarian mass. There is a 2.2 cm x 2 cm x 2.2 cm cyst. There is normal arterial and normal venous vascularity. The left ovary is visualized. The left ovary measures 2.4 cm x 2.1 cm x 1.2 cm. There is no left ovarian cyst or ovarian mass. There is no visualized left adnexal mass or complex lesion. There is normal arterial and normal venous vascularity. There is no fluid in the cul-de-sac. US/Transvaginal Non- IMPRESSION: Trace amount of fluid in the endocervical canal. 2.2 cm x 2 cm x 2.2 cm right ovarian cyst. Electronically Signed: Brandt Stovall MD at 14:40 EDT , CC: MARA Faye; ANA MARIA NIÑO [employer]: Signed Normal [facility] Office Visiton 02-01-2023 Follow-up visit [id number] Halie Garcia 1990 F Date Provider Department Center 02/01/2023 ANA MARIA MOORE [facility] OB MG OB Offi Family History Family Status - Relation Status Age at Father Alive Mother Alive Level of Service:46226 CO INITIAL PREVENTIVE MEDICINE NEW PT AGE 18-39YRS (25) Reason for Visit and Comments: New Patient [542] - Annual exam Normal [facility] Progress Noteon 02-01-2023 Progress Note Halie Garcia 02/01/2021 32 y.o. Primary Care Physician: [facility] Chief Complaint Patient presents with New Patient Annual exam HPI : Halie Garcia is a 32 y.o. female here for annual exam and follow up from [facility] last month. Gynecologic History: No LMP recorded. Menses are not regular lately Had been having irregular bleeding since Oct, passing clots. Went to [facility] and was told was . She did [...] still feeling bad so went to the [place] ED and had US that showed uterus still full of clot/possible RPOC. She had another D&C on 01/15/23 form the ED. Since then she has felt somewhat better, but is still having irregular bleeding and feels like something is inside her. She does not want to follow up with the clinic in [place]. No records available today at the time of visit. Preventative Health Testing: Date of Last Pap Smear: a few years ago, maybe 5850-1542 per pt Abnormal Pap Smear History: remote [...] current outpatient medications on file. No current facility-administer ed medications for this visit. ALLERGIES: Allergies as [...] Weight: 111 lb (50.3 kg) Height: 5' 1" (1.549 m) Body mass index is 20.97 kg/m?. GENERAL EXAM CONSTITUTIONAL: well developed, well nourished, well groomed, no acute distress NECK: no thyromegaly, supple CARDIOVASCULAR: normal rate, no edema LUNGS: normal effort ABDOMEN: soft, non-tender, non-distended NEUROLOGICAL: no gross motor or sensory deficits noted MUSCULOSKETAL: normal gait, no cyanosis PSYCHIATRIC: normal mood and affect, A&O x3 ABDOMEN: soft, non distended, no rebound or guarding, but mild diffuse tenderness. TRANSFORMATION COACH EXAM: BREASTS: normal, no masses, tenderness or skin changes EXTERNAL GENITALIA: normal female structures VAGINA: normal ruggae, no lesions, scant blood, no active bleeding or clots CERVIX: no lesions, no cervical jamir (more content not included)... Normal [facility] Absolute lymphocyte countOrd ered By: Dr. Ray on 01-19-2023 Lymphocytes Auto (Unsp spec) [#/Vol] 0.91 10*3/uL 0.83-4.51 [facility] Basic Metabolic Profile (BMP )on 01-19-2023 BUN/CRE 15.8 RATIO Normal 10-20 [facility] Comment on above: Performed By: #### B tABS, BPAN, L100.0100, L700.8000, L500.4050, L501.9520, L506.0400, BTS #### [facility] [address] [place], [address] CA,Total 9.4 mg/dL Normal 8.5-10.1 [facility] Comment on above: Performed By: #### B tABS, BPAN, L100.0100, L700.8000, L500.4050, L501.9520, L506.0400, BTS #### [facility] [address] [place], [address] Chloride [Moles/Vol] 107 mmol/L Normal 98-107 [facility] Comment on above: Performed By: #### B tABS, BPAN, L100.0100, L700.8000, L500.4050, L501.9520, L506.0400, BTS #### [facility] [address] [place], [address] CO2 [Moles/Vol] 26.0 mmol/L Normal 21.0-32.0 [facility] Comment on above: Performed By: #### B tABS, BPAN, L100.0100, L700.8000, L500.4050, L501.9520, L506.0400, BTS #### [facility] [address] [place], [address] Creatinine [Mass/Vol] 0.63 mg/dL Normal 0.55-1.02 [facility] Comment on above: Result Comment: The validity of the calculated GFR GFRAA in patients over 70 years has not been determined. Clinical correlation is essential. Performed By: #### B tABS, BPAN, L100.0100, L700.8000, L500.4050, L501.9520, L506.0400, BTS #### [facility] [address] [place], [address] ECRCL 98.53 ml/min Normal [facility] Comment on above: Performed By: #### B tABS, BPAN, L100.0100, L700.8000, L500.4050, L501.9520, L506.0400, BTS #### [facility] [address] [place], [address] EST GFR - AA 142 mL/min Normal >60 [facility] Comment on above: Result Comment: Afri can Grenadian GFR Calc Performed By: #### B tABS, BPAN, L100.0100, L700.8000, L500.4050, L501.9520, L506.0400, BTS #### [facility] [address] [place], [address] GAP 5 Normal 5-15 [facility] Comment on above: Performed By: #### B tABS, BPAN, L100.0100, L700.8000, L500.4050, L501.9520, L506.0400, BTS #### [facility] [address] [place], [address] GFR/1.73 sq M.predicted among non-blacks MDRD (S/P/Bld) [Vol rate/Area] 117 mL/min/{1.73_m2} Normal >60 [facility] Comment on above: Result Comment: Non- GFR Calc Performed By: #### B tABS, BPAN, L100.0100, L700.8000, L500.4050, L501.9520, L506.0400, BTS #### [facility] [address] [place], [address] Glucose [Mass/Vol] 92 mg/dL Normal 74-106 [facility] Comment on above: Performed By: #### B tABS, BPAN, L100.0100, L700.8000, L500.4050, L501.9520, L506.0400, BTS #### [facility] [address] [place], [address] Potassium [Moles/Vol] 4.0 mmol/L Normal 3.5-5.1 [facility] Comment on above: Performed By: #### B tABS, BPAN, L100.0100, L700.8000, L500.4050, L501.9520, L506.0400, BTS #### [facility] [address] [place], [address] Sodium [Moles/Vol] 138 mmol/L Normal 136-145 [facility] Comment on above: Performed By: #### B tABS, BPAN, L100.0100, L700.8000, L500.4050, L501.9520, L506.0400, BTS #### [facility] [address] [place], [address] Urea nitrogen [Mass/Vol] 10 mg/dL Normal 7-18 [facility] Comment on above: Performed By: #### B tABS, BPAN, L100.0100, L700.8000, L500.4050, L501.9520, L506.0400, BTS #### [facility] [address] [place], [address] Basophil percentageOrdered B y: Dr. Ray on 01-19-2023 Basophil percentage 0 SEEN /hpf 0-5 [facility] Basophils/100 WBC (Bld) 0.2 % 0-1 [facility] Chloride [Moles/Vol] 107 mmol/L 98-107 [facility] Eosinophils/100 WBC (Bld) 0.8 % 0-5 [facility] Glucose [Mass/Vol] 92 mg/dL 74-106 [facility] Neutrophils (Bld) [#/Vol] 4.0 10*3/uL 2.0-7.7 [facility] Neutrophils/100 WBC (Bld) 75.9 % 47-70 [facility] Potassium [Moles/Vol] 4.0 mmol/L 3.5-5.1 [facility] Sodium [Moles/Vol] 138 mmol/L 136-145 [facility] WBC (Bld) [#/Vol] 5.2 10*3/uL 4.4-11.0 [facility] Beta hCG serum qualOrdered B y: Dr. Ray on 01-19-2023 Beta HCG ( test) Ql Negative [facility] Bilirubin Test strip Ql (U)O rdered By: Dr. Ray on 01-19-2023 Bilirubin Ql (U) Negative Negative [facility] Blood erythrocytes count (nu mber/volume)Ordered By: Dr. Ray on 01-19-2023 RBC (Bld) [#/Vol] 4.38 10*6/uL 4.2-5.4 [facility] Blood hemoglobin measurement (mass/volume)Ordered By: Dr. Ray on 01-19-2023 Hemoglobin (Bld) [Mass/Vol] 13.5 g/dL 12.0-15.0 [facility] Blood lymphocytes/100 leukoc ytesOrdered By: Dr. Ray on 01-19-2023 Lymphocytes/100 WBC (Bld) 17.4 % 19-41 [facility] Blood monocytes/100 leukocyt esOrdered By: Dr. Ray on 01-19-2023 Monocytes/100 WBC (Bld) 5.5 % 0-10 [facility] Blood platelet mean volumeOr dered By: Dr. Ray on 01-19-2023 Platelet mean volume (Bld) [Entitic vol] 10.6 fL 6.2-12.0 [facility] CBC W/Diff, Automatedon 01-05 Absolute Lymph 0.91 X10 3/uL Normal 0.83-4.51 [facility] Comment on above: Performed By: #### B tABS, BPAN, L100.0100, L700.8000, L500.4050, L501.9520, L506.0400, BTS #### [facility] [address] [place], [address] Absolute Neut 4.0 X10 3/uL Normal 2.0-7.7 [facility] Comment on above: Performed By: #### B tABS, BPAN, L100.0100, L700.8000, L500.4050, L501.9520, L506.0400, BTS #### [facility] [address] [place], [address] Basophils/100 WBC (Bld) 0.2 % Normal 0-1 [facility] Comment on above: Performed By: #### B tABS, BPAN, L100.0100, L700.8000, L500.4050, L501.9520, L506.0400, BTS #### [facility] [address] [place], [address] Eosinophils/100 WBC (Bld) 0.8 % Normal 0-5 [facility] Comment on above: Performed By: #### B tABS, BPAN, L100.0100, L700.8000, L500.4050, L501.9520, L506.0400, BTS #### [facility] [address] [place], [address] Erythrocyte distribution width (RBC) [Ratio] 13.2 % Normal 11.6-14.6 [facility] Comment on above: Performed By: #### B tABS, BPAN, L100.0100, L700.8000, L500.4050, L501.9520, L506.0400, BTS #### [facility] [address] [place], [address] Hematocrit (Bld) [Volume fraction] 39.7 % Normal 37-47 [facility] Comment on above: Performed By: #### B tABS, BPAN, L100.0100, L700.8000, L500.4050, L501.9520, L506.0400, BTS #### [facility] [address] [place], [address] Hemoglobin (Bld) [Mass/Vol] 13.5 g/dL Normal 12.0-15.0 [facility] Comment on above: Performed By: #### B tABS, BPAN, L100.0100, L700.8000, L500.4050, L501.9520, L506.0400, BTS #### [facility] [address] [place], [address] IG% 0.200 Normal 0.0-0.9 [facility] Comment on above: Result Comment: IG% - Immature Granulocytes (promyelocytes, myelocytes and metamyelocytes) > 1% indicates that a LEFT SHIFT is Present. Performed By: #### B tABS, BPAN, L100.0100, L700.8000, L500.4050, L501.9520, L506.0400, BTS #### [facility] [address] [place], [address] Lymphocytes/100 WBC (Bld) 17.4 % Low 19-41 [facility] Comment on above: Performed By: #### B tABS, BPAN, L100.0100, L700.8000, L500.4050, L501.9520, L506.0400, BTS #### [facility] [address] [place], [address] MCH (RBC) [Entitic mass] 30.8 pg Normal 27.0-32.0 [facility] Comment on above: Performed By: #### B tABS, BPAN, L100.0100, L700.8000, L500.4050, L501.9520, L506.0400, BTS #### [facility] [address] [place], [address] MCHC (RBC) [Mass/Vol] 34.0 g/dL Normal 32-36 [facility] Comment on above: Performed By: #### B tABS, BPAN, L100.0100, L700.8000, L500.4050, L501.9520, L506.0400, BTS #### [facility] [address] [place], [address] MCV (RBC) [Entitic vol] 90.6 fL Normal 81-99 [facility] Comment on above: Performed By: #### B tABS, BPAN, L100.0100, L700.8000, L500.4050, L501.9520, L506.0400, BTS #### [facility] [address] [place], [address] Monocytes/100 WBC (Bld) 5.5 % Normal 0-10 [facility] Comment on above: Performed By: #### B tABS, BPAN, L100.0100, L700.8000, L500.4050, L501.9520, L506.0400, BTS #### [facility] [address] [place], [address] Neutrophils/100 WBC (Bld) 75.9 % High 47-70 [facility] Comment on above: Performed By: #### B tABS, BPAN, L100.0100, L700.8000, L500.4050, L501.9520, L506.0400, BTS #### [facility] [address] [place], [address] Nucleated RBC (Bld) [#/Vol] 0 10*3/uL Normal 0-5 [facility] Comment on above: Performed By: #### B tABS, BPAN, L100.0100, L700.8000, L500.4050, L501.9520, L506.0400, BTS #### [facility] [address] [place], [address] Platelet mean volume (Bld) [Entitic vol] 10.6 fL Normal 6.2-12.0 [facility] Comment on above: Performed By: #### B tABS, BPAN, L100.0100, L700.8000, L500.4050, L501.9520, L506.0400, BTS #### [facility] [address] [place], [address] Platelets (Bld) [#/Vol] 199 10*3/uL Normal 150-450 [facility] Comment on above: Performed By: #### B tABS, BPAN, L100.0100, L700.8000, L500.4050, L501.9520, L506.0400, BTS #### [facility] [address] [place], [address] RBC (Bld) [#/Vol] 4.38 10*6/uL Normal 4.2-5.4 [facility] Comment on above: Performed By: #### B tABS, BPAN, L100.0100, L700.8000, L500.4050, L501.9520, L506.0400, BTS #### [facility] [address] [place], [address] RDW SD 44.2 fl High 35.1-43.9 [facility] Comment on above: Performed By: #### B tABS, BPAN, L100.0100, L700.8000, L500.4050, L501.9520, L506.0400, BTS #### [facility] [address] [place], [address] WBC (Bld) [#/Vol] 5.2 10*3/uL Normal 4.4-11.0 [facility] Comment on above: Performed By: #### B tABS, BPAN, L100.0100, L700.8000, L500.4050, L501.9520, L506.0400, BTS #### [facility] [address] [place], [address] Determination of erythrocyte mean corpuscular volume (MCV)Ordered By: Dr. Ray on 01-19-2023 MCV (RBC) [Entitic vol] 90.6 fL 81-99 [facility] Emergency Department Summary on 01-19-2023 Emergency Department Summary [facility] Medical Records Department [address] [place] [address] Emergency Department Summary 01/19/23 MR#: [id number] Acct: [id number] Name: HALIE GARCIA Rep #: [id number] : 1990 32 From: Marcos Ray DO PCP: MARA Lacey Status:DEP ER Location: ED HPI History of Present Illness Chief Complaint: Dizziness Informant: patient Onset/Context/Timnato g Onset: Today Context: Sudden Onset Timing: Continuous Quality: Lightheaded Location: Generalized Worsened by: Nothing Relieved by: Nothing Narrative Narrative: Patient presents with dizziness, facial pressure, sore throat, and shortness of breath that became worse today. Patient states she recently had a D C by Dr. Katharine Carrasco. Patient states she was started on doxycycline and Methergine after the surgery. Patient states that when she took the Methergine she noted some soreness in her throat and pressure in her face. Patient states it feels swollen. Patient does not have any difficulty swallowing or difficulty breathing. Patient denies any hives or urticaria. Patient does admit to some nausea but denies any vomiting. Patient admits to feeling lightheaded. Patient states she felt like she might pass out but did not ever actually pass out. Patient states she has been taking the doxycycline as prescribed without any difficulties. [facility] Medical History (Updated 01/19/23 @ 14:[address] Marcos Ray DO) Alcohol use Anxiety Asthma delivery delivered Depression Easy bruising Gastric reflux Hepatitis History of edema History of pain when walking Injury of head and neck Leg cramps Loose, teeth Marijuana use Non-smoker Substance abuse Syncope Home Medications doxycycline monohydrate 100 mg tablet 100 mg PO BID #14 tabs 01/15/23 [Rx Last Taken Unknown] methylergonovine 0.2 mg tablet (Methergine) 0.2 mg PO TID 3 days #9 tabs 01/15/23 [Rx Last Taken Unknown] promethazine 12.5 mg tablet 12.5 mg PO Q6H PRN nausea and vomiting #30 tabs 01/15/23 [Rx Last Taken Unknown] Allergy/AdvReac Type Severity Reaction Status Date / Time Penicillins Allergy Hives Verified 01/19/23 11:42 IV patch/latex AdvReac Mild Rash/welt Uncoded 01/19/23 11:42 Family History Grandmother Asthma COPD (chronic obstructive pulmonary disease) Diabetes Surgical History (Updated 01/19/23 @ 13:[address] 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 Smoking Status: Never smoker alcohol intake: former year quit: 2018 substance use type: marijuana and other details: Quit when found out about caffeine: Yes Type: carbonated beverages Number of servings: 1 seatbelt use: always do you feel safe at home: Yes additional social history: Edgar Trinh 11 years old ROS ROS ED Constitutional Constitutional ED: Denies chills or fever(s) Eyes Eyes: Denies blurry vision or change in vision ENT ENT ED: Reports sore throat; Denies rhinorrhea Cardiovascular Cardiovascular: Reports chest pain; Denies palpitations Respiratory/Chest Respiratory/Chest: Reports dyspnea; Denies cough Gastrointestinal Gastrointestinal: Reports nausea; Denies vomiting Genitourinary Genitourinary ED: Denies dysuria or hematuria Musculoskeletal Musculoskeletal: Reports back pain; Denies neck pain Integumentary Denies abscess or rash Neurologic Neurologic: Reports headache(s); Denies weakness Allergic/Immunologi c Allergic/Immunologi c ED: Denies mouth swelling or urticaria EXAM Physical Exam Const Vital Signs: 01/19/23 11:43 01/19/23 12:16 01/19/23 12:16 Temperature 97.8 F Temperature Source Temporal Pulse Rate 75 Pulse Rate [Lying] 65 Pulse Rate [Sitting (for 1 minute prior to obtaining)] 66 Pulse Rate [Standing (for 1 minute prior to obtaining)] 78 Respiratory Rate 16 Respiratory Effort Short of Breath Blood Pressure 123/77 H Blood Pressure [Lying] 109/89 H Blood Pressure [Sitting (for 1 minute prior to obtaining)] 119/83 H Blood Pressure [Standing (for 1 minute prior to obtaining)] 117/84 H Blood Pressure Mean 92 Blood Pressure Mean [Lying] 95 Blood Pressure Mean [Sitting (for 1 minute prior to obtaining)] 95 Blood Pressure Mean [Standing (for 1 minute prior to obtaining)] 95 Pulse Ox 99 Oxygen Delivery Method Room Air Positive well nourished and well developed General Appearance ED: well developed and NAD HEENT Reports moist mucous membranes HEENT Narrative: Oral mucosa is pink and moist. Oropharynx is clear. Airway is pa (more content not included)... Normal [facility] Hematocrit Auto (Bld) [Volum e fraction]Ordered By: Dr. Ray on 01-19-2023 Hematocrit (Bld) [Volume fraction] 39.7 % 37-47 [facility] INR in Blood by Coagulation assayOrdered By: Dr. Ray on 01-19-2023 INR Coag (Bld) [Relative time] 1.1 {INR} [facility] Ketones Test strip Ql (U)Ord ered By: Dr. Ray on 01-19-2023 Ketones Ql (U) Negative Negative [facility] - Chemistry and C hemistry - challengeOrdered By: Dr. Ray on 01-19-2023 CO2 [Moles/Vol] 26.0 mmol/L 21.0-32.0 [facility] Urea nitrogen/Creatinine [Mass ratio] 15.8 mg/mg 10-20 [facility] - CoagulationOrde red By: Dr. Ray on 01-19-2023 aPTT Coag (Bld) [Time] 33.1 s 24.1-36.2 [facility] PT Coag (PPP) [Time] 13.4 s 11.7-14.9 [facility] [place] Laboratory - Hematology and Cell countsOrdered By: Dr. Ray on 01-19-2023 Erythrocyte distribution width (RBC) [Entitic vol] 44.2 fL 35.1-43.9 [facility] Erythrocyte distribution width (RBC) [Ratio] 13.2 % 11.6-14.6 [facility] Immature granulocytes/100 WBC (Bld) 0.200 % 0.0-0.9 [facility] Comment on above: IG% - Immature Granu locytes (promyelocytes, myelocytes and metamyelocytes) > 1% indicates that a LEFT SHIFT is Present. MCH (RBC) [Entitic mass] 30.8 pg 27.0-32.0 [facility] Nucleated RBC/100 WBC (Bld) [Ratio] 0 % 0-5 [facility] MCHC Auto (RBC) [Mass/Vol]Or dered By: Dr. Ray on 01-19-2023 MCHC (RBC) [Mass/Vol] 34.0 g/dL 32-36 [facility] Comment on above: Delta: 31.7 on 01/15-0101 Mucus LM Ql (Urine sed)Order ed By: Dr. Ray on 01-19-2023 Mucus Ql (Urine sed) 0 SEEN /hpf [facility] Nitrite Test strip Ql (U)Ord ered By: Dr. Ray on 01-19-2023 Nitrite Ql (U) Negative Negative [facility] No Panel InformationOrdered By: Dr. Ray on 01-19-2023 Estimated Creatinine Clearance Calc 98.53 ml/min [facility] Estimated GFR (MDRD) Amer 142 mL/min >60 [facility] Comment on above: GFR Calc Estimated GFR (MDRD) Non-Af Amer 117 mL/min >60 [facility] Comment on above: Non- GFR Calc Partial Thromboplast Timeon 01-19-2023 aPTT Coag (Bld) [Time] 33.1 s Normal 24.1-36.2 [facility] Comment on above: Order Comment: CHRISSY Hewitt PREVIOUS SPECIMEN REJECTED DUE TOHEMOLYSIS. 01/19/23 1228 Cherri Keene. Performed By: #### B tABS, BPAN, L100.0100, L700.8000, L500.4050, L501.9520, L506.0400, BTS #### [facility] [address] [place], [address] Platelets bldOrdered By: Dr. Ray on 01-19-2023 Platelets (Bld) [#/Vol] 199 10*3/uL 150-450 [facility] ,Serum,hCG Quali.on 01-19-2023 HCG, SERUM QUAL Negative Normal [facility] Comment on above: Performed By: #### B tABS, BPAN, L100.0100, L700.8000, L500.4050, L501.9520, L506.0400, BTS #### [facility] [address] [place], [address] Protein Test strip Ql (U)Ord ered By: Dr. Ray on 01-19-2023 Protein Ql (U) 15 mg/dl Negative [facility] Prothrombin Time w/INRon INR Coag (PPP) [Relative time] 1.1 {INR} Normal [facility] Comment on above: Order Comment: REDRA W. PREVIOUS SPECIMEN REJECTED DUE TOHEMOLYSIS. 01/19/23 1228 Cherri Jassi. Performed By: #### B tABS, BPAN, L100.0100, L700.8000, L500.4050, L501.9520, L506.0400, BTS #### [facility] [address] [place], [address] PT Coag (PPP) [Time] 13.4 s Normal 11.7-14.9 [facility] Comment on above: Order Comment: REDRA W. PREVIOUS SPECIMEN REJECTED DUE TOHEMOLYSIS. 01/19/23 1228 Cherri Keene. Performed By: #### B tABS, BPAN, L100.0100, L700.8000, L500.4050, L501.9520, L506.0400, BTS #### [facility] [address] [place], [address] [facility] Comment on above: Result Comment: This specimen has been REJECTED due to Laboratory criteria: Hemolyzed. DIMPLE has been notified of need of recollection. 01/19/23 1226 Cherri Keene Performed By: #### B tABS, BPAN, L100.0100, L700.8000, L500.4050, L501.9520, L506.0400, BTS #### [facility] [address] [place], [address] PROTIME Normal 11.7-14.9 [facility] Comment on above: Result Comment: This specimen has been REJECTED due to Laboratory criteria: Hemolyzed. [facility] has been notified of need of recollection. 01/19/23 1226 Cherri Keene Performed By: #### B tABS, BPAN, L100.0100, L700.8000, L500.4050, L501.9520, L506.0400, BTS #### [facility] [address] [place], [address] Serum or plasma calcium jeremi urement (mass/volume)Ordered By: Dr. Ray on 01-19-2023 Calcium [Mass/Vol] 9.4 mg/dL 8.5-10.1 [facility] Serum or plasma creatinine m easurement (mass/volume)Ordered By: Dr. Ray on 01-19-2023 Creatinine [Mass/Vol] 0.63 mg/dL 0.55-1.02 [facility] Comment on above: The validity of the calculated GFR & GFRAA in patients over 70 years has not been determined. Clinical correlation is essential. Serum or plasma urea nitroge n measurement (mass/volume)Ordered By: Dr. Ray on 01-19-2023 Urea nitrogen [Mass/Vol] 10 mg/dL 7-18 [facility] Squamous epithelial cells de tection in urine sediment by light microscopyOrdered By: Dr. Ray on 01-19-2023 Epithelial cells.squamous LM Ql (Urine sed) 0 SEEN /hpf 5-10 [facility] Thin prep Papanicolaou smear with manual screeningOrdered By: Dr. Ray on 01-19-2023 Thin prep Papanicolaou smear with manual screening 5 5-15 [facility] Urinalysis, Completeon 01-19 RBC 10-25 SEEN Normal 0-5 [facility] Comment on above: Order Comment: CLEAN CATCH Performed By: #### B tABS, BPAN, L100.0100, L700.8000, L500.4050, L501.9520, L506.0400, BTS #### [facility] [address] [place], [address] BACTERIA 0 SEEN Normal None Seen [facility] Comment on above: Order Comment: CLEAN CATCH Performed By: #### B tABS, BPAN, L100.0100, L700.8000, L500.4050, L501.9520, L506.0400, BTS #### [facility] [address] [place], [address] EPI,SQUAMOUS 0 SEEN Normal 5-10 [facility] Comment on above: Order Comment: CLEAN CATCH Performed By: #### B tABS, BPAN, L100.0100, L700.8000, L500.4050, L501.9520, L506.0400, BTS #### [facility] [address] [place], [address] Mucus Ql (Urine sed) 0 SEEN Normal [facility] Comment on above: Order Comment: CLEAN CATCH Performed By: #### B tABS, BPAN, L100.0100, L700.8000, L500.4050, L501.9520, L506.0400, BTS #### [facility] [address] [place], [address] WBC 0 SEEN Normal 0-5 [facility] Comment on above: Order Comment: CLEAN CATCH Performed By: #### B tABS, BPAN, L100.0100, L700.8000, L500.4050, L501.9520, L506.0400, BTS #### [facility] [address] [place], [address] Urine blood detectionOrdered By: Dr. Ray on 01-19-2023 RBC Ql (U) 250 /ul Negative [facility] RBC Ql (U) 10-25 SEEN /hpf 0-5 [facility] Urine clarityOrdered By: Dr. Ray on 01-19-2023 Clarity (U) Clear Clear [facility] Urine color determinationOrd ered By: Dr. Ray on 01-19-2023 Color (U) Yellow Yellow [facility] Urine glucose detectionOrder ed By: Dr. Ray on 01-19-2023 Glucose Ql (U) Normal mg/dl Normal [facility] Urine leukocyte esterase det ection by dipstickOrdered By: Dr. Ray on 01-19-2023 Leukocyte esterase Test strip Ql (U) 25 /ul Negative [facility] Urine pHOrdered By: Dr. Seamus baltazar on 01-19-2023 pH (U) 8.0 [pH] 5.0 - 8.0 [facility] Urine sediment bacteria coun t by microscopy (number/high power field)Ordered By: Dr. Ray on 01-19-2023 Bacteria LM.HPF (Urine sed) [#/Area] 0 /[HPF] None Seen [facility] Urine specific gravity measu rementOrdered By: Dr. Ray on 01-19-2023 Specific gravity (U) [Rel density] 1.015 1.002-1.030 [facility] Urobilinogen Auto test strip Ql (U)Ordered By: Dr. Ray on 01-19-2023 Urobilinogen Ql (U) Normal mg/dl Normal [facility] Abdomen/Pelvis W IV Cont ONL Yon 01-15-2023 Abdomen/Pelvis W IV Cont ONLY [facility] Imaging Services [address] [place] [address] Abdomen/Pelvis W IV Cont ONLY MR#: [id number] Acct: [id number] Name: HALIE GARCIA Rep #: [id number] : 1990 F 32 From: Nawaf Dobbs MD PCP: MARA Lacey Status: REG ER Study: Abdomen/Pelvis W IV Cont ONLY Date of Exam: Exam# [id number] Ordering Dr: Claudia Anthony MD INDICATION: Vaginal bleeding, lower abdominal pain post DTC EXAMINATION: CT Abdomen And Pelvis W/ Contrast Injection TECHNIQUE: Helically acquired images were obtained of the abdomen and pelvis following IV contrast. 2-D reconstructions reviewed. A radiation dose optimization technique was used for this scan. IV Contrast dosage and agent: 100 cc [id number] Oral contrast: None. COMPARISON: None. FINDINGS: LOWER CHEST: No acute findings within the imaged lung bases. Heart size within normal limits. LIVER: Slightly heterogeneous enhancement pattern likely physiologic. Liver is slightly enlarged, 19 cm craniocaudal length. No discrete mass. GALLBLADDER AND BILIARY TREE: No calcified gallstones identified. No gallbladder wall edema demonstrated. No significant biliary ductal dilation. PANCREAS: No discrete mass or peripancreatic edema. SPLEEN: Normal size without focal cystic or solid mass. ADRENAL GLANDS: Unremarkable. KIDNEYS AND URETERS: Normal renal size and position. No perinephric edema or hydronephrosis. No concerning lesion. PERITONEUM: No peritoneal free air detected. Trace free pelvic fluid. RETROPERITONEUM: No retroperitoneal mass or pathologic fluid collection. BOWEL: Normal appendix posterior to cecum adjacent to right external iliac vessels. No bowel obstruction or significant bowel thickening. No focal inflammatory change. LYMPH NODES: No enlarged mesenteric or retroperitoneal lymph nodes. VESSELS: No acute findings. No abdominal aortic aneurysm. URINARY BLADDER: Unremarkable as visualized. REPRODUCTIVE ORGANS: Retroverted and slightly enlarged uterus with thickened and/or dilated endometrium measuring almost 5 cm diameter. ABDOMINAL WALL: No acute findings or significant hernia defect. BONES: Intact with no suspicious osseous lesion. CT/Abdomen/Pelvis W IV Cont ONLY IMPRESSION: Thickened and/or dilated endometrium suggesting intrauterine blood products versus retained products of conception. Electronically Signed: Nawaf Dobbs MD at 2:24 EDT , CC: MARA Faye; Dr. Claudia Anthony MD [employer]: Signed Normal [facility] Absolute lymphocyte countOrd ered By: Dr. Anthony on 01-15-2023 Lymphocytes Auto (Unsp spec) [#/Vol] 1.75 10*3/uL 0.83-4.51 [facility] Amorphous sediment detection in urine sediment by light microscopyOrdered By: Dr. Anthony on 01-15-2023 Amorphous sediment LM Ql (Urine sed) 1+ [facility] Basic Metabolic Profile (BMP )on 01-15-2023 BUN/CRE 23.2 RATIO High 10-20 [facility] Comment on above: Performed By: #### B tABS, BPAN, L100.0100, L700.8000, L500.4050, L501.9520, L506.0400, BTS #### [facility] [address] [place], [address] CA,Total 8.8 mg/dL Normal 8.5-10.1 [facility] Comment on above: Performed By: #### B tABS, BPAN, L100.0100, L700.8000, L500.4050, L501.9520, L506.0400, BTS #### [facility] [address] [place], [address] Chloride [Moles/Vol] 108 mmol/L High 98-107 [facility] Comment on above: Performed By: #### B tABS, BPAN, L100.0100, L700.8000, L500.4050, L501.9520, L506.0400, BTS #### [facility] [address] [place], [address] CO2 [Moles/Vol] 26.0 mmol/L Normal 21.0-32.0 [facility] Comment on above: Performed By: #### B tABS, BPAN, L100.0100, L700.8000, L500.4050, L501.9520, L506.0400, BTS #### [facility] [address] [place], [address] Creatinine [Mass/Vol] 0.69 mg/dL Normal 0.55-1.02 [facility] Comment on above: Result Comment: The validity of the calculated GFR GFRAA in patients over 70 years has not been determined. Clinical correlation is essential. Performed By: #### B tABS, BPAN, L100.0100, L700.8000, L500.4050, L501.9520, L506.0400, BTS #### [facility] [address] [place], [place], [id number] (425) ECRCL 89.96 ml/min Normal [facility] Comment on above: Performed By: #### B tABS, BPAN, L100.0100, L700.8000, L500.4050, L501.9520, L506.0400, BTS #### [facility] [address] [place], [address] EST GFR - AA 128 mL/min Normal >60 [facility] Comment on above: Result Comment: Afri can Grenadian GFR Calc Performed By: #### B tABS, BPAN, L100.0100, L700.8000, L500.4050, L501.9520, L506.0400, BTS #### [facility] [address] [place], [place], [id number] GAP 3 Low 5-15 [facility] Comment on above: Performed By: #### B tABS, BPAN, L100.0100, L700.8000, L500.4050, L501.9520, L506.0400, BTS #### [facility] [address] [place], [address] (824) GFR/1.73 sq M.predicted among non-blacks MDRD (S/P/Bld) [Vol rate/Area] 106 mL/min/{1.73_m2} Normal >60 [facility] Comment on above: Result Comment: Non- GFR Calc Performed By: #### B tABS, BPAN, L100.0100, L700.8000, L500.4050, L501.9520, L506.0400, BTS #### [facility] [address] [place], [address] Glucose [Mass/Vol] 101 mg/dL Normal 74-106 [facility] Comment on above: Result Comment: Fast ing Glucose result from 100 to 125 mg/dL suggests IMPAIRED HOMEOSTASIS per A.D.A. criteria. Performed By: #### B tABS, BPAN, L100.0100, L700.8000, L500.4050, L501.9520, L506.0400, BTS #### [facility] [address] [place], [address] Potassium [Moles/Vol] 3.8 mmol/L Normal 3.5-5.1 [facility] Comment on above: Result Comment: Mode rate Hemolysis, Result may be falsely increased. Performed By: #### B tABS, BPAN, L100.0100, L700.8000, L500.4050, L501.9520, L506.0400, BTS #### [facility] [address] [place], [address] Sodium [Moles/Vol] 137 mmol/L Normal 136-145 [facility] Comment on above: Performed By: #### B tABS, BPAN, L100.0100, L700.8000, L500.4050, L501.9520, L506.0400, BTS #### [facility] [address] [place], [address] Urea nitrogen [Mass/Vol] 16 mg/dL Normal 7-18 [facility] Comment on above: Performed By: #### B tABS, BPAN, L100.0100, L700.8000, L500.4050, L501.9520, L506.0400, BTS #### [facility] [address] [place], [address] Basophil percentageOrdered B y: Dr. Anthony on 01-15-2023 Basophil percentage 0-5 SEEN /hpf 0-5 [facility] Basophils/100 WBC (Bld) 0.6 % 0-1 [facility] Chloride [Moles/Vol] 108 mmol/L 98-107 [facility] Eosinophils/100 WBC (Bld) 2.1 % 0-5 [facility] Glucose [Mass/Vol] 101 mg/dL 74-106 [facility] Comment on above: Fasting Glucose resu lt from 100 to 125 mg/dL suggests IMPAIRED HOMEOSTASIS per A.D.A. criteria. Neutrophils (Bld) [#/Vol] 3.1 10*3/uL 2.0-7.7 [facility] Neutrophils/100 WBC (Bld) 58.6 % 47-70 [facility] Potassium [Moles/Vol] 3.8 mmol/L 3.5-5.1 [facility] Comment on above: Moderate Hemolysis, Result may be falsely increased. Sodium [Moles/Vol] 137 mmol/L 136-145 [facility] WBC (Bld) [#/Vol] 5.3 10*3/uL 4.4-11.0 [facility] Bilirubin Test strip Ql (U)O rdered By: Dr. Anthony on 01-15-2023 Bilirubin Ql (U) Negative Negative [facility] Blood erythrocytes count (nu mber/volume)Ordered By: Dr. Anthony on 01-15-2023 RBC (Bld) [#/Vol] 3.87 10*6/uL 4.2-5.4 [facility] Blood hemoglobin measurement (mass/volume)Ordered By: Dr. Anthony on 01-15-2023 Hemoglobin (Bld) [Mass/Vol] 11.6 g/dL 12.0-15.0 [facility] Blood lymphocytes/100 leukoc ytesOrdered By: Dr. Anthony on 01-15-2023 Lymphocytes/100 WBC (Bld) 32.9 % 19-41 [facility] Blood monocytes/100 leukocyt esOrdered By: Dr. Anthony on 01-15-2023 Monocytes/100 WBC (Bld) 5.6 % 0-10 [facility] Blood platelet mean volumeOr dered By: Dr. Anthony on 01-15-2023 Platelet mean volume (Bld) [Entitic vol] 11.4 fL 6.2-12.0 [facility] CBC W/Diff, Automatedon 01-05 Absolute Lymph 1.75 X10 3/uL Normal 0.83-4.51 [facility] Comment on above: Performed By: #### B tABS, BPAN, L100.0100, L700.8000, L500.4050, L501.9520, L506.0400, BTS #### [facility] [address] [place], [address] Absolute Neut 3.1 X10 3/uL Normal 2.0-7.7 [facility] Comment on above: Performed By: #### B tABS, BPAN, L100.0100, L700.8000, L500.4050, L501.9520, L506.0400, BTS #### [facility] [address] [place], [address] Basophils/100 WBC (Bld) 0.6 % Normal 0-1 [facility] Comment on above: Performed By: #### B tABS, BPAN, L100.0100, L700.8000, L500.4050, L501.9520, L506.0400, BTS #### [facility] [address] [place], [address] Eosinophils/100 WBC (Bld) 2.1 % Normal 0-5 [facility] Comment on above: Performed By: #### B tABS, BPAN, L100.0100, L700.8000, L500.4050, L501.9520, L506.0400, BTS #### [facility] [address] [place], [address] Erythrocyte distribution width (RBC) [Ratio] 13.0 % Normal 11.6-14.6 [facility] Comment on above: Performed By: #### B tABS, BPAN, L100.0100, L700.8000, L500.4050, L501.9520, L506.0400, BTS #### [facility] [address] [place], [address] Hematocrit (Bld) [Volume fraction] 36.6 % Low 37-47 [facility] Comment on above: Performed By: #### B tABS, BPAN, L100.0100, L700.8000, L500.4050, L501.9520, L506.0400, BTS #### [facility] [address] [place], [address] Hemoglobin (Bld) [Mass/Vol] 11.6 g/dL Low 12.0-15.0 [facility] Comment on above: Performed By: #### B tABS, BPAN, L100.0100, L700.8000, L500.4050, L501.9520, L506.0400, BTS #### [facility] [address] [place], [address] IG% 0.200 Normal 0.0-0.9 [facility] Comment on above: Result Comment: IG% - Immature Granulocytes (promyelocytes, myelocytes and metamyelocytes) > 1% indicates that a LEFT SHIFT is Present. Performed By: #### B tABS, BPAN, L100.0100, L700.8000, L500.4050, L501.9520, L506.0400, BTS #### [facility] [address] [place], [address] Lymphocytes/100 WBC (Bld) 32.9 % Normal 19-41 [facility] Comment on above: Performed By: #### B tABS, BPAN, L100.0100, L700.8000, L500.4050, L501.9520, L506.0400, BTS #### [facility] [address] [place] [place], [address] MCH (RBC) [Entitic mass] 30.0 pg Normal 27.0-32.0 [facility] Comment on above: Performed By: #### B tABS, BPAN, L100.0100, L700.8000, L500.4050, L501.9520, L506.0400, BTS #### [facility] [address] [place], [address] MCHC (RBC) [Mass/Vol] 31.7 g/dL Low 32-36 [facility] Comment on above: Performed By: #### B tABS, BPAN, L100.0100, L700.8000, L500.4050, L501.9520, L506.0400, BTS #### [facility] [address] [place], [address] MCV (RBC) [Entitic vol] 94.6 fL Normal 81-99 [facility] Comment on above: Performed By: #### B tABS, BPAN, L100.0100, L700.8000, L500.4050, L501.9520, L506.0400, BTS #### [facility] [address] [place], [address] Monocytes/100 WBC (Bld) 5.6 % Normal 0-10 [facility] Comment on above: Performed By: #### B tABS, BPAN, L100.0100, L700.8000, L500.4050, L501.9520, L506.0400, BTS #### [facility] [address] [place], [address] Neutrophils/100 WBC (Bld) 58.6 % Normal 47-70 [facility] Comment on above: Performed By: #### B tABS, BPAN, L100.0100, L700.8000, L500.4050, L501.9520, L506.0400, BTS #### [facility] [address] [place], [address] Nucleated RBC (Bld) [#/Vol] 0 10*3/uL Normal 0-5 [facility] Comment on above: Performed By: #### B tABS, BPAN, L100.0100, L700.8000, L500.4050, L501.9520, L506.0400, BTS #### [facility] [address] [place], [address] Platelet mean volume (Bld) [Entitic vol] 11.4 fL Normal 6.2-12.0 [facility] Comment on above: Performed By: #### B tABS, BPAN, L100.0100, L700.8000, L500.4050, L501.9520, L506.0400, BTS #### [facility] [address] [place], [address] Platelets (Bld) [#/Vol] 204 10*3/uL Normal 150-450 [facility] Comment on above: Performed By: #### B tABTim, BPAN, L100.0100, L700.8000, L500.4050, L501.9520, L506.0400, BTS #### [facility] [address] [place], [address] RBC (Bld) [#/Vol] 3.87 10*6/uL Low 4.2-5.4 [facility] Comment on above: Performed By: #### B tABS, BPAN, L100.0100, L700.8000, L500.4050, L501.9520, L506.0400, BTS #### [facility] [address] [place], [address] RDW SD 44.9 fl High 35.1-43.9 [facility] Comment on above: Performed By: #### B tABS, BPAN, L100.0100, L700.8000, L500.4050, L501.9520, L506.0400, BTS #### [facility] [address] [place], [address] WBC (Bld) [#/Vol] 5.3 10*3/uL Normal 4.4-11.0 [facility] Comment on above: Performed By: #### B tABS, BPAN, L100.0100, L700.8000, L500.4050, L501.9520, L506.0400, BTS #### [facility] [address] [facility] [place], [address] Determination of erythrocyte mean corpuscular volume (MCV)Ordered By: Dr. Anthony on 01-15-2023 MCV (RBC) [Entitic vol] 94.6 fL 81-99 [facility] Discharge Instructionon 01-[address] [facility] Medical Records Department [address] [place] [address] Instructions for Home/Discharge Instructions 01/15/23 1039 MR#: [id number] Acct: [id number] Name: HALIE GARCIA Rep #: [id number] : 1990 32 From: Katharine Carrasco DO PCP: MARA Lacey Status:REG [facility] Discharge Instructions Diet Discharge Diet: No restrictions Activity Discharge Activity: Return to Normal Activity and May Shower May resume sexual activity in: 2 weeks Weight Bearing Status: Weight bearing as tolerated Lifting Restrictions: None Dressing / Incision Call your doctor if you observe: Fever of 101 or Higher, Change in Color, Inability to urinate, Using more than 1 pad per hour, Shortness of breath, Dizziness, Swelling in the ankles, Chest pain and Calf discomfort Follow Up Care Please Follow Up With: Katharine Carrasco DO When: 1-2 week postoperative visit Test Results: Test results from this visit will be discussed in further detail at your follow-up appointment, if applicable. Discharge Plan Admission Primary Reason for Your Visit: Dilation and curettage Attending Provider: Katharine Carrasco Primary Care Provider: Neyda,Roseann [employer] ALIGNER Discharge Orders/Prescription s Prescriptions: New methylergonovine [Methergine] 0.2 mg tablet 0.2 mg PO TID 3 Days Qty: 9 0RF doxycycline monohydrate 100 mg tablet 100 mg PO BID Qty: 14 0RF promethazine 12.5 mg tablet 12.5 mg PO Q6H PRN (Reason: nausea and vomiting) Qty: 30 0RF Referrals / Follow Up: Roseann Faye NP, [employer]ER-C [Primary Care Provider] - Disposition Disposition (needs filled in before D/C Order can be placed): Home, Self Care 01/15/23 1121 Katharine Carrasco DO CC: [employer] ALIGNER-C Roseann Faye Signed Normal [facility] Emergency Department Summary on 01-15-2023 Emergency Department Summary [facility] Medical Records Department [address] [place] [address] Emergency Department Summary 01/15/23 MR#: [id number] Acct: [id number] Name: HALIE GARCIA Rep #: [id number] : 1990 32 From: Claudia Anthony MD PCP: MARA Lacey Status:REG ER Location: ED HPI HPI - Female History of Present Illness Chief Complaint: Vag Bleeding Detail of Chief Complaint: Vaginal bleeding abdominal pain post D C Informant: patient Pain Pain: Positive for Pelvic Pain Onset: Days Context: Gradual Onset Narrative Narrative: Patient presents secondary to abdominal pain and vaginal bleeding after having a D C. She had a D C for missed on January 07. Patient states she did pass a couple large clots right after the surgery. She has been having increased pain at home and states that she is still bleeding heavily. She is estimating that she is changing her pad every 2-3 hours. There have been times that she has bled through onto her close. She has not yet called her doctor. She has not had fever or chills. [facility] Medical History Alcohol use Anxiety Asthma delivery delivered Depression Easy bruising Gastric reflux Hepatitis History of edema History of pain when walking Injury of head and neck Leg cramps Loose, teeth Marijuana use Non-smoker Substance abuse Syncope Allergy/AdvReac Type Severity Reaction Status Date / Time Penicillins Allergy Hives Verified 01/14/23 23:15 IV patch/latex AdvReac Mild Rash/welt Uncoded 01/14/23 23:15 Family History Grandmother Asthma COPD (chronic obstructive pulmonary disease) Diabetes Social History number of children: 2 current occupational status: employed 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 Smoking Status: Never smoker alcohol intake: former year quit: 2017 substance use type: marijuana and other details: Quit when found out about caffeine: Yes Type: carbonated beverages Number of servings: 1 seatbelt use: always do you feel safe at home: Yes additional social history: Edgar Trinh 11 years old ROS ROS ED Constitutional Constitutional ED: Denies chills or fever(s) ENT ENT ED: Denies rhinorrhea or sore throat Cardiovascular Cardiovascular: Reports chest pain; Denies palpitations Respiratory/Chest Respiratory/Chest: Denies cough or dyspnea Gastrointestinal Gastrointestinal: Reports abdominal pain and nausea; Denies diarrhea or vomiting Genitourinary Genitourinary ED: Reports other Details: Heavy vaginal bleeding ; Denies dysuria Musculoskeletal Musculoskeletal: Denies back pain or extremity pain Integumentary Denies Abrasions or rash Neurologic Neurologic: Denies headache(s) or weakness Psychiatric Psychiatric: Denies anxiety or depression Allergic/Immunologi c Allergic/Immunologi c ED: Denies lip swelling or urticaria EXAM Physical Exam Const Vital Signs: 01/14/23 23:11 01/15/23 02:27 01/15/23 06:09 Temperature 98.1 F Temperature Source Temporal Pulse Rate 98 Respiratory Rate 16 Blood Pressure 83/62 L 103/66 Blood Pressure Mean 69 78 Pulse Ox 95 97 97 Oxygen Delivery Method Room Air Room Air Room Air Positive well nourished and well developed General Appearance ED: well developed HEENT Reports normocephalic and head/scalp atraumatic Eyes PERRL and EOMs intact bilaterally Neck supple Chest Wall inspection of chest normal and palpation of chest normal Resp normal respiratory effort and clear to auscultation bilaterally Cardio regular rate and regular rhythm GI GI Narrative: Lower abdominal tenderness palpation. No guarding or rebound. Palpation: soft Narrative: Mild blood noted in the vaginal vault. Cervix is closed. Extremity normal to inspection Neuro oriented x3 and no sensory deficits noted Sensorium / Orientation: alert Motor Exam: strength 5/5 throughout Psych mental status grossly normal Skin no rashes or lesions noted MDM MDM MDM Narrative Medical decision making narrative: Patient given IV fluids on arrival. Labwork obtained to evaluate for leukocytosis, anemia, and electrolyte derangement. Given the patient's recent procedure with pain throughout the abdomen up to the diaphragm a CT scan was obtained. I do not have ultrasound available at this hour in house. Lab Data Attestation: I reviewed the patient's lab results. Labs: Laboratory Results - last 24 hr 01/15/23 01/15/23 01/15/23 01:01 01:01 01:01 WBC 5.3 RBC 3.87 L Hgb 11.6 L Hct 36.6 L MCV 94.6 MCH 30.0 MCHC 31.7 L RDW Std Deviation 44.9 H (more content not included)... Normal [facility] H AND P Exam - OB/GYNon 01-05 H&P Exam - INTERNATIONAL BANK MANAGER [facility] Medical Records Department [address] [place] [address] H P Exam - INTERNATIONAL BANK MANAGER 01/15/23 0824 MR#: [id number] Acct: [id number] Name: HALIE GARCIA Rep #: [id number] : 1990 32 From: Katharine Carrasco DO PCP: Roseann Faye NP-Erick Status:[facility] Location: [place] [address] History and Physical Date of Admission: 01/15/23 HPI: 32-year-old female with vaginal bleeding. Patient had a suction D C for missed on 01/07. She had minimal bleeding at the time of surgery, had some bleeding postop and recovery, however this resolved. Patient states she had minimal bleeding for a few days after surgery, however about 4 to 5 days after surgery, bleeding became heavier. She reports cramping and bleeding. Denies headache or vision changes, chest pain or shortness of breath, nausea or vomiting, fevers or chills, diarrhea constipation. INTERNATIONAL BANK MANAGER history: G5, P2 Medical history: Depression Surgical history: 1.??? section 2. Suction dilation and curettage Medications: 1.??? Trazodone Family history: Noncontributory Allergies: 1.??? Penicillin Social history: Reports smoking, denies alcohol or drug use Review of system: Negative otherwise above Physical exam: Vitals BP 109/78, pulse 64, respiratory rate 16, oxygen saturation 98% on room air General: No acute distress HEENT: Normal cephalic/atraumatic , PERRLA Cardiorespiratory: No increased effort Abdomen: Soft, nontender Extremities: No edema Neurologic: Cranial nerves II through XII grossly intact, no focal deficits Musculoskeletal: Strength out of 5 throughout extremities Assessment/plan: 32-year-old female with vaginal bleeding status post miscarriage. ???Admit for suction dilation curettage. Doxycycline IV preoperatively. ???Ultrasound read with possible retained products of conception, however her hCG level is less than 1. Upon review of ultrasound, appears to be large amount of blood clot inside the uterus. We will proceed with dilation and curettage due to patient's symptoms and presence of blood clot in uterus. ???No evidence of infection. Patient is afebrile (and has reported no fever at home), she has no leukocytosis, uterus nontender to palpation. Will likely discharge home on prophylactic antibiotics. ???Discussed the findings of the ultrasound and hCG level with the patient. Additionally discussed that there is no evidence of infection at this time. She expresses understanding of situation. Desires to proceed with surgical management. All risk, benefits, alternatives discussed with the patient.??? Risk include but not limited to: Risk of bleeding the point of transfusion, infection, injury to surrounding tissue including bowel/bladder/uteri ne perforation, VTE, ICU admission.??? Patient aware and consented.??? 01/15/23 2028 Cosigner Signature (if applicable): CC: DROP WIRE ALIGNERSachi Faye; Dr. Katharine Carrasco, DO Signed Normal [facility] Hematocrit Auto (Bld) [Volum e fraction]Ordered By: Dr. Anthony on 01-15-2023 Hematocrit (Bld) [Volume fraction] 36.6 % 37-47 [facility] Ketones Test strip Ql (U)Ord ered By: Dr. Anthony on 01-15-2023 Ketones Ql (U) Negative Negative [facility] - Chemistry and C hemistry - challengeOrdered By: Dr. Anthony on 01-15-2023 CO2 [Moles/Vol] 26.0 mmol/L 21.0-32.0 [facility] Urea nitrogen/Creatinine [Mass ratio] 23.2 mg/mg 10-20 [facility] - Hematology and Cell countsOrdered By: Dr. Anthony on 01-15-2023 Erythrocyte distribution width (RBC) [Entitic vol] 44.9 fL 35.1-43.9 [facility] Erythrocyte distribution width (RBC) [Ratio] 13.0 % 11.6-14.6 [facility] Immature granulocytes/100 WBC (Bld) 0.200 % 0.0-0.9 [facility] Comment on above: IG% - Immature Granu locytes (promyelocytes, myelocytes and metamyelocytes) > 1% indicates that a LEFT SHIFT is Present. MCH (RBC) [Entitic mass] 30.0 pg 27.0-32.0 [facility] Nucleated RBC/100 WBC (Bld) [Ratio] 0 % 0-5 [facility] MCHC Auto (RBC) [Mass/Vol]Or dered By: Dr. Anthony on 01-15-2023 MCHC (RBC) [Mass/Vol] 31.7 g/dL 32-36 [facility] Mucus LM Ql (Urine sed)Order ed By: Dr. Anthony on 01-15-2023 Mucus Ql (Urine sed) 0 SEEN /hpf [facility] Nitrite Test strip Ql (U)Ord ered By: Dr. Anthony on 01-15-2023 Nitrite Ql (U) Negative Negative [facility] No Panel InformationOrdered By: Dr. Anthony on 01-15-2023 Estimated Creatinine Clearance Calc 89.96 ml/min [facility] Estimated GFR (MDRD) Amer 128 mL/min >60 [facility] Comment on above: GFR Calc Estimated GFR (MDRD) Non-Af Amer 106 mL/min >60 [facility] Comment on above: Non- GFR Calc Operative Reporton [address] [facility] Medical Records Department [address] [place] [address] Operative Report 01/15/23 1038 MR#: [id number] Acct: [id number] Name: HALIE GARCIA Rep #: [id number] : 1990 32 From: Katharine Carrasco DO PCP: MARA Lacey Status:REG [facility] Location: [place] [address] Report of Operation Date of Procedure: 01/15/23 Pre-Operative Diagnosis: Vaginal bleeding Post-Operative Diagnosis: Vaginal bleeding Surgery/Procedure Performed:: Suction dilation and curettage Description of Surgical Findings:: Normal-appearing external genitalia, small amount of blood at cervical os. Blood clot removed from uterus, no tissue noted. Type of Anesthesia: MAC Specimen's removed: Blood clot, possible products of conception Estimated Blood Loss (mL): 50cc Fluids Replaced: 600cc Description of Procedure: Indications/Risks/B enefits: Procedure: Patient taken the operating room and MAC anesthesia induced. Patient placed in the dorsal lithotomy position and prepped and draped in usual sterile fashion. Weighted speculum placed in posterior vagina and Lawson retractor used to visualize the cervix. Anterior lip of the cervix grasped with single-tooth tenaculum. Cervix sequentially dilated. Suction curettage completed removing blood clot. Gentle sharp curettage completed in a 360 degree manner. Bedside ultrasound completed noting thin endometrial stripe and no color flow. Cervix hemostatic. Single-tooth tenaculum and weighted speculum removed. 1000 mcg Cytotec placed per rectum prophylactically. UOP: none measured We will discharge home on doxycycline and Methergine. Complications None 01/15/23 1119 Cosigner Signature (if applicable): CC: DROP WIRE ALIGNER-C Roseann Faye; Dr. Katharine Carrasco DO Signed Normal [facility] Platelets bldOrdered By: Dr. Anthony on 01-15-2023 Platelets (Bld) [#/Vol] 204 10*3/uL 150-450 [facility] Protein Test strip Ql (U)Ord ered By: Dr. Anthony on 01-15-2023 Protein Ql (U) 15 mg/dl Negative [facility] Serum or plasma calcium jeremi urement (mass/volume)Ordered By: Dr. Anthony on 01-15-2023 Calcium [Mass/Vol] 8.8 mg/dL 8.5-10.1 [facility] Serum or plasma choriogonado tropin detectionOrdered By: Dr. Anthony on 01-15-2023 HCG ( test) Ql < 1 mIU/mL <4 [facility] Comment on above: hCG levels with Gest ational AgeGestational Age hCG mIU/mL (IU/L)0.2 - 1 week 5 - 501-2 weeks 50 - 5002-3 weeks 100 - 77020-9 weeks 500 - 285134-7 weeks 1000 - 148677-9 weeks 46608 - 100,0006-8 weeks 41375 - 200,0002-3 months 53970 - 100,000 Serum or plasma creatinine m easurement (mass/volume)Ordered By: Dr. Anthony on 01-15-2023 Creatinine [Mass/Vol] 0.69 mg/dL 0.55-1.02 [facility] Comment on above: The validity of the calculated GFR & GFRAA in patients over 70 years has not been determined. Clinical correlation is essential. Serum or plasma urea nitroge n measurement (mass/volume)Ordered By: Dr. Anthony on 01-15-2023 Urea nitrogen [Mass/Vol] 16 mg/dL 7-18 [facility] Squamous epithelial cells de tection in urine sediment by light microscopyOrdered By: Dr. Anthony on 01-15-2023 Epithelial cells.squamous LM Ql (Urine sed) 0-5 SEEN /hpf 5-10 [facility] Surgery Specimen Level Daisy 01-15-2023 Surgery Specimen Level IV ----- Patient Age/Sex Location Account Attending Physician HALIE GARCIA / [facility] [id number] Dr. Katharine Carrasco, Specimen: [id number] Received: 01/15/23 Status: VANDANA oMntiel Num: [id number] Spec Type: PROD CONC Subm Dr: DO KIMBERLEY Harvey OPERATION: Suction dilation and curettage PRE-OP DIAGNOSIS: Missed TISSUE SUBMITTED: Contents of conception MICROSCOPIC DIAGNOSIS Endometrium, curettage: Blood clots. Scant fragments of endometrial and superficial myometrial tissue. See comment. AM: 01/18/2023 COMMENT Specimen predominantly consists of blood clots. Chorionic villi are not identified. Clinical correlation is suggested. Please make reference to previous specimen ([id number]), endometrium, curettage with diagnosis of chorionic villi, decidualized stroma and trophoblastic villi consistent with products of conception.??? Case has been reviewed in consultation with Dr. Sidhu who concurs with the above diagnosis. IDC:CHEO MICROSCOPIC DESCRIPTION Slides are reviewed. GROSS DESCRIPTION Received in fixative is one container labeled with the patient's name and designated contents of conception." The specimen consists of multiple irregular fragments of red-german soft tissue that in aggregate measure 8.0 x 7.0 x 2.0 cm. parts are not grossly recognized. German Instructor portions are submitted in three cassettes. / AM:rg 01/16/2023 The rest of the specimen is submitted in cassettes 4 to 12. / AM 01/17/2023 TC:5 CPT: 27592 Patient Age/Sex Location Account Attending Physician HALIE GARCIA 32/ [facility] [id number] Dr. Katharine Carrasco, DO Signed (signatur e on file) Dr. Jatin Sidhu MD 01/18/[address] [facility] Comment on above: Performed By: #### B Laura, IAN, L100.0100, L700.8000, L500.4050, L501.9520, L506.0400, BTS #### [facility] [address] [place], [address] Thin prep Papanicolaou smear with manual screeningOrdered By: Dr. Anthony on 01-15-2023 Thin prep Papanicolaou smear with manual screening 3 5-15 [facility] Transvaginal Non-on 01-15-2023 Transvaginal Non- [facility] Imaging Services [address] [place] [address] Transvaginal Non- MR#: [id number] Acct: [id number] Name: HALIE GARCIA Rep #: [id number] : 1990 F 32 From: Javi Potts MD PCP: MARA Lacey Status: [facility] Study: Transvaginal Non- Date of Exam: Exam# [id number] Ordering Dr: Claudia Anthony MD STUDY: ULTRASOUND TRANSVAGINAL CLINICAL: Female, 32 years old. Abnormal bleeding, recent DTC TECHNIQUE: Transvaginal COMPARISON: None. FINDINGS: Normal uterine size measuring 9.3 cm in maximal craniocaudal dimension. There are no myometrial masses. Uterus is retroverted Endometrial thickness is 35 mm and heterogeneous consistent with recent DTC. However, retained POC is suspected and short-term follow-up ultrasound is recommended to assure passage of the echogenic debris within the endometrium. Normal uterine cervix. Normal right ovary, measuring 3.1 x 2.4 x 3.7 cm. There are multiple follicles without a dominant cyst. Normal left ovary, measuring 4.3 x 2.7 x 2.5 cm. There are multiple follicles without a dominant cyst. There is no free fluid in the pelvis. Polycystic ovary disease: No. US/Transvaginal Non- IMPRESSION: Abnormally thickened heterogeneous endometrium at 35 mm. Findings suggest incomplete evacuation of the endometrium after recent DTC. Retained POC suspected. Short-term follow-up ultrasounds recommended to assure passage and resolution of the heterogeneously thickened endometrium No suspicious adnexal mass or free fluid Electronically Signed: Sulaiman Potts MD at 7:54 EDT Reading Location ID and State: [address] [place] [address] , Service support , CC: MARA Faye; Dr. Claudia Anthony MD [employer] Laborer: Signed Normal [facility] Urinalysis, Completeon 01-15 AMORPHOUS 1+ Normal [facility] Comment on above: Order Comment: CLEAN CATCH Performed By: #### B tABS, BPAN, L100.0100, L700.8000, L500.4050, L501.9520, L506.0400, BTS #### [facility] [address] [place], [address] BACTERIA 1+ /hpf Normal None Seen [facility] Comment on above: Order Comment: CLEAN CATCH Performed By: #### B tABS, BPAN, L100.0100, L700.8000, L500.4050, L501.9520, L506.0400, BTS #### [facility] [address] [place], [address] EPI,SQUAMOUS 0-5 SEEN Normal 5-10 [facility] Comment on above: Order Comment: CLEAN CATCH Performed By: #### B tABS, BPAN, L100.0100, L700.8000, L500.4050, L501.9520, L506.0400, BTS #### [facility] [address] [place], [address] RBC 0-5 SEEN Normal 0-5 [facility] Comment on above: Order Comment: CLEAN CATCH Performed By: #### B tABS, BPAN, L100.0100, L700.8000, L500.4050, L501.9520, L506.0400, BTS #### [facility] [address] [place], [address] WBC 0-5 SEEN Normal 0-5 [facility] Comment on above: Order Comment: CLEAN CATCH Performed By: #### B tABS, BPAN, L100.0100, L700.8000, L500.4050, L501.9520, L506.0400, BTS #### [facility] [address] [place], [address] Mucus Ql (Urine sed) 0 SEEN Normal [facility] Comment on above: Order Comment: CLEAN CATCH Performed By: #### B tABS, BPAN, L100.0100, L700.8000, L500.4050, L501.9520, L506.0400, BTS #### [facility] [address] [place], [address] Urine blood detectionOrdered By: Dr. Anthony on 01-15-2023 RBC Ql (U) 250 /ul Negative [facility] RBC Ql (U) 0-5 SEEN /hpf 0-5 [facility] Urine clarityOrdered By: Dr. Anthony on 01-15-2023 Clarity (U) Clear Clear [facility] Urine color determinationOrd ered By: Dr. Anthony on 01-15-2023 Color (U) Straw Yellow [facility] Urine glucose detectionOrder ed By: Dr. Anthony on 01-15-2023 Glucose Ql (U) Normal mg/dl Normal [facility] Urine leukocyte esterase det ection by dipstickOrdered By: Dr. Anthony on 01-15-2023 Leukocyte esterase Test strip Ql (U) 25 /ul Negative [facility] Urine pHOrdered By: Dr. Marylin zhao on 01-15-2023 pH (U) 7.0 [pH] 5.0 - 8.0 [facility] Urine sediment bacteria coun t by microscopy (number/high power field)Ordered By: Dr. Anthony on 01-15-2023 Bacteria LM.HPF (Urine sed) [#/Area] 1 /[HPF] None Seen [facility] Urine specific gravity measu rementOrdered By: Dr. Anthony on 01-15-2023 Specific gravity (U) [Rel density] 1.015 1.002-1.030 [facility] Urobilinogen Auto test strip Ql (U)Ordered By: Dr. Anthony on 01-15-2023 Urobilinogen Ql (U) Normal mg/dl Normal [facility] hCG Titer Quant., Serumon HCG QUANT. < 1 Normal 1-3 [facility] Comment on above: Result Comment: hCG levels with Gestational Age Gestational Age hCG mIU/mL (IU/L) 0.2 - 1 week 5 - 50 1-2 weeks 50 - 500 2-3 weeks 100 - 5000 3-4 weeks 500 - 57514 4-5 weeks 1000 - 47303 5-6 weeks 23649 - 100,000 6-8 weeks 36415 - 200,000 2-3 months 29191 - 100,000 Performed By: #### B tABS, BPAN, L100.0100, L700.8000, L500.4050, L501.9520, L506.0400, BTS #### [facility] [address] [facility] [place], [place], [address] Antibody Panel IDon 01-08-20 ANTIBODY ID C Normal [facility] Comment on above: Order Comment: Surge ry Date: 01/07/23Reason for Laboratory Test [id number] D C Performed By: #### B tABS, BPAN, L100.0100, L700.8000, L500.4050, L501.9520, L506.0400, BTS #### [facility] [address] [place], [place], [address] Basophil percentageOrdered B y: Dr. Carrasco on 01-07-2023 WBC (Bld) [#/Vol] 2.6 10*3/uL 4.4-11.0 [facility] Blood erythrocytes count (nu mber/volume)Ordered By: Dr. Carrasco on 01-07-2023 RBC (Bld) [#/Vol] 4.40 10*6/uL 4.2-5.4 [facility] Blood hemoglobin measurement (mass/volume)Ordered By: Dr. Carrasco on 01-07-2023 Hemoglobin (Bld) [Mass/Vol] 13.7 g/dL 12.0-15.0 [facility] Blood platelet mean volumeOr dered By: Dr. Carrsaco on 01-07-2023 Platelet mean volume (Bld) [Entitic vol] 10.6 fL 6.2-12.0 [facility] CBC-Complete Blood Cnt No Di ffon 01-07-2023 Erythrocyte distribution width (RBC) [Ratio] 12.9 % Normal 11.6-14.6 [facility] Comment on above: Performed By: #### L 100.0500, BTSPAT, BPAN #### [facility] [address] [place], [address] Hematocrit (Bld) [Volume fraction] 40.1 % Normal 37-47 [facility] Comment on above: Performed By: #### L 100.0500, BTSPAT, BPAN #### [facility] [address] [place], [address] Hemoglobin (Bld) [Mass/Vol] 13.7 g/dL Normal 12.0-15.0 [facility] Comment on above: Performed By: #### L 100.0500, BTSPAT, BPAN #### [facility] [address] [place], [address] MCH (RBC) [Entitic mass] 31.1 pg Normal 27.0-32.0 [facility] Comment on above: Performed By: #### L 100.0500, BTSPAT, BPAN #### [facility] [address] [place], [address] MCHC (RBC) [Mass/Vol] 34.2 g/dL Normal 32-36 [facility] Comment on above: Performed By: #### L 100.0500, BTSPAT, BPAN #### [facility] [address] [place], [address] MCV (RBC) [Entitic vol] 91.1 fL Normal 81-99 [facility] Comment on above: Performed By: #### L 100.0500, BTSPAT, BPAN #### [facility] [address] [place], [address] Platelet mean volume (Bld) [Entitic vol] 10.6 fL Normal 6.2-12.0 [facility] Comment on above: Performed By: #### L 100.0500, BTSPAT, BPAN #### [facility] [address] [place], [address] Platelets (Bld) [#/Vol] 162 10*3/uL Normal 150-450 [facility] Comment on above: Performed By: #### L 100.0500, BTSPAT, BPAN #### [facility] [address] [place], [address] RBC (Bld) [#/Vol] 4.40 10*6/uL Normal 4.2-5.4 [facility] Comment on above: Performed By: #### L 100.0500, BTSPAT, BPAN #### [facility] [address] [place], [address] RDW SD 42.9 fl Normal 35.1-43.9 [facility] Comment on above: Performed By: #### L 100.0500, BTSPAT, BPAN #### [facility] [address] [place], [address] WBC (Bld) [#/Vol] 2.6 10*3/uL Low 4.4-11.0 [facility] Comment on above: Performed By: #### L 100.0500, BTSPAT, BPAN #### [facility] [address] [place], [address] Determination of erythrocyte mean corpuscular volume (MCV)Ordered By: Dr. Carrasco on 01-07-2023 MCV (RBC) [Entitic vol] 91.1 fL 81-99 [facility] Discharge Instructionon Discharge Instruction [facility] Medical Records Department [address] [place] [address] Instructions for Home/Discharge Instructions 01/07/23 1121 MR#: [id number] Acct: [id number] Name: HALIE GARCIA Rep #: [id number] : 1990 32 From: Katharine Carrasco DO PCP: Roseann Faye NP-C Status:REG [facility] Discharge Instructions Diet Discharge Diet: No restrictions Activity Discharge Activity: Return to Normal Activity and May Shower May resume sexual activity in: 2 weeks Weight Bearing Status: Weight bearing as tolerated Lifting Restrictions: None Dressing / Incision Call your doctor if you observe: Fever of 101 or Higher, Change in Color, Inability to urinate, Using more than 1 pad per hour, Shortness of breath, Dizziness, Swelling in the ankles, Chest pain and Calf discomfort Follow Up Care Please Follow Up With: Katharine Carrasco DO When: 1-2 week postoperative visit Test Results: Test results from this visit will be discussed in further detail at your follow-up appointment, if applicable. Discharge Plan Admission Primary Reason for Your Visit: Miscarriage, Dilation and curettage. Attending Provider: Katharine Carrasco Primary Care Provider: Roseann Faye NP Discharge Orders/Prescription s Prescriptions: Discontinued misoprostol 200 mcg Tablet 200 mcg VAGINAL Q12H oxycodone 5 mg Capsule 5 mg PO Q6H PRN (Reason: Pain) Referrals / Follow Up: Roseann Faye NP, DROP WIRE ALIGNER-C [Primary Care Provider] - Disposition Disposition (needs filled in before D/C Order can be placed): Home, Self Care 01/07/23 1157 Katharine Carrasco DO CC: DROP WIRE ALIGNER-C Roseann Faye Signed Normal [facility] H AND P Exam - OB/GYNon H&P Exam - INTERNATIONAL BANK MANAGER [facility] Medical Records Department [address] [place] [address] H P Exam - INTERNATIONAL BANK MANAGER 01/07/23 1048 MR#: [id number] Acct: [id number] Name: HALIE GARCIA Rep #: [id number] : 1990 32 From: Katharine Carrasco DO PCP: MARA Lacey Status:[facility] Location: [place] [address] History and Physical Date of Admission: 01/07/23 HPI: 32-year-old female with missed for suction dilation curettage. Denies headache or vision changes, chest pain or shortness of breath, nausea or vomiting, fevers or chills, diarrhea constipation. 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 section Medications: 1. Trazodone Family history: Noncontributory Allergies: 1. Penicillin Social history: Reports smoking, denies alcohol or drug use Review of system: Negative otherwise above Physical exam: Vitals pending General: No acute distress HEENT: Normal cephalic/atraumatic , PERRLA Cardiorespiratory: No increased effort Abdomen: Soft, nontender Extremities: No edema Neurologic: Cranial nerves II through XII grossly intact, no focal deficits Musculoskeletal: Strength out of 5 throughout extremities Assessment/plan: 32-year-old female with missed for suction dilation curettage. Patient had 3 repeat ultrasounds on December 03, December 19, January 01 noting large fluid collection versus gestational sac and possible crown-rump length. No heart rate had been seen on any ultrasound. Patient also had a prior ultrasound at [facility] prior to her first here. She had planned elective termination, but was turned away due to ultrasound findings. Attempted Cytotec x2, no success. US 12/03: GS 3.5 cm, CRL 2.1 cm US 12/19: GS/fluid collection 5x2.5x4.3 cm, CRL 4.2 cm US 01/01: GS/fluid collection 4.8 x 3.1 x 4.5 cm CRL 3.4 cm All risk, benefits, alternatives discussed with the patient. Risk include but not limited to: Risk of bleeding the point of transfusion, infection, injury to surrounding tissue including bowel/bladder/uteri ne perforation, VTE, ICU admission. Patient aware and consented. Declines genetic testing. 01/07/23 1053 Cosigner Signature (if applicable): CC: DROP WIRE ALIGNERGaganC Roseann Faye; Dr. Katharine Carrasco DO Signed ADDENDUM by Dr. Katharine Carrasco DO on 01/07/23 at [address] [facility] 01/07/23 1119 Cosigner Signature (if applicable): cc: MARA Faye; Dr. Katharine Carrasco DO * Signed Normal [facility] Hematocrit Auto (Bld) [Volum e fraction]Ordered By: Dr. Carrasco on 01-07-2023 Hematocrit (Bld) [Volume fraction] 40.1 % 37-47 [facility] - Hematology and Cell countsOrdered By: Dr. Carrasco on 01-07-2023 Erythrocyte distribution width (RBC) [Entitic vol] 42.9 fL 35.1-43.9 [facility] Erythrocyte distribution width (RBC) [Ratio] 12.9 % 11.6-14.6 [facility] MCH (RBC) [Entitic mass] 31.1 pg 27.0-32.0 [facility] MCHC Auto (RBC) [Mass/Vol]Or dered By: Dr. Carrasco on 01-07-2023 MCHC (RBC) [Mass/Vol] 34.2 g/dL 32-36 [facility] Operative Reporton 3 Operative Report [facility] Medical Records Department [address] [place] [address] Operative Report 01/07/23 1117 MR#: [id number] Acct: [id number] Name: HALIE GARCIA Rep #: [id number] : 1990 32 From: Katharine Carrasco DO PCP: MARA Lacey Status:[facility] Location: [place] [address] Report of Operation Date of Procedure: 01/07/23 Pre-Operative Diagnosis: Missed Post-Operative Diagnosis: Missed Surgery/Procedure Performed:: Suction dilation and curettage Description of Surgical Findings:: Normal-appearing external genitalia. No uterine descensus. Cervix not dilated. Type of Anesthesia: MAC Specimen's removed: products of conception Estimated Blood Loss (mL): 10 cc Fluids Replaced: 700cc Description of Procedure: Indications/Risks/B enefits: 32-year-old female with missed plan for suction dilation and curettage. All risk, benefits, alternatives discussed with the patient.??? Risk include but not limited to: Risk of bleeding the point of transfusion, infection, injury to surrounding tissue including bowel/bladder/uteri ne perforation, VTE, ICU admission.??? Patient aware and consented.??? Declines genetic testing. Procedure: Patient taken the operating room and placed under MAC anesthesia. Patient placed in the dorsal lithotomy position prepped and draped in the usual sterile fashion. Weighted speculum placed in posterior vagina and Lawson retractor used to visualize the cervix. Anterior lip of the cervix grasped with Allis clamp. Cervix gradually dilated. 9 mm suction curette placed through the cervical canal and removal of all products of conception was completed in a 360 degree manner. Portion of products of conception removed at cervical os using pickups. Uterus and cervix hemostatic. Allis clamp removed, weighted speculum removed. At the end of procedure all needle, lap, sponge counts were correct. Urine output: None measured Complications None 01/07/23 1156 Cosigner Signature (if applicable): CC: MARA Faye; Dr. Katharine Carrasco, Signed Normal [facility] Platelets bldOrdered By: Dr. Carrasco on 01-07-2023 Platelets (Bld) [#/Vol] 162 10*3/uL 150-450 [facility] Surgery Specimen Level Daisy 01-07-2023 Surgery Specimen Level IV ----- Patient Age/Sex Location Account Attending Physician HALIE GARCIA / [facility] [id number] Dr. Katharine Carrasco DO Specimen: [id number] Received: 01/07/23 Status: VANDANA Montiel Num: [id number] Spec Type: PROD CONC Subm Dr: Dr. Katharine Carrasco, DO HEADER OPERATION: Suction dilation and curettage PRE-OP DIAGNOSIS: Missed TISSUE SUBMITTED: Products of conception MICROSCOPIC DIAGNOSIS Endometrium, curettage: Chorionic villi, decidualized stroma and trophoblastic cells consistent with products of conception. AM:ilya 01/08/2023 MICROSCOPIC DESCRIPTION Slides are reviewed. GROSS DESCRIPTION Received in fixative is one container labeled with the patient's name and designated products of conception." The specimen consists of multiple irregular fragments of pink soft tissue that in aggregate measure 5.0 x 4.5 x 0.5 cm. tissue is not identified. German Instructor tissue is submitted in two cassettes. / SJ:ilya 01/07/2023 TC:5 CPT: 73803 Patient Age/Sex Location Account Attending Physician NAVEEDHALIE Viet / [facility] [id number] Dr. Katharine Carrasco, DO Signed (signatur e on file) Dr. Ion Mccormick, 01/08/[address] [facility] Comment on above: Performed By: #### B IAN Sanchez, L100.0100, L700.8000, L500.4050, L501.9520, L506.0400, BTS #### [facility] [address] [place], [place], [id number] Type AND Screen - PAT ONLYon 01-07-2023 ABO and Rh group Nom (Bld) Blood group O Rh(D) positive Normal [facility] Comment on above: Order Comment: Surge ry Date: 01/07/23Reason for Laboratory Test [id number] D C Performed By: #### B Laura, BPAN, L100.0100, L700.8000, L500.4050, L501.9520, L506.0400, BTS #### [facility] [address] [place], [address] Antibody Panel IDon 12-21-19 [address] C Normal [facility] Comment on above: Performed By: #### B tABS, BPAN, L100.0100, L700.8000, L500.4050, L501.9520, L506.0400, BTS #### [facility] [address] [place], [address] Type AND Screenon 12-20-2022 Ab SCREEN GEL PENDING Normal [facility] Comment on above: Order Comment: R Performed By: #### B tABS, BPAN, L100.0100, L700.8000, L500.4050, L501.9520, L506.0400, BTS #### [facility] [address] [place], [address] Absolute lymphocyte countOrd ered By: Dr. Carrasco on 12-19-2022 Lymphocytes Auto (Unsp spec) [#/Vol] 1.18 10*3/uL 0.83-4.51 [facility] Basophil percentageOrdered B y: Dr. Carrasco on 12-19-2022 Basophils/100 WBC (Bld) 0.4 % 0-1 [facility] Bilirubin [Mass/Vol] 0.50 mg/dL 0.20-1.00 [facility] Comment on above: For patients on eltr ombopag therapy, use of Dimension [place] TBIL is not recommended. Chloride [Moles/Vol] 109 mmol/L 98-107 [facility] Eosinophils/100 WBC (Bld) 0.7 % 0-5 [facility] Glucose [Mass/Vol] 101 mg/dL 74-106 [facility] Comment on above: Fasting Glucose resu lt from 100 to 125 mg/dL suggests IMPAIRED HOMEOSTASIS per A.D.A. criteria. Neutrophils (Bld) [#/Vol] 3.9 10*3/uL 2.0-7.7 [facility] Neutrophils/100 WBC (Bld) 72.2 % 47-70 [facility] Potassium [Moles/Vol] 3.2 mmol/L 3.5-5.1 [facility] Protein [Mass/Vol] 7.2 g/dL 6.4-8.2 [facility] Sodium [Moles/Vol] 143 mmol/L 136-145 [facility] WBC (Bld) [#/Vol] 5.5 10*3/uL 4.4-11.0 [facility] Blood erythrocytes count (nu mber/volume)Ordered By: Dr. Carrasco on 12-19-2022 RBC (Bld) [#/Vol] 4.55 10*6/uL 4.2-5.4 [facility] Blood hemoglobin measurement (mass/volume)Ordered By: Dr. Carrasco on 12-19-2022 Hemoglobin (Bld) [Mass/Vol] 13.6 g/dL 12.0-15.0 [facility] Blood lymphocytes/100 leukoc ytesOrdered By: Dr. Carrasco on 12-19-2022 Lymphocytes/100 WBC (Bld) 21.7 % 19-41 [facility] Blood monocytes/100 leukocyt esOrdered By: Dr. Carrasco on 12-19-2022 Monocytes/100 WBC (Bld) 4.8 % 0-10 [facility] Blood platelet mean volumeOr dered By: Dr. Carrasco on 12-19-2022 Platelet mean volume (Bld) [Entitic vol] 10.5 fL 6.2-12.0 [facility] CBC W/Diff, Automatedon 12-05 Absolute Lymph 1.18 X10 3/uL Normal 0.83-4.51 [facility] Comment on above: Performed By: #### B tABS, BPAN, L100.0100, L700.8000, L500.4050, L501.9520, L506.0400, BTS #### [facility] [address] [place], [place], [id number] Absolute Neut 3.9 X10 3/uL Normal 2.0-7.7 [facility] Comment on above: Performed By: #### B tABS, BPAN, L100.0100, L700.8000, L500.4050, L501.9520, L506.0400, BTS #### [facility] [address] [place], [address] Basophils/100 WBC (Bld) 0.4 % Normal 0-1 [facility] Comment on above: Performed By: #### B tABS, BPAN, L100.0100, L700.8000, L500.4050, L501.9520, L506.0400, BTS #### [facility] [address] [place], [address] Eosinophils/100 WBC (Bld) 0.7 % Normal 0-5 [facility] Comment on above: Performed By: #### B tABS, BPAN, L100.0100, L700.8000, L500.4050, L501.9520, L506.0400, BTS #### [facility] [address] [place], [address] Erythrocyte distribution width (RBC) [Ratio] 12.6 % Normal 11.6-14.6 [facility] Comment on above: Performed By: #### B tABS, BPAN, L100.0100, L700.8000, L500.4050, L501.9520, L506.0400, BTS #### [facility] [address] [place], [address] Hematocrit (Bld) [Volume fraction] 41.4 % Normal 37-47 [facility] Comment on above: Performed By: #### B tABS, BPAN, L100.0100, L700.8000, L500.4050, L501.9520, L506.0400, BTS #### [facility] [address] [place], [address] Hemoglobin (Bld) [Mass/Vol] 13.6 g/dL Normal 12.0-15.0 [facility] Comment on above: Performed By: #### B tABS, BPAN, L100.0100, L700.8000, L500.4050, L501.9520, L506.0400, BTS #### [facility] [address] [place], [address] IG% 0.200 Normal 0.0-0.9 [facility] Comment on above: Result Comment: IG% - Immature Granulocytes (promyelocytes, myelocytes and metamyelocytes) > 1% indicates that a LEFT SHIFT is Present. Performed By: #### B tABS, BPAN, L100.0100, L700.8000, L500.4050, L501.9520, L506.0400, BTS #### [facility] [address] [place], [address] Lymphocytes/100 WBC (Bld) 21.7 % Normal 19-41 [facility] Comment on above: Performed By: #### B tABS, BPAN, L100.0100, L700.8000, L500.4050, L501.9520, L506.0400, BTS #### [facility] [address] [place], [address] MCH (RBC) [Entitic mass] 29.9 pg Normal 27.0-32.0 [facility] Comment on above: Performed By: #### B tABS, BPAN, L100.0100, L700.8000, L500.4050, L501.9520, L506.0400, BTS #### [facility] [address] [place], [address] MCHC (RBC) [Mass/Vol] 32.9 g/dL Normal 32-36 [facility] Comment on above: Performed By: #### B tABS, BPAN, L100.0100, L700.8000, L500.4050, L501.9520, L506.0400, BTS #### [facility] [address] [place], [address] MCV (RBC) [Entitic vol] 91.0 fL Normal 81-99 [facility] Comment on above: Performed By: #### B tABS, BPAN, L100.0100, L700.8000, L500.4050, L501.9520, L506.0400, BTS #### [facility] [address] [place], [address] Monocytes/100 WBC (Bld) 4.8 % Normal 0-10 [facility] Comment on above: Performed By: #### B tABS, BPAN, L100.0100, L700.8000, L500.4050, L501.9520, L506.0400, BTS #### [facility] [address] [facility] [place], [address] Neutrophils/100 WBC (Bld) 72.2 % High 47-70 [facility] Comment on above: Performed By: #### B tABS, BPAN, L100.0100, L700.8000, L500.4050, L501.9520, L506.0400, BTS #### [facility] [address] [place], [address] Nucleated RBC (Bld) [#/Vol] 0 10*3/uL Normal 0-5 [facility] Comment on above: Performed By: #### B tABS, BPAN, L100.0100, L700.8000, L500.4050, L501.9520, L506.0400, BTS #### [facility] [address] [place], [address] Platelet mean volume (Bld) [Entitic vol] 10.5 fL Normal 6.2-12.0 [facility] Comment on above: Performed By: #### B tABS, BPAN, L100.0100, L700.8000, L500.4050, L501.9520, L506.0400, BTS #### [facility] [address] [place], [address] Platelets (Bld) [#/Vol] 211 10*3/uL Normal 150-450 [facility] Comment on above: Performed By: #### B tABS, BPAN, L100.0100, L700.8000, L500.4050, L501.9520, L506.0400, BTS #### [facility] [address] [place], [address] RBC (Bld) [#/Vol] 4.55 10*6/uL Normal 4.2-5.4 [facility] Comment on above: Performed By: #### B tABS, BPAN, L100.0100, L700.8000, L500.4050, L501.9520, L506.0400, BTS #### [facility] [address] [place], [address] RDW SD 41.4 fl Normal 35.1-43.9 [facility] Comment on above: Performed By: #### B tABS, BPAN, L100.0100, L700.8000, L500.4050, L501.9520, L506.0400, BTS #### [facility] [address] [place], [address] WBC (Bld) [#/Vol] 5.5 10*3/uL Normal 4.4-11.0 [facility] Comment on above: Performed By: #### B tABS, BPAN, L100.0100, L700.8000, L500.4050, L501.9520, L506.0400, BTS #### [facility] [address] [place], [address] Comprehensive Metabolic Prof ilon 12-19-2022 Albumin [Mass/Vol] 4.1 g/dL Normal 3.2-5.0 [facility] Comment on above: Performed By: #### B tABS, BPAN, L100.0100, L700.8000, L500.4050, L501.9520, L506.0400, BTS #### [facility] [address] [place], [address] Albumin/Globulin [Mass ratio] 1.3 {ratio} Normal 0.9-2.4 [facility] Comment on above: Performed By: #### B tABS, BPAN, L100.0100, L700.8000, L500.4050, L501.9520, L506.0400, BTS #### [facility] [address] [place], [address] ALK P 48 U/L Normal 45-117 [facility] Comment on above: Performed By: #### B tABS, BPAN, L100.0100, L700.8000, L500.4050, L501.9520, L506.0400, BTS #### [facility] [address] [place], [address] ALT [Catalytic activity/Vol] 18 U/L Normal 13-56 [facility] Comment on above: Performed By: #### B tABS, BPAN, L100.0100, L700.8000, L500.4050, L501.9520, L506.0400, BTS #### [facility] [address] [place], [address] AST [Catalytic activity/Vol] 11 U/L Low 15-37 [facility] Comment on above: Performed By: #### B tABS, BPAN, L100.0100, L700.8000, L500.4050, L501.9520, L506.0400, BTS #### [facility] [address] [place], [address] Bilirubin [Mass/Vol] 0.50 mg/dL Normal 0.20-1.00 [facility] Comment on above: Result Comment: For patients on eltrombopag therapy, use of Dimension [place] TBIL is not recommended. Performed By: #### B tABS, BPAN, L100.0100, L700.8000, L500.4050, L501.9520, L506.0400, BTS #### [facility] [address] [place], [address] BUN/CRE 15.7 RATIO Normal 10-20 [facility] Comment on above: Performed By: #### B tABS, BPAN, L100.0100, L700.8000, L500.4050, L501.9520, L506.0400, BTS #### [facility] [address] [place], [address] CA,Total 9.1 mg/dL Normal 8.5-10.1 [facility] Comment on above: Performed By: #### B tABS, BPAN, L100.0100, L700.8000, L500.4050, L501.9520, L506.0400, BTS #### [facility] [address] [place], [address] Chloride [Moles/Vol] 109 mmol/L High 98-107 [facility] Comment on above: Performed By: #### B tABS, BPAN, L100.0100, L700.8000, L500.4050, L501.9520, L506.0400, BTS #### [facility] [address] [place], [address] CO2 [Moles/Vol] 27.0 mmol/L Normal 21.0-32.0 [facility] Comment on above: Performed By: #### B tABS, BPAN, L100.0100, L700.8000, L500.4050, L501.9520, L506.0400, BTS #### [facility] [address] [place], [address] Creatinine [Mass/Vol] 0.70 mg/dL Normal 0.55-1.02 [facility] Comment on above: Result Comment: The validity of the calculated GFR GFRAA in patients over 70 years has not been determined. Clinical correlation is essential. Performed By: #### B tABS, BPAN, L100.0100, L700.8000, L500.4050, L501.9520, L506.0400, BTS #### [facility] [address] [place], [address] EST GFR - AA 126 mL/min Normal >60 [facility] Comment on above: Result Comment: Afri can [place]adian GFR Calc Performed By: #### B tABS, BPAN, L100.0100, L700.8000, L500.4050, L501.9520, L506.0400, BTS #### [facility] [address] [place], [address] GAP 7 Normal 5-15 [facility] Comment on above: Performed By: #### B tABS, BPAN, L100.0100, L700.8000, L500.4050, L501.9520, L506.0400, BTS #### [facility] [address] [place], [address] GFR/1.73 sq M.predicted among non-blacks MDRD (S/P/Bld) [Vol rate/Area] 104 mL/min/{1.73_m2} Normal >60 [facility] Comment on above: Result Comment: Non- GFR Calc Performed By: #### B tABS, BPAN, L100.0100, L700.8000, L500.4050, L501.9520, L506.0400, BTS #### [facility] [address] [place], [address] Globulin (S) [Mass/Vol] 3.1 g/dL Normal 2.2-4.2 [facility] Comment on above: Performed By: #### B tABS, BPAN, L100.0100, L700.8000, L500.4050, L501.9520, L506.0400, BTS #### [facility] [address] [place], [address] Glucose [Mass/Vol] 101 mg/dL Normal 74-106 [facility] Comment on above: Result Comment: Fast ing Glucose result from 100 to 125 mg/dL suggests IMPAIRED HOMEOSTASIS per A.D.A. criteria. Performed By: #### B tABS, BPAN, L100.0100, L700.8000, L500.4050, L501.9520, L506.0400, BTS #### [facility] [address] [place], [address] Potassium [Moles/Vol] 3.2 mmol/L Low 3.5-5.1 [facility] Comment on above: Performed By: #### B tABS, BPAN, L100.0100, L700.8000, L500.4050, L501.9520, L506.0400, BTS #### [facility] [address] [place], [address] Sodium [Moles/Vol] 143 mmol/L Normal 136-145 [facility] Comment on above: Performed By: #### B tABS, BPAN, L100.0100, L700.8000, L500.4050, L501.9520, L506.0400, BTS #### [facility] [address] [place], [address] T PROT 7.2 g/dL Normal 6.4-8.2 [facility] Comment on above: Performed By: #### B tABS, BPAN, L100.0100, L700.8000, L500.4050, L501.9520, L506.0400, BTS #### [facility] [address] [place], [address] Urea nitrogen [Mass/Vol] 11 mg/dL Normal 7-18 [facility] Comment on above: Performed By: #### B tABS, BPAN, L100.0100, L700.8000, L500.4050, L501.9520, L506.0400, BTS #### [facility] [address] [place], [address] Determination of erythrocyte mean corpuscular volume (MCV)Ordered By: Dr. Carrasco on 12-19-2022 MCV (RBC) [Entitic vol] 91.0 fL 81-99 [facility] Hematocrit Auto (Bld) [Volum e fraction]Ordered By: Dr. Carrasco on 12-19-2022 Hematocrit (Bld) [Volume fraction] 41.4 % 37-47 [facility] - Chemistry and C hemistry - challengeOrdered By: Dr. Carrasco on 12-19-2022 ALP [Catalytic activity/Vol] 48 U/L 45-117 [facility] ALT [Catalytic activity/Vol] 18 U/L 13-56 [facility] CO2 [Moles/Vol] 27.0 mmol/L 21.0-32.0 [facility] Free T4 [Mass/Vol] 0.88 ng/dL 0.76-1.46 [facility] Globulin (S) [Mass/Vol] 3.1 g/dL 2.2-4.2 [facility] Urea nitrogen/Creatinine [Mass ratio] 15.7 mg/mg 10-20 [facility] - Hematology and Cell countsOrdered By: Dr. Carrasco on 12-19-2022 Erythrocyte distribution width (RBC) [Entitic vol] 41.4 fL 35.1-43.9 [facility] Erythrocyte distribution width (RBC) [Ratio] 12.6 % 11.6-14.6 [facility] Immature granulocytes/100 WBC (Bld) 0.200 % 0.0-0.9 [facility] Comment on above: IG% - Immature Granu locytes (promyelocytes, myelocytes and metamyelocytes) > 1% indicates that a LEFT SHIFT is Present. MCH (RBC) [Entitic mass] 29.9 pg 27.0-32.0 [facility] Nucleated RBC/100 WBC (Bld) [Ratio] 0 % 0-5 [facility] MCHC Auto (RBC) [Mass/Vol]Or dered By: Dr. Carrasco on 12-19-2022 MCHC (RBC) [Mass/Vol] 32.9 g/dL 32-36 [facility] No Panel InformationOrdered By: Dr. Carrasco on 12-19-2022 Estimated GFR (MDRD) Amer 126 mL/min >60 [facility] Comment on above: GFR Calc Estimated GFR (MDRD) Non-Af Amer 104 mL/min >60 [facility] Comment on above: Non- GFR Calc Thyroid Stimulating Hormone (TSH) 1.01 uIU/mL 0.358-3.74 [facility] Platelets bldOrdered By: Dr. Carrasco on 12-19-2022 Platelets (Bld) [#/Vol] 211 10*3/uL 150-450 [facility] Serum or plasma albumin jeremi urement (mass/volume)Ordered By: Dr. Carrasco on 12-19-2022 Albumin [Mass/Vol] 4.1 g/dL 3.2-5.0 [facility] Serum or plasma albumin/glob ulin mass ratioOrdered By: Dr. Carrasco on 12-19-2022 Albumin/Globulin [Mass ratio] 1.3 {ratio} 0.9-2.4 [facility] Serum or plasma calcium jeremi urement (mass/volume)Ordered By: Dr. Carrasco on 12-19-2022 Calcium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 Complaint Patient presents with Pelvic Pain Menstrual Problem HPI: Patient is presenting today with complaint of pelvic pain and bloating Patient reports that she continues to feel off ever since her two D&C in January for missed AB (done in [place]). She saw me in January after this, had an US to follow up, done in [place] in February that showed normal uterus with [...] PM (Electronically Signed) documented in this encounter [facility] 04-11-2023 Telephone encounter Note Form atting of this note might be different from the original. Spoke with [facility] regarding US report. Will fax to the office. [facility] 04-11-2023 Miscellaneous Notes Formattin g of this note might be different from the original. Spoke with [facility] regarding US report. Will fax to the office. Spoke with medical records with [facility]. Will fax a copy of US for review. Spoke with pt. Advised not sure we received the results as I do not see them in her chart. This was completed at [facility]. Will follow up with them. Name of caller: Halie Garcia Contact phone number: [phone] Relationship to Patient: Pt Provider: Dr. Niño Practice: [facility] Chief Complaint/Reason for Call: Pt calling to get results from 02.01 visit. Pt stated she had ultrasound done at [facility] and had those faxed over to office. Please Advise. Best time of day caller can be reached: Any Patient advised that office/PCP has 24-48 business hours to return their call: Yes documented in this encounter [facility] 04-10-2023 Telephone encounter Note Form atting of this note might be different from the original. Spoke with medical records with [facility]. Will fax a copy of US for review. [facility] 04-10-2023 Miscellaneous Notes Formattin g of this note might be different from the original. Spoke with medical records with [facility]. Will fax a copy of US for review. Spoke with pt. Advised not sure we received the results as I do not see them in her chart. This was completed at [facility]. Will follow up with them. Name of caller: Halie Garcia Contact phone number: [phone] Relationship to Patient: Pt Provider: Dr. Niño Practice: [facility] Chief Complaint/Reason for Call: Pt calling to get results from 02.01 visit. Pt stated she had ultrasound done at [facility] and had those faxed over to office. Please Advise. Best time of day caller can be reached: Any Patient advised that office/PCP has 24-48 business hours to return their call: Yes documented in this encounter [facility] 04-03-2023 Telephone encounter Note Form atting of this note might be different from the original. Spoke with pt. Advised not sure we received the results as I do not see them in her chart. This was completed at [facility]. Will follow up with them. [facility] 04-02-2023 Telephone encounter Note Form atting of this note might be different from the original. Name of caller: Halie Garcia Contact phone number: [phone] Relationship to Patient: Pt Provider: Dr. Niño Practice: [facility] Chief Complaint/Reason for Call: Pt calling to get results from 02.01 visit. Pt stated she had ultrasound done at [facility] and had those faxed over to office. Please Advise. Best time of day caller can be reached: Any Patient advised that office/PCP has 24-48 business hours to return their call: Yes [facility] 02-01-2023 History of Presen t illness Narrative Halie Garcia 02/01[birth year]23 32 y.o. Primary Care Physician: Lucrecia Juarez Chief Complaint Patient presents with New Patient Annual exam HPI : Halie Garcia is a 32 y.o. female here for annual exam and follow up from [facility] last month. Gynecologic History: No LMP recorded. Menses are not regular lately Had been having irregular bleeding since Oct, passing clots. Went to [facility] and was told was . She did [...] still feeling bad so went to the [place] ED and had US that showed uterus still full of clot/possible RPOC. She had another D&C on 01/15/23 form the ED. Since then she has felt somewhat better, but is still having irregular bleeding and feels like something is inside her. She does not want to follow up with the clinic in [place]. No records available today at the time of visit. Preventative Health Testing: Date of Last Pap Smear: a few years ago, maybe [id number] per pt Abnormal Pap Smear History: remote [...] 2 SAB 07/2013 6w0d Complete 1 Term 07/10/13 37w6d 12:00 5 lb 11 oz (2.58 [...] Weight: 111 lb (50.3 kg) Height: 5' 1" (1.549 m) Body mass index is 20.97 [...] rebound or guarding, but mild diffuse tenderness. 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 for prison guard supervisor exam (general) (routine) w abnormal findings (Primary) [...] PM (Electronically Signed) documented in this encounter [facility] 01-15-2023 Discharge summary Note Date/Time January 15, 2023 10:39am [facility] Medical Records Department [address] [place] [address] Instructions for Home/Discharge Instructions 01/15/23 1039 MR#: [id number] Acct: [id number] Name: HALIE GARCIA Rep #:[id number] : 1990 32 From: Katharine walker DO PCP: MARA Lacey Status:REG S DC Discharge Instructions Diet Discharge Diet: No restrictions Activity Discharge Activity: Return to Normal Activity and May Shower May resume sexual activity in: 2 weeks Weight Bearing Status: Weight bearing as tolerated Lifting Restrictions: None Dressing / Incision Call your doctor if you observe: Fever of 101 or Higher, Change in Color, Inability to urinate, Using more than 1 pad per hour, Shortness of breath, Dizziness, Swelling in the ankles, Chest pain and Calf discomfort Follow Up Care Please Follow Up With: Katharine Carrasco DO When: 1-2 week postoperative visit Test Results: Test results from this visit will be discussed in further detail at your follow-up appointment, if applicable. Discharge Plan Admission Primary Reason for Your Visit: Dilation and curettage Attending Provider: Katharine Carrasco Primary Care Provider: Roseann Faye NP Discharge Orders/Prescriptions Prescriptions: New methylergonovine [Methergine] 0.2 mg tablet 0.2 mg PO TID 3 Days Qty: 9 0RF doxycycline monohydrate 100 mg tablet 100 mg PO BID Qty: 14 0RF promethazine 12.5 mg tablet 12.5 mg PO Q6H PRN (Reason: nausea and vomiting) Qty: 30 0RF Referrals / Follow Up: Roseann Faye NP, DROP WIRE ALIGNER-C [Primary Care Provider] - Disposition Disposition (needs filled in before D/C Order can be placed): Home, Self Care 01/15/23 1121<Electronically signed by Katharine Carrasco DO>Katharine Carrasco DO CC: DROP WIRE ALIGNER-C Roseann Faye ~ Signed [facility] Work Phone: 1(532) 442-885204-11-2023 Procedure [facility] 01-15-2023 History and physical note Author Dr. Carrasco [facility] January 15, 2023 8:59am Note Date/Time January 15, 2023 8:2 5am [facility] Medical Records Department [address] [place] [address] H&P Exam - INTERNATIONAL BANK MANAGER 01/15/23 0824 MR#: [id number] Acct: [id number] Name: HALIE GARCIA Rep #:[id number] : 1990 32 From: Katharine walker DO PCP: MARA Lacey Status:REG S DC Location: [place] [address] History and Physical Date of Admission: 01/15/23 HPI: 32-year-old female with vaginal bleeding. Patient had a suction D&C for missed on 01/07. She had minimal bleeding at the time of surgery, had some bleeding postop and recovery, however this resolved. Patient states she had minimal bleeding for a few days after surgery, however about 4 to 5 days after surgery, bleeding became heavier. She reports cramping and bleeding. Denies headache or vision changes, chest pain or shortness of breath, nausea or vomiting, fevers or chills, diarrhea constipation. INTERNATIONAL BANK MANAGER history: G5, P2 Medical history: Depression Surgical history: 1.? section 2. Suction dilation and curettage Medications: 1.? Trazodone Family history: Noncontributory Allergies: 1.? Penicillin Social history: Reports smoking, denies alcohol or drug use Review of system: Negative otherwise above Physical exam: Vitals BP 109/78, pulse 64, respiratory rate 16, oxygen saturation 98% on room air General: No acute distress HEENT: Normal cephalic/atraumatic, PERRLA Cardiorespiratory: No increased effort Abdomen: Soft, nontender Extremities: No edema Neurologic: Cranial nerves II through XII grossly intact, no focal deficits Musculoskeletal: Strength out of 5 throughout extremities Assessment/plan: 32-year-old female with vaginal bleeding status post miscarriage. ?Admit for suction dilation curettage. Doxycycline IV preoperatively. ?Ultrasound read with possible retained products of conception, however her hCG level is less than 1. Upon review of ultrasound, appears to be large amount of blood clot inside the uterus. We will proceed with dilation and curettage due to patient's symptoms and presence of blood clot in uterus. ?No evidence of infection. Patient is afebrile (and has reported no fever at home), she has no leukocytosis, uterus nontender to palpation. Will likely discharge home on prophylactic antibiotics. ?Discussed the findings of the ultrasound and hCG level with the patient. Additionally discussed that there is no evidence of infection at this time. Sheexpresses understanding of situation. Desires to proceed with surgical management. All risk, benefits, alternatives discussed with the patient.? Risk include but not limited to: Risk of bleeding the point of transfusion, infection, injury to surrounding tissue including bowel/bladder/uterine perforation, VTE, ICU admission.? Patient aware and consented.? 01/15/23 0859 <Electronically signed by Katharine Carrasco DO> Cosigner Signature (if applicable): CC: DROP WIRE ALIGNER-C Roseann Faye; Dr. Katharine Carrasco DO~ Signed [facility] Work Phone: 1(606) 957-390904-11-2023 Discharge summary Author Prince Ruth [facility] January 15, 2023 8:49am Note Date/Time January 15, 2023 12: 44am [facility] Medical Records Department [address] [place] [address] Emergency Department Summary 01/15/23 MR#: [id number] Acct: [id number] Name: HALIE GARCIA Rep #:[id number] : 1990 32 From: Claudia Anthony MD PCP: MARA Lacey Status:REG E R Location: ED HPI HPI - Female History of Present Illness Chief Complaint: Vag Bleeding Detail of Chief Complaint: Vaginal bleeding abdominal pain post D&C Informant: patient Pain Pain: Positive for Pelvic Pain Onset: Days Context: Gradual Onset Narrative Narrative: Patient presents secondary to abdominal pain and vaginal bleeding after having aD&C. She had a D&C for missed on January 07. Patient states she did passa couple large clots right after the surgery. She has been having increased pain at home and states that she is still bleeding heavily. She is estimating that she is changing her pad every 2-3 hours. There have been times that she has bled through onto her close. She has not yet called her doctor. She has not had fever or chills. [facility] Medical History Alcohol use Anxiety Asthma delivery delivered Depression Easy bruising Gastric reflux Hepatitis History of edema History of pain when walking Injury of head and neck Leg cramps Loose, teeth Marijuana use Non-smoker Substance abuse Syncope Allergy/AdvReac Type Severity Reaction Status Date / Time Penicillins Allergy Hives Verified 01/14/23 23:15 IV patch/latex AdvReac Mild Rash/welt Uncoded 01/14/23 23:15 Family History Grandmother Asthma COPD (chronic obstructive pulmonary disease) Diabetes Social History number of children: 2 current occupational status: employed 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 Smoking Status: Never smoker alcohol intake: former year quit: 2017 substance use type: marijuana and other details: Quit when found out about caffeine: Yes Type: carbonated beverages Number of servings: 1 seatbelt use: always do you feel safe at home: Yes additional social history: Edgar Trinh 11 years old ROS ROS ED Constitutional Constitutional ED: Denies chills or fever(s) ENT ENT ED: Denies rhinorrhea or sore throat Cardiovascular Cardiovascular: Reports chest pain; Denies palpitations Respiratory/Chest Respiratory/Chest: Denies cough or dyspnea Gastrointestinal Gastrointestinal: Reports abdominal pain and nausea; Denies diarrhea or vomiting Genitourinary Genitourinary ED: Reports other Details: Heavy vaginal bleeding ; Denies dysuria Musculoskeletal Musculoskeletal: Denies back pain or extremity pain Integumentary Denies Abrasions or rash Neurologic Neurologic: Denies headache(s) or weakness Psychiatric Psychiatric: Denies anxiety or depression Allergic/Immunologic Allergic/Immunologic ED: Denies lip swelling or urticaria EXAM Physical Exam Const Vital Signs: 01/14/23 23:11 01/15/23 02:27 01/15/23 06:09 Temperature 98.1 F Temperature Source Temporal Pulse Rate 98 Respiratory Rate 16 Blood Pressure 83/62 L 103/66 Blood Pressure Mean 69 78 Pulse Ox 95 97 97 Oxygen Delivery Method Room Air Room Air Room Air Positive well nourished and well developed General Appearance ED: well developed HEENT Reports normocephalic and head/scalp atraumatic Eyes PERRL and EOMs intact bilaterally Neck supple Chest Wall inspection of chest normal and palpation of chest normal Resp normal respiratory effort and clear to auscultation bilaterally Cardio regular rate and regular rhythm GI GI Narrative: Lower abdominal tenderness palpation. No guarding or rebound. Palpation: soft Narrative: Mild blood noted in the vaginal vault. Cervix is closed. Extremity normal to inspection Neuro oriented x3 and no sensory deficits noted Sensorium / Orientation: alert Motor Exam: strength 5/5 throughout Psych mental status grossly normal Skin no rashes or lesions noted MDM MDM MDM Narrative Medical decision making narrative: Patient given IV fluids on arrival. Labwork obtained to evaluate for leukocytosis, anemia, and electrolyte derangement. Given the patient's recent procedure with pain throughout the abdomen up to the diaphragm a CT scan was obtained. I do not have ultrasound available at this hour in house. Lab Data Attestation: I reviewed the patient's lab results. Labs: Laboratory Results - last 24 hr 01/15/23 01/15/23 01/15/23 01:01 01:01 01:01 WBC 5.3 RBC 3.87 L Hgb 11.6 L Hct 36.6 L MCV 94.6 MCH 30.0 MCHC 31.7 L RDW Std Deviation 44.9 H RDW Coeff of Prince 13.0 Plt Count 204 MPV 11.4 Immature Gran % (Auto) 0.200 Neut % (Auto) 58.6 Lymph % (Auto) 32.9 [place] % (Auto) 5.6 Eos % (Auto) 2.1 Baso % (Auto) 0.6 Absolute Neuts (auto) 3.1 Absolute Lymphs (auto) 1.75 Nucleated RBC % 0 Sodium 137 Potassium 3.8 Chloride 108 H Carbon Dioxide 26.0 Anion Gap 3 L BUN 16 Creatinine 0.69 Estim Creat Clear Calc 89.96 Est GFR (MDRD) Af Amer 128 Est GFR (MDRD) Non-Af 106 BUN/Creatinine Ratio 23.2 H Glucose 101 Calcium 8.8 HCG, Quant < 1 Urine Color Urine Clarity Urine pH Ur Specific [place] Urine Protein Urine Glucose (UA) Urine Ketones Urine Occult Blood Urine Nitrite Urine Bilirubin Urine Urobilinogen Ur Leukocyte Esterase Urine RBC Urine WBC Ur Squamous Epith Cells Amorphous Sediment Urine Bacteria Urine Mucus 01/15/23 01:01 WBC RBC Hgb Hct MCV MCH MCHC RDW Std Deviation RDW Coeff of Prince Plt Count MPV Immature Gran % (Auto) Neut % (Auto) Lymph % (Auto) [place] % (Auto) Eos % (Auto) Baso % (Auto) Absolute Neuts (auto) Absolute Lymphs (auto) Nucleated RBC % Sodium Potassium Chloride Carbon Dioxide Anion Gap BUN Creatinine Estim Creat Clear Calc Est GFR (MDRD) Af Amer Est GFR (MDRD) Non-Af BUN/Creatinine Ratio Glucose Calcium HCG, Quant Urine Color Straw Urine Clarity Clear Urine pH 7.0 Ur Specific [place] 1.015 Urine Protein 15 H Urine Glucose (UA) Normal Urine Ketones Negative Urine Occult Blood 250 H Urine Nitrite Negative Urine Bilirubin Negative Urine Urobilinogen Normal Ur Leukocyte Esterase 25 H Urine RBC 0-5 SEEN Urine WBC 0-5 SEEN Ur Squamous Epith Cells 0-5 SEEN Amorphous Sediment 1+ Urine Bacteria 1+ Urine Mucus 0 SEEN Radiography Diagnostic Testing: Clinical Impression(s) from Imaging Studies Abdomen/Pelvis CT 01/15/23 00:40 IMPRESSION: Thickened and/or dilated endometrium suggesting intrauterine blood products versus retained products of conception. Electronically Signed: Nawfa Dobbs MD at 2:24 EDT , Treatment and Re-Evaluation Narrative: CBC was a white count of 5.3 with a hemoglobin of 11.6. This is down 2 g from her prior labs on the third. Chemistry studies are unremarkable. Quant is lessthan 1. Urinalysis reveals no sign of infection. CT scan with IV contrast was obtained. The endometrium is thickened and dilated suggesting possible retainedproducts. The endometrium measures almost 5 cm in diameter. I spoke with Dr. Carrasco, patient's INTERNATIONAL BANK MANAGER. She would like a formal ultrasound and that is performed when ultrasound comes in in the morning. Patient be observed in the emergency room until that time. Patient will be signed over to oncoming physician to check final ultrasound and contact Dr. Carrasco with an update. Discharge Plan Triage Chief Complaint: Vag Bleeding ED Provider: Claudia Anthony Dx/Rx/DC Orders Clinical Impression: Vaginal bleeding Primary Care Provider: Roseann Faye NP Referrals: Roseann Faye NP, DROP WIRE ALIGNER-C [Primary Care Provider] - What to do if you have Problems For any increased pain, shortness of breath, bleeding, nausea or vomiting, chestpain, or any unexpected problems, contact your Primary Care Provider. Call [facility] ([phone]) or report to the closest Emergency Room. Call 911 if necessary. 01/15/23 0736 <Electronically signed by Claudia Anthony MD> Cosigner Signature (if applicable): CC: DROP WIRE ALIGNER-C Roseann Faye ~ Signed ADDENDUM by Dr. Prince Ruth MD on 01/15/23 at 0849 Patient turned over to me from Dr. Suri Mayer. Ultrasound showed retained products of conception. I discussed the patient's care with her INTERNATIONAL BANK MANAGER Dr. Katharine Carrasco. Dr. Carrasco came down the ER evaluated the patient. She plans on doing a D&C on the patient today. She has other scheduled cases the patient will be admitted to observation so shecan go to the OR For her D&C. Patient is aware and is resting comfortably at 8:45 AM. 01/15/23 0849<Electronically signed by Prince Ruth MD> Cosigner Signature (if applicable): cc: DROP WIRE ALIGNER-Erick aFye ~* Signed [facility] Work Phone: 1(367) 854-954804-11-2023 Discharge summary Author Prince Ruth [facility] January 15, 2023 8:49am Note Date/Time January 15, 2023 12: 44am [facility] Medical Records Department [address] [place] [address] Emergency Department Summary 01/15/23 MR#: [id number] Acct: [id number] Name: HALIE GARCIA Rep #:[id number] : 1990 32 From: Claudia Anthony MD PCP: MARA Lacey Status:REG E R Location: ED HPI HPI - Female History of Present Illness Chief Complaint: Vag Bleeding Detail of Chief Complaint: Vaginal bleeding abdominal pain post D&C Informant: patient Pain Pain: Positive for Pelvic Pain Onset: Days Context: Gradual Onset Narrative Narrative: Patient presents secondary to abdominal pain and vaginal bleeding after having aD&C. She had a D&C for missed on January 07. Patient states she did passa couple large clots right after the surgery. She has been having increased pain at home and states that she is still bleeding heavily. She is estimating that she is changing her pad every 2-3 hours. There have been times that she has bled through onto her close. She has not yet called her doctor. She has not had fever or chills. [facility] Medical History Alcohol use Anxiety Asthma delivery delivered Depression Easy bruising Gastric reflux Hepatitis History of edema History of pain when walking Injury of head and neck Leg cramps Loose, teeth Marijuana use Non-smoker Substance abuse Syncope Allergy/AdvReac Type Severity Reaction Status Date / Time Penicillins Allergy Hives Verified 01/14/23 23:15 IV patch/latex AdvReac Mild Rash/welt Uncoded 01/14/23 23:15 Family History Grandmother Asthma COPD (chronic obstructive pulmonary disease) Diabetes Social History number of children: 2 current occupational status: employed 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 Smoking Status: Never smoker alcohol intake: former year quit: 2018 substance use type: marijuana and other details: Quit when found out about caffeine: Yes Type: carbonated beverages Number of servings: 1 seatbelt use: always do you feel safe at home: Yes additional social history: Edgar Trinh 11 years old ROS ROS ED Constitutional Constitutional ED: Denies chills or fever(s) ENT ENT ED: Denies rhinorrhea or sore throat Cardiovascular Cardiovascular: Reports chest pain; Denies palpitations Respiratory/Chest Respiratory/Chest: Denies cough or dyspnea Gastrointestinal Gastrointestinal: Reports abdominal pain and nausea; Denies diarrhea or vomiting Genitourinary Genitourinary ED: Reports other Details: Heavy vaginal bleeding ; Denies dysuria Musculoskeletal Musculoskeletal: Denies back pain or extremity pain Integumentary Denies Abrasions or rash Neurologic Neurologic: Denies headache(s) or weakness Psychiatric Psychiatric: Denies anxiety or depression Allergic/Immunologic Allergic/Immunologic ED: Denies lip swelling or urticaria EXAM Physical Exam Const Vital Signs: 01/14/23 23:11 01/15/23 02:27 01/15/23 06:09 Temperature 98.1 F Temperature Source Temporal Pulse Rate 98 Respiratory Rate 16 Blood Pressure 83/62 L 103/66 Blood Pressure Mean 69 78 Pulse Ox 95 97 97 Oxygen Delivery Method Room Air Room Air Room Air Positive well nourished and well developed General Appearance ED: well developed HEENT Reports normocephalic and head/scalp atraumatic Eyes PERRL and EOMs intact bilaterally Neck supple Chest Wall inspection of chest normal and palpation of chest normal Resp normal respiratory effort and clear to auscultation bilaterally Cardio regular rate and regular rhythm GI GI Narrative: Lower abdominal tenderness palpation. No guarding or rebound. Palpation: soft Narrative: Mild blood noted in the vaginal vault. Cervix is closed. Extremity normal to inspection Neuro oriented x3 and no sensory deficits noted Sensorium / Orientation: alert Motor Exam: strength 5/5 throughout Psych mental status grossly normal Skin no rashes or lesions noted MDM MDM MDM Narrative Medical decision making narrative: Patient given IV fluids on arrival. Labwork obtained to evaluate for leukocytosis, anemia, and electrolyte derangement. Given the patient's recent procedure with pain throughout the abdomen up to the diaphragm a CT scan was obtained. I do not have ultrasound available at this hour in house. Lab Data Attestation: I reviewed the patient's lab results. Labs: Laboratory Results - last 24 hr 01/15/23 01/15/23 01/15/23 01:01 01:01 01:01 WBC 5.3 RBC 3.87 L Hgb 11.6 L Hct 36.6 L MCV 94.6 MCH 30.0 MCHC 31.7 L RDW Std Deviation 44.9 H RDW Coeff of Prince 13.0 Plt Count 204 MPV 11.4 Immature Gran % (Auto) 0.200 Neut % (Auto) 58.6 Lymph % (Auto) 32.9 [place] % (Auto) 5.6 Eos % (Auto) 2.1 Baso % (Auto) 0.6 Absolute Neuts (auto) 3.1 Absolute Lymphs (auto) 1.75 Nucleated RBC % 0 Sodium 137 Potassium 3.8 Chloride 108 H Carbon Dioxide 26.0 Anion Gap 3 L BUN 16 Creatinine 0.69 Estim Creat Clear Calc 89.96 Est GFR (MDRD) Af Amer 128 Est GFR (MDRD) Non-Af 106 BUN/Creatinine Ratio 23.2 H Glucose 101 Calcium 8.8 HCG, Quant < 1 Urine Color Urine Clarity Urine pH Ur Specific [place] Urine Protein Urine Glucose (UA) Urine Ketones Urine Occult Blood Urine Nitrite Urine Bilirubin Urine Urobilinogen Ur Leukocyte Esterase Urine RBC Urine WBC Ur Squamous Epith Cells Amorphous Sediment Urine Bacteria Urine Mucus 01/15/23 01:01 WBC RBC Hgb Hct MCV MCH MCHC RDW Std Deviation RDW Coeff of Prince Plt Count MPV Immature Gran % (Auto) Neut % (Auto) Lymph % (Auto) [place] % (Auto) Eos % (Auto) Baso % (Auto) Absolute Neuts (auto) Absolute Lymphs (auto) Nucleated RBC % Sodium Potassium Chloride Carbon Dioxide Anion Gap BUN Creatinine Estim Creat Clear Calc Est GFR (MDRD) Af Amer Est GFR (MDRD) Non-Af BUN/Creatinine Ratio Glucose Calcium HCG, Quant Urine Color Straw Urine Clarity Clear Urine pH 7.0 Ur Specific [place] 1.015 Urine Protein 15 H Urine Glucose (UA) Normal Urine Ketones Negative Urine Occult Blood 250 H Urine Nitrite Negative Urine Bilirubin Negative Urine Urobilinogen Normal Ur Leukocyte Esterase 25 H Urine RBC 0-5 SEEN Urine WBC 0-5 SEEN Ur Squamous Epith Cells 0-5 SEEN Amorphous Sediment 1+ Urine Bacteria 1+ Urine Mucus 0 SEEN Radiography Diagnostic Testing: Clinical Impression(s) from Imaging Studies Abdomen/Pelvis CT 01/15/23 00:40 IMPRESSION: Thickened and/or dilated endometrium suggesting intrauterine blood products versus retained products of conception. Electronically Signed: Nawaf Dobbs MD at 2:24 EDT , Treatment and Re-Evaluation Narrative: CBC was a white count of 5.3 with a hemoglobin of 11.6. This is down 2 g from her prior labs on the third. Chemistry studies are unremarkable. Quant is lessthan 1. Urinalysis reveals no sign of infection. CT scan with IV contrast was obtained. The endometrium is thickened and dilated suggesting possible retainedproducts. The endometrium measures almost 5 cm in diameter. I spoke with Dr. Carrasco, patient's INTERNATIONAL BANK MANAGER. She would like a formal ultrasound and that is performed when ultrasound comes in in the morning. Patient be observed in the emergency room until that time. Patient will be signed over to oncoming physician to check final ultrasound and contact Dr. Carrasco with an update. Discharge Plan Triage Chief Complaint: Vag Bleeding ED Provider: Claudia Anthony Dx/Rx/DC Orders Clinical Impression: Vaginal bleeding Primary Care Provider: Roseann Faye NP Referrals: Roseann Faye DROP WIRE ALIGNER, DROP WIRE ALIGNER-C [Primary Care Provider] - What to do if you have Problems For any increased pain, shortness of breath, bleeding, nausea or vomiting, chestpain, or any unexpected problems, contact your Primary Care Provider. Call [facility] ([phone]) or report to the closest Emergency Room. Call 911 if necessary. 01/15/23 0736 <Electronically signed by Claudia Anthony MD> Cosigner Signature (if applicable): CC: DROP WIRE ALIGNER-Erick Faye ~ Signed ADDENDUM by Dr. Prince Ruth MD on 01/15/23 at 0849 Patient turned over to me from Dr. Suri Mayer. Ultrasound showed retained products of conception. I discussed the patient's care with her INTERNATIONAL BANK MANAGER Dr. Katharine Carrasco. Dr. Carrasco came down the ER evaluated the patient. She plans on doing a D&C on the patient today. She has other scheduled cases the patient will be admitted to observation so shecan go to the OR For her D&C. Patient is aware and is resting comfortably at 8:45 AM. 01/15/23 0849<Electronically signed by Prince Ruth MD> Cosigner Signature (if applicable): cc: DROP WIRE ALIGNER-Erick Faye ~* Signed [facility] Work Phone: [phone] NoteHNO ID: [id number] Author: Laci Paez APRN.EMMANUEL Service: ? Author Type: Nurse Practitioner Type: [...] plan of care will be seen at [facility]. Laci Paez APRN.[facility] History of Present illness Narrative* Laci Paez APRN.EMMANUEL - 06/22/2022 5:13 PM EDT Nontoxic-appearing female presents urgent care chief complaint [...] plan of care will be seen at [facility]. Laci Paez APRN.EMMANUEL [facility] History of Past illness Narrative* Problem Noted Date Resolved Date Threatened labor, antepartum 10/22/2014 12/13/2014 Overview: October 22, 2014 Sent to [facility] for TPTL, on mag. Rec. BMZ on 10/18 and 10/19/14. SEnt home on 10/20/14. Had US and PN labs done there. US showed AGA fetus. Will wait for records. Some labs brought today. Mimi Hdez MD Anemia in 09/13/2014 12/13/2014 Short interval between pregn ancies complicating , antepartum 04/22/2014 12/13/2014 Overview: 04/22/2014She delivered her last child on April 15, 2013.TKRN History of prior with IUGR 12/13/2014 Overview: 04/22/2014 She has a history of IUGR with her last .Birthweight of child 5 lbs. 11 oz. TKRN First trimester bleeding 04/22/2014 015 Overview: 04/22/2014 Pt was seen 04/16/2014 for bleeding in .An ultrasound was done that revealed +cardiac activity. She denies any bleeding since April 19. She states that Dr. Mimi Hdez told her that she would do an ultrasound today after this appointment. Patient is offered an appointment with Dr. Hdez today for aTVUS at 3:30. She declines. She wishes to wait until her new OB appointment with Dr. Bee.TKRN History of congenital heart defect 04/22/2014 12/13/2014 Overview: 04/22/2014Patient states she was born with a hole in her heart. No surgical correction needed. Patient's not taking Plavix prior to dental procedures.TKRN Contraceptive management 07/31/2013 014 SGA (small for gestational age) 04/01/2013 06/17/2013 Overview: 04/01/13 - weekly NSTs - KK TMJ (temporomandibular joint disorder) 3 06/17/2013 Supervision of normal first 12/15/2012 06/17/2013 Overview: Boy on us Spotting in first trimester 10/27/2012 07/0 06/2013 Overview: 10/27/2012 She states she had one day of spotting in mid September. She denies ever having any pain or cramping. She is unsure if the spotting was related to prior intercourse. Discussed with Dr. Manning. Patient is to have an ultrasound at her new OB appointment this week after being financially cleared. H/O defect 10/27/2012 06/17/2013 Overview: 10/27/2012Patient states she was born with a hole in her heart. No surgical correction need. Immunization due 10/27/2012 06/17/2013 Overview: 10/27/2012Patient states her tetanus vaccine is not up-to-date Late care 10/27/2012 06/17/2013 Overview: 10/27/2012She has not had any care prior to today due to insurance issues. documented as of this encounter (statuses as of 06/22/2022) [facility] Procedure not carried out- Primary Procedure not carried out for other reasons documented in this encounter [facility] noteNo assessment information availableWOhioHealth [facility] Work Phone: Evaluation note* Diagnosis Onset Date Resolution Status Vaginal bleeding acute 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 Carrasco [facility] January 15, 2023 8:59am Note Date/Time January 15, 2023 8:2 5am [facility] Medical Records Department [address] [place] [id number] H&P Exam - INTERNATIONAL BANK MANAGER 01/15/23 0824 MR#: [id number] Acct: [id number] Name: HALIE GARCIA Rep #:[id number] : 1990 32 From: Katharine walker DO PCP: MARA Lacey Status:REG S MA Location: [place] [address] History and Physical Date of Admission: 01/15/23 HPI: 32-year-old female with vaginal bleeding. Patient had a suction D&C for missed on 01/07. She had minimal bleeding at the time of surgery, had some bleeding postop and recovery, however this resolved. Patient states she had minimal bleeding for a few days after surgery, however about 4 to 5 days after surgery, bleeding became heavier. She reports cramping and bleeding. Denies headache or vision changes, chest pain or shortness of breath, nausea or vomiting, fevers or chills, diarrhea constipation. INTERNATIONAL BANK MANAGER history: G5, P2 Medical history: Depression Surgical history: 1.? section 2. Suction dilation and curettage Medications: 1.? Trazodone Family history: Noncontributory Allergies: 1.? Penicillin Social history: Reports smoking, denies alcohol or drug use Review of system: Negative otherwise above Physical exam: Vitals BP 109/78, pulse 64, respiratory rate 16, oxygen saturation 98% on room air General: No acute distress HEENT: Normal cephalic/atraumatic, PERRLA Cardiorespiratory: No increased effort Abdomen: Soft, nontender Extremities: No edema Neurologic: Cranial nerves II through XII grossly intact, no focal deficits Musculoskeletal: Strength out of 5 throughout extremities Assessment/plan: 32-year-old female with vaginal bleeding status post miscarriage. ?Admit for suction dilation curettage. Doxycycline IV preoperatively. ?Ultrasound read with possible retained products of conception, however her hCG level is less than 1. Upon review of ultrasound, appears to be large amount of blood clot inside the uterus. We will proceed with dilation and curettage due to patient's symptoms and presence of blood clot in uterus. ?No evidence of infection. Patient is afebrile (and has reported no fever at home), she has no leukocytosis, uterus nontender to palpation. Will likely discharge home on prophylactic antibiotics. ?Discussed the findings of the ultrasound and hCG level with the patient. Additionally discussed that there is no evidence of infection at this time. Sheexpresses understanding of situation. Desires to proceed with surgical management. All risk, benefits, alternatives discussed with the patient.? Risk include but not limited to: Risk of bleeding the point of transfusion, infection, injury to surrounding tissue including bowel/bladder/uterine perforation, VTE, ICU admission.? Patient aware and consented.? 01/15/23 0859 <Electronically signed by Katharine Carrasco DO> Cosigner Signature (if applicable): CC: DROP WIRE ALIGNERSachi Faye; Dr. Katharine Carrasco, ~ Signed [facility] Work Phone: Hospital Discharge instructions Additional Instructions Thank you for trusting us with your care today! Please take Tylenol (2 pills, 650 mg) every 6 hours as needed for pain and fever control. Please return to the emergency department if your symptoms change or worsen. Specific if develop worsening vomiting, abdominal pain or uncontrolled, if you lose consciousness. Vaginal bleeding Please follow with your primary care physician for further outpatient evaluation and management.[facility] Work Phone: Summary Purpose Family History No Family History Records Found Relationship Condition Age at Onset Recorded Date/T simon grandmother Asthma Unknown Chronic obstructive pulmonary disease Unk nown Diabetes mellitus Unknown Advance Directives No Advanced Directives Records Found Advance Directive Response Recorded Date/ Time Living Will No June 22, 2022 4:23pm Power of Jewelry Sorter No June 4:23pm Advance Directive Response Recorded Date/ Time Living Will No June 22, 2022 5:23pm Power of Jewelry Sorter No June 5:23pm Advance Directive Response Recorded Date/ Time Living Will No January 15, 2023 12:21am Power of Jewelry Sorter No January 15 12:21am Advance Directive Response Recorded Date/ Time Living Will No January 19, 2023 12:16pm Power of Jewelry Sorter No January 19 12:16pm Advance Directive Response Recorded Date/ Time Living Will No November 01 8:50pm Power of Jewelry Sorter No November 01, 2023 8:50pm Chief Complaint and Reason for Visit Chief Complaint SUCTION D&C D&C Reason for Visit Vaginal bleeding Chief Complaint SUCTION D&C D&C DIZZY Reason for Visit Vaginal bleeding Chief Complaint ABD PAIN, N/V, DIZZI NESS Additional Source Comments Source Comments (unrecognize d section and content) In the event this informatio n is protected by the Federal Confidentiality of Alcohol and Drug Abuse Patient Records regulations: The Federal rules restrict any use of the information to criminally investigate or prosecute any alcohol or drug abuse patient.[facility] INFORMATION SOURCE (unrecogn ized section and content) DATE CREATED AUTHOR 07/07/2022 [facility] DATE CREATED AUTHOR AUTHOR'S ORGANIZ ATION 07/20/2023 [facility] DATE CREATED AUTHOR AUTHOR'S ORGANIZ ATION 11/08/2023 [facility] DATE CREATED AUTHOR AUTHOR'S ORGANIZ ATION 04/03/2025 [facility] Care Teams (unrecognized sec tion and content) Team Status: Active Member Role Status Dates No Primary Care Physician Family Provider Active Roseann Faye DROP WIRE ALIGNER, DROP WIRE ALIGNER-C Primary Care Provider Active Team Status: Inactive Member Role Status Dates Roseann Faye DROP WIRE ALIGNER, DROP WIRE ALIGNER-C Primary Care Provider Active Dr. Katharine Carrasco DO Attending Provider Active Team Status: Inactive Member Role Status Dates Roseann Faye DROP WIRE ALIGNER, DROP WIRE ALIGNER-C Primary Care Provider Active Dr. Joe Carrasco MD Attending Provider Active Team Status: Inactive Member Role Status Dates Roseann Faye DROP WIRE ALIGNER, DROP WIRE ALIGNER-C Primary Care Provider Active Dr. Katharine Carrasco DO Attending Provider, Referrin g Provider Active Team Status: Active Member Role Status Dates Roseann Faye NP, DROP WIRE ALIGNER-C Primary Care Provider Active Dr. Claudia Anthony MD Emergency Provider Active Dr. Katharine Carrasco DO Attending Provider Active Team Status: Inactive Member Role Status Dates Roseann Faye NP, DROP WIRE ALIGNER-C Primary Care Provider Active Dr. Claudia Anthony MD Emergency Provider Active Dr. Katharine Carrasco DO Attending Provider Active Team Status: Inactive Member Role Status Dates Roseann Faye NP, DROP WIRE ALIGNER-C Primary Care Provider Active Dr. Marcos Ray DO Emergency Provider Active Laster Hand Relationship Specialty Start Date End Date [facility] [address] [place] [facility] [address] PCP - General 02/01/23 Laster Hand Relationship Specialty Start Date End Date [facility] [address] [place] [address] [address] PCP - General 02/01/23 Laster Hand Relationship Specialty Start Date End Date [facility] [address] [place] [facility] [address] PCP - General 02/01/23 Laster Hand Relationship Specialty Start Date End Date [facility] [address] [place] [address] PCP - General 02/01/23 Laster Hand Relationship Specialty Start Date End Date [facility] [address] [place] [facility] [address] PCP - General 02/01/23 Team Status: Inactive Member Role Status Dates Roseann Faye DROP WIRE ALIGNER, DROP WIRE ALIGNER-C Primary Care Provider Active Dr. Freddy Chan , Emergency Provider Active Goals (unrecognized section and content) Goals may be documented in a n alternate sectionGoals may be documented in an alternate sectionGoals may be documented in an alternate section Reason for Visit (unrecogniz ed section and content) Reason Comments New Patient Annual exam Reason Onset Date Comments Results 04/02/2023 Reason Comments Pelvic Pain Menstrual Problem FOR RECORDS PERTAINING TO PATIENTS WHO ARE [...] BE BASED ON THE PRIMARY CLINICAL RECORDS. [employer] [facility]. provides no warranty or guarantee of the accuracy or completeness of information in this document.
== END 2025-08-29 19:52 | disposition home or self-care (01) ==
LOC: ED 19:41
PROVIDERS: Emergency Provider Emergency Medicine; PCP Nurse Practitioner Family; Visit Provider Emergency Medicine
DX: J06.9 Acute upper respiratory infection, unspecified (principal); R51.9 Headache, unspecified; M79.10 Myalgia, unspecified site; R05.9 Cough, unspecified
CPT/HCPCS: 99282